=== PATIENT | female | born 1945 | race Caucasian/White ===

== ENCOUNTER 2021-07-10 08:58 | Inpatient (IN) | payer MEDICARE, OTHER ==
[2021-07-10] MEDS ORDERED: Sodium Chloride 0.9% 1000 ML 1,000 ML IV SCH (09:45)
--- NOTE | 2021-07-10 10:12 | XRAY ---
Indication: Status post fall. Multiple contiguous axial images obtained through the head without contrast. Comparison: None Normal appearing brain parenchyma, ventricles, and bony calvarium for patient's age. Visualized paranasal sinuses and mastoid air cells are clear. Impression: Normal CT head without contrast exam.
--- NOTE | 2021-07-10 10:14 | XRAY ---
Indication: Status post fall. Multiple contiguous axial images obtained through the cervical spine. Sagittal and coronal reformatted images obtained. Comparison: None Axial images negative for acute fracture, suspicious bony lesions, or spinal canal stenosis. Minimal C4-C7 degenerative endplate spurring. Sagittal and coronal reformatted images demonstrates normal alignment. Mild C4-C7 degenerative disc space loss. No acute compression fracture, subluxation, or jumped facet. Normal appearing craniocervical junction. Visualized noncontrasted soft tissues demonstrates mild bilateral carotid calcifications and mild biapical pleural parenchymal fibrosis/scarring. Impression: 1. C4-C7 degenerative changes, bilateral carotid calcifications, and biapical pleural parenchymal fibrosis/scarring. 2. Remaining CT cervical spine is negative.
[2021-07-10 10:15] LABS: Absolute Neutrophil Ct (ANC) 5.34 (1.4-6.9); Basophil (Absolute #) 0.04 (0-0.4); Eosinophil % 0.7 % (0.00-5.0); Eosinophil (Absolute #) 0.05 (0-0.5); Hematocrit 37.7 % (35-47); Hemoglobin 12.2 gm/dl (12.0-16.0); Lymphocyte (Absolute #) 1.64 (1.0-4.6); Lymphocytes % 21.9 % (24.0-44.0); Mean Cell Volume 97.7 fl (78-100); Mean Corpuscular Hemoglobin 31.6 pg (26-32); Mean Corpuscular Hgb Concent. 32.4 g/dl (32-36); Mean Platelet Volume 10.8 fl (7.5-11.0); Monocyte (Absolute #) 0.41 (0.0-1.3); Monocytes % 5.5 % (0.0-12.0); Neutrophil % 71.4 % (36.0-66.0); Platelet Count 264 K/mm3 (150-450); Red Blood Count 3.86 M/mm3 (4.1-5.4); Red Cell Distribution Width 13.7 % (11.5-14.0); White Blood Count 7.5 K/mm3 (4.0-10.5)
[2021-07-10] MEDS ORDERED: Sodium Chloride 0.9% 1000 ML 1,000 ML ONE (10:19)
[2021-07-10 10:29] LABS: ALBUMIN 4.5 g/dL (3.5-5.0); ALKALINE PHOSPHATASE 66 U/L (38-126); ANION GAP 13.1 MEQ/L (5-15); BLOOD UREA NITROGEN 15 mg/dL (7-17); CHLORIDE 102 mmol/L (98-107); CK-Creatinine Phosphokinase 90 U/L (30-135); Carbon Dioxide 27 mmol/L (22-30); EST GLOMERULAR FILTRATION RATE > 60.0 ML/MIN; Glucose 94 mg/dL (74-106); NT PRO BNP 468 pg/mL (0-1800); Potassium 3.4 mmol/L (3.5-5.1); SGOT/AST 26 U/L (14-36); SGPT/ALT 18 U/L (0-35); SODIUM 139 mmol/L (137-145); Total Protein 7.7 g/dL (6.3-8.2)
[2021-07-10 11:55] LABS: INFLUENZA A NEGATIVE (NEGATIVE); INFLUENZA B NEGATIVE (NEGATIVE); RESPIRATORY SYNCTIAL VIRUS NEGATIVE (Negative); SARS-CoV-2 Xpert Express NEGATIVE (NEGATIVE)
--- NOTE | 2021-07-10 12:50 | ERPHSYRPT ---
- History of Present Illness Time Seen by Provider: 07/10/21 09:31 Source: patient, EMS Exam Limitations: no limitations Patient Subjective Stated Complaint: HTN-weakness Triage Nursing Assessment: Patient brought into ED via EMS and transferred to bed with assist of 2. Patient A+O X 3. Patient's skin pink, warm and dry. Patient states this am she had a syncopal episode. Patient states for the past 3 weeks she has been having issues with her blood pressure fluctuating. Patient denies pain or discomfort. Patient complains of dizziness when standing. Physician History: 76 years old female with history of orthostatic hypotension on midodrine brought in the ER with chief complaint of off-and-on falls with syncopal episodes for the last 3 weeks. She recently have changes done in her medications. Patient reports she used bathroom earlier this morning and then while going back she collapsed for unknown amount of time and found herself later lying on the floor with her walker on top of her. She was able to drag herself to the bedroom. She does not remember hitting her head. Patient feels weak fatigued and tired with lack of energy. Patient denies any chest pain palpitations or shortness of breath. Denies any numbness tingling or focal weakness. Denies vomiting or diarrhea. Witnessed: unwitnessed Prior Episodes: single episode today Timing/Duration: today Precipitating Factors: lightheadedness Context: standing, activity Loss of Consciousness: prolonged (minutes) Charcter of event(s): collapsed, became unresponsive Allergies/Adverse Reactions: mold Allergy (Verified 07/10/21 09:04) Penicillins Allergy (Verified 07/10/21 09:04) pollen extracts Allergy (Verified 07/10/21 09:04) [id number] Reductase Inhibitor Allergy (Verified 07/10/21 09:04) Home Medications: Acetaminophen [Tylenol Arthritis] 650 mg PO Q8HPRN PRN 07/10/21 [History] Aspirin 81 gm Chew [Baby Aspirin 81 mg Chew] 81 mg PO DAILY 07/10/21 [History] Calcium Carbonate/Vitamin D3 [Calcium 600-Vit D3 200 Tablet] 1 tab PO BID 07/10/21 [History] Cholecalciferol (Vitamin D3) [Vitamin D3] 5,000 unit PO DAILY 07/10/21 [History] Elderberry Fruit and Flower [Black Elderberry 575 mg Cap] 1 each PO DAILY 07/10/21 [History] Fludrocortisone Acetate 0.1 mg PO DAILY 07/10/21 [History] Hydroxychloroquine Sulfate 200 mg PO BID 07/10/21 [History] Loratadine 10 mg [Claritin 10 mg] 10 tab PO DAILY 07/10/21 [History] Methylphenidate 5 mg [Ritalin 5 MG] 10 mg PO DAILY 07/10/21 [History] Midodrine HCl 5 mg [Proamatine 5 mg] 5 mg PO 1200,1700 07/10/21 [History] Midodrine HCl 5 mg [Proamatine 5 mg] 10 mg PO DAILY 07/10/21 [History] Multivit-Min/Ascorbic/Herb 124 [Airborne Chewable Tablet] 1 each PO DAILY 07/10/21 [History] Multivit-Min/FA/Lycopen/Lutein [Centrum Silver Tablet] 1 each PO DAILY 07/10/21 [History] Trolamine Salicylate [Aspercreme] 1 applic TP DAILY 07/10/21 [History] Hx Influenza Vaccination/Date Given: No Hx Pneumococcal Vaccination/Date Given: No Immunizations Up to Date: Yes Travel Risk - International Travel Have you traveled outside of the country in past 3 weeks: No - Coronavirus Screening Are you exhibiting any of the following symptoms?: No Close contact with a COVID-19 positive Pt in past 14-21 Days: No - Vaccine Status Have you recieved a Covid-19 vaccination: Yes Project Administrator: Moderna - Vaccination Dates Date of 2cond Vaccination (if applicable): July 2020 - Past Medical History Cardiac History: High Cholesterol Musculoskeletal History: Fibromyalgia, Osteoporosis GI Medical History: Diverticulitis Other Medical History: Anemia, Essential tremor, chronic low back pain, metabolic disorder, Myoclonus, Primary generalized hyperthrophic osteoarthrosis, Raynauds disease, sicca syndrome, lupus - Past Surgical History Past Surgical History: Yes Neuro Surgical History: No Pertinent History Cardiac: No Pertinent History Gastrointestinal: No Pertinent History Genitourinary: No Pertinent History Musculoskeletal: No Pertinent History Female Surgical History: Hysterectomy - Social History Smoking Status: Never smoker Exposure to second hand smoke: No Drug Use: none Patient Lives Alone: Yes (family staying with pt) - Review of Systems Constitutional: Fatigue, Weakness Eyes: No Symptoms Ears, Nose, & Throat: No Symptoms Respiratory: No Symptoms Cardiac: No Symptoms Abdominal/Gastrointestinal: No Symptoms Genitourinary Symptoms: No Symptoms Musculoskeletal: No Symptoms Skin: No Symptoms Neurological: Dizziness Psychological: No Symptoms, Hallucinations Hematologic/Lymphatic: No Symptoms Immunological/Allergic: No Symptoms Physical Exam - Nursing Vital Signs Nursing Vital Signs: Initial Vital Signs Temperature 98.5 F 07/10/21 09:12 Pulse Rate 88 07/10/21 09:12 Respiratory Rate 17 07/10/21 09:12 Blood Pressure 160/95 07/10/21 09:12 O2 Sat by Pulse Oximetry 98 07/10/21 09:12 Pain Scale Pain Intensity 0 - Carlos Coma Scale Best Eye Response (Jack): (4) open spontaneously Best Verbal Response (Carlos): (5) oriented Best Motor Response (Jack): (6) obeys commands Jack Total: 15 - Physical Exam General Appearance: no apparent distress, alert Eye Exam: bilateral eye: normal inspection, PERRL, EOMI Ears, Nose, Throat Exam: normal ENT inspection, TMs normal, pharynx normal, moist mucous membranes Neck Exam: normal inspection, non-tender, supple, full range of motion Respiratory: normal breath sounds, lungs clear Cardiovascular: regular rate/rhythm, normal heart sounds Gastrointestinal: soft, normal bowel sounds, No tenderness Back Exam: normal inspection, normal range of motion Extremity Exam: normal inspection, normal range of motion Mental Status: alert, oriented x 3, 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 issue clerk Exam: normal speech, PERRL, No facial asymmetry Coordination/Gait: normal finger to nose, normal cerebellar function Motor/Sensory: no motor deficit, no sensory deficit, no pronator drift, negative Babinski's sign DTR: bicep (R): 2+, bicep (L): 2+, knee (R): 2+, knee (L): 2+ Skin Exam: normal color SpO2 Interpretation: normal SpO2: 98 O2 Delivery: Room Air - Course EKG Interpreted by Me: RATE (98), Sinus Rhythm, NORMAL AXIS, prolonged QT interval, Q-wave Ordered Tests: Active Orders 24 hr Category Date Time Status Bedrest ROUTINE Activity 07/10/21 13:05 Active Up With Assistance ROUTINE Activity 07/10/21 13:05 Active Certified Master Locksmith STAT Care 07/10/21 09:33 Completed Code Status Order ROUTINE Care 07/10/21 13:05 Active EKG-ER Only STAT Care 07/10/21 09:32 Completed Fall Protocol Q1H Care 07/10/21 13:05 Active IV Care Q6H Care 07/10/21 13:05 Active IV Insertion STAT Care 07/10/21 09:32 Completed Neuro Checks Q4H Care 07/10/21 13:05 Active Orthostatic Vital Signs STAT Care 07/10/21 09:[address] in Observation ROUTINE Care 07/10/21 13:05 Active Pulse Oximetry (ED) STAT Care 07/10/21 09:32 Completed Dale Trejo, Apply ROUTINE Care 07/10/21 13:05 Active Weight,Daily 0600 Care 07/10/21 13:05 Active Tele-Health Consult ROUTINE Cons 07/10/21 11:59 Completed House Regular Diet Diet 07/10/21 Dinner Active CERVICAL SPINE WO CONTRAST [CT] Stat Exams 07/10/21 09:32 Completed CHEST 1 VIEW (PORTABLE) Stat Exams 07/10/21 09:33 Taken HEAD WITHOUT CONTRAST [CT] Stat Exams 07/10/21 09:32 Completed CBC W DIFF AM.LAB Lab 07/11/21 04:00 Ordered CBC W DIFF Stat Lab 07/10/21 08:36 Completed CK-Creatinine Phosphokinase Stat Lab 07/10/21 08:36 Completed CMP AM.LAB Lab 07/11/21 04:00 Ordered CMP Stat Lab 07/10/21 08:36 Completed MAG [MAGNESIUM] Stat Lab 07/10/21 08:36 Completed NT PRO BNP Stat Lab 07/10/21 08:36 Completed TROPONIN Q3H Lab 07/10/21 08:36 Completed TROPONIN Q3H Lab 07/10/21 12:59 Completed TROPONIN Q3H Lab 07/10/21 15:43 Completed TROPONIN Q3H Lab 07/10/21 19:00 Completed TROPONIN Q3H Lab 07/10/21 21:45 Ordered Transfer Order Routine Transfer 07/10/21 Completed Medication Summary Generic Name Dose Route Start Last Admin Trade Name Freq PRN Reason Stop Dose Admin Acetaminophen 650 mg 07/10/21 13:05 07/10/21 14:16 Acetaminophen 325 Mg Tablet PO 08/09/21 13:04 650 mg Q4H PRN PRN Administration PAIN AND/OR FEVER Aspirin 81 mg 07/10/21 18:00 02/10/22 18:02 Aspirin 81 Mg Tablet.Ec PO 08/09/21 17:59 81 mg DAILY KRISTYN Administration Calcium Carbonate 1 tab 07/10/21 22:00 Calcium Carbonate 500 Mg/Vitamin D 1 Tab Tablet PO 08/09/21 21:59 BID KRISTYN Cholecalciferol 5,000 unit 07/10/21 18:00 07/10/21 18:03 Cholecalciferol (Vitamin D3) 1000 Unit Tablet PO 08/09/21 17:59 5,000 unit DAILY KRISTYN Administration Loratadine 10 mg 07/10/21 18:00 07/10/21 18:03 Loratadine 10 Mg Tablet PO 08/09/21 17:59 10 mg DAILY KRISTYN Administration Methylphenidate HCl 10 mg 07/11/21 10:00 Methylphenidate 5 Mg Tab PO 07/16/21 09:59 DAILY KRISTYN Midodrine 5 mg 07/10/21 18:00 07/10/21 18:03 Midodrine Hcl 5 Mg Tablet PO 08/09/21 17:59 5 mg 1200,1700 KRISTYN Administration Midodrine 10 mg 07/11/21 08:00 Midodrine Hcl 5 Mg Tablet PO 08/10/21 07:59 0800 [facility] Miscellaneous Information 1 each 07/10/21 17:30 Medication Intervention 1 Each Each PO 08/09/21 17:29 .RN TO CHECK ON [facility] Multivitamins Therapeutic 1 tab 07/10/21 18:00 07/10/21 18:03 Multivitamins,Therapeutic 1 Tab Tab PO 08/09/21 17:59 1 tab DAILY KRISTYN Administration Hydroxychloroquine 1 each 07/10/21 22:00 200mg Tablet PO 08/09/21 21:59 BID KRISTYN Non-Formulary Medication 1 each 07/11/21 10:00 Non-Formulary Drug 1 Each Each PO 08/10/21 09:59 DAILY KRISTYN Non-Formulary Medication 2 each 07/10/21 22:00 Non-Formulary Drug 1 Each Each PO 08/09/21 21:59 HS [facility] Ondansetron HCl 4 mg 07/10/21 13:05 Ondansetron Hcl 4 Mg/2 Ml Vial IV 08/09/21 13:04 Q6H PRN PRN NAUSEA/VOMITING Pantoprazole Sodium 40 mg 07/10/21 14:00 07/10/21 14:16 Pantoprazole 40 Mg Vial IV 08/09/21 13:59 40 mg Q24H10 KRISTYN Administration Trolamine Salicylate 0 gm 07/11/21 10:00 07/10/21 18:06 Trolamine Salicylate 90 Gm Cream TP 08/10/21 09:59 90 gm DAILY KRISTYN Administration Discontinued Medications Generic Name Dose Route Start Last Admin Trade Name Freq PRN Reason Stop Dose Admin Albuterol/Ipratropium 3 ml 07/10/21 13:05 Ipratropium/Albuterol Sulfate 3 Ml Ampul.Neb IH 08/09/21 13:04 Q4HPRN PRN SHORTNESS OF BREATH/WHEEZING Sodium Chloride 1,000 mls @ 125 mls/hr 07/10/21 09:45 07/10/21 10:20 Sodium Chloride 0.9% 1000 Ml IV 08/09/21 09:44 125 mls/hr .Q8H KRISTYN Administration Sodium Chloride Confirm 07/10/21 10:19 Sodium Chloride 0.9% 1000 Ml Administered 07/10/21 10:20 Dose 1,000 mls @ ud .ROUTE .STK-MED ONE Melatonin 1.5 mg 07/10/21 17:25 Melatonin 3 Mg Tablet PO 08/09/21 17:24 HS PRN PRN INSOMNIA Lab/Rad Data: Laboratory Result Diagrams 07/10/21 08:36 07/10/21 08:36 Laboratory Results 07/10/21 07/10/21 07/10/21 Range/Units 12:59 11:13 08:36 WBC (4.0-10.5) K/mm3 RBC (4.1-5.4) M/mm3 Hgb (12.0-16.0) gm/dl Hct (35-47) % MCV (78-100) fl MCH (26-32) pg MCHC (32-36) g/dl RDW (11.5-14.0) % Plt Count (150-450) K/mm3 MPV (7.5-11.0) fl Gran % (36.0-66.0) % Eos # (Auto) (0-0.5) Absolute Lymphs (auto) (1.0-4.6) Absolute Monos (auto) (0.0-1.3) Lymphocytes % (24.0-44.0) % Monocytes % (0.0-12.0) % Eosinophils % (0.00-5.0) % Basophils % (0.0-0.4) % Absolute Granulocytes (1.4-6.9) Basophils # (0-0.4) Sodium (137-145) mmol/L Potassium (3.5-5.1) mmol/L Chloride (98-107) mmol/L Carbon Dioxide (22-30) mmol/L Anion Gap (5-15) MEQ/L BUN (7-17) mg/dL Creatinine (0.52-1.04) mg/dL Estimated GFR ML/MIN Glucose (74-106) mg/dL Calcium (8.4-10.2) mg/dL Magnesium (1.6-2.3) mg/dL Total Bilirubin (0.2-1.3) mg/dL AST (14-36) U/L ALT (0-35) U/L Alkaline Phosphatase (38-126) U/L Creatine Kinase (30-135) U/L Troponin I < 0.012 < 0.012 (0.000-0.034) ng/mL NT-Pro-B Natriuret Pep (0-1800) pg/mL Serum Total Protein (6.3-8.2) g/dL Albumin (3.5-5.0) g/dL Influenza Type A Ag NEGATIVE (NEGATIVE) Influenza Type B Ag NEGATIVE (NEGATIVE) RSV (PCR) NEGATIVE (Negative) SARS-CoV-2 (PCR) NEGATIVE (NEGATIVE) 07/10/21 07/10/21 07/10/21 Range/Units 08:36 08:36 08:36 WBC 7.5 (4.0-10.5) K/mm3 RBC 3.86 L (4.1-5.4) M/mm3 Hgb 12.2 (12.0-16.0) gm/dl Hct 37.7 (35-47) % MCV 97.7 (78-100) fl MCH 31.6 (26-32) pg MCHC 32.4 (32-36) g/dl RDW 13.7 (11.5-14.0) % Plt Count 264 (150-450) K/mm3 MPV 10.8 (7.5-11.0) fl Gran % 71.4 H (36.0-66.0) % Eos # (Auto) 0.05 (0-0.5) Absolute Lymphs (auto) 1.64 (1.0-4.6) Absolute Monos (auto) 0.41 (0.0-1.3) Lymphocytes % 21.9 L (24.0-44.0) % Monocytes % 5.5 (0.0-12.0) % Eosinophils % 0.7 (0.00-5.0) % Basophils % 0.5 (0.0-0.4) % Absolute Granulocytes 5.34 (1.4-6.9) Basophils # 0.04 (0-0.4) Sodium 139 (137-145) mmol/L Potassium 3.4 L (3.5-5.1) mmol/L Chloride 102 (98-107) mmol/L Carbon Dioxide 27 (22-30) mmol/L Anion Gap 13.1 (5-15) MEQ/L BUN 15 (7-17) mg/dL Creatinine 0.80 (0.52-1.04) mg/dL Estimated GFR > 60.0 ML/MIN Glucose 94 (74-106) mg/dL Calcium 9.0 (8.4-10.2) mg/dL Magnesium 2.2 (1.6-2.3) mg/dL Total Bilirubin 0.50 (0.2-1.3) mg/dL AST 26 (14-36) U/L ALT 18 (0-35) U/L Alkaline Phosphatase 66 (38-126) U/L Creatine Kinase 90 (30-135) U/L Troponin I (0.000-0.034) ng/mL NT-Pro-B Natriuret Pep 468 (0-1800) pg/mL Serum Total Protein 7.7 (6.3-8.2) g/dL Albumin 4.5 (3.5-5.0) g/dL Influenza Type A Ag (NEGATIVE) Influenza Type B Ag (NEGATIVE) RSV (PCR) (Negative) SARS-CoV-2 (PCR) (NEGATIVE) - Progress Progress: improved Progress Note: 07/10/21 12:49 Patient has positive orthostatics in the ER. Given fluids. CT head and cervical spine negative. EKG showed sinus rhythm without any acute ischemic changes. Negative initial troponin. Grossly unremarkable chemistries except for mildly low potassium. Discussed with Dr. Looney, recommended neuro consult which is obtained in the ER and do not think patient has any neuro cause of her symptoms and more of related to orthostasis. Patient is admitted for observation. \ Discussed with : Nancy Will see patient in: hospital (observation) Counseled pt/family regarding: lab results, diagnosis, need for follow-up - Departure Departure Disposition: Observation Clinical Impression: Syncope and collapse, Orthostatic hypotension Condition: Stable Critical Care Time: No
[2021-07-10] MEDS ORDERED: DUONEB 0.5-3 MG/3 ml Neb IH PRN (13:05)
[2021-07-10] MEDS ORDERED: Zofran 4 MG/2 ML VIAL IV PRN (13:05)
[2021-07-10] MEDS: TYLENOL 325 MG PO PRN (14:16)
[2021-07-10] MEDS: PROTONIX 40 MG IV IV SCH (14:16)
[2021-07-10] MEDS ORDERED: MELATONIN 1 MG PO PRN (17:18)
[2021-07-10] MEDS ORDERED: MELATONIN PO PRN (17:25)
[2021-07-10] MEDS ORDERED: MEDICATION INTERVENTION PO SCH (17:30)
[2021-07-10] MEDS ORDERED: PROAMATINE 5 MG PO SCH (18:00)
[2021-07-10] MEDS: ECOTRIN 81 MG PO SCH (18:02)
[2021-07-10] MEDS: THERAGRAN MULTIVITAMIN PO SCH (18:03)
[2021-07-10] MEDS: VITAMIN D PO SCH (18:03)
[2021-07-10] MEDS: CLARITIN 10 MG PO SCH (18:03)
[2021-07-10] MEDS: [UNRECOGNIZED DRUG - OTHER] TP SCH (18:06)
[2021-07-10] MEDS ORDERED: NON-FORMULARY ITEM (Calcium Carbonate/Vitamin D3 [Calcium 600-Vit D3 200 Tablet] 1 EACH Ta PO SCH (22:00)
[2021-07-10] MEDS ORDERED: NON-FORMULARY ITEM (Hydroxychloroquine Sulfate [Hydroxychloroquine Sulfate] 200 MG Tablet) PO SCH (22:00)
[2021-07-10] MEDS ORDERED: NON-FORMULARY ITEM PO SCH (22:00)
[2021-07-10] MEDS: NON-FORMULARY ITEM PO SCH (22:07)
[2021-07-10] MEDS: Calcium 500MG W/Vit D Tablet PO SCH (22:07)
[2021-07-11 05:17] LABS: Absolute Neutrophil Ct (ANC) 4.06 (1.4-6.9); Basophil (Absolute #) 0.05 (0-0.4); Eosinophil % 1.8 % (0.00-5.0); Eosinophil (Absolute #) 0.12 (0-0.5); Hematocrit 33.8 % (35-47); Hemoglobin 10.8 gm/dl (12.0-16.0); Lymphocyte (Absolute #) 1.89 (1.0-4.6); Lymphocytes % 28.9 % (24.0-44.0); Mean Cell Volume 98.5 fl (78-100); Mean Corpuscular Hemoglobin 31.5 pg (26-32); Mean Platelet Volume 10.8 fl (7.5-11.0); Monocyte (Absolute #) 0.42 (0.0-1.3); Monocytes % 6.4 % (0.0-12.0); Neutrophil % 62.1 % (36.0-66.0); Platelet Count 226 K/mm3 (150-450); Red Blood Count 3.43 M/mm3 (4.1-5.4); Red Cell Distribution Width 13.8 % (11.5-14.0); White Blood Count 6.5 K/mm3 (4.0-10.5)
[2021-07-11 05:37] LABS: ALBUMIN 3.9 g/dL (3.5-5.0); ALKALINE PHOSPHATASE 52 U/L (38-126); ANION GAP 8.9 MEQ/L (5-15); BLOOD UREA NITROGEN 13 mg/dL (7-17); CHLORIDE 104 mmol/L (98-107); Calcium 8.9 mg/dL (8.4-10.2); Carbon Dioxide 27 mmol/L (22-30); Creatinine 1 0.73 mg/dL (0.52-1.04); EST GLOMERULAR FILTRATION RATE > 60.0 ML/MIN; Glucose 90 mg/dL (74-106); Potassium 3.1 mmol/L (3.5-5.1); SGOT/AST 24 U/L (14-36); SGPT/ALT 15 U/L (0-35); SODIUM 137 mmol/L (137-145); Total Protein 6.8 g/dL (6.3-8.2)
[2021-07-11] MEDS: TYLENOL 325 MG PO PRN ×2 (06:00→17:03)
[2021-07-11 06:28] LABS: Vitamin B12 796 pg/mL (239-931)
[2021-07-11] MEDS ORDERED: PROAMATINE 5 MG PO SCH (08:00)
[2021-07-11] MEDS ORDERED: MULTIVIT MIN PO SCH (10:00)
[2021-07-11] MEDS ORDERED: [UNRECOGNIZED DRUG - OTHER] PO SCH (10:00)
[2021-07-11] MEDS ORDERED: NON-FORMULARY ITEM (Multivit-Min/Fa/Lycopen/Lutein [Centrum Silver Tablet] 1 EACH Tablet) PO SCH (10:00)
[2021-07-11] MEDS ORDERED: [UNRECOGNIZED DRUG - OTHER] PO SCH (10:00)
[2021-07-11] MEDS ORDERED: CHOLECALCIFEROL 125 MCG PO SCH (10:00)
[2021-07-11] MEDS ORDERED: ELDERBERRY FRUIT AND FLOWER PO SCH (10:00)
[2021-07-11] MEDS ORDERED: FLORINEF PO SCH (10:00)
[2021-07-11] MEDS ORDERED: K-LYTE 25 MEQ PO ONE (10:05)
[2021-07-11] MEDS: [UNRECOGNIZED DRUG - OTHER] TP SCH (10:10)
[2021-07-11] MEDS: ECOTRIN 81 MG PO SCH (10:11)
[2021-07-11] MEDS: Calcium 500MG W/Vit D Tablet PO SCH ×2 (10:11→21:11)
[2021-07-11] MEDS: CLARITIN 10 MG PO SCH (10:11)
[2021-07-11] MEDS: NON-FORMULARY ITEM PO SCH ×2 (10:11→21:14)
[2021-07-11] MEDS: PATIENT OWN MEDICATION PO SCH ×2 (10:12→21:11)
[2021-07-11] MEDS: Ritalin 5 MG PO SCH (10:12)
[2021-07-11] MEDS: THERAGRAN MULTIVITAMIN PO SCH (10:12)
[2021-07-11] MEDS: PROTONIX 40 MG IV IV SCH (10:12)
--- NOTE | 2021-07-11 10:12 | PCM.HP ---
History of Present Illness - Chief Complaint Chief Complaint: Syncope and collapse History of Present Illness: is a 76 year old female patient of mine admitted through ER for syncope/falls. She has multiple satnam issues including Lupus,SICCA,Raynauds,Myoclonus,chronic anemia,chronic LBP and Orthostatic Hypotension on Midodrine. She is followed by Test Lead Dr Herrera. Patient reports day before admission her B/P-pulse readings were lying down 141/80-86,seated 162/91-87 standing 92/56-101. Patient states she is taking her meds as prescribed. Patient denies any focal neuro changes or headache or fever or recent illness. - Review of Systems Constitutional: Fatigue, Weakness Eyes: No Symptoms Ears, Nose, & Throat: No Symptoms Respiratory: No Symptoms Cardiac: Syncope, Orthopnea Abdominal/Gastrointestinal: No Symptoms Genitourinary Symptoms: No Symptoms Musculoskeletal: Arthralgias, Back Pain (chronic) Skin: No Symptoms Neurological: Tremors (chronic,episodic) Medications & Allergies Home Medications: Home Medication List Acetaminophen [Tylenol Arthritis] 650 mg PO Q8HPRN PRN 07/10/21 [History Confirmed 07/10/21] Aspirin 81 gm Chew [Baby Aspirin 81 mg Chew] 81 mg PO DAILY 07/10/21 [History Confirmed 07/10/21] Calcium Carbonate/Vitamin D3 [Calcium 600-Vit D3 200 Tablet] 1 tab PO BID 07/10/21 [History Confirmed 07/10/21] Cholecalciferol (Vitamin D3) [Vitamin D3] 5,000 unit PO DAILY 07/10/21 [History Confirmed 07/10/21] Elderberry Fruit and Flower [Black Elderberry 575 mg Cap] 1 each PO DAILY 07/10/21 [History Confirmed 07/10/21] Fludrocortisone Acetate 0.1 mg PO DAILY 07/10/21 [History Confirmed 07/10/21] Hydroxychloroquine Sulfate 200 mg PO BID 07/10/21 [History Confirmed 07/10/21] Loratadine 10 mg [Claritin 10 mg] 10 tab PO DAILY 07/10/21 [History Confirmed 07/10/21] Methylphenidate 5 mg [Ritalin 5 MG] 10 mg PO DAILY 07/10/21 [History Confirmed 07/10/21] Midodrine HCl 5 mg [Proamatine 5 mg] 10 mg PO TID 07/10/21 [History Confirmed 07/10/21] Multivit-Min/Ascorbic/Herb 124 [Airborne Chewable Tablet] 1 each PO DAILY 07/10/21 [History Confirmed 07/10/21] Multivit-Min/FA/Lycopen/Lutein [Centrum Silver Tablet] 1 each PO DAILY 07/10/21 [History Confirmed 07/10/21] Trolamine Salicylate [Aspercreme] 1 applic TP DAILY 07/10/21 [History Confirmed 07/10/21] Allergies/Adverse Reactions: Allergies Allergy/AdvReac Type Severity Reaction Status Date / Time mold Allergy Verified 07/10/21 09:04 Penicillins Allergy Verified 07/10/21 09:04 pollen extracts Allergy Verified 07/10/21 09:04 [id number] Reductase Allergy Verified 07/10/21 09:04 Inhibitor - Past Medical History Past Medical History: Yes Neurological History: No Pertinent History ENT History: No Pertinent History Cardiac History: High Cholesterol Respiratory History: No Pertinent History Endocrine Medical History: No Pertinent History Musculoskelatal History: Fibromyalgia, Osteoporosis GI Medical History: Diverticulitis History: No Pertinent History Pyscho-Social History: No Pertinent History Reproductive Disorders: No Pertinent History Comment: Anemia, Essential tremor, chronic low back pain, metabolic disorder, Myoclonus, Primary generalized hyperthrophic osteoarthrosis, Raynauds disease, sicca syndrome, lupus - Past Surgical History Past Surgical History: Yes Neuro Surgical History: No Pertinent History Cardiac History: No Pertinent History Respiratory Surgery: No Pertinent History GI Surgical History: No Pertinent History Genitourinary Surgical Hx: No Pertinent History Musculskeletal Surgical Hx: No Pertinent History Female Surgical History: Hysterectomy - Social History Smoking Status: Never smoker Exposure to second hand smoke: No Alcohol: None Drug Use: none - Physical Exam Vital Signs: Vital Signs - 24 hr Temp Pulse Resp BP Pulse Ox 07/11/21 08:00 97.7 F 85 18 136/82 96 07/11/21 04:00 97.5 F 102 H 18 162/87 98 07/11/21 00:00 97.8 F 80 19 148/83 96 07/10/21 21:47 98 07/10/21 20:00 20 07/10/21 19:47 97.5 F 93 H 20 108/59 95 07/10/21 16:00 97.7 F 91 H 16 130/74 95 07/10/21 13:08 97.9 F 92 H 20 146/79 98 07/10/21 12:04 98 H 18 141/82 98 07/10/21 11:55 97 H 18 169/101 99 07/10/21 10:36 89 18 163/92 97 General Appearance: no apparent distress, anxiety Neurologic Exam: alert, oriented x 3, cooperative, investigation division captain II-XII nml as tested Eye Exam: eyes nml inspection Ears, Nose, Throat Exam: normal ENT inspection, moist mucous membranes Neck Exam: normal inspection Respiratory Exam: normal breath sounds Cardiovascular Exam: regular rate/rhythm Gastrointestinal/Abdomen Exam: soft (nontender) Pelvic Exam: not done Rectal Exam: not done Back Exam: normal inspection Extremity Exam: normal inspection Skin Exam: normal color, warm, dry Results - Labs Lab/Micro Results: Lab Results-Last 24 Hours 07/10/21 07/10/21 07/10/21 Range/Units 08:36 08:36 08:36 WBC 7.5 (4.0-10.5) K/mm3 RBC 3.86 L (4.1-5.4) M/mm3 Hgb 12.2 (12.0-16.0) gm/dl Hct 37.7 (35-47) % MCV 97.7 (78-100) fl MCH 31.6 (26-32) pg MCHC 32.4 (32-36) g/dl RDW 13.7 (11.5-14.0) % Plt Count 264 (150-450) K/mm3 MPV 10.8 (7.5-11.0) fl Gran % 71.4 H (36.0-66.0) % Eos # (Auto) 0.05 (0-0.5) Absolute Lymphs (auto) 1.64 (1.0-4.6) Absolute Monos (auto) 0.41 (0.0-1.3) Lymphocytes % 21.9 L (24.0-44.0) % Monocytes % 5.5 (0.0-12.0) % Eosinophils % 0.7 (0.00-5.0) % Basophils % 0.5 (0.0-0.4) % Absolute Granulocytes 5.34 (1.4-6.9) Basophils # 0.04 (0-0.4) Sodium 139 (137-145) mmol/L Potassium 3.4 L (3.5-5.1) mmol/L Chloride 102 (98-107) mmol/L Carbon Dioxide 27 (22-30) mmol/L Anion Gap 13.1 (5-15) MEQ/L BUN 15 (7-17) mg/dL Creatinine 0.80 (0.52-1.04) mg/dL Estimated GFR > 60.0 ML/MIN Glucose 94 (74-106) mg/dL Calcium 9.0 (8.4-10.2) mg/dL Magnesium 2.2 (1.6-2.3) mg/dL Total Bilirubin 0.50 (0.2-1.3) mg/dL AST 26 (14-36) U/L ALT 18 (0-35) U/L Alkaline Phosphatase 66 (38-126) U/L Creatine Kinase 90 (30-135) U/L Troponin I (0.000-0.034) ng/mL NT-Pro-B Natriuret Pep 468 (0-1800) pg/mL Serum Total Protein 7.7 (6.3-8.2) g/dL Albumin 4.5 (3.5-5.0) g/dL Vitamin B12 (239-931) pg/mL TSH 3rd Generation (0.47-4.68) mIU/L Influenza Type A Ag (NEGATIVE) Influenza Type B Ag (NEGATIVE) RSV (PCR) (Negative) SARS-CoV-2 (PCR) (NEGATIVE) 07/10/21 07/10/21 07/10/21 Range/Units 08:36 11:13 12:59 WBC (4.0-10.5) K/mm3 RBC (4.1-5.4) M/mm3 Hgb (12.0-16.0) gm/dl Hct (35-47) % MCV (78-100) fl MCH (26-32) pg MCHC (32-36) g/dl RDW (11.5-14.0) % Plt Count (150-450) K/mm3 MPV (7.5-11.0) fl Gran % (36.0-66.0) % Eos # (Auto) (0-0.5) Absolute Lymphs (auto) (1.0-4.6) Absolute Monos (auto) (0.0-1.3) Lymphocytes % (24.0-44.0) % Monocytes % (0.0-12.0) % Eosinophils % (0.00-5.0) % Basophils % (0.0-0.4) % Absolute Granulocytes (1.4-6.9) Basophils # (0-0.4) Sodium (137-145) mmol/L Potassium (3.5-5.1) mmol/L Chloride (98-107) mmol/L Carbon Dioxide (22-30) mmol/L Anion Gap (5-15) MEQ/L BUN (7-17) mg/dL Creatinine (0.52-1.04) mg/dL Estimated GFR ML/MIN Glucose (74-106) mg/dL Calcium (8.4-10.2) mg/dL Magnesium (1.6-2.3) mg/dL Total Bilirubin (0.2-1.3) mg/dL AST (14-36) U/L ALT (0-35) U/L Alkaline Phosphatase (38-126) U/L Creatine Kinase (30-135) U/L Troponin I < 0.012 < 0.012 (0.000-0.034) ng/mL NT-Pro-B Natriuret Pep (0-1800) pg/mL Serum Total Protein (6.3-8.2) g/dL Albumin (3.5-5.0) g/dL Vitamin B12 (239-931) pg/mL TSH 3rd Generation (0.47-4.68) mIU/L Influenza Type A Ag NEGATIVE (NEGATIVE) Influenza Type B Ag NEGATIVE (NEGATIVE) RSV (PCR) NEGATIVE (Negative) SARS-CoV-2 (PCR) NEGATIVE (NEGATIVE) 07/10/21 07/10/21 07/10/21 Range/Units 15:43 19:00 22:00 WBC (4.0-10.5) K/mm3 RBC (4.1-5.4) M/mm3 Hgb (12.0-16.0) gm/dl Hct (35-47) % MCV (78-100) fl MCH (26-32) pg MCHC (32-36) g/dl RDW (11.5-14.0) % Plt Count (150-450) K/mm3 MPV (7.5-11.0) fl Gran % (36.0-66.0) % Eos # (Auto) (0-0.5) Absolute Lymphs (auto) (1.0-4.6) Absolute Monos (auto) (0.0-1.3) Lymphocytes % (24.0-44.0) % Monocytes % (0.0-12.0) % Eosinophils % (0.00-5.0) % Basophils % (0.0-0.4) % Absolute Granulocytes (1.4-6.9) Basophils # (0-0.4) Sodium (137-145) mmol/L Potassium (3.5-5.1) mmol/L Chloride (98-107) mmol/L Carbon Dioxide (22-30) mmol/L Anion Gap (5-15) MEQ/L BUN (7-17) mg/dL Creatinine (0.52-1.04) mg/dL Estimated GFR ML/MIN Glucose (74-106) mg/dL Calcium (8.4-10.2) mg/dL Magnesium (1.6-2.3) mg/dL Total Bilirubin (0.2-1.3) mg/dL AST (14-36) U/L ALT (0-35) U/L Alkaline Phosphatase (38-126) U/L Creatine Kinase (30-135) U/L Troponin I < 0.012 < 0.012 < 0.012 (0.000-0.034) ng/mL NT-Pro-B Natriuret Pep (0-1800) pg/mL Serum Total Protein (6.3-8.2) g/dL Albumin (3.5-5.0) g/dL Vitamin B12 (239-931) pg/mL TSH 3rd Generation (0.47-4.68) mIU/L Influenza Type A Ag (NEGATIVE) Influenza Type B Ag (NEGATIVE) RSV (PCR) (Negative) SARS-CoV-2 (PCR) (NEGATIVE) 07/11/21 07/11/21 Range/Units 04:00 04:00 WBC 6.5 (4.0-10.5) K/mm3 RBC 3.43 L (4.1-5.4) M/mm3 Hgb 10.8 L (12.0-16.0) gm/dl Hct 33.8 L (35-47) % MCV 98.5 (78-100) fl MCH 31.5 (26-32) pg MCHC 32.0 (32-36) g/dl RDW 13.8 (11.5-14.0) % Plt Count 226 (150-450) K/mm3 MPV 10.8 (7.5-11.0) fl Gran % 62.1 (36.0-66.0) % Eos # (Auto) 0.12 (0-0.5) Absolute Lymphs (auto) 1.89 (1.0-4.6) Absolute Monos (auto) 0.42 (0.0-1.3) Lymphocytes % 28.9 (24.0-44.0) % Monocytes % 6.4 (0.0-12.0) % Eosinophils % 1.8 (0.00-5.0) % Basophils % 0.8 (0.0-0.4) % Absolute Granulocytes 4.06 (1.4-6.9) Basophils # 0.05 (0-0.4) Sodium 137 (137-145) mmol/L Potassium 3.1 L (3.5-5.1) mmol/L Chloride 104 (98-107) mmol/L Carbon Dioxide 27 (22-30) mmol/L Anion Gap 8.9 (5-15) MEQ/L BUN 13 (7-17) mg/dL Creatinine 0.73 (0.52-1.04) mg/dL Estimated GFR > 60.0 ML/MIN Glucose 90 (74-106) mg/dL Calcium 8.9 (8.4-10.2) mg/dL Magnesium (1.6-2.3) mg/dL Total Bilirubin 0.50 (0.2-1.3) mg/dL AST 24 (14-36) U/L ALT 15 (0-35) U/L Alkaline Phosphatase 52 (38-126) U/L Creatine Kinase (30-135) U/L Troponin I (0.000-0.034) ng/mL NT-Pro-B Natriuret Pep (0-1800) pg/mL Serum Total Protein 6.8 (6.3-8.2) g/dL Albumin 3.9 (3.5-5.0) g/dL Vitamin B12 796 (239-931) pg/mL TSH 3rd Generation 2.530 (0.47-4.68) mIU/L Influenza Type A Ag (NEGATIVE) Influenza Type B Ag (NEGATIVE) RSV (PCR) (Negative) SARS-CoV-2 (PCR) (NEGATIVE) - Radiology Impressions Radiology Exams & Impressions: Radiology Procedures Category Date Time Status CERVICAL SPINE WO CONTRAST [CT] Stat Exams 07/10/21 09:32 Completed CHEST 1 VIEW (PORTABLE) Stat Exams 07/10/21 09:33 Taken HEAD WITHOUT CONTRAST [CT] Stat Exams 07/10/21 09:32 Completed Assessment/Plan (1) Orthostatic hypotension Current Visit: Yes Status: Chronic Assessment & Plan: Is on Midodrine per Dr Herrera,Test Lead Code(s): I95.1 - ORTHOSTATIC HYPOTENSION (2) Syncope and collapse Current Visit: Yes Status: Acute Assessment & Plan: due to orthostatic hypotension per Neruo work up and consult Code(s): R55 - SYNCOPE AND COLLAPSE (3) Fatigue Current Visit: Yes Status: Acute Assessment & Plan: generalized weakness and lethargy chronic but worse Code(s): R53.83 - OTHER FATIGUE (4) Lupus Current Visit: Yes Status: Chronic Code(s): M32.9 - SYSTEMIC LUPUS ERYTHEMATOSUS, UNSPECIFIED (5) Sicca Current Visit: Yes Status: Acute Code(s): M35.00 - SJOGREN SYNDROME, UNSPECIFIED (6) Anemia Current Visit: Yes Status: Chronic Code(s): D64.9 - ANEMIA, UNSPECIFIED (7) Myoclonus Current Visit: Yes Status: Chronic Assessment & Plan: chronic episodic Code(s): G25.3 - MYOCLONUS
[2021-07-11] MEDS: VITAMIN D PO SCH (10:13)
[2021-07-11] MEDS ORDERED: Sodium Chloride 0.9% W/ 20 mEq KCl/LITER 1,000 ML IV SCH (10:15)
[2021-07-11] MEDS: PROAMATINE 5 MG PO SCH ×2 (11:40→17:11)
[2021-07-11] MEDS: xanAX 0.25 MG PO PRN (16:44)
[2021-07-11] MEDS: CAPTOPRIL 25 MG PO SCH (21:10)
[2021-07-12 06:07] LABS: Hematocrit 34.7 % (35-47); Hemoglobin 11.3 gm/dl (12.0-16.0); Mean Cell Volume 97.7 fl (78-100); Mean Corpuscular Hemoglobin 31.8 pg (26-32); Mean Corpuscular Hgb Concent. 32.6 g/dl (32-36); Mean Platelet Volume 10.7 fl (7.5-11.0); Platelet Count 217 K/mm3 (150-450); Red Blood Count 3.55 M/mm3 (4.1-5.4); Red Cell Distribution Width 13.7 % (11.5-14.0); White Blood Count 6.7 K/mm3 (4.0-10.5)
[2021-07-12 06:22] LABS: ALBUMIN 3.7 g/dL (3.5-5.0); ALKALINE PHOSPHATASE 52 U/L (38-126); ANION GAP 9.1 MEQ/L (5-15); BLOOD UREA NITROGEN 11 mg/dL (7-17); CHLORIDE 105 mmol/L (98-107); Calcium 8.7 mg/dL (8.4-10.2); Carbon Dioxide 27 mmol/L (22-30); Creatinine 1 0.68 mg/dL (0.52-1.04); EST GLOMERULAR FILTRATION RATE > 60.0 ML/MIN; Glucose 101 mg/dL (74-106); Potassium 3.1 mmol/L (3.5-5.1); SGOT/AST 24 U/L (14-36); SGPT/ALT 14 U/L (0-35); SODIUM 138 mmol/L (137-145); Total Protein 6.6 g/dL (6.3-8.2)
[2021-07-12] MEDS: PROAMATINE 5 MG PO SCH ×2 (08:09→12:51)
--- NOTE | 2021-07-12 08:34 | PCM.NOTE ---
Date and Time: 07/12/21832 Subjective Assessment: doing ok - Review of Systems Constitutional: No Fever, No Chills Eyes: No Symptoms Ears, Nose, & Throat: No Symptoms Respiratory: No Cough, No Short Of Breath Cardiac: No Chest Pain, No Edema, No Syncope Abdominal/Gastrointestinal: No Abdominal Pain, No Nausea, No Vomiting, No Diarrhea Genitourinary Symptoms: No Dysuria Musculoskeletal: No Back Pain, No Neck Pain Skin: No Rash Neurological: No Dizziness, No Focal Weakness, No Sensory Changes Psychological: No Symptoms Endocrine: No Symptoms Hematologic/Lymphatic: No Symptoms Immunological/Allergic: No Symptoms Objective Exam General Appearance: no apparent distress, alert Neurologic Exam: alert, oriented x 3, cooperative, normal mood/affect, nml cerebellar function, sensation nml, No motor deficits Skin Exam: normal color, warm, dry Eye Exam: PERRL, EOMI, eyes nml inspection Ears, Nose, Throat Exam: normal ENT inspection, pharynx normal, moist mucous membranes Neck Exam: normal inspection, non-tender, supple, full range of motion Respiratory Exam: normal breath sounds, lungs clear, No respiratory distress Cardiovascular Exam: regular rate/rhythm, normal heart sounds Gastrointestinal/Abdomen Exam: soft, No tenderness, No mass Extremity Exam: normal inspection, normal range of motion Back Exam: normal inspection, normal range of motion, No CVA tenderness, No vertebral tenderness Pelvic Exam: deferred Rectal Exam: deferred OBJECTIVE DATA Vital Signs: Vital Signs - 24 hr Temp Pulse Resp BP Pulse Ox 07/12/21 08:06 85/54 07/12/21 08:00 97.6 F 96 H 19 141/76 98 07/12/21 04:15 98.2 F 100 H 20 148/86 97 07/11/21 23:47 98.5 F 81 16 128/65 98 07/11/21 19:58 98.4 F 86 19 155/72 98 07/11/21 16:00 97.8 F 91 H 17 188/86 97 07/11/21 12:00 98.4 F 93 H 18 179/92 99 Pain Assessment - Last Documented Pain Intensity 1 Pain Scale Used 0-10 Pain Scale Intake and Output: Intake & Output 07/09/21 07/10/21 07/11/21 07/12/21 11:59 11:59 11:59 11:59 Intake Total 1080 2060 Output Total 2700 3176 Balance -1620 -1465 Weight 61.961 kg 59.3 kg 59.5 kg Lab Results: Lab Results-Last 24 Hours 07/12/21 07/12/21 Range/Units 05:25 05:25 WBC 6.7 (4.0-10.5) K/mm3 RBC 3.55 L (4.1-5.4) M/mm3 Hgb 11.3 L (12.0-16.0) gm/dl Hct 34.7 L (35-47) % MCV 97.7 (78-100) fl MCH 31.8 (26-32) pg MCHC 32.6 (32-36) g/dl RDW 13.7 (11.5-14.0) % Plt Count 217 (150-450) K/mm3 MPV 10.7 (7.5-11.0) fl Sodium 138 (137-145) mmol/L Potassium 3.1 L (3.5-5.1) mmol/L Chloride 105 (98-107) mmol/L Carbon Dioxide 27 (22-30) mmol/L Anion Gap 9.1 (5-15) MEQ/L BUN 11 (7-17) mg/dL Creatinine 0.68 (0.52-1.04) mg/dL Estimated GFR > 60.0 ML/MIN Glucose 101 (74-106) mg/dL Calcium 8.7 (8.4-10.2) mg/dL Total Bilirubin 0.50 (0.2-1.3) mg/dL AST 24 (14-36) U/L ALT 14 (0-35) U/L Alkaline Phosphatase 52 (38-126) U/L Serum Total Protein 6.6 (6.3-8.2) g/dL Albumin 3.7 (3.5-5.0) g/dL Radiology Exams: Radiology Procedures Category Date Time Status CAROTID BILATERAL [US] Routine Exams 07/12/21 08:00 Ordered CERVICAL SPINE WO CONTRAST [CT] Stat Exams 07/10/21 09:32 Completed CHEST 1 VIEW (PORTABLE) Stat Exams 07/10/21 09:33 Taken HEAD WITHOUT CONTRAST [CT] Stat Exams 07/10/21 09:32 Completed Multi-Disciplinary Progress Notes: Multi-Disciplinary Progress Notes 07/11/21 12:11 Case Management Note by Abbey Hartley [facility] HAS ACCEPTED PATIENT Initialized on 07/11/21 12:11 - END OF NOTE 07/11/21 10:02 Case Management Note by Abbey Hartley REFERRAL FAXED TO [facility] AT THIS TIME. THEY WILL NEED NOTIFIED AT TIME OF DC AT [phone]. THEY WILL NEED FAXED THE DC INSTRUCTIONS, DC MED LIST, DC SUMMARY ( IF AVAILABLE) TO [phone] Initialized on 07/11/21 10:02 - END OF NOTE Assessment/Plan (1) Orthostatic hypotension Current Visit: Yes Status: Acute Code(s): I95.1 - ORTHOSTATIC HYPOTENSION (2) Syncope and collapse Current Visit: Yes Status: Acute Code(s): R55 - SYNCOPE AND COLLAPSE
[2021-07-12] MEDS ORDERED: K-LYTE 25 MEQ PO ONE (08:39)
[2021-07-12] MEDS: Miralax Powder 17GM PACKET PO SCH (09:52)
[2021-07-12] MEDS: VITAMIN D PO SCH (09:54)
[2021-07-12] MEDS: CAPTOPRIL 25 MG PO SCH ×3 (09:55→21:21)
[2021-07-12] MEDS: [UNRECOGNIZED DRUG - OTHER] TP SCH (09:55)
[2021-07-12] MEDS: Ritalin 5 MG PO SCH (09:55)
[2021-07-12] MEDS: ECOTRIN 81 MG PO SCH (09:55)
[2021-07-12] MEDS: CLARITIN 10 MG PO SCH (09:55)
[2021-07-12] MEDS: Calcium 500MG W/Vit D Tablet PO SCH ×2 (09:55→21:20)
[2021-07-12] MEDS: PROTONIX 40 MG IV IV SCH (09:55)
[2021-07-12] MEDS: NON-FORMULARY ITEM PO SCH ×2 (09:56→21:20)
[2021-07-12] MEDS: THERAGRAN MULTIVITAMIN PO SCH (09:56)
[2021-07-12] MEDS: PATIENT OWN MEDICATION PO SCH ×2 (10:02→21:31)
[2021-07-13 05:14] LABS: Hematocrit 35.3 % (35-47); Hemoglobin 11.4 gm/dl (12.0-16.0); Mean Cell Volume 97.5 fl (78-100); Mean Corpuscular Hemoglobin 31.5 pg (26-32); Mean Corpuscular Hgb Concent. 32.3 g/dl (32-36); Mean Platelet Volume 10.2 fl (7.5-11.0); Platelet Count 236 K/mm3 (150-450); Red Blood Count 3.62 M/mm3 (4.1-5.4); Red Cell Distribution Width 13.7 % (11.5-14.0); White Blood Count 6.8 K/mm3 (4.0-10.5)
--- NOTE | 2021-07-13 07:12 | PCM.NOTE ---
Date and Time: 07/13/21709 Subjective Assessment: still has drop in blood pressure - Review of Systems Constitutional: No Fever, No Chills Eyes: No Symptoms Ears, Nose, & Throat: No Symptoms Respiratory: No Cough, No Short Of Breath Cardiac: No Chest Pain, No Edema, No Syncope Abdominal/Gastrointestinal: No Abdominal Pain, No Nausea, No Vomiting, No Diarrhea Genitourinary Symptoms: No Dysuria Musculoskeletal: No Back Pain, No Neck Pain Skin: No Rash Neurological: No Dizziness, No Focal Weakness, No Sensory Changes Psychological: No Symptoms Endocrine: No Symptoms Hematologic/Lymphatic: No Symptoms Immunological/Allergic: No Symptoms Objective Exam General Appearance: no apparent distress, alert Neurologic Exam: alert, oriented x 3, cooperative, normal mood/affect, nml cerebellar function, sensation nml, No motor deficits Skin Exam: normal color, warm, dry Eye Exam: PERRL, EOMI, eyes nml inspection Ears, Nose, Throat Exam: normal ENT inspection, pharynx normal, moist mucous membranes Neck Exam: normal inspection, non-tender, supple, full range of motion Respiratory Exam: normal breath sounds, lungs clear, No respiratory distress Cardiovascular Exam: regular rate/rhythm, normal heart sounds Gastrointestinal/Abdomen Exam: soft, No tenderness, No mass Extremity Exam: normal inspection, normal range of motion Back Exam: normal inspection, normal range of motion, No CVA tenderness, No vertebral tenderness Pelvic Exam: deferred Rectal Exam: deferred OBJECTIVE DATA Vital Signs: Vital Signs - 24 hr Temp Pulse Resp BP BP Pulse Ox 07/13/21 05:04 99/65 07/13/21 04:35 98.2 F 98 H 16 187/97 98 07/13/21 00:00 96.9 F 86 14 160/83 97 07/12/21 20:20 105/57 07/12/21 20:10 105/56 07/12/21 20:00 97.7 F 88 16 107/57 94 L 07/12/21 16:00 97.5 F 101 H 23 125/80 97 07/12/21 12:52 160/84 07/12/21 12:00 18 07/12/21 11:55 97.7 F 92 H 13 139/90 98 07/12/21 08:06 85/54 07/12/21 08:00 97.6 F 96 H 19 141/76 98 Pain Assessment - Last Documented Pain Intensity 2 Pain Scale Used 0-10 Pain Scale Intake and Output: Intake & Output 07/10/21 07/11/21 07/12/21 07/13/21 11:59 11:59 11:59 11:59 Intake Total 1080 2360 1100 Output Total 2700 3725 1600 Balance -6111 -6287 -808 Weight 61.961 kg 59.3 kg 59.5 kg Lab Results: Lab Results-Last 24 Hours 07/13/21 Range/Units 04:55 WBC 6.8 (4.0-10.5) K/mm3 RBC 3.62 L (4.1-5.4) M/mm3 Hgb 11.4 L (12.0-16.0) gm/dl Hct 35.3 (35-47) % MCV 97.5 (78-100) fl MCH 31.5 (26-32) pg MCHC 32.3 (32-36) g/dl RDW 13.7 (11.5-14.0) % Plt Count 236 (150-450) K/mm3 MPV 10.2 (7.5-11.0) fl Radiology Exams: Radiology Procedures Category Date Time Status CAROTID BILATERAL [US] Routine Exams 07/12/21 08:00 Ordered ECHO W/2D AND DOPPLER [US] Routine Exams 07/12/21 10:47 Ordered Assessment/Plan (1) Orthostatic hypotension Current Visit: Yes Status: Chronic Assessment & Plan: Chief Complaint Diagnosis Syncope and collapse Allergies Allergy/AdvReac Type Severity Reaction Status Date / Time mold Allergy Verified 07/10/21 09:04 Penicillins Allergy Verified 07/10/21 09:04 pollen extracts Allergy Verified 07/10/21 09:04 [id number]-VOP-KcI Reductase Allergy Verified 07/10/21 09:04 Inhibitor Vital Signs (Last 24 hours) Temp Pulse Resp BP BP Pulse Ox 07/13/21 05:04 99/65 07/13/21 04:35 98.2 F 98 H 16 187/97 98 07/13/21 00:00 96.9 F 86 14 160/83 97 07/12/21 20:20 105/57 07/12/21 20:10 105/56 07/12/21 20:00 97.7 F 88 16 107/57 94 L 07/12/21 16:00 97.5 F 101 H 23 125/80 97 02/12/22 12:52 160/84 07/12/21 12:00 18 07/12/21 11:55 97.7 F 92 H 13 139/90 98 07/12/21 08:06 85/54 07/12/21 08:00 97.6 F 96 H 19 141/76 98 Home Medications Medication Instructions Recorded Confirmed Last Taken Type Acetaminophen [Tylenol Arthritis] 650 mg PO Q8HPRN PRN 07/10/21 07/10/21 Unknown History Aspirin 81 gm Chew [Baby 81 mg PO DAILY 07/10/21 07/10/21 Unknown History Aspirin 81 mg Chew] Calcium Carbonate/Vitamin D3 1 tab PO BID 07/10/21 07/10/21 Unknown History [Calcium 600-Vit D3 200 Tablet] Cholecalciferol (Vitamin D3) 5,000 unit PO DAILY 07/10/21 07/10/21 Unknown History [Vitamin D3] Elderberry Fruit and Flower [Black 1 each PO DAILY 07/10/21 07/10/21 Unknown History Elderberry 575 mg Cap] Fludrocortisone Acetate 0.1 mg PO DAILY 07/10/21 07/10/21 Unknown History Hydroxychloroquine Sulfate 200 mg PO BID 07/10/21 07/10/21 Unknown History Loratadine 10 mg [Claritin 10 10 tab PO DAILY 07/10/21 07/10/21 Unknown History mg] Methylphenidate 5 mg [Ritalin 5 10 mg PO DAILY 07/10/21 07/10/21 Unknown History MG] Midodrine HCl 5 mg [Proamatine 10 mg PO TID 07/10/21 07/10/21 Unknown History 5 mg] Multivit-Min/Ascorbic/Herb 124 1 each PO DAILY 07/10/21 07/10/21 Unknown History [Airborne Chewable Tablet] Multivit-Min/FA/Lycopen/Lutein 1 each PO DAILY 07/10/21 07/10/21 Unknown History [Centrum Silver Tablet] Trolamine Salicylate [Aspercreme] 1 applic TP DAILY 07/10/21 07/10/21 Unknown History Current Medications Generic Name Dose Route Start Last Admin Trade Name Freq PRN Reason Stop Dose Admin Acetaminophen 650 mg 07/10/21 13:05 07/11/21 17:03 Acetaminophen 325 Mg Tablet PO 08/09/21 13:04 650 mg Q4H PRN PRN Administration PAIN AND/OR FEVER Alprazolam 0.125 mg 07/11/21 16:00 07/11/21 16:44 Alprazolam 0.25 Mg Tablet PO 08/10/21 15:59 0.125 mg Q8H PRN PRN Administration ANXIETY Aspirin 81 mg 07/10/21 18:00 07/12/21 09:55 Aspirin 81 Mg Tablet.Ec PO 08/09/21 17:59 81 mg DAILY KRISTYN Administration Calcium Carbonate 1 tab 07/10/21 22:00 07/12/21 21:20 Calcium Carbonate 500 Mg/Vitamin D 1 Tab Tablet PO 08/09/21 21:59 1 tab BID KRISTYN Administration Captopril 6.25 mg 07/11/21 22:00 07/12/21 21:21 Captopril 25 Mg Tablet PO 08/10/21 21:59 Not Given TID KRISTYN Cholecalciferol 5,000 unit 07/10/21 18:00 07/12/21 09:54 Cholecalciferol (Vitamin D3) 1000 Unit Tablet PO 08/09/21 17:59 5,000 unit DAILY KRISTYN Administration Loratadine 10 mg 07/10/21 18:00 07/12/21 09:55 Loratadine 10 Mg Tablet PO 08/09/21 17:59 10 mg DAILY KRISTYN Administration Methylphenidate HCl 10 mg 07/11/21 10:00 07/12/21 09:55 Methylphenidate 5 Mg Tab PO 07/16/21 09:59 10 mg DAILY KRISTYN Administration Midodrine 10 mg 07/11/21 12:00 07/12/21 12:51 Midodrine Hcl 5 Mg Tablet PO 08/10/21 11:59 Not Given 0800,1200,1800 [facility] Miscellaneous Information 1 each 07/10/21 17:30 Medication Intervention 1 Each Each PO 08/09/21 17:29 .RN TO CHECK ON KRISTYN Multivitamins Therapeutic 1 tab 07/10/21 18:00 07/12/21 09:56 Multivitamins,Therapeutic 1 Tab Tab PO 08/09/21 17:59 1 tab DAILY KRISTYN Administration Hydroxychloroquine 1 each 07/10/21 22:00 07/12/21 21:20 200mg Tablet PO 08/09/21 21:59 1 each BID KRISTYN Administration Ondansetron HCl 4 mg 07/10/21 13:05 Ondansetron Hcl 4 Mg/2 Ml Vial IV 08/09/21 13:04 Q6H PRN PRN NAUSEA/VOMITING Pantoprazole Sodium 40 mg 07/10/21 14:00 07/12/21 09:55 Pantoprazole 40 Mg Vial IV 08/09/21 13:59 40 mg Q24H10 KRISTYN Administration Fludrocortisone 0. 1 each 07/11/21 10:00 07/12/21 10:02 1mg Tablet PO 08/10/21 09:59 Not Given DAILY KRISTYN Hemp Infused Gummies 2 each 07/11/21 22:00 07/12/21 21:31 PO 08/10/21 21:59 2 each HS KRISTYN Administration Polyethylene Glycol 17 gm 07/12/21 10:00 07/12/21 09:52 Polyethylene Glycol 3350 17 Gm Packet PO 08/11/21 09:59 17 gm DAILY KRISTYN Administration Trolamine Salicylate 0 gm 07/11/21 10:00 07/12/21 09:55 Trolamine Salicylate 90 Gm Cream TP 08/10/21 09:59 90 gm DAILY KRISTYN Administration Discontinued Medications Generic Name Dose Route Start Last Admin Trade Name Freq PRN Reason Stop Dose Admin Albuterol/Ipratropium 3 ml 07/10/21 13:05 Ipratropium/Albuterol Sulfate 3 Ml Ampul.Neb IH 08/09/21 13:04 Q4HPRN PRN SHORTNESS OF BREATH/WHEEZING Sodium Chloride 1,000 mls @ 125 mls/hr 07/10/21 09:45 07/10/21 10:20 Sodium Chloride 0.9% 1000 Ml IV 08/09/21 09:44 125 mls/hr .Q8H KRISTYN Administration Sodium Chloride Confirm 07/10/21 10:19 Sodium Chloride 0.9% 1000 Ml Administered 07/10/21 10:20 Dose 1,000 mls @ ud .ROUTE .STK-MED ONE Potassium Chloride/Sodium Chloride 1,000 mls @ 100 mls/hr 07/11/21 10:15 07/11/21 11:02 Sodium Chloride 0.9% W/ 20 Meq Kcl/Liter IV 08/10/21 10:14 100 mls/hr .Q10H KRISTYN Administration Melatonin 1.5 mg 07/10/21 17:25 Melatonin 3 Mg Tablet PO 08/09/21 17:24 HS PRN PRN INSOMNIA Midodrine 5 mg 07/10/21 18:00 07/10/21 18:03 Midodrine Hcl 5 Mg Tablet PO 08/09/21 17:59 5 mg 1200,1700 KRISTYN Administration Midodrine 10 mg 07/11/21 08:00 07/11/21 08:13 Midodrine Hcl 5 Mg Tablet PO 08/10/21 07:59 10 mg 0800 KRISTYN Administration Non-Formulary Medication 2 each 07/10/21 22:00 07/10/21 22:08 Non-Formulary Drug 1 Each Each PO 08/09/21 21:59 2 each HS KRISTYN Administration Potassium Bicarbonate 25 meq 07/11/21 10:05 07/11/21 11:02 Potassium Bicarbonate 25 Meq Tab PO 07/11/21 10:06 25 meq ONCE ONE Administration Potassium Bicarbonate 50 meq 07/12/21 08:39 07/12/21 09:57 Potassium Bicarbonate 25 Meq Tab PO 07/12/21 08:40 50 meq STAT ONE Administration Intake & Output (Last 24 hours) 07/10/21 07/11/21 07/12/21 07/13/21 11:59 11:59 11:59 11:59 Intake Total 1080 2360 1100 Output Total 2700 3725 1600 Balance -1620 -1365 -500 Weight 61.961 kg 59.3 kg 59.5 kg Laboratory Results (Last 24 hours) 07/13/21 04:55 WBC 6.8 RBC 3.62 L Hgb 11.4 L Hct 35.3 MCV 97.5 MCH 31.5 MCHC 32.3 RDW 13.7 Plt Count 236 MPV 10.2 Orders (Last 24 hours) Category Date Time Status Full admit [Change to Full Admit] ROUTINE Care 07/12/21 10:48 Active CAROTID BILATERAL [US] Routine Exams 07/12/21 08:00 Ordered ECHO W/2D AND DOPPLER [US] Routine Exams 07/12/21 10:47 Ordered CBC AM.LAB Lab 07/13/21 04:55 Completed Polyethylene Glycol 3350 17 gm [Miralax Powder 17GM Med 07/12/21 10:00 Active PACKET] 17 gm PO DAILY Potassium Bicarbonate 25 MEQ [K-Lyte 25 Meq] Med 07/12/21 08:39 Discontinued 50 meq PO STAT ONE Patient Care Notes (Last 24 hours) 07/12/21 23:31 Nursing Note by Kavya Tinajero 2100- informed patient of order to have HOB at 45 degrees for sleep. She refused, states she cannot sleep sitting up that way. Initialized on 07/12/21 23:31 - END OF NOTE 07/12/21 08:23 Nursing Note by Layla Tam This nurse assisted pt up to bedside commode. BP laying in bed at 45 degree angle is 175/91 , BP sitting on side of bed is 141/76, and BP standing next to bed is 85/54. PT reported feeling light headed and mild dizziness. Once PT back in bed and laying at a 45 degree angle she reports feeling better and BP is 136/70. Initialized on 07/12/21 08:23 - END OF NOTE Code(s): I95.1 - ORTHOSTATIC HYPOTENSION (2) Lupus Current Visit: Yes Status: Chronic Code(s): M32.9 - SYSTEMIC LUPUS ERYTHEMATOSUS, UNSPECIFIED (3) Syncope and collapse Current Visit: Yes Status: Acute Code(s): R55 - SYNCOPE AND COLLAPSE
[2021-07-13] MEDS: PROAMATINE 5 MG PO SCH ×4 (07:27→18:38)
[2021-07-13 08:32] LABS: ALBUMIN 3.9 g/dL (3.5-5.0); ALKALINE PHOSPHATASE 50 U/L (38-126); BLOOD UREA NITROGEN 13 mg/dL (7-17); CHLORIDE 103 mmol/L (98-107); Calcium 9.2 mg/dL (8.4-10.2); Carbon Dioxide 28 mmol/L (22-30); Creatinine 1 0.76 mg/dL (0.52-1.04); EST GLOMERULAR FILTRATION RATE > 60.0 ML/MIN; Glucose 96 mg/dL (74-106); Potassium 3.6 mmol/L (3.5-5.1); SGOT/AST 24 U/L (14-36); SGPT/ALT 16 U/L (0-35); SODIUM 140 mmol/L (137-145); Total Protein 6.9 g/dL (6.3-8.2)
[2021-07-13] MEDS: Miralax Powder 17GM PACKET PO SCH (10:37)
[2021-07-13] MEDS: VITAMIN D PO SCH (10:38)
[2021-07-13] MEDS: THERAGRAN MULTIVITAMIN PO SCH (10:38)
[2021-07-13] MEDS: Calcium 500MG W/Vit D Tablet PO SCH ×2 (10:38→21:04)
[2021-07-13] MEDS: ECOTRIN 81 MG PO SCH (10:38)
[2021-07-13] MEDS: Ritalin 5 MG PO SCH (10:38)
[2021-07-13] MEDS: Toprol-Xl 25MG Tablets PO SCH (10:39)
[2021-07-13] MEDS: PROTONIX 40 MG IV IV SCH (10:39)
[2021-07-13] MEDS: CLARITIN 10 MG PO SCH (10:39)
[2021-07-13] MEDS: CAPTOPRIL 25 MG PO SCH ×3 (10:41→21:04)
[2021-07-13] MEDS: [UNRECOGNIZED DRUG - OTHER] TP SCH (10:42)
[2021-07-13] MEDS: NON-FORMULARY ITEM PO SCH ×2 (10:43→21:05)
[2021-07-13] MEDS: PATIENT OWN MEDICATION PO SCH ×2 (10:43→21:06)
[2021-07-13] MEDS: TYLENOL 325 MG PO PRN (13:17)
--- NOTE | 2021-07-14 08:25 | CONS ---
CONSULT DATE: 07/11/2021 BRIEF HISTORY: This is a 76-year-old female who was seen for syncope. The patient has a long-standing history of neurogenic orthostatic hypotension and had been doing well until recently when she passed out in the bathroom. She could not recall if loss of consciousness. Her current work up showed normal troponin I's. The rhythm has remained stable and sinus. We did an orthostatic blood pressure lying and it was 207/92 with a heart rate of 88; sitting is 201/89 with a heart rate of 88; standing is 134/65 with a heart rate of 105. She had been recently diagnosed to have an autoimmune disease with Sjorgen's Syndrome. In addition, she has been complaining of tingling sensation of both lower extremities. From the cardiac standpoint, she never had any ischemic cardiac symptoms or any congestive symptoms. CURRENT MEDICATIONS: Aspirin, calcium, vitamin D3, loratadine 10 mg a day, Ritalin 10 mg daily, Midodrine 10 mg t.i.d., multivitamins, Protonix 40 mg a day, fludrocortisone 0.1 mg daily. REVIEW OF SYSTEMS: MANAGER LAUNDRY: No febrile episodes. Generalized body malaise. RESPIRATORY: No chronic cough. No hemoptysis. GI: Occasional nausea. No vomiting. : Negative for dysuria or hematuria. No flank pain. PERIPHERAL VASCULAR: No history of deep vein thrombosis but both feet feels cold. PAST MEDICAL HISTORY: The patient has history of COVID-19 infection which was a break through as she was fully vaccinated last May. SOCIAL HISTORY: She is a . She has no significant alcohol intake. PHYSICAL EXAMINATION: The blood pressure lying is 207/92 and standing is around 110/65, heart rate went up to 105. GENERAL: The patient is an elderly female who is alert, oriented, who is not in any form of distress. HEENT: Unremarkable. NECK: No significant JVD. No carotid bruit. CHEST: The breath sounds are clear. CARDIAC: Heart tones are normal. There is no audible gallop. The rhythm is regular. ABDOMEN: Soft with normal bowel sounds. EXTREMITIES: No significant edema with 2+ posterior tibial palpation. LAB DATA AND DIAGNOSTIC TESTS: The EKG showed sinus rhythm with no significant ST displacement. Laboratory data since the infarction is normal with a GFR of 60, potassium 3.1 on replacement therapy. Hemoglobin is 10.8, white blood cells 6.5 with platelet count of 226,000. Troponin I is normal. IMPRESSION: The patient has a long-standing history of neurogenic orthostatic hypotension. The patient is on Midodrine, fludrocortisone and recently on Ritalin. The patient still has some problems with supine hypertension. We had a lengthy discussion about how she should manage herself at home. Primarily she has to avoid sudden changes in posture. She was also told to be adequately hydrated and she can have a little intake of salt. In addition, she might benefit from caffeine intake. As far as hypertension is concerned, we will give her some short acting antihypertension medication with careful monitoring of blood pressure. Will start her on captopril. The patient was also advised to sleep in a 45 degrees incline position when sleeping. Her CT showed some evidence of carotid calcifications for which reason we are going to go ahead and send for carotid Doppler study. I will follow her up in the clinic.
[2021-07-14] MEDS: PROAMATINE 5 MG PO SCH ×3 (08:27→17:43)
[2021-07-14] MEDS: CAPTOPRIL 25 MG PO SCH ×3 (09:47→21:17)
[2021-07-14] MEDS: [UNRECOGNIZED DRUG - OTHER] TP SCH (10:33)
[2021-07-14] MEDS: PROTONIX 40 MG IV IV SCH (10:34)
[2021-07-14] MEDS: NON-FORMULARY ITEM PO SCH ×2 (10:34→21:18)
[2021-07-14] MEDS: VITAMIN D PO SCH (10:35)
[2021-07-14] MEDS: Ritalin 5 MG PO SCH (10:35)
[2021-07-14] MEDS: Miralax Powder 17GM PACKET PO SCH (10:36)
[2021-07-14] MEDS: Calcium 500MG W/Vit D Tablet PO SCH ×2 (10:36→21:17)
[2021-07-14] MEDS: ECOTRIN 81 MG PO SCH (10:36)
[2021-07-14] MEDS: CLARITIN 10 MG PO SCH (10:37)
[2021-07-14] MEDS: Toprol-Xl 25MG Tablets PO SCH (10:37)
[2021-07-14] MEDS: PATIENT OWN MEDICATION PO SCH ×2 (10:37→21:22)
[2021-07-14] MEDS: THERAGRAN MULTIVITAMIN PO SCH (10:37)
--- NOTE | 2021-07-14 10:59 | XRAY ---
Indication: Syncopal episode. Hypotension. Two-dimensional sonogram and color Doppler imaging of the carotid arteries of the neck performed. Comparison: None Examination of the right carotid circulation demonstrates widely patent common carotid, carotid bulb, internal carotid, and external carotid arteries. Distal internal carotid artery is tortuous. PSV of the CCA is 64 cm/s. PSV of the ICA is 64 cm/s. ICA/CCA ratio is 1.0. Normal antegrade vertebral artery flow. Examination of the left carotid circulation demonstrates minimal calcified plaquing at the level of the bulb slightly extending into the origin of the internal carotid artery. Remaining common carotid, internal carotid, and external carotid arteries are widely patent. PSV of the CCA is 69 cm/s. PSV of the ICA is 58 cm/s. ICA/CCA ratio is 0.8. Normal antegrade vertebral artery flow. Impression: Widely patent right carotid circulation. Minimal calcified plaquing left carotid circulation as detailed. Velocity measurements and ratios are negative for hemodynamically significant flow-limiting stenosis.
[2021-07-14] MEDS: TYLENOL 325 MG PO PRN (12:07)
--- NOTE | 2021-07-14 13:27 | PCM.NOTE ---
Date and Time: 07/14/21 1322 Subjective Assessment: [address] [employer],Dr Herrera consult appreciated. Patient will need some rehab before safe to return home. Neurogenic orthostatic syncope has improved enough to start working on generalized strengthening and then anticipate return home with 21/12 caregiver.. OBJECTIVE DATA Vital Signs: Vital Signs - 24 hr Temp Pulse Resp BP BP Pulse Ox 07/14/21 12:00 97.9 F 84 20 136/91 98 07/14/21 08:00 96.6 F 104 H 16 105/76 99 07/14/21 04:12 97.9 F 82 16 141/86 97 07/14/21 00:00 16 07/13/21 23:57 97.9 F 70 16 134/71 96 07/13/21 20:03 91 H 93/53 07/13/21 20:02 86 105/55 07/13/21 20:00 97.7 F 85 18 105/56 97 07/13/21 16:00 97.7 F 81 18 119/61 96 07/13/21 14:00 97.5 F 86 16 129/58 95 Pain Assessment - Last Documented Pain Intensity 4 Pain Scale Used 0-10 Pain Scale Intake and Output: Intake & Output 07/12/21 07/13/21 07/14/21 07/15/21 11:59 11:59 11:59 11:59 Intake Total 2360 1340 1360 240 Output Total 3725 2550 3300 200 Balance -1365 -1210 -1940 40 Weight 59.5 kg 59.5 kg 90.2 kg Radiology Exams: Radiology Procedures Category Date Time Status CAROTID BILATERAL [US] Routine Exams 07/14/21 10:00 Completed ECHO W/2D AND DOPPLER [US] Routine Exams 07/14/21 10:00 Taken Multi-Disciplinary Progress Notes: Multi-Disciplinary Progress Notes 07/14/21 11:13 Case Management Note by Abbey Hartley S/Maurizio SOTELO PATIENT'S DAUGHTER AT [phone]- SHE WOULD LIKE PATIENT TO DO SWINGBED HERE AT [facility] IF POSSIBLE. SHE WAS NOTIFIED THAT PATIENT MAY NOT BE SWINGBED APPROPRIATE PATIENT IS NOT PHYSICALLY DISABLED AND DOES NOT LIKELY NEED PHYSICAL THERAPY MUCH SUPERVISION. FAMILY VERIFIED UNDERSTANDING. THEY PLAN TO ARRANGE FOR 24 HR CARE AT HOME FOR PATIENT ALONG WITH THE [facility]. THEY ARE LOOKING INTO LIFE ALERT OPTIONS WELL. Initialized on 07/14/21 11:13 - END OF NOTE Assessment/Plan (1) Orthostatic hypotension Current Visit: Yes Status: Chronic Code(s): I95.1 - ORTHOSTATIC HYPOTENSION (2) Syncope and collapse Current Visit: Yes Status: Acute Code(s): R55 - SYNCOPE AND COLLAPSE (3) Fatigue Current Visit: Yes Status: Acute Code(s): R53.83 - OTHER FATIGUE (4) Lupus Current Visit: Yes Status: Chronic Code(s): M32.9 - SYSTEMIC LUPUS ERYTHEMATOSUS, UNSPECIFIED (5) Sicca Current Visit: Yes Status: Acute Code(s): M35.00 - SJOGREN SYNDROME, UNSPECIFIED (6) Anemia Current Visit: Yes Status: Chronic Code(s): D64.9 - ANEMIA, UNSPECIFIED (7) Myoclonus Current Visit: Yes Status: Chronic Code(s): G25.3 - MYOCLONUS
--- NOTE | 2021-07-15 08:45 | ECHO ---
Transthoracic echocardiographic examination and color Doppler was done on 07/14/2021. INDICATION: Syncope. IMPRESSION: 1) NO REGIONAL WALL MOTION ABNORMALITY. ESTIMATED GLOBAL LEFT VENTRICULAR EJECTION FRACTION IS 60%. 2) MILD MITRAL REGURGITATION. 3) TRACE TRICUSPID REGURGITATION. 4) LEFT VENTRICULAR HYPERTROPHY. The left ventricle is visualized and demonstrated adequate motion of all the segments. The left ventricular ejection fraction is 60%. There is mild left ventricular hypertrophy. There is no significant gradient across the left ventricular outflow tract. The aortic valve opens adequately. The right side chambers are normal. There is trace tricuspid regurgitation. The mitral valve opens adequately. There is mild mitral regurgitation.
[2021-07-15] MEDS: PROAMATINE 5 MG PO SCH ×3 (09:30→18:16)
[2021-07-15] MEDS: xanAX 0.25 MG PO PRN (10:35)
[2021-07-15] MEDS: ECOTRIN 81 MG PO SCH (10:35)
[2021-07-15] MEDS: CLARITIN 10 MG PO SCH (10:35)
[2021-07-15] MEDS: VITAMIN D PO SCH (10:35)
[2021-07-15] MEDS: Calcium 500MG W/Vit D Tablet PO SCH ×2 (10:35→21:02)
[2021-07-15] MEDS: NON-FORMULARY ITEM PO SCH ×2 (10:36→21:04)
[2021-07-15] MEDS: Ritalin 5 MG PO SCH (10:36)
[2021-07-15] MEDS: Toprol-Xl 25MG Tablets PO SCH (10:36)
[2021-07-15] MEDS: THERAGRAN MULTIVITAMIN PO SCH (10:36)
[2021-07-15] MEDS: PROTONIX 40 MG IV IV SCH (10:38)
[2021-07-15] MEDS: CAPTOPRIL 25 MG PO SCH ×3 (10:41→21:03)
[2021-07-15] MEDS: TYLENOL 325 MG PO PRN ×2 (10:46→19:47)
[2021-07-15] MEDS: Miralax Powder 17GM PACKET PO SCH (10:47)
[2021-07-15] MEDS: PATIENT OWN MEDICATION PO SCH ×2 (10:47→21:04)
[2021-07-15] MEDS: [UNRECOGNIZED DRUG - OTHER] TP SCH (10:49)
--- NOTE | 2021-07-15 13:42 | PCM.NOTE ---
Date and Time: 07/15/21 6894 Subjective Assessment: PT eval shows patient with good strength and not needing rehab but will need to have 21/12 caregiver due to Orthostatic hypotension. OBJECTIVE DATA Vital Signs: Vital Signs - 24 hr Temp Pulse Resp BP Pulse Ox 07/15/21 12:00 16 07/15/21 08:00 98.4 F 84 16 160/74 96 07/15/21 03:24 97.1 F 82 16 119/65 93 L 07/15/21 00:00 97.1 F 87 20 113/62 95 07/14/21 19:12 97.7 F 86 16 146/86 97 07/14/21 16:00 98.1 F 81 16 183/99 97 Pain Assessment - Last Documented Pain Intensity 0 Pain Scale Used 0-10 Pain Scale Intake and Output: Intake & Output 07/13/21 07/14/21 07/15/21 07/16/21 11:59 11:59 11:59 11:59 Intake Total 1340 1360 1240 Output Total 2550 3300 1650 Balance -1210 -1940 -410 Weight 59.5 kg 90.2 kg 60.3 kg Lab Results: Lab Results-Last 24 Hours 07/10/21 Range/Units 22:00 Cortisol AM Sample 25.3 H (6.2-19.4) ug/dL Cortisol PM Sample 7.2 (2.3-11.9) ug/dL Radiology Exams: Radiology Procedures Category Date Time Status CAROTID BILATERAL [US] Routine Exams 07/14/21 10:00 Completed ECHO W/2D AND DOPPLER [US] Routine Exams 07/14/21 10:00 Completed Multi-Disciplinary Progress Notes: Multi-Disciplinary Progress Notes 07/15/21 12:44 Physical Therapy Note by [id number] PT. SEEN BY P.T. 2 SEPARATE SESSIONS THIS AM D/T THERAPY SCHEDULE. PT. C/O LE TREMORING/SHAKING W/ WB. NOTES ANXIETY OVER MOVEMENT. PT. IN CHAIR UPON P.T. ARRIVAL TO ROOM. PERFORMED SEATED LE EX'S OF ANKLE PUMPS, HEELS SLIDES, SLRS W/ 1# CUFF WEIGHT. PT. ABLE TO PERFORM 10 REPS W/ GOOD ROM. ADVISED PT. TO PE RFORM ANKLE PUMPS BEFORE SIT TO STAND TO DECREASE FLUID POOLING IN LES AND SUBSEQUENT INCREASED HYPOTENSION. PERFORMED SIT TO STAND W/ CGA-SBA. ADVISED PT. TO LOCK WALKER BEFORE STANDING. PT. AMBULATED UP TO 70' W/ ROLLATOR AND CGA-SBA. PT. C/O LES FEELING WEAK AND SHAKY. NEEDED TO SIT DOWN HALF WAY BECAUSE OF ANXIETY AND FEAR OF FALLING. ASSISTED PT. TO BATHROOM X 2 AND NOTED DIFFICULTY W/ PROBLEM SOLVING TO TURN AROUND TO TOILET. PT. FEARFUL OF SITTING DOWN ON COMMODE WITHOUT ASSIST, BUT DID COMPLETE W/ SAFE PATTERN AND MIN ASSIST. PT. NEEDED MIN ASSIST TO PULL DEPEND BACK UP AFTER TOILETING. PT. NEEDS FREQUENT CUEING FOR SAFETY AND REMINDERS TO LOCK WALKER. ADVISED PT. TO SLOW MOVEMENTS AND DEEP BREATHE BEFORE MOVING WELL. WILL CONT. P.T. 5X/WK UNTIL D/C. SHE WILL NEED 24-HOUR SUPERVISION UPON D/C AT THIS TIME D/T GAIT UNSTEADINESS AND NEED FOR CUEING FOR SAFETY. Initialized on 07/15/21 12:44 - END OF NOTE 07/15/21 12:10 Case Management Note by Abbey Hartley S/W DAUGHTER- SHE REPORTS THEY WILL BE READY TO PROVIDE PATIENT WITH 24 HR CARE AT TIME OF DC. THEY WILL GET BSC FOR PATIENT. HHC HAS BEEN SET UP. THEY WOULD IDEALLY LIKE TO WAIT UNTIL WEDNESDAY FOR PATIENT TO RETURN HOME BECAUSE FAMILY WILL BE THERE AT THAT TIME Initialized on 07/15/21 12:10 - END OF NOTE Assessment/Plan (1) Orthostatic hypotension Current Visit: Yes Status: Chronic Code(s): I95.1 - ORTHOSTATIC HYPOTENSION (2) Syncope and collapse Current Visit: Yes Status: Acute Code(s): R55 - SYNCOPE AND COLLAPSE (3) Fatigue Current Visit: Yes Status: Acute Code(s): R53.83 - OTHER FATIGUE (4) Lupus Current Visit: Yes Status: Chronic Code(s): M32.9 - SYSTEMIC LUPUS ERYTHEMATOSUS, UNSPECIFIED (5) Sicca Current Visit: Yes Status: Acute Code(s): M35.00 - SJOGREN SYNDROME, UNSPECIFIED (6) Anemia Current Visit: Yes Status: Chronic Code(s): D64.9 - ANEMIA, UNSPECIFIED (7) Myoclonus Current Visit: Yes Status: Chronic Code(s): G25.3 - MYOCLONUS
[2021-07-16 06:14] LABS: Absolute Neutrophil Ct (ANC) 4.32 (1.4-6.9); Basophil (Absolute #) 0.05 (0-0.4); Eosinophil % 2.2 % (0.00-5.0); Eosinophil (Absolute #) 0.16 (0-0.5); Hematocrit 35.5 % (35-47); Hemoglobin 11.3 gm/dl (12.0-16.0); Lymphocyte (Absolute #) 2.23 (1.0-4.6); Lymphocytes % 30.6 % (24.0-44.0); Mean Cell Volume 98.6 fl (78-100); Mean Corpuscular Hemoglobin 31.4 pg (26-32); Mean Corpuscular Hgb Concent. 31.8 g/dl (32-36); Mean Platelet Volume 11.2 fl (7.5-11.0); Monocyte (Absolute #) 0.53 (0.0-1.3); Monocytes % 7.3 % (0.0-12.0); Neutrophil % 59.2 % (36.0-66.0); Platelet Count 229 K/mm3 (150-450); Red Cell Distribution Width 13.7 % (11.5-14.0); White Blood Count 7.3 K/mm3 (4.0-10.5)
[2021-07-16 06:40] LABS: ALBUMIN 3.7 g/dL (3.5-5.0); ALKALINE PHOSPHATASE 54 U/L (38-126); ANION GAP 11.3 MEQ/L (5-15); BLOOD UREA NITROGEN 15 mg/dL (7-17); CHLORIDE 102 mmol/L (98-107); Calcium 9.4 mg/dL (8.4-10.2); Carbon Dioxide 28 mmol/L (22-30); Creatinine 1 0.82 mg/dL (0.52-1.04); EST GLOMERULAR FILTRATION RATE > 60.0 ML/MIN; Glucose 94 mg/dL (74-106); Potassium 3.1 mmol/L (3.5-5.1); SGOT/AST 22 U/L (14-36); SGPT/ALT 15 U/L (0-35); SODIUM 138 mmol/L (137-145); Total Protein 6.8 g/dL (6.3-8.2)
[2021-07-16] MEDS: PROAMATINE 5 MG PO SCH ×2 (08:07→12:01)
[2021-07-16] MEDS: Calcium 500MG W/Vit D Tablet PO SCH (09:51)
[2021-07-16] MEDS: ECOTRIN 81 MG PO SCH (09:51)
[2021-07-16] MEDS: CLARITIN 10 MG PO SCH (09:51)
[2021-07-16] MEDS: NON-FORMULARY ITEM PO SCH (09:52)
[2021-07-16] MEDS: VITAMIN D PO SCH (09:52)
[2021-07-16] MEDS: THERAGRAN MULTIVITAMIN PO SCH (09:52)
[2021-07-16] MEDS: PROTONIX 40 MG IV IV SCH ×2 (09:52→10:12)
[2021-07-16] MEDS: [UNRECOGNIZED DRUG - OTHER] TP SCH (09:53)
[2021-07-16] MEDS: Miralax Powder 17GM PACKET PO SCH (09:54)
[2021-07-16] MEDS: PATIENT OWN MEDICATION PO SCH (09:55)
[2021-07-16] MEDS ORDERED: Klor Con 10 MEQ PO ONE (10:00)
[2021-07-16] MEDS ORDERED: Protonix 40MG Tablet PO SCH (10:00)
[2021-07-16] MEDS: CAPTOPRIL 25 MG PO SCH (10:12)
[2021-07-16] MEDS: Toprol-Xl 25MG Tablets PO SCH (10:28)
[2021-07-16 11:57] VITALS: PULSE 89; O2SAT 97
[2021-07-16] MEDS: TYLENOL 325 MG PO PRN (13:22)
[2021-07-16 15:48] VITALS: BP 147/74
[2021-07-16] MEDS ORDERED: Toprol-Xl 25MG Tablets PO SCH (22:00)
[2021-07-17 08:12] LABS: Epinephrine, Pl 23 pg/mL (0-62); Norepinephrine, Pl 216 pg/mL (0-874)
[2021-07-17 08:46] LABS: Dopamine, Pl <30 pg/mL (0-48)
--- NOTE | 2021-07-18 10:47 | XRAY ---
Indication: Weakness. Status post fall. Comparison: April 29, 2021. Portable chest unchanged again hyperinflated and clear with incidental tiny right apical calcified granuloma. Heart not enlarged. Bony thorax intact again with osteopenia, degenerative changes, and scoliosis. No new/acute findings.
== END 2021-07-16 16:20 | disposition home health service (06) | DRG 312 ==
LOC: ED 08:58 → MED SURG 13:00 → OBSVTOIN 07-12 10:45
PROVIDERS: ADMIT Family Medicine; ATTEND Family Medicine
DX: I95.1 Orthostatic hypotension (principal); R53.83 Other fatigue; M32.9 Systemic lupus erythematosus, unspecified; M35.00 Sjogren syndrome, unspecified; D64.9 Anemia, unspecified; G25.3 Myoclonus; I10 Essential (primary) hypertension; E78.00 Pure hypercholesterolemia, unspecified; W18.30XA Fall on same level, unspecified, initial encounter; Z91.81 History of falling; Z79.899 Other long term (current) drug therapy; Z20.828 Contact with and (suspected) exposure to other viral communicable diseases
CPT/HCPCS: 0241U; 36415; 70450; 71045; 72125; 80053; 82384; 82533; 82550; 82607; 83735; 83880; 84443; 84484; 85025; 85027; 93005; 93041; 93268; 93306; 93880; 94760; 97110; 97161; 97530; 99285; G0378; A0270-GY; A9270-GY

== ENCOUNTER 2022-02-03 18:49 | Emergency (ER) | payer MEDICARE, OTHER ==
[2022-02-03 19:12] LABS: Absolute Neutrophil Ct (ANC) 7.48 x10^3/uL (1.4-6.9); Basophil (Absolute #) 0.04 x10^3/uL (0-0.4); Eosinophil (Absolute #) 0 x10^3/uL (0-0.5); Hematocrit 34.5 % (35-47); Hemoglobin 11.2 g/dL (12.0-16.0); Lymphocyte (Absolute #) 1.76 x10^3/uL (1.0-4.6); Lymphocytes % 17.8 % (24.0-44.0); Mean Cell Volume 96.1 fL (78-100); Mean Corpuscular Hemoglobin 31.2 pg (26-32); Mean Corpuscular Hgb Concent. 32.5 g/dL (32-36); Mean Platelet Volume 9.8 fL (7.5-11.0); Monocyte (Absolute #) 0.55 x10^3/uL (0.0-1.3); Monocytes % 5.6 % (0.0-12.0); Neutrophil % 75.9 % (36.0-66.0); Platelet Count 247 x10^3/uL (150-450); Red Blood Count 3.59 x10^6/uL (4.1-5.4); White Blood Count 9.9 x10^3/uL (4.0-10.5)
[2022-02-03 19:35] LABS: ALKALINE PHOSPHATASE 61 U/L (38-126); ANION GAP 11.4 MEQ/L (5-15); BLOOD UREA NITROGEN 14 mg/dL (7-17); CHLORIDE 98 mmol/L (98-107); Calcium 8.6 mg/dL (8.4-10.2); Carbon Dioxide 27 mmol/L (22-30); Creatinine 1 0.68 mg/dL (0.52-1.04); EST GLOMERULAR FILTRATION RATE > 60.0 ML/MIN; Glucose 119 mg/dL (74-106); NT PRO BNP 547 pg/mL (0-1800); Potassium 3.5 mmol/L (3.5-5.1); SGOT/AST 24 U/L (14-36); SGPT/ALT 18 U/L (0-35); SODIUM 132 mmol/L (137-145); Total Protein 6.9 g/dL (6.3-8.2)
[2022-02-03 20:05] LABS: Bacteria RARE /HPF (NEGATIVE); Mucus SLIGHT /HPF (NEGATIVE); WBC 0-2 /HPF (0-5)
[2022-02-03 20:07] LABS: Appearance CLEAR (CLEAR); Bilirubin NEGATIVE (NEGATIVE); Glucose NEGATIVE (NEGATIVE); Ketones NEGATIVE (NEGATIVE); Protein,Urine Dip NEGATIVE (Negative); RBC SMALL Ery/ul (0-5)
[2022-02-03 20:09] LABS: Nitrite NEGATIVE (NEGATIVE); Urine Cultured Indicated? NO; Urobilinogen 0.2 mg/dL (0-1)
[2022-02-03 20:10] LABS: Dipstick done @ ? MAIN LAB
[2022-02-03] MEDS ORDERED: Sodium Chloride 0.9% 1000 ML 1,000 ML IV STA (20:16)
[2022-02-03] MEDS ORDERED: Sodium Chloride 0.9% 1000 ML 1,000 ML ONE (20:17)
--- NOTE | 2022-02-03 20:46 | ERPHSYRPT ---
- History of Present Illness Time Seen by Provider: 02/03/22 19:00 Source: patient Exam Limitations: no limitations Patient Subjective Stated Complaint: HTN Triage Nursing Assessment: Patient brought back to ED per w/c and transferred self to bed. Patient A+OX 3. Patient's skin pink, warm and dry. Patient complains of HTN, weakness and tremors that started today. Patient's blood pressure was 1650: 175/119, 1715: 191/123, 1730: 175/116, 1748: 191/117. Patient takes midodrine 3 times a day and blood pressure was being taken to see if she needed to take it. Patient has dx orthostatic hypotension. Patient denies pain or discomfort. Physician History: Patient 76-year-old female presents emergency department for evaluation of hypertension weakness and tremors. Symptoms started today. Patient denies pain. Patient has a history of multiple autoimmune conditions. Symptoms are mild to moderate intensity. No specific worsening improving factors. She otherwise voices no other complaints or concerns at this time. Portions of this note were created with voice recognition technology. There may be grammatical, spelling, punctuation or sound alike errors Timing/Duration: today Modifying Factors: Improves With: nothing Associated Symptoms: denies symptoms Allergies/Adverse Reactions: mold Allergy (Verified 02/03/22 18:57) Penicillins Allergy (Verified 02/03/22 18:57) pollen extracts Allergy (Verified 02/03/22 18:57) [id number] Reductase Inhibitor Allergy (Verified 02/03/22 18:57) Home Medications: Acetaminophen [Tylenol Arthritis] 650 mg PO Q8HPRN PRN 07/10/21 [History] Aspirin 81 gm Chew [Baby Aspirin 81 mg Chew] 81 mg PO DAILY 07/10/21 [History] Calcium Carbonate/Vitamin D3 [Calcium 600-Vit D3 200 Tablet] 1 tab PO BID 07/10/21 [History] Cholecalciferol (Vitamin D3) [Vitamin D3] 5,000 unit PO DAILY 07/10/21 [History] Elderberry Fruit and Flower [Black Elderberry 575 mg Cap] 1 each PO DAILY 07/10/21 [History] Fludrocortisone Acetate 0.1 mg PO DAILY 07/10/21 [History] Hydroxychloroquine Sulfate 200 mg PO BID 07/10/21 [History] Loratadine 10 mg [Claritin 10 mg] 10 tab PO DAILY 07/10/21 [History] Methylphenidate 5 mg [Ritalin 5 MG] 10 mg PO DAILY 07/10/21 [History] Midodrine HCl [Proamatine] 10 mg PO TID 07/10/21 [History] Multivit-Min/Ascorbic/Herb 124 [Airborne Chewable Tablet] 1 each PO DAILY 07/10/21 [History] Multivit-Min/FA/Lycopen/Lutein [Centrum Silver Tablet] 1 each PO DAILY 07/10/21 [History] Trolamine Salicylate [Aspercreme] 1 applic TP DAILY 07/10/21 [History] Hx Influenza Vaccination/Date Given: No Hx Pneumococcal Vaccination/Date Given: No Immunizations Up to Date: Yes Travel Risk - International Travel Have you traveled outside of the country in past 3 weeks: No - Coronavirus Screening Are you exhibiting any of the following symptoms?: No Close contact with a COVID-19 positive Pt in past 14-21 Days: No - Vaccine Status Have you recieved a Covid-19 vaccination: Yes Arc Cutter: Moderna - Vaccination Dates Date of 2cond Vaccination (if applicable): July 2020 - Review of Systems Constitutional: No Symptoms, No Fever, No Chills Eyes: No Symptoms Ears, Nose, & Throat: No Symptoms Respiratory: No Symptoms, No Cough, No Dyspnea Cardiac: No Symptoms, No Chest Pain, No Edema, No Syncope Abdominal/Gastrointestinal: No Symptoms, No Abdominal Pain, No Nausea, No Vomiting, No Diarrhea Genitourinary Symptoms: No Symptoms, No Dysuria Musculoskeletal: No Symptoms, No Back Pain, No Neck Pain Skin: No Symptoms, No Rash Neurological: No Symptoms, No Dizziness, No Focal Weakness, No Sensory Changes Psychological: No Symptoms Endocrine: No Symptoms Hematologic/Lymphatic: No Symptoms Immunological/Allergic: No Symptoms All Other Systems: Reviewed and Negative - Past Medical History Pertinent Past Medical History: Yes Neurological History: No Pertinent History ENT History: No Pertinent History Cardiac History: High Cholesterol Respiratory History: No Pertinent History Endocrine Medical History: No Pertinent History Musculoskeletal History: Fibromyalgia, Osteoporosis GI Medical History: Diverticulitis History: No Pertinent History Psycho-Social History: No Pertinent History Female Reproductive Disorders: No Pertinent History Other Medical History: Anemia, Essential tremor, chronic low back pain, metabolic disorder, Myoclonus, Primary generalized hyperthrophic osteoarthrosis, Raynauds disease, sicca syndrome, lupus - Past Surgical History Past Surgical History: Yes Neuro Surgical History: No Pertinent History Cardiac: No Pertinent History Respiratory: No Pertinent History Gastrointestinal: No Pertinent History Genitourinary: No Pertinent History Musculoskeletal: No Pertinent History Female Surgical History: Hysterectomy - Social History Smoking Status: Never smoker Exposure to second hand smoke: No Drug Use: none Patient Lives Alone: No - Nursing Vital Signs Nursing Vital Signs: Initial Vital Signs Temperature 97.9 F 02/03/22 18:57 Pulse Rate 90 02/03/22 18:57 Respiratory Rate 20 02/03/22 18:57 Blood Pressure 164/100 02/03/22 18:57 O2 Sat by Pulse Oximetry 99 02/03/22 18:57 Pain Scale Pain Intensity 2 - Physical Exam General Appearance: no apparent distress, alert Eye Exam: PERRL/EOMI, eyes nml inspection Ears, Nose, Throat Exam: normal ENT inspection, TMs normal, pharynx normal, moist mucous membranes Neck Exam: normal inspection, non-tender, supple, full range of motion Respiratory Exam: normal breath sounds, lungs clear, airway intact, No resp iratory distress Cardiovascular Exam: regular rate/rhythm, normal heart sounds, normal peripheral pulses Gastrointestinal/Abdomen Exam: soft, normal bowel sounds, No tenderness, No mass Back Exam: normal inspection, normal range of motion, No CVA tenderness, No vertebral tenderness Extremity Exam: normal inspection, normal range of motion, pelvis stable Neurologic Exam: alert, oriented x 3, cooperative, normal mood/affect, nml cerebellar function, nml station & gait, sensation nml, No motor deficits Skin Exam: normal color, warm, dry, No rash Lymphatic Exam: No adenopathy SpO2 Interpretation: normal SpO2: 99 O2 Delivery: Room Air - Course Nursing assessment & vital signs reviewed: Yes EKG Interpreted by Me: RATE (93), Sinus Rhythm, NORMAL AXIS, NORMAL INTERVALS Ordered Tests: Active Orders 24 hr Category Date Time Status Sledger STAT Care 02/03/22 18:59 Active EKG-ER Only STAT Care 02/03/22 18:59 Active IV Insertion STAT Care 02/03/22 18:59 Active CBC W DIFF Stat Lab 02/03/22 19:10 Completed CMP Stat Lab 02/03/22 19:10 Completed NT PRO BNP Stat Lab 02/03/22 19:10 Completed TROPONIN Q4H Lab 02/03/22 19:10 Completed TROPONIN Q4H Lab 02/03/22 23:00 Ordered TROPONIN Q4H Lab 02/04/22 03:00 Ordered UA W/RFX CULTURE Stat Lab 02/03/22 19:26 Completed Medication Summary Generic Name Dose Route Start Last Admin Trade Name Freq PRN Reason Stop Dose Admin Sodium Chloride 1,000 mls @ 999 mls/hr 02/03/22 20:16 02/03/22 20:18 Sodium Chloride 0.9% 1000 Ml IV 02/03/22 21:16 999 mls/hr .Q1H1M STA Administration Discontinued Medications Generic Name Dose Route Start Last Admin Trade Name Freq PRN Reason Stop Dose Admin Sodium Chloride Confirm 02/03/22 20:17 Sodium Chloride 0.9% 1000 Ml Administered 02/03/22 20:18 Dose 1,000 mls @ ud .ROUTE .STK-MED ONE Lab/Rad Data: Laboratory Result Diagrams 02/03/22 19:10 02/03/22 19:10 Laboratory Results 02/03/22 02/03/22 02/03/22 Range/Units 19:26 19:10 19:10 WBC (4.0-10.5) x10^3/uL RBC (4.1-5.4) x10^6/uL Hgb (12.0-16.0) g/dL Hct (35-47) % MCV (78-100) fL MCH (26-32) pg MCHC (32-36) g/dL RDW (11.5-14.0) % Plt Count (150-450) x10^3/uL MPV (7.5-11.0) fL Gran % (36.0-66.0) % Immature Gran % (Auto) (0.00-0.4) % Nucleat RBC Rel Count (0.00-0.1) % Eos # (Auto) (0-0.5) x10^3/uL Immature Gran # (Auto) (0.00-0.03) x10^3u/L Absolute Lymphs (auto) (1.0-4.6) x10^3/uL Absolute Monos (auto) (0.0-1.3) x10^3/uL Absolute Nucleated RBC (0.00-0.01) x10^3u/L Lymphocytes % (24.0-44.0) % Monocytes % (0.0-12.0) % Eosinophils % (0.00-5.0) % Basophils % (0.0-0.4) % Absolute Granulocytes (1.4-6.9) x10^3/uL Basophils # (0-0.4) x10^3/uL Sodium 132 L (137-145) mmol/L Potassium 3.5 (3.5-5.1) mmol/L Chloride 98 (98-107) mmol/L Carbon Dioxide 27 (22-30) mmol/L Anion Gap 11.4 (5-15) MEQ/L BUN 14 (7-17) mg/dL Creatinine 0.68 (0.52-1.04) mg/dL Estimated GFR > 60.0 ML/MIN Glucose 119 H (74-106) mg/dL Calcium 8.6 (8.4-10.2) mg/dL Total Bilirubin 0.40 (0.2-1.3) mg/dL AST 24 (14-36) U/L ALT 18 (0-35) U/L Alkaline Phosphatase 61 (38-126) U/L Troponin I < 0.012 (0.000-0.034) ng/mL NT-Pro-B Natriuret Pep 547 (0-1800) pg/mL Serum Total Protein 6.9 (6.3-8.2) g/dL Albumin 4.0 (3.5-5.0) g/dL Urinalys Dipstick Clnc MAIN LAB Urine Color YELLOW (YELLOW) Urine Appearance CLEAR (CLEAR) Urine pH 7.0 (5-6) Ur Specific [place] 1.010 (1.005-1.025) POC Urine Protein Conf NEGATIVE (Negative) Urine Ketones NEGATIVE (NEGATIVE) Urine Nitrite NEGATIVE (NEGATIVE) Urine Bilirubin NEGATIVE (NEGATIVE) Urine Urobilinogen 0.2 (0-1) mg/dL Urine Leukocytes NEGATIVE (NEGATIVE) Urine WBC (Auto) 0-2 (0-5) /HPF Urine RBC (Auto) 3-5 (0-2) /HPF U Epithel Cells (Auto) NONE (FEW) /HPF Urine Bacteria (Auto) RARE (NEGATIVE) /HPF Urine RBC SMALL (0-5) [place]/ul Urine Mucus (Auto) SLIGHT (NEGATIVE) /HPF Ur Culture Indicated? NO Urine Glucose NEGATIVE (NEGATIVE) mg/dL 02/03/22 Range/Units 19:10 WBC 9.9 (4.0-10.5) x10^3/uL RBC 3.59 L (4.1-5.4) x10^6/uL Hgb 11.2 L (12.0-16.0) g/dL Hct 34.5 L (35-47) % MCV 96.1 (78-100) fL MCH 31.2 (26-32) pg MCHC 32.5 (32-36) g/dL RDW 13.0 (11.5-14.0) % Plt Count 247 (150-450) x10^3/uL MPV 9.8 (7.5-11.0) fL Gran % 75.9 H (36.0-66.0) % Immature Gran % (Auto) 0.3 (0.00-0.4) % Nucleat RBC Rel Count 0.0 (0.00-0.1) % Eos # (Auto) 0 (0-0.5) x10^3/uL Immature Gran # (Auto) 0.03 (0.00-0.03) x10^3u/L Absolute Lymphs (auto) 1.76 (1.0-4.6) x10^3/uL Absolute Monos (auto) 0.55 (0.0-1.3) x10^3/uL Absolute Nucleated RBC 0.00 (0.00-0.01) x10^3u/L Lymphocytes % 17.8 L (24.0-44.0) % Monocytes % 5.6 (0.0-12.0) % Eosinophils % 0.0 (0.00-5.0) % Basophils % 0.4 (0.0-0.4) % Absolute Granulocytes 7.48 H (1.4-6.9) x10^3/uL Basophils # 0.04 (0-0.4) x10^3/uL Sodium (137-145) mmol/L Potassium (3.5-5.1) mmol/L Chloride (98-107) mmol/L Carbon Dioxide (22-30) mmol/L Anion Gap (5-15) MEQ/L BUN (7-17) mg/dL Creatinine (0.52-1.04) mg/dL Estimated GFR ML/MIN Glucose (74-106) mg/dL Calcium (8.4-10.2) mg/dL Total Bilirubin (0.2-1.3) mg/dL AST (14-36) U/L ALT (0-35) U/L Alkaline Phosphatase (38-126) U/L Troponin I (0.000-0.034) ng/mL NT-Pro-B Natriuret Pep (0-1800) pg/mL Serum Total Protein (6.3-8.2) g/dL Albumin (3.5-5.0) g/dL Urinalys Dipstick Clnc Urine Color (YELLOW) Urine Appearance (CLEAR) Urine pH (5-6) Ur Specific [place] (1.005-1.025) POC Urine Protein Conf (Negative) Urine Ketones (NEGATIVE) Urine Nitrite (NEGATIVE) Urine Bilirubin (NEGATIVE) Urine Urobilinogen (0-1) mg/dL Urine Leukocytes (NEGATIVE) Urine WBC (Auto) (0-5) /HPF Urine RBC (Auto) (0-2) /HPF U Epithel Cells (Auto) (FEW) /HPF Urine Bacteria (Auto) (NEGATIVE) /HPF Urine RBC (0-5) [place]/ul Urine Mucus (Auto) (NEGATIVE) /HPF Ur Culture Indicated? Urine Glucose (NEGATIVE) mg/dL - Progress Progress: improved Progress Note: Patient reassessed. Vitals stable. Blood pressure significantly improved. Blood pressure currently 163/94. No indication for intervention based on his blood pressure. Work-up reveals a mild hyponatremia at 132. Patient received normal saline to replenish the sodium. Patient denied pain. She has no pain at this time. Troponin negative. EKG normal sinus rhythm. Rate 93. Patient requested admission as she is feeling somewhat weak and not fully recovered. We called Dr. Looney and reviewed all the findings including the physical exam and results of studies. Dr. Looney feels hospitalization is not indicated at this time. However Dr. Looney will follow up with our patient this Wednesday at 3 PM in her office. Plan of care discussed with patient. She agrees to plan and will follow up with Dr. Looney in 3 days as planned. She voices no other complaints or concerns at this time. Portions of this note were created with voice recognition technology. There may be grammatical, spelling, punctuation or sound alike errors 02/03/22 20:55 Discussed with : Nancy Will see patient in: office Counseled pt/family regarding: lab results, diagnosis, need for follow-up - Departure Departure Disposition: Home Clinical Impression: Hyponatremia, Generalized weakness Condition: Stable Critical Care Time: No Referrals: MARQUEZ URIAS, [Primary Care Provider] - Follow up/PCP as directed Additional Instructions: Discharge/Care Plan DHAVAL PERALTA was seen on 02/03/22 in the Emergency Room. The patient was counseled regarding Diagnosis,Lab results, Imaging studies, need for follow up and when to return to the Emergency Room. Prescriptions given: Discharge Note I have spoken with the patient and/or caregivers. I have explained the patient's condition, diagnosis and treatment plan based on the information available to me at this time. I have answered the patient's and/or caregiver's questions and addressed any concerns. The patient and/or caregivers have as good understanding of the patient's diagnosis, condition and treatment plan as can be expected at this point. The vital signs have been stable. The patient's condition is stable and appropriate for discharge from the emergency department. The patient will pursue further outpatient evaluation with the primary care physician or other designated or consulting physician as outlined in the discharge instructions. The patient and/or caregivers are agreeable to this plan of care and follow-up instructions have been explained in detail. The patient and/or caregivers have received these instruction. The patient/and or caregivers are aware that any significant change in condition or worsening of symptoms should prompt an immediate return to this or the closest emergency department or call 911.
[2022-02-03 21:40] VITALS: BP 160/97; PULSE 71; O2SAT 98
== END 2022-02-03 21:40 | disposition home or self-care (01) ==
LOC: ED 18:49
DX: E87.1 Hypo-osmolality and hyponatremia (principal); R53.1 Weakness; R03.0 Elevated blood-pressure reading, without diagnosis of hypertension; E78.5 Hyperlipidemia, unspecified; Z79.899 Other long term (current) drug therapy
CPT/HCPCS: 36000; 36415; 80053; 81015; 83880; 84484; 85025; 93005; 93041; 96360; 99284

== ENCOUNTER 2022-02-27 15:55 | Observation (INO) | payer MEDICARE, OTHER ==
[2022-02-27 15:34] LABS: Absolute Neutrophil Ct (ANC) 16.96 x10^3/uL (1.4-6.9); Basophil (Absolute #) 0.06 x10^3/uL (0-0.4); Eosinophil (Absolute #) 0 x10^3/uL (0-0.5); Hemoglobin 12.1 g/dL (12.0-16.0); Lymphocyte (Absolute #) 1.75 x10^3/uL (1.0-4.6); Mean Cell Volume 95.9 fL (78-100); Mean Corpuscular Hemoglobin 31.3 pg (26-32); Mean Corpuscular Hgb Concent. 32.7 g/dL (32-36); Mean Platelet Volume 9.8 fL (7.5-11.0); Monocyte (Absolute #) 0.64 x10^3/uL (0.0-1.3); Monocytes % 3.3 % (0.0-12.0); Platelet Count 290 x10^3/uL (150-450); Red Blood Count 3.86 x10^6/uL (4.1-5.4); Red Cell Distribution Width 12.8 % (11.5-14.0); White Blood Count 19.5 x10^3/uL (4.0-10.5)
[2022-02-27 15:46] LABS: ALBUMIN 4.1 g/dL (3.5-5.0); ALKALINE PHOSPHATASE 82 U/L (38-126); ANION GAP 12.6 MEQ/L (5-15); BLOOD UREA NITROGEN 24 mg/dL (7-17); CHLORIDE 98 mmol/L (98-107); Calcium 8.9 mg/dL (8.4-10.2); Carbon Dioxide 24 mmol/L (22-30); Creatinine 1 0.83 mg/dL (0.52-1.04); EST GLOMERULAR FILTRATION RATE > 60.0 ML/MIN; Glucose 133 mg/dL (74-106); Potassium 3.7 mmol/L (3.5-5.1); SGOT/AST 26 U/L (14-36); SGPT/ALT 19 U/L (0-35); SODIUM 131 mmol/L (137-145); Total Protein 7.2 g/dL (6.3-8.2)
[~2022-02-27 15:55] MED LIST: Sodium Chloride 0.9% 1000 ML 1,000 ML IV STA
[2022-02-27] MEDS ORDERED: Zofran 4 MG/2 ML VIAL IV ONE (16:36)
[2022-02-27] MEDS ORDERED: Zofran 4 MG/2 ML VIAL ONE (16:53)
[2022-02-27] MEDS: Sodium Chloride 0.9% 1000 ML 1,000 ML IV SCH (16:54)
--- NOTE | 2022-02-27 17:03 | ERPHSYRPT ---
- History of Present Illness Time Seen by Provider: 02/27/22 16:00 Source: patient Exam Limitations: no limitations Patient Subjective Stated Complaint: Weakness. Triage Nursing Assessment: Patient brought to ED per outpatient RN. Patient A+O X 3. Patient's skin pale, warm and dry. Patient was in outpatient to receive 1 liters of fluids due to dx of orthostatic hypotension. Patient was complaining of abdominal pain 4/10 and her WBC was elevated at 19.5. Patient does have non productive cough. Lungs clear a/p miriam. Physician History: Patient is a 77-year-old female who presents with a complaint of feeling lousy h er symptoms started between 1 and 230 this afternoon. She has been somewhat nauseated she has chronic orthostatic hypotension she was in the infusion center to receive 1 L of fluid. Because she was not feeling well she was sent to the ER apparently labs were drawn at the outpatient center and her white count was elevated 19 5. She denies any fever chills or sweats any other symptoms other than some slight sore throat. Timing/Duration: today Severity: moderate Associated Symptoms: nausea, malaise, weakness Allergies/Adverse Reactions: mold Allergy (Verified 02/27/22 16:19) Penicillins Allergy (Verified 02/27/22 16:19) pollen extracts Allergy (Verified 02/27/22 16:19) Rhhkhud-SJO-[id number] Reductase Inhibitor Allergy (Verified 02/27/22 16:19) Home Medications: Acetaminophen [Tylenol Arthritis] 650 mg PO Q8HPRN PRN 07/10/21 [History] Aspirin 81 gm Chew [Baby Aspirin 81 mg Chew] 81 mg PO DAILY 07/10/21 [History] Calcium Carbonate/Vitamin D3 [Calcium 600-Vit D3 200 Tablet] 1 tab PO BID 07/10/21 [History] Cholecalciferol (Vitamin D3) [Vitamin D3] 5,000 unit PO DAILY 07/10/21 [History] Elderberry Fruit and Flower [Black Elderberry 575 mg Cap] 1 each PO DAILY 07/10/21 [History] Fludrocortisone Acetate 0.1 mg PO DAILY 07/10/21 [History] Hydroxychloroquine Sulfate 200 mg PO BID 07/10/21 [History] Loratadine 10 mg [Claritin 10 mg] 10 tab PO DAILY 07/10/21 [History] Methylphenidate 5 mg [Ritalin 5 MG] 10 mg PO DAILY 07/10/21 [History] Midodrine HCl [Proamatine] 10 mg PO TID 07/10/21 [History] Multivit-Min/Ascorbic/Herb 124 [Airborne Chewable Tablet] 1 each PO DAILY 07/10/21 [History] Multivit-Min/FA/Lycopen/Lutein [Centrum Silver Tablet] 1 each PO DAILY 07/10/21 [History] Trolamine Salicylate [Aspercreme] 1 applic TP DAILY 07/10/21 [History] Ibuprofen [Advil] 200 mg PO Q6HPRN PRN 02/27/22 [History] Hx Influenza Vaccination/Date Given: No Hx Pneumococcal Vaccination/Date Given: No Immunizations Up to Date: Yes Travel Risk - International Travel Have you traveled outside of the country in past 3 weeks: No - Coronavirus Screening Are you exhibiting any of the following symptoms?: No Close contact with a COVID-19 positive Pt in past 14-21 Days: No - Vaccine Status Have you recieved a Covid-19 vaccination: Yes Count Team Clerk: Moderna - Vaccination Dates Date of 2cond Vaccination (if applicable): July 2020 - Review of Systems Constitutional: Weakness, No Fever, No Chills Eyes: No Symptoms Ears, Nose, & Throat: No Symptoms Respiratory: No Cough, No Dyspnea Cardiac: No Chest Pain, No Edema, No Syncope Abdominal/Gastrointestinal: Nausea, No Abdominal Pain, No Vomiting, No Diarrhea Genitourinary Symptoms: No Dysuria Musculoskeletal: No Back Pain, No Neck Pain Skin: No Rash Neurological: No Dizziness, No Focal Weakness, No Sensory Changes Psychological: No Symptoms Endocrine: No Symptoms All Other Systems: Reviewed and Negative - Past Medical History Pertinent Past Medical History: Yes Neurological History: No Pertinent History ENT History: No Pertinent History Cardiac History: High Cholesterol, Other Respiratory History: No Pertinent History Endocrine Medical History: No Pertinent History Musculoskeletal History: Fibromyalgia, Osteoporosis GI Medical History: Diverticulitis History: No Pertinent History Psycho-Social History: No Pertinent History Female Reproductive Disorders: No Pertinent History Other Medical History: Anemia, Essential tremor, chronic low back pain, metabolic disorder, Myoclonus, Primary generalized hyperthrophic osteoarthrosis, Raynauds disease, sicca syndrome, lupus, Sjogrens, Chronic orthostatic hypotension - Past Surgical History Past Surgical History: Yes Neuro Surgical History: No Pertinent History Cardiac: No Pertinent History Respiratory: No Pertinent History Gastrointestinal: No Pertinent History Genitourinary: No Pertinent History Musculoskeletal: No Pertinent History Female Surgical History: Hysterectomy Other Surgical History: wrist fx repair - Social History Smoking Status: Never smoker Exposure to second hand smoke: No Drug Use: none Patient Lives Alone: Yes - Nursing Vital Signs Nursing Vital Signs: Initial Vital Signs Temperature 96.8 F 02/27/22 15:20 Pulse Rate 107 H 02/27/22 15:20 Respiratory Rate 18 02/27/22 15:20 Blood Pressure 101/55 02/27/22 15:20 O2 Sat by Pulse Oximetry 95 02/27/22 15:20 Pain Scale Pain Intensity 4 - Physical Exam General Appearance: mild distress, alert Eye Exam: PERRL/EOMI, eyes nml inspection Ears, Nose, Throat Exam: normal ENT inspection, TMs normal, pharynx normal, mo ist mucous membranes Neck Exam: normal inspection, non-tender, supple, full range of motion Respiratory Exam: normal breath sounds, lungs clear, No respiratory distress Cardiovascular Exam: regular rate/rhythm, normal heart sounds, normal peripheral pulses Gastrointestinal/Abdomen Exam: soft, normal bowel sounds, No tenderness, No mass Back Exam: normal inspection, normal range of motion, No CVA tenderness, No vertebral tenderness Extremity Exam: normal inspection, normal range of motion, pelvis stable Neurologic Exam: alert, oriented x 3, cooperative, normal mood/affect, nml cerebellar function, nml station & gait, sensation nml, No motor deficits Skin Exam: normal color, warm, dry, No rash Lymphatic Exam: No adenopathy SpO2: 97 - Course Nursing assessment & vital signs reviewed: Yes EKG Interpreted by Me: RATE (84), Sinus Rhythm, NORMAL AXIS, NORMAL INTERVALS, NORMAL QRS - Radiology Exams Chest X-ray Interpretation: Negative Ordered Tests: Active Orders 24 hr Category Date Time Status EKG-ER Only STAT Care 02/27/22 16:36 Active IV Insertion STAT Care 02/27/22 16:36 Active CHEST 1 VIEW (PORTABLE) Stat Exams 02/27/22 16:36 Taken BLOOD CULTURE Stat Lab 02/27/22 17:15 Received CBC W DIFF Stat Lab 02/27/22 15:28 Completed CBC W DIFF Stat Lab 02/27/22 17:10 Completed CMP Stat Lab 02/27/22 17:10 Completed CMP [CMP] Stat Lab 02/27/22 15:28 Completed Lactic Acid Stat Lab 02/27/22 17:15 Completed MAG [MAGNESIUM] Stat Lab 02/27/22 15:28 Completed PROCALCITONIN Stat Lab 02/27/22 17:15 Completed PROTIME WITH INR Stat Lab 02/27/22 17:10 Completed TROPONIN Q4H Lab 02/27/22 17:15 Completed TROPONIN Q4H Lab 02/27/22 20:45 Ordered UA W/RFX CULTURE Stat Lab 02/27/22 16:41 Completed Medication Summary Generic Name Dose Route Start Last Admin Trade Name Freq PRN Reason Stop Dose Admin Sodium Chloride 1,000 mls @ 100 mls/hr 02/27/22 16:45 02/27/22 16:54 Sodium Chloride 0.9% 1000 Ml IV 03/29/22 16:44 100 mls/hr .Q10H KRISTYN Administration Discontinued Medications Generic Name Dose Route Start Last Admin Trade Name Freq PRN Reason Stop Dose Admin Sodium Chloride 1,000 mls @ 500 mls/hr 02/27/22 15:17 02/27/22 17:43 Sodium Chloride 0.9% 1000 Ml IV 02/27/22 17:16 Infused .Q2H STA Infusion Ondansetron HCl 4 mg 02/27/22 16:36 02/27/22 16:54 Ondansetron Hcl 4 Mg/2 Ml Vial IV 02/27/22 16:37 4 mg STAT ONE Administration Ondansetron HCl Confirm 02/27/22 16:53 Ondansetron Hcl 4 Mg/2 Ml Vial Administered 02/27/22 16:54 Dose 4 mg .ROUTE .STK-MED ONE Lab/Rad Data: Laboratory Result Diagrams 02/27/22 17:10 02/27/22 17:10 Laboratory Results 02/27/22 02/27/22 02/27/22 Range/Units 17:15 17:15 17:15 WBC (4.0-10.5) x10^3/uL RBC (4.1-5.4) x10^6/uL Hgb (12.0-16.0) g/dL Hct (35-47) % MCV (78-100) fL MCH (26-32) pg MCHC (32-36) g/dL RDW (11.5-14.0) % Plt Count (150-450) x10^3/uL MPV (7.5-11.0) fL Gran % (36.0-66.0) % Immature Gran % (Auto) (0.00-0.4) % Nucleat RBC Rel Count (0.00-0.1) % Eos # (Auto) (0-0.5) x10^3/uL Immature Gran # (Auto) (0.00-0.03) x10^3u/L Absolute Lymphs (auto) (1.0-4.6) x10^3/uL Absolute Monos (auto) (0.0-1.3) x10^3/uL Absolute Nucleated RBC (0.00-0.01) x10^3u/L Lymphocytes % (24.0-44.0) % Monocytes % (0.0-12.0) % Eosinophils % (0.00-5.0) % Basophils % (0.0-0.4) % Absolute Granulocytes (1.4-6.9) x10^3/uL Basophils # (0-0.4) x10^3/uL PT (9.4-12.5) SECONDS INR (0.8-3.0) Sodium (137-145) mmol/L Potassium (3.5-5.1) mmol/L Chloride (98-107) mmol/L Carbon Dioxide (22-30) mmol/L Anion Gap (5-15) MEQ/L BUN (7-17) mg/dL Creatinine (0.52-1.04) mg/dL Estimated GFR ML/MIN Glucose (74-106) mg/dL Lactic Acid (0.4-2.0) Calcium (8.4-10.2) mg/dL Magnesium (1.6-2.3) mg/dL Total Bilirubin (0.2-1.3) mg/dL AST (14-36) U/L ALT (0-35) U/L Alkaline Phosphatase (38-126) U/L Troponin I < 0.012 (0.000-0.034) ng/mL Serum Total Protein (6.3-8.2) g/dL Albumin (3.5-5.0) g/dL Procalcitonin 0.113 H (0.030-0.080) ng/mL Urinalys Dipstick Clnc Urine Color (YELLOW) Urine Appearance (CLEAR) Urine pH (5-6) Ur Specific [place] (1.005-1.025) POC Urine Protein Conf (Negative) Urine Ketones (NEGATIVE) Urine Nitrite (NEGATIVE) Urine Bilirubin (NEGATIVE) Urine Urobilinogen (0-1) mg/dL Urine Leukocytes (NEGATIVE) Urine WBC (Auto) (0-5) /HPF Urine RBC (Auto) (0-2) /HPF U Epithel Cells (Auto) (FEW) /HPF Urine Bacteria (Auto) (NEGATIVE) /HPF Urine RBC (0-5) [place]/ul Urine Mucus (Auto) (NEGATIVE) /HPF Ur Culture Indicated? Urine Glucose (NEGATIVE) mg/dL Influenza Type A Ag NEGATIVE (NEGATIVE) Influenza Type B Ag NEGATIVE (NEGATIVE) RSV (PCR) NEGATIVE (Negative) SARS-CoV-2 (PCR) NEGATIVE (NEGATIVE) Group A Strep Antibody NOT DETECTED (NEGATIVE) 02/27/22 02/27/22 02/27/22 Range/Units 17:15 17:10 17:10 WBC (4.0-10.5) x10^3/uL RBC (4.1-5.4) x10^6/uL Hgb (12.0-16.0) g/dL Hct (35-47) % MCV (78-100) fL MCH (26-32) pg MCHC (32-36) g/dL RDW (11.5-14.0) % Plt Count (150-450) x10^3/uL MPV (7.5-11.0) fL Gran % (36.0-66.0) % Immature Gran % (Auto) (0.00-0.4) % Nucleat RBC Rel Count (0.00-0.1) % Eos # (Auto) (0-0.5) x10^3/uL Immature Gran # (Auto) (0.00-0.03) x10^3u/L Absolute Lymphs (auto) (1.0-4.6) x10^3/uL Absolute Monos (auto) (0.0-1.3) x10^3/uL Absolute Nucleated RBC (0.00-0.01) x10^3u/L Lymphocytes % (24.0-44.0) % Monocytes % (0.0-12.0) % Eosinophils % (0.00-5.0) % Basophils % (0.0-0.4) % Absolute Granulocytes (1.4-6.9) x10^3/uL Basophils # (0-0.4) x10^3/uL PT 11.0 (9.4-12.5) SECONDS INR 1.04 (0.8-3.0) Sodium 130 L (137-145) mmol/L Potassium 3.8 (3.5-5.1) mmol/L Chloride 97 L (98-107) mmol/L Carbon Dioxide 26 (22-30) mmol/L Anion Gap 11.4 (5-15) MEQ/L BUN 27 H (7-17) mg/dL Creatinine 0.78 (0.52-1.04) mg/dL Estimated GFR > 60.0 ML/MIN Glucose 114 H (74-106) mg/dL Lactic Acid 1.6 (0.4-2.0) Calcium 9.0 (8.4-10.2) mg/dL Magnesium (1.6-2.3) mg/dL Total Bilirubin 0.40 (0.2-1.3) mg/dL AST 24 (14-36) U/L ALT 19 (0-35) U/L Alkaline Phosphatase 93 (38-126) U/L Troponin I (0.000-0.034) ng/mL Serum Total Protein 6.9 (6.3-8.2) g/dL Albumin 4.0 (3.5-5.0) g/dL Procalcitonin (0.030-0.080) ng/mL Urinalys Dipstick Clnc Urine Color (YELLOW) Urine Appearance (CLEAR) Urine pH (5-6) Ur Specific [place] (1.005-1.025) POC Urine Protein Conf (Negative) Urine Ketones (NEGATIVE) Urine Nitrite (NEGATIVE) Urine Bilirubin (NEGATIVE) Urine Urobilinogen (0-1) mg/dL Urine Leukocytes (NEGATIVE) Urine WBC (Auto) (0-5) /HPF Urine RBC (Auto) (0-2) /HPF U Epithel Cells (Auto) (FEW) /HPF Urine Bacteria (Auto) (NEGATIVE) /HPF Urine RBC (0-5) [place]/ul Urine Mucus (Auto) (NEGATIVE) /HPF Ur Culture Indicated? Urine Glucose (NEGATIVE) mg/dL Influenza Type A Ag (NEGATIVE) Influenza Type B Ag (NEGATIVE) RSV (PCR) (Negative) SARS-CoV-2 (PCR) (NEGATIVE) Group A Strep Antibody (NEGATIVE) 02/27/22 02/27/22 02/27/22 Range/Units 17:10 16:41 15:28 WBC 19.6 H (4.0-10.5) x10^3/uL RBC 3.79 L (4.1-5.4) x10^6/uL Hgb 11.9 L (12.0-16.0) g/dL Hct 36.2 (35-47) % MCV 95.5 (78-100) fL MCH 31.4 (26-32) pg MCHC 32.9 (32-36) g/dL RDW 13.0 (11.5-14.0) % Plt Count 270 (150-450) x10^3/uL MPV 10.2 (7.5-11.0) fL Gran % 92.7 H (36.0-66.0) % Immature Gran % (Auto) 0.4 (0.00-0.4) % Nucleat RBC Rel Count 0.0 (0.00-0.1) % Eos # (Auto) 0 (0-0.5) x10^3/uL Immature Gran # (Auto) 0.08 H (0.00-0.03) x10^3u/L Absolute Lymphs (auto) 0.51 L (1.0-4.6) x10^3/uL Absolute Monos (auto) 0.76 (0.0-1.3) x10^3/uL Absolute Nucleated RBC 0.00 (0.00-0.01) x10^3u/L Lymphocytes % 2.6 L (24.0-44.0) % Monocytes % 3.9 (0.0-12.0) % Eosinophils % 0.0 (0.00-5.0) % Basophils % 0.4 (0.0-0.4) % Absolute Granulocytes 18.17 H (1.4-6.9) x10^3/uL Basophils # 0.07 (0-0.4) x10^3/uL PT (9.4-12.5) SECONDS INR (0.8-3.0) Sodium (137-145) mmol/L Potassium (3.5-5.1) mmol/L Chloride (98-107) mmol/L Carbon Dioxide (22-30) mmol/L Anion Gap (5-15) MEQ/L BUN (7-17) mg/dL Creatinine (0.52-1.04) mg/dL Estimated GFR ML/MIN Glucose (74-106) mg/dL Lactic Acid (0.4-2.0) Calcium (8.4-10.2) mg/dL Magnesium 2.3 (1.6-2.3) mg/dL Total Bilirubin (0.2-1.3) mg/dL AST (14-36) U/L ALT (0-35) U/L Alkaline Phosphatase (38-126) U/L Troponin I (0.000-0.034) ng/mL Serum Total Protein (6.3-8.2) g/dL Albumin (3.5-5.0) g/dL Procalcitonin (0.030-0.080) ng/mL Urinalys Dipstick Clnc MAIN LAB Urine Color YELLOW (YELLOW) Urine Appearance CLEAR (CLEAR) Urine pH 7.0 (5-6) Ur Specific [place] 1.020 (1.005-1.025) POC Urine Protein Conf NEGATIVE (Negative) Urine Ketones NEGATIVE (NEGATIVE) Urine Nitrite NEGATIVE (NEGATIVE) Urine Bilirubin NEGATIVE (NEGATIVE) Urine Urobilinogen 0.2 (0-1) mg/dL Urine Leukocytes NEGATIVE (NEGATIVE) Urine WBC (Auto) 0-2 (0-5) /HPF Urine RBC (Auto) 3-5 (0-2) /HPF U Epithel Cells (Auto) NONE (FEW) /HPF Urine Bacteria (Auto) NONE SEEN (NEGATIVE) /HPF Urine RBC TRACE-INTACT (0-5) [place]/ul Urine Mucus (Auto) SLIGHT (NEGATIVE) /HPF Ur Culture Indicated? NO Urine Glucose NEGATIVE (NEGATIVE) mg/dL Influenza Type A Ag (NEGATIVE) Influenza Type B Ag (NEGATIVE) RSV (PCR) (Negative) SARS-CoV-2 (PCR) (NEGATIVE) Group A Strep Antibody (NEGATIVE) 02/27/22 02/27/22 Range/Units 15:28 15:28 WBC 19.5 H (4.0-10.5) x10^3/uL RBC 3.86 L (4.1-5.4) x10^6/uL Hgb 12.1 (12.0-16.0) g/dL Hct 37.0 (35-47) % MCV 95.9 (78-100) fL MCH 31.3 (26-32) pg MCHC 32.7 (32-36) g/dL RDW 12.8 (11.5-14.0) % Plt Count 290 (150-450) x10^3/uL MPV 9.8 (7.5-11.0) fL Gran % 87.0 H (36.0-66.0) % Immature Gran % (Auto) 0.4 (0.00-0.4) % Nucleat RBC Rel Count 0.0 (0.00-0.1) % Eos # (Auto) 0 (0-0.5) x10^3/uL Immature Gran # (Auto) 0.08 H (0.00-0.03) x10^3u/L Absolute Lymphs (auto) 1.75 (1.0-4.6) x10^3/uL Absolute Monos (auto) 0.64 (0.0-1.3) x10^3/uL Absolute Nucleated RBC 0.00 (0.00-0.01) x10^3u/L Lymphocytes % 9.0 L (24.0-44.0) % Monocytes % 3.3 (0.0-12.0) % Eosinophils % 0.0 (0.00-5.0) % Basophils % 0.3 (0.0-0.4) % Absolute Granulocytes 16.96 H (1.4-6.9) x10^3/uL Basophils # 0.06 (0-0.4) x10^3/uL PT (9.4-12.5) SECONDS INR (0.8-3.0) Sodium 131 L (137-145) mmol/L Potassium 3.7 (3.5-5.1) mmol/L Chloride 98 (98-107) mmol/L Carbon Dioxide 24 (22-30) mmol/L Anion Gap 12.6 (5-15) MEQ/L BUN 24 H (7-17) mg/dL Creatinine 0.83 (0.52-1.04) mg/dL Estimated GFR > 60.0 ML/MIN Glucose 133 H (74-106) mg/dL Lactic Acid (0.4-2.0) Calcium 8.9 (8.4-10.2) mg/dL Magnesium (1.6-2.3) mg/dL Total Bilirubin 0.30 (0.2-1.3) mg/dL AST 26 (14-36) U/L ALT 19 (0-35) U/L Alkaline Phosphatase 82 (38-126) U/L Troponin I (0.000-0.034) ng/mL Serum Total Protein 7.2 (6.3-8.2) g/dL Albumin 4.1 (3.5-5.0) g/dL Procalcitonin (0.030-0.080) ng/mL Urinalys Dipstick Clnc Urine Color (YELLOW) Urine Appearance (CLEAR) Urine pH (5-6) Ur Specific [place] (1.005-1.025) POC Urine Protein Conf (Negative) Urine Ketones (NEGATIVE) Urine Nitrite (NEGATIVE) Urine Bilirubin (NEGATIVE) Urine Urobilinogen (0-1) mg/dL Urine Leukocytes (NEGATIVE) Urine WBC (Auto) (0-5) /HPF Urine RBC (Auto) (0-2) /HPF U Epithel Cells (Auto) (FEW) /HPF Urine Bacteria (Auto) (NEGATIVE) /HPF Urine RBC (0-5) [place]/ul Urine Mucus (Auto) (NEGATIVE) /HPF Ur Culture Indicated? Urine Glucose (NEGATIVE) mg/dL Influenza Type A Ag (NEGATIVE) Influenza Type B Ag (NEGATIVE) RSV (PCR) (Negative) SARS-CoV-2 (PCR) (NEGATIVE) Group A Strep Antibody (NEGATIVE) - Progress Progress: improved Discussed with : Iva Will see patient in: hospital (observation) - Departure Departure Disposition: Observation Clinical Impression: Orthostatic hypotension, Leukocytosis Condition: Good Critical Care Time: No Referrals: MARQUEZ URIAS, [Primary Care Provider] - Follow up/PCP as directed
[2022-02-27 17:25] LABS: Absolute Neutrophil Ct (ANC) 18.17 x10^3/uL (1.4-6.9); Basophil (Absolute #) 0.07 x10^3/uL (0-0.4); Eosinophil (Absolute #) 0 x10^3/uL (0-0.5); Hematocrit 36.2 % (35-47); Hemoglobin 11.9 g/dL (12.0-16.0); Lymphocyte (Absolute #) 0.51 x10^3/uL (1.0-4.6); Lymphocytes % 2.6 % (24.0-44.0); Mean Cell Volume 95.5 fL (78-100); Mean Corpuscular Hemoglobin 31.4 pg (26-32); Mean Corpuscular Hgb Concent. 32.9 g/dL (32-36); Mean Platelet Volume 10.2 fL (7.5-11.0); Monocyte (Absolute #) 0.76 x10^3/uL (0.0-1.3); Monocytes % 3.9 % (0.0-12.0); Neutrophil % 92.7 % (36.0-66.0); Platelet Count 270 x10^3/uL (150-450); Red Blood Count 3.79 x10^6/uL (4.1-5.4); White Blood Count 19.6 x10^3/uL (4.0-10.5)
[2022-02-27 17:36] LABS: ALKALINE PHOSPHATASE 93 U/L (38-126); ANION GAP 11.4 MEQ/L (5-15); BLOOD UREA NITROGEN 27 mg/dL (7-17); CHLORIDE 97 mmol/L (98-107); Carbon Dioxide 26 mmol/L (22-30); Creatinine 1 0.78 mg/dL (0.52-1.04); EST GLOMERULAR FILTRATION RATE > 60.0 ML/MIN; Glucose 114 mg/dL (74-106); Potassium 3.8 mmol/L (3.5-5.1); SGOT/AST 24 U/L (14-36); SGPT/ALT 19 U/L (0-35); SODIUM 130 mmol/L (137-145); Total Protein 6.9 g/dL (6.3-8.2)
[2022-02-27 17:37] LABS: INR 1.04 (0.8-3.0)
[2022-02-27 17:40] LABS: Mucus SLIGHT /HPF (NEGATIVE); WBC 0-2 /HPF (0-5)
[2022-02-27 17:41] LABS: Appearance CLEAR (CLEAR); Bilirubin NEGATIVE (NEGATIVE); Dipstick done @ ? MAIN LAB; Glucose NEGATIVE (NEGATIVE); Ketones NEGATIVE (NEGATIVE); Nitrite NEGATIVE (NEGATIVE); Protein,Urine Dip NEGATIVE (Negative); RBC TRACE-INTACT Ery/ul (0-5); Urobilinogen 0.2 mg/dL (0-1)
[2022-02-27 17:42] LABS: Bacteria NONE SEEN /HPF (NEGATIVE); Urine Cultured Indicated? NO
[2022-02-27 17:50] LABS: Group A Strep NOT DETECTED (NEGATIVE)
[2022-02-27 18:01] LABS: INFLUENZA A NEGATIVE (NEGATIVE); INFLUENZA B NEGATIVE (NEGATIVE); RESPIRATORY SYNCTIAL VIRUS NEGATIVE (Negative); SARS-CoV-2 Xpert Express NEGATIVE (NEGATIVE)
[2022-02-27] MEDS ORDERED: Zofran 4 MG/2 ML VIAL IV PRN (19:17)
--- NOTE | 2022-02-27 20:15 | XRAY ---
Indication: Fever and cough. Comparison: July 10, 2021 Portable chest unchanged again hyperinflated and clear with incidental tiny right apical calcified granuloma. Heart not enlarged. Bony thorax intact again with osteopenia, degenerative changes, and minimal scoliosis. No new/acute findings.
[2022-02-27] MEDS ORDERED: Toprol-Xl 25MG Tablets PO PRN (23:16)
[2022-02-27] MEDS ORDERED: TYLENOL 325 MG PO PRN (23:26)
[2022-02-27] MEDS ORDERED: PROAMATINE PO SCH (23:30)
[2022-02-27] MEDS ORDERED: Toprol-Xl 25MG Tablets ONE (23:33)
[2022-02-27] MEDS ORDERED: CAPTOPRIL 25 MG ONE (23:34)
[2022-02-28] MEDS: Sodium Chloride 0.9% 1000 ML 1,000 ML IV SCH
[2022-02-28 06:49] VITALS: O2SAT 96
[2022-02-28 07:46] LABS: ALKALINE PHOSPHATASE 71 U/L (38-126); BLOOD UREA NITROGEN 20 mg/dL (7-17); CHLORIDE 102 mmol/L (98-107); Calcium 7.9 mg/dL (8.4-10.2); Carbon Dioxide 27 mmol/L (22-30); Creatinine 1 0.66 mg/dL (0.52-1.04); EST GLOMERULAR FILTRATION RATE > 60.0 ML/MIN; Glucose 102 mg/dL (74-106); Potassium 3.5 mmol/L (3.5-5.1); SGOT/AST 22 U/L (14-36); SGPT/ALT 17 U/L (0-35); SODIUM 130 mmol/L (137-145); Total Protein 5.6 g/dL (6.3-8.2)
[2022-02-28 09:04] VITALS: BP 141/70; PULSE 82
[2022-02-28] MEDS ORDERED: PROAMATINE PO PRN (09:15)
[2022-02-28 09:24] LABS: Absolute Neutrophil Ct (ANC) 13.25 x10^3/uL (1.4-6.9); Basophil (Absolute #) 0.03 x10^3/uL (0-0.4); Eosinophil (Absolute #) 0 x10^3/uL (0-0.5); Hematocrit 29.3 % (35-47); Hemoglobin 9.8 g/dL (12.0-16.0); Mean Cell Volume 95.1 fL (78-100); Mean Corpuscular Hemoglobin 31.8 pg (26-32); Mean Corpuscular Hgb Concent. 33.4 g/dL (32-36); Mean Platelet Volume 10.3 fL (7.5-11.0); Monocyte (Absolute #) 0.44 x10^3/uL (0.0-1.3); Monocytes % 2.9 % (0.0-12.0); Neutrophil % 88.6 % (36.0-66.0); Red Blood Count 3.08 x10^6/uL (4.1-5.4); Red Cell Distribution Width 13.3 % (11.5-14.0)
[2022-02-28 09:28] LABS: Platelet Count 174 x10^3/uL (150-450)
[2022-02-28] MEDS ORDERED: MOTRIN 200 MG PO SCH (10:00)
[2022-02-28] MEDS ORDERED: ROCEPHIN 1 Gm-D5w 50 ml Bag** 1 G/50 ML IVPB IV SCH (10:00)
[2022-02-28] MEDS ORDERED: CAPTOPRIL 25 MG PO SCH (22:00)
[2022-02-28] MEDS ORDERED: NON-FORMULARY ITEM PO SCH (22:00)
--- NOTE | 2022-03-07 10:46 | PCM.SSS ---
History of Present Illness - Chief Complaint Chief Complaint: Chronic orthostatic hypotension, Leuckocytosis Date: 02/28/22 History of Present Illness: is a 77 year old female. Pt. has multiple autoimmune disorders and occasionally has episodes of profound weakness, pt. had an episode and was brought to er, family notes they often handle these at home but this seemed worse. Pt. admitted for iv fluids and observation. - Review of Systems Constitutional: Weakness Eyes: No Symptoms Ears, Nose, & Throat: No Symptoms Respiratory: No Cough, No Short Of Breath Cardiac: No Chest Pain, No Edema, No Syncope Abdominal/Gastrointestinal: No Abdominal Pain, No Nausea, No Vomiting, No Diarrhea Genitourinary Symptoms: No Dysuria Musculoskeletal: No Back Pain, No Neck Pain Skin: No Rash Neurological: No Dizziness, No Focal Weakness, No Sensory Changes Psychological: No Symptoms Endocrine: No Symptoms Hematologic/Lymphatic: No Symptoms Immunological/Allergic: No Symptoms Medications & Allergies Home Medications: Home Medication List Acetaminophen [Tylenol Arthritis] 650 mg PO Q8HPRN PRN 07/10/21 [History Confirmed 02/27/22] Aspirin 81 gm Chew [Baby Aspirin 81 mg Chew] 81 mg PO DAILY 07/10/21 [History Confirmed 02/27/22] Calcium Carbonate/Vitamin D3 [Calcium 600-Vit D3 200 Tablet] 1 tab PO DAILY 07/10/21 [History Confirmed 02/27/22] Cholecalciferol (Vitamin D3) [Vitamin D3] 5,000 unit PO DAILY 07/10/21 [History Confirmed 02/27/22] Elderberry Fruit and Flower [Black Elderberry 575 mg Cap] 1 each PO DAILY PRN PRN 07/10/21 [History Confirmed 02/27/22] Fludrocortisone Acetate 0.1 mg PO DAILY 07/10/21 [History Confirmed 02/27/22] Hydroxychloroquine Sulfate 200 mg PO BID 07/10/21 [History Confirmed 02/27/22] Midodrine HCl [Proamatine] 10 mg PO TID 07/10/21 [History Confirmed 02/27/22] Multivit-Min/FA/Lycopen/Lutein [Centrum Silver Tablet] 1 each PO DAILY 07/10/21 [History Confirmed 02/27/22] Trolamine Salicylate [Aspercreme] 1 applic TP DAILY 07/10/21 [History Confirmed 02/27/22] Ibuprofen [Advil] 200 mg PO Q6HPRN PRN 02/27/22 [History Confirmed 02/27/22] Non-Formulary Drug [Non-Formulary Item] 40 mg PO HS 02/27/22 [History Confirmed 02/27/22] captopriL [Captopril] 6.25 mg PO HS 02/27/22 [History Confirmed 02/27/22] Levofloxacin [Levofloxacin 500 MG Tablet] 500 mg PO DAILY 7 Days #7 tablet 02/28/22 [Rx] Allergies/Adverse Reactions: Allergies Allergy/AdvReac Type Severity Reaction Status Date / Time pollen extracts Allergy Severe Swelling Verified 02/27/22 22:14 of Face Penicillins Allergy Intermediate Rash Verified 02/27/22 22:14 mold Allergy Mild Swelling Verified 02/27/22 22:14 of Face [id number] Reductase AdvReac Intermediate Fatigue Verified 02/27/22 22:14 Inhibitor - Past Medical History Past Medical History: Yes Neurological History: Stroke ENT History: Cataracts Cardiac History: High Cholesterol, Other Respiratory History: No Pertinent History Endocrine Medical History: No Pertinent History Musculoskelatal History: Fibromyalgia, Osteoporosis GI Medical History: Diverticulosis History: No Pertinent History Pyscho-Social History: No Pertinent History Reproductive Disorders: No Pertinent History Comment: Anemia, Essential tremor, chronic low back pain, metabolic disorder, Myoclonus, Primary generalized hyperthrophic osteoarthrosis, Raynauds disease, lupus, Sjogrens, Chronic orthostatic hypotension - Female History Are you now?: No - Past Surgical History Past Surgical History: Yes Neuro Surgical History: No Pertinent History Cardiac History: No Pertinent History Respiratory Surgery: No Pertinent History GI Surgical History: No Pertinent History Genitourinary Surgical Hx: No Pertinent History Musculskeletal Surgical Hx: No Pertinent History Female Surgical History: Hysterectomy Other Surgical History: wrist fx repair - Left - Social History Smoking Status: Never smoker Exposure to second hand smoke: No Alcohol: None Drug Use: none - Physical Exam General Appearance: no apparent distress, alert Neurologic Exam: alert, oriented x 3, cooperative, normal mood/affect, nml cerebellar function, sensation nml, No motor deficits Eye Exam: PERRL/EOMI, eyes nml inspection Ears, Nose, Throat Exam: normal ENT inspection, TMs normal, pharynx normal, moist mucous membranes Neck Exam: normal inspection, non-tender, supple, full range of motion Respiratory Exam: normal breath sounds, lungs clear, No respiratory distress Cardiovascular Exam: regular rate/rhythm, normal heart sounds, normal peripheral pulses Gastrointestinal/Abdomen Exam: soft, normal bowel sounds, No tenderness, No mass Back Exam: normal inspection, normal range of motion, No CVA tenderness, No vertebral tenderness Extremity Exam: normal inspection, normal range of motion, pelvis stable Skin Exam: normal color, warm, dry, No rash Lymphatic Exam: No adenopathy Results - Labs Lab/Micro Results: Microbiology 02/27/22 17:10 Blood Culture Gram Stain - Final Blood Blood Culture - Final Coagulase Negative Staph. Possible Contaminant. Clinical judgement required. No further workup performed. 02/27/22 17:15 Blood Culture Gram Stain - Final Blood Not Reportable Blood Culture - Final NO GROWTH Assessment/Plan (1) Fatigue Status: Acute Code(s): R53.83 - OTHER FATIGUE (2) Generalized weakness Status: Acute Code(s): R53.1 - WEAKNESS (3) Leukocytosis Status: Acute Code(s): D72.829 - ELEVATED WHITE BLOOD CELL COUNT, UNSPECIFIED (4) Orthostatic hypotension Status: Chronic Code(s): I95.1 - ORTHOSTATIC HYPOTENSION Hospital Summary - Hospital Course Hospital Course: Although no obvious source of infection found, pt. with elevated wbc was started on iv levoquin and hydration initiated, by the 1st the patient felt back to her baseline and she and family felt she was ready to go home. - Vitals & Intake/Output Vital Signs: Vital Signs Temperature 97.7 F 02/28/22 06:48 Pulse Rate 82 02/28/22 09:04 Respiratory Rate 18 02/28/22 06:48 Blood Pressure 141/70 02/28/22 09:04 O2 Sat by Pulse Oximetry 96 02/28/22 06:48 - Lab Result Diagrams: 02/28/22 06:20 02/28/22 06:20 Micro Results-Entire Visit: Microbiology 02/27/22 17:10 Blood Culture Gram Stain - Final Blood Blood Culture - Final Coagulase Negative Staph. Possible Contaminant. Clinical judgement required. No further workup performed. 02/27/22 17:15 Blood Culture Gram Stain - Final Blood Not Reportable Blood Culture - Final NO GROWTH - Procedures and Test Procedures and Tests throughout Hospitalization: Therapy Orders & Screens 02/27/22 21:58 OT Screen per Nursing Assess ONCE Comment: Protocol Order Physician Instructions: Greater than 3 points order OT Admission Screening Reason For Exam: Triggered on Admission Diagnosis: Chronic orthostatic hypotension, Leuckocytosis Open Wound/Cellutlitis/Pressure Ulcers: No Acute Fx/ORIF/Change in wt bearing status: No Severe MUSCULOSKELETAL pain: No ADL Dysfunction: Yes Acute CVA w/Hemiparesis/Hemiplegia: No Decreased Functional Mobility/Strength: Yes Sprain/Strain: No Acute Post-op Mobility Dysfunction: No Total Points: 4 PT Screen per Nursing Assess ONCE Comment: Protocol Order Physician Instructions: Greater than 3 points order PT Admission Screenin Reason For Exam: Triggered on Admission Diagnosis: Chronic orthostatic hypotension, Leuckocytosis Open Wound/Cellutlitis/Pressure Ulcers: No Acute Fx/ORIF/Change in wt bearing status: No Severe MUSCULOSKELETAL pain: No ADL Dysfunction: Yes Acute CVA w/Hemiparesis/Hemiplegia: No Decreased Functional Mobility/Strength: Yes Sprain/Strain: No Acute Post-op Mobility Dysfunction: No Total Points: 4 - Discharge Discharge Date: 02/28/22 Disposition: Home, Self-Care Condition: Good Prescriptions: New Levofloxacin [Levofloxacin 500 MG Tablet] 500 mg PO DAILY 7 Days #7 tablet No Action Aspirin 81 gm Chew [Baby Aspirin 81 mg Chew] 81 mg PO DAILY Calcium Carbonate/Vitamin D3 [Calcium 600-Vit D3 200 Tablet] 1 tab PO DAILY Hydroxychloroquine Sulfate 200 mg PO BID Midodrine HCl [Proamatine] 10 mg PO TID Trolamine Salicylate [Aspercreme] 1 applic TP DAILY Multivit-Min/FA/Lycopen/Lutein [Centrum Silver Tablet] 1 each PO DAILY Elderberry Fruit and Flower [Black Elderberry 575 mg Cap] 1 each PO DAILY PRN PRN PRN Reason: Nausea Acetaminophen [Tylenol Arthritis] 650 mg PO Q8HPRN PRN PRN Reason: Pain Cholecalciferol (Vitamin D3) [Vitamin D3] 5,000 unit PO DAILY Fludrocortisone Acetate 0.1 mg PO DAILY Ibuprofen [Advil] 200 mg PO Q6HPRN PRN PRN Reason: Pain, Fever, Headache captopriL [Captopril] 6.25 mg PO HS Non-Formulary Drug [Non-Formulary Item] 40 mg PO HS Instructions: Generalized Weakness (DC) Forms: Discharge Instructions
== END 2022-02-28 12:17 | disposition home or self-care (01) ==
LOC: EDSTATUS 15:55 → ED 15:55 → MED SURG 20:13
PROVIDERS: ADMIT Family Medicine; ATTEND Family Medicine
DX: R53.83 Other fatigue (principal); I95.1 Orthostatic hypotension; R53.1 Weakness; D72.829 Elevated white blood cell count, unspecified; Z79.899 Other long term (current) drug therapy; Z20.828 Contact with and (suspected) exposure to other viral communicable diseases
CPT/HCPCS: 0241U; 36415; 71045; 80053; 81015; 82947; 83605; 83735; 84145; 84484; 85025; 85610; 87040; 87651; 93005; 96360; 96365; 96374; 99211; 99285; G0378; J2405; A9270-GY

== ENCOUNTER 2022-04-10 15:22 | Emergency (ER) | payer MEDICARE, OTHER ==
[2022-04-10] MEDS ORDERED: Sodium Chloride 0.9% 1000 ML 1,000 ML IV SCH (16:00)
[2022-04-10 16:08] VITALS: O2SAT 97
[2022-04-10 16:35] LABS: Appearance CLEAR (CLEAR); Bilirubin NEGATIVE (NEGATIVE); Dipstick done @ ? MAIN LAB; Glucose NEGATIVE (NEGATIVE); Ketones NEGATIVE (NEGATIVE); Nitrite NEGATIVE (NEGATIVE); Protein,Urine Dip NEGATIVE (Negative); RBC TRACE-INTACT Ery/ul (0-5); Urobilinogen 0.2 mg/dL (0-1)
--- NOTE | 2022-04-10 16:38 | ERPHSYRPT ---
- History of Present Illness Time Seen by Provider: 04/10/22 16:34 Source: patient, family Exam Limitations: no limitations Patient Subjective Stated Complaint: Daughter states that pt is confused, has slurred speech, has gotten weaker, and short term memory since yesterday Triage Nursing Assessment: Pt brought to the ER by her daughter, hypertensive, however, pt is to maintain a pressure between 140 to 160 systolic due to she has severe orthostatics, pt had been on Namenda for 7 days and pt was having side effects that the doctor told her to stop it if she had and so she did on Wednesday and then she began going down hill per her daughter, pulses normal, skin n/w/d, pt walks with a walker, denies any new pain but does have chronic pain Physician History: Daughter states that pt is confused, has slurred speech, has gotten weaker, and short term memory since yesterday pt is to maintain a pressure between 140 to 160 systolic due to she has severe orthostatics, pt had been on Namenda for 7 days and pt was having side effects that the doctor told her to stop it if she had and so she did on Wednesday and then she began going down hill per her daughter, pulses normal, skin n/w/d, pt walks with a walker, denies any new pain but does have chronic pain Patient has been diagnosis of autonomic orthostasis. Patient has been seen by multiple different speciality and have advised them that there is no cure for it but patient has been on midodrine and the family has been advised to keep blood pressure in between systolic 1 30-1 50 while diastolics 80. Which patient has been trying without any significant success. Patient was recently put on Namenda and since then patient has some confusion probably Namenda side effects so they were told to stop it. Timing/Duration: day(s) Severity: moderate Associated Symptoms: weakness Allergies/Adverse Reactions: pollen extracts Allergy (Severe, Verified 04/10/22 16:08) Swelling of Face Penicillins Allergy (Intermediate, Verified 04/10/22 16:08) Rash mold Allergy (Mild, Verified 04/10/22 16:08) Swelling of Face [id number] Reductase Inhibitor Adverse Reaction (Intermediate, Verified 04/10/22 16:08) Fatigue Home Medications: Acetaminophen [Tylenol Arthritis] 650 mg PO Q8HPRN PRN 07/10/21 [History] Aspirin 81 gm Chew [Baby Aspirin 81 mg Chew] 81 mg PO DAILY 07/10/21 [History] Calcium Carbonate/Vitamin D3 [Calcium 600-Vit D3 200 Tablet] 1 tab PO DAILY 07/10/21 [History] Cholecalciferol (Vitamin D3) [Vitamin D3] 5,000 unit PO DAILY 07/10/21 [History] Elderberry Fruit and Flower [Black Elderberry 575 mg Cap] 1 each PO DAILY PRN PRN 07/10/21 [History] Fludrocortisone Acetate 0.1 mg PO DAILY 07/10/21 [History] Hydroxychloroquine Sulfate 200 mg PO BID 07/10/21 [History] Midodrine HCl [Proamatine] 10 mg PO TID 07/10/21 [History] Multivit-Min/FA/Lycopen/Lutein [Centrum Silver Tablet] 1 each PO DAILY 07/10/21 [History] Trolamine Salicylate [Aspercreme] 1 applic TP DAILY 07/10/21 [History] Ibuprofen [Advil] 200 mg PO Q6HPRN PRN 02/27/22 [History] Non-Formulary Drug [Non-Formulary Item] 40 mg PO HS 02/27/22 [History] captopriL [Captopril] 6.25 mg PO HS 02/27/22 [History] Hx Influenza Vaccination/Date Given: No Hx Pneumococcal Vaccination/Date Given: No Travel Risk - International Travel Have you traveled outside of the country in past 3 weeks: No - Coronavirus Screening Are you exhibiting any of the following symptoms?: No Close contact with a COVID-19 positive Pt in past 14-21 Days: No - Vaccine Status Have you recieved a Covid-19 vaccination: Yes Hair Mixer: Moderna - Vaccination Dates Date of 2cond Vaccination (if applicable): July 2020 - Review of Systems Constitutional: Weakness, No Fever, No Chills Eyes: No Symptoms Ears, Nose, & Throat: No Symptoms Respiratory: No Cough, No Dyspnea Cardiac: No Chest Pain, No Edema, No Syncope Abdominal/Gastrointestinal: No Abdominal Pain, No Nausea, No Vomiting, No Diarrhea Genitourinary Symptoms: No Dysuria Musculoskeletal: No Back Pain, No Neck Pain Skin: No Rash Neurological: Dizziness, Lethargy, Speech Changes, No Focal Weakness, No Sensory Changes Psychological: No Symptoms Endocrine: No Symptoms All Other Systems: Reviewed and Negative - Past Medical History Pertinent Past Medical History: Yes Neurological History: Stroke ENT History: Cataracts Cardiac History: High Cholesterol, Other Respiratory History: No Pertinent History Endocrine Medical History: No Pertinent History Musculoskeletal History: Fibromyalgia, Osteoporosis GI Medical History: Diverticulosis History: No Pertinent History Psycho-Social History: No Pertinent History Female Reproductive Disorders: No Pertinent History Other Medical History: Anemia, Essential tremor, chronic low back pain, metabolic disorder, Myoclonus, Primary generalized hyperthrophic osteoarthrosis, Raynauds disease, lupus, Sjogrens, Chronic orthostatic hypotension - Past Surgical History Past Surgical History: Yes Neuro Surgical History: No Pertinent History Cardiac: No Pertinent History Respiratory: No Pertinent History Gastrointestinal: No Pertinent History Genitourinary: No Pertinent History Musculoskeletal: No Pertinent History Female Surgical History: Hysterectomy Other Surgical History: wrist fx repair - Left - Social History Smoking Status: Never smoker Exposure to second hand smoke: No Drug Use: none Patient Lives Alone: No - Nursing Vital Signs Nursing Vital Signs: Initial Vital Signs Temperature 98.4 F 04/10/22 15:39 Pulse Rate 85 04/10/22 15:39 Blood Pressure 178/102 04/10/22 15:39 O2 Sat by Pulse Oximetry 97 04/10/22 15:39 Pain Scale Pain Intensity 0 - Physical Exam General Appearance: mild distress, alert Eye Exam: PERRL/EOMI, eyes nml inspection Ears, Nose, Throat Exam: normal ENT inspection, TMs normal, pharynx normal, moist mucous membranes Neck Exam: normal inspection, non-tender, supple, full range of motion Respiratory Exam: normal breath sounds, lungs clear, No respiratory distress Cardiovascular Exam: regular rate/rhythm, normal heart sounds, normal peripheral pulses Gastrointestinal/Abdomen Exam: soft, normal bowel sounds, No tenderness, No mass Back Exam: normal inspection, normal range of motion, No CVA tenderness, No vertebral tenderness Extremity Exam: normal inspection, normal range of motion, pelvis stable Neurologic Exam: alert, oriented x 3, cooperative, normal mood/affect, nml cerebellar function, nml station & gait, sensation nml, No motor deficits Skin Exam: normal color, warm, dry, No rash Lymphatic Exam: No adenopathy SpO2: 97 Ordered Tests: Active Orders 24 hr Category Date Time Status Wearing Apparel Folder STAT Care 04/10/22 16:00 Active EKG-ER Only STAT Care 04/10/22 16:00 Active IV Insertion STAT Care 04/10/22 16:00 Active CBC W DIFF Stat Lab 04/10/22 16:45 Completed CMP Stat Lab 04/10/22 16:45 Completed MAGNESIUM Stat Lab 04/10/22 16:45 Completed NT PRO BNP Stat Lab 04/10/22 16:45 Completed TROPONIN Q4H Lab 04/10/22 16:45 Completed TROPONIN Q4H Lab 04/10/22 20:00 Ordered TROPONIN Q4H Lab 04/11/22 00:00 Ordered UA W/RFX CULTURE Stat Lab 04/10/22 16:08 Completed Medication Summary Generic Name Dose Route Start Last Admin Trade Name Freq PRN Reason Stop Dose Admin Sodium Chloride 1,000 mls @ 100 mls/hr 04/10/22 16:00 04/10/22 16:52 Sodium Chloride 0.9% 1000 Ml IV 05/10/22 15:59 100 mls/hr .Q10H KRISTYN Administration Discontinued Medications Generic Name Dose Route Start Last Admin Trade Name Freq PRN Reason Stop Dose Admin Acetaminophen 500 mg 04/10/22 16:48 04/10/22 16:51 Acetaminophen 500 Mg Tablet PO 04/10/22 16:49 500 mg STAT STA Administration Acetaminophen Confirm 04/10/22 16:51 Acetaminophen 500 Mg Tablet Administered 04/10/22 16:52 Dose 500 mg .ROUTE .[facility] Lab/Rad Data: Laboratory Result Diagrams 04/10/22 16:45 04/10/22 16:45 Laboratory Results 04/10/22 04/10/22 04/10/22 Range/Units 16:45 16:45 16:45 WBC 8.1 (4.0-10.5) x10^3/uL RBC 3.63 L (4.1-5.4) x10^6/uL Hgb 11.3 L (12.0-16.0) g/dL Hct 34.8 L (35-47) % MCV 95.9 (78-100) fL MCH 31.1 (26-32) pg MCHC 32.5 (32-36) g/dL RDW 13.2 (11.5-14.0) % Plt Count 256 (150-450) x10^3/uL MPV 10.2 (7.5-11.0) fL Gran % 68.6 H (36.0-66.0) % Immature Gran % (Auto) 0.1 (0.00-0.4) % Nucleat RBC Rel Count 0.0 (0.00-0.1) % Eos # (Auto) 0 (0-0.5) x10^3/uL Immature Gran # (Auto) 0.01 (0.00-0.03) x10^3u/L Absolute Lymphs (auto) 2.02 (1.0-4.6) x10^3/uL Absolute Monos (auto) 0.47 (0.0-1.3) x10^3/uL Absolute Nucleated RBC 0.00 (0.00-0.01) x10^3u/L Lymphocytes % 24.9 (24.0-44.0) % Monocytes % 5.8 (0.0-12.0) % Eosinophils % 0.0 (0.00-5.0) % Basophils % 0.6 (0.0-0.4) % Absolute Granulocytes 5.56 (1.4-6.9) x10^3/uL Basophils # 0.05 (0-0.4) x10^3/uL Sodium 133 L (137-145) mmol/L Potassium 4.3 (3.5-5.1) mmol/L Chloride 99 (98-107) mmol/L Carbon Dioxide 26 (22-30) mmol/L Anion Gap 11.5 (5-15) MEQ/L BUN 23 H (7-17) mg/dL Creatinine 0.67 (0.52-1.04) mg/dL Estimated GFR > 60.0 ML/MIN Glucose 96 (74-106) mg/dL Calcium 9.0 (8.4-10.2) mg/dL Magnesium 2.1 (1.6-2.3) mg/dL Total Bilirubin 0.40 (0.2-1.3) mg/dL AST 26 (14-36) U/L ALT 18 (0-35) U/L Alkaline Phosphatase 45 (38-126) U/L Troponin I < 0.012 (0.000-0.034) ng/mL NT-Pro-B Natriuret Pep 664 (0-1800) pg/mL Serum Total Protein 7.3 (6.3-8.2) g/dL Albumin 4.3 (3.5-5.0) g/dL Urinalys Dipstick Clnc Urine Color (YELLOW) Urine Appearance (CLEAR) Urine pH (5-6) Ur Specific [place] (1.005-1.025) POC Urine Protein Conf (Negative) Urine Ketones (NEGATIVE) Urine Nitrite (NEGATIVE) Urine Bilirubin (NEGATIVE) Urine Urobilinogen (0-1) mg/dL Urine Leukocytes (NEGATIVE) Urine WBC (Auto) (0-5) /HPF Urine RBC (Auto) (0-2) /HPF U Epithel Cells (Auto) (FEW) /HPF Urine Bacteria (Auto) (NEGATIVE) /HPF Urine RBC (0-5) Poncho/ul Ur Culture Indicated? Urine Glucose (NEGATIVE) mg/dL 04/10/22 Range/Units 16:08 WBC (4.0-10.5) x10^3/uL RBC (4.1-5.4) x10^6/uL Hgb (12.0-16.0) g/dL Hct (35-47) % MCV (78-100) fL MCH (26-32) pg MCHC (32-36) g/dL RDW (11.5-14.0) % Plt Count (150-450) x10^3/uL MPV (7.5-11.0) fL Gran % (36.0-66.0) % Immature Gran % (Auto) (0.00-0.4) % Nucleat RBC Rel Count (0.00-0.1) % Eos # (Auto) (0-0.5) x10^3/uL Immature Gran # (Auto) (0.00-0.03) x10^3u/L Absolute Lymphs (auto) (1.0-4.6) x10^3/uL Absolute Monos (auto) (0.0-1.3) x10^3/uL Absolute Nucleated RBC (0.00-0.01) x10^3u/L Lymphocytes % (24.0-44.0) % Monocytes % (0.0-12.0) % Eosinophils % (0.00-5.0) % Basophils % (0.0-0.4) % Absolute Granulocytes (1.4-6.9) x10^3/uL Basophils # (0-0.4) x10^3/uL Sodium (137-145) mmol/L Potassium (3.5-5.1) mmol/L Chloride (98-107) mmol/L Carbon Dioxide (22-30) mmol/L Anion Gap (5-15) MEQ/L BUN (7-17) mg/dL Creatinine (0.52-1.04) mg/dL Estimated GFR ML/MIN Glucose (74-106) mg/dL Calcium (8.4-10.2) mg/dL Magnesium (1.6-2.3) mg/dL Total Bilirubin (0.2-1.3) mg/dL AST (14-36) U/L ALT (0-35) U/L Alkaline Phosphatase (38-126) U/L Troponin I (0.000-0.034) ng/mL NT-Pro-B Natriuret Pep (0-1800) pg/mL Serum Total Protein (6.3-8.2) g/dL Albumin (3.5-5.0) g/dL Urinalys Dipstick Clnc MAIN LAB Urine Color YELLOW (YELLOW) Urine Appearance CLEAR (CLEAR) Urine pH 7.0 (5-6) Ur Specific [place] 1.020 (1.005-1.025) POC Urine Protein Conf NEGATIVE (Negative) Urine Ketones NEGATIVE (NEGATIVE) Urine Nitrite NEGATIVE (NEGATIVE) Urine Bilirubin NEGATIVE (NEGATIVE) Urine Urobilinogen 0.2 (0-1) mg/dL Urine Leukocytes NEGATIVE (NEGATIVE) Urine WBC (Auto) NONE (0-5) /HPF Urine RBC (Auto) 3-5 A (0-2) /HPF U Epithel Cells (Auto) NONE (FEW) /HPF Urine Bacteria (Auto) NONE (NEGATIVE) /HPF Urine RBC TRACE-INTACT A (0-5) Poncho/ul Ur Culture Indicated? NO Urine Glucose NEGATIVE (NEGATIVE) mg/dL - Progress Progress: unchanged Counseled pt/family regarding: lab results, diagnosis, need for follow-up - Departure Departure Disposition: Home Clinical Impression: Autonomic orthostatic hypotension Condition: Stable Critical Care Time: Yes Critical Care Time(excluding separately billable procedures): Critical 30-74 mins Referrals: MARQUEZ URIAS DO [Primary Care Provider] - Follow Up with PCP/3 days Instructions: Multiple System Atrophy (DC), Orthostatic Hypotension (DC) Additional Instructions: Discharge/Care Plan DHAVAL PERALTA was seen on 04/10/22 in the Emergency Room. The patient was counseled regarding Diagnosis,Lab results, Imaging studies, need for follow up and when to return to the Emergency Room. Prescriptions given: Discharge Note I have spoken with the patient and/or caregivers. I have explained the patient's condition, diagnosis and treatment plan based on the information available to me at this time. I have answered the patient's and/or caregiver's questions and addressed any concerns. The patient and/or caregivers have as good understanding of the patient's diagnosis, condition and treatment plan as can be expected at this point. The vital signs have been stable. The patient's condition is stable and appropriate for discharge from the emergency department. The patient will pursue further outpatient evaluation with the primary care physician or other designated or consulting physician as outlined in the discharge instructions. The patient and/or caregivers are agreeable to this plan of care and follow-up instructions have been explained in detail. The patient and/or caregivers have received these instruction. The patient/and or caregivers are aware that any significant change in condition or worsening of symptoms should prompt an immediate return to this or the closest emergency department or call 911. DHAVAL PERALTA was seen on 04/10/22 n the Emergency Room. At that time you were treated for an emergent condition, during your visit Laboratory, Radiology and/or other procedures may have been ordered. It is very important that you follow-up with your Primary Care Physician MARQUEZ URIAS DO within the next 24-48 hours to review your Emergency Room visit and the final results of testing that was ordered. Some test results such as Urine Cultures, Blood Cultures, and other cultures if ordered will not be finalized for 24-48 hours. If you do not have a Primary Care Provider please call the medical records department at [phone] ext [phone] to obtain a copy of your results or you may sign into our patient portal to obtain these results by visiting us @ [email or web address] and completing the following steps: 1. Click on the Patient Portal link 2. Click the Patient Self Enrollment Link to complete the enrollment form and entering your 3. Once the enrollment form is completed you will receive an email with a temporary ID and password at the email address you provided. 4. Next choose a user name and password. Your user name must be at least 4 characters long and your password must be at least 4 characters long. 5. Choose a security question from the list and provide your answer to the question. If you already have signed into the Health Portal you may access your Health Care Information 21/12 by the following steps: 1. Login to our website @ [email or web address] 2. Enter your original user name and password. FAQS The [facility] Portal is an online tool that contains your Lab Results, Radiology Reports, Visit History, Discharge Instructions and Health Summary Lab and Radiology Results will not be available for 72 hours on the portal. The Portal is a secure site, passwords are encryted and URLs are re-written so they cannot be copied and pasted. You and authorized family members are the only ones who can access your Portal. Also there is a timeout feature that protects your information if you leave the Portal page open. If you have technical difficulty please use the Contact Us link on the page this will allow you to submit any questions you have regarding the Portal or you may contact the Medical Record Department at [phone].
[2022-04-10] MEDS ORDERED: TYLENOL EXTRA STRENGTH 500 MG PO STA (16:48)
[2022-04-10 16:49] LABS: Urine Cultured Indicated? NO
[2022-04-10 16:50] LABS: Absolute Neutrophil Ct (ANC) 5.56 x10^3/uL (1.4-6.9); Basophil (Absolute #) 0.05 x10^3/uL (0-0.4); Eosinophil (Absolute #) 0 x10^3/uL (0-0.5); Hematocrit 34.8 % (35-47); Hemoglobin 11.3 g/dL (12.0-16.0); Lymphocyte (Absolute #) 2.02 x10^3/uL (1.0-4.6); Lymphocytes % 24.9 % (24.0-44.0); Mean Cell Volume 95.9 fL (78-100); Mean Corpuscular Hemoglobin 31.1 pg (26-32); Mean Corpuscular Hgb Concent. 32.5 g/dL (32-36); Mean Platelet Volume 10.2 fL (7.5-11.0); Monocyte (Absolute #) 0.47 x10^3/uL (0.0-1.3); Monocytes % 5.8 % (0.0-12.0); Neutrophil % 68.6 % (36.0-66.0); Platelet Count 256 x10^3/uL (150-450); Red Blood Count 3.63 x10^6/uL (4.1-5.4); Red Cell Distribution Width 13.2 % (11.5-14.0); White Blood Count 8.1 x10^3/uL (4.0-10.5)
[2022-04-10] MEDS ORDERED: TYLENOL EXTRA STRENGTH 500 MG ONE (16:51)
[2022-04-10] MEDS ORDERED: Sodium Chloride 0.9% 1000 ML 1,000 ML ONE (16:51)
[2022-04-10 17:24] LABS: ALBUMIN 4.3 g/dL (3.5-5.0); ALKALINE PHOSPHATASE 45 U/L (38-126); ANION GAP 11.5 MEQ/L (5-15); BLOOD UREA NITROGEN 23 mg/dL (7-17); CHLORIDE 99 mmol/L (98-107); Carbon Dioxide 26 mmol/L (22-30); Creatinine 1 0.67 mg/dL (0.52-1.04); EST GLOMERULAR FILTRATION RATE > 60.0 ML/MIN; Glucose 96 mg/dL (74-106); MAGNESIUM 2.1 mg/dL (1.6-2.3); NT PRO BNP 664 pg/mL (0-1800); Potassium 4.3 mmol/L (3.5-5.1); SGOT/AST 26 U/L (14-36); SGPT/ALT 18 U/L (0-35); SODIUM 133 mmol/L (137-145); Total Protein 7.3 g/dL (6.3-8.2)
[2022-04-10 18:13] VITALS: BP 144/87; PULSE 78
== END 2022-04-10 18:13 | disposition home or self-care (01) ==
LOC: ED 15:22
DX: I95.1 Orthostatic hypotension (principal); R41.0 Disorientation, unspecified; R47.81 Slurred speech; R53.1 Weakness; E78.5 Hyperlipidemia, unspecified; Z79.899 Other long term (current) drug therapy
CPT/HCPCS: 36000; 36415; 80053; 81015; 83735; 83880; 84484; 85025; 99283; 99291; A9270-GY

== ENCOUNTER 2023-06-15 08:17 | Day surgery (SDC) | payer MEDICARE, OTHER ==
[~2023-06-15 08:17] MED LIST changes: +Ak-Dilate OPHTHALMIC*** 1.065 ML, Cyclogyl 1% OPHTH SOL 1.065 ML, GATIFLOXACIN 0.5% OPH... OP ONE; +BETADINE 5% OPHTHALMIC 30 ML OP ONE; +Lactated Ringers 1,000 ML IV SCH; +NON-FORMULARY ITEM OP ONE; -Sodium Chloride 0.9% 1000 ML 1,000 ML IV STA; +TETRACAINE 0.5% STERI-UNIT SOL OP ONE; +cefUROXime sodium 0.005 GM in Sodium Chloride Flush 30 ML*** 0.5 ML IJ ONE
[2023-06-15] MEDS ORDERED: Lactated Ringers 1,000 ML IV ONE (09:05)
[2023-06-15 09:47] LABS: ALBUMIN 4.2 g/dL (3.5-5.0); ANION GAP 11.3 MEQ/L (5-15); BILIRUBIN,TOTAL 0.5 mg/dL (0.2-1.3); Calcium 9.3 mg/dL (8.4-10.2); Creatinine 1 0.61 mg/dL (0.52-1.04); EST GLOMERULAR FILTRATION RATE 91.5 ML/MIN; Potassium 3.8 mmol/L (3.5-5.1); Total Protein 7.3 g/dL (6.3-8.2)
[2023-06-15] MEDS ORDERED: Epinephrine Preservative Free 1 MG/ML IJ ONE (10:00)
[2023-06-15] MEDS ORDERED: Zofran 4 MG/2 ML VIAL IV PRN (10:15)
[2023-06-15] MEDS ORDERED: ACETAZOLAMIDE 250 MG TABLET PO ONE (10:15)
[2023-06-15] MEDS ORDERED: DIPRIVAN 200 MG/20 ML IV ONE (11:38)
[2023-06-15 12:24] VITALS: RESP 16; TEMP 98.8
[2023-06-15 12:30] VITALS: BP 169/93; PULSE 84; O2SAT 99
== END 2023-06-15 12:44 | disposition home or self-care (01) ==
LOC: SDC 08:17
PROVIDERS: ATTEND Ophthalmology
DX: H25.812 Combined forms of age-related cataract, left eye (principal); I10 Essential (primary) hypertension; D64.9 Anemia, unspecified
CPT/HCPCS: 36415; 80053; 93005; C1780; J0171; J2704; A9270-GY

== ENCOUNTER 2023-08-11 09:28 | Observation (INO) | payer MEDICARE, OTHER ==
--- NOTE | 2023-08-11 09:39 | ERPHSYRPT ---
- History of Present Illness Time Seen by Provider: 08/11/23 09:38 Source: patient, family Exam Limitations: no limitations Physician History: This is a 78-year-old white female patient of Dr. Lewis who in the last 4 weeks had had low back pain. Approximately 3 weeks ago, 08/04/2023, patient underwent a lumbar spine MRI which shows an acute fracture superior endplate L3 with 50% height loss. She was found to have multilevel degenerative disc disease greatest extent L3-L4. Of significance, the patient, in the last 48 hours, has had 3 episodes a day of "tremors and stiffening up her limbs when standing". Patient states that when the tremors come on, there is significant pain. She ordinarily takes tramadol. However, the family have stopped the tramadol in the last 48 hours since this clinical picture arose. Patient's family member stated that the patient has a history of tremors but had not had them in a long time. Family also presented a recent history of family member passing away and this patient could not attend the . This may have cause d some stress in this patient. There is a questionable history of early dementia. Patient denies fever. Patient denies shortness of breath. Patient denies chest pain. Patient denies abdominal pain. Patient, during this examination, complains of right hip pain. Patient has a history of CVA, hy perlipidemia, fibromyalgia and osteoporosis Timing/Duration: day(s) (2) Severity: mild Associated Symptoms: other (Right hip pain but no other complaints) Allergies/Adverse Reactions: pollen extracts Allergy (Severe, Verified 08/11/23 09:39) Swelling of Face Penicillins Allergy (Intermediate, Verified 08/11/23 09:39) Rash mold Allergy (Mild, Verified 08/11/23 09:39) Swelling of Face [id number] Reductase Inhibitor Adverse Reaction (Intermediate, Verified 08/11/23 09:39) Fatigue Home Medications: Acetaminophen [Tylenol Arthritis] 1,300 mg PO Q8HPRN PRN 07/10/21 [History] Aspirin 81 gm Chew [Baby Aspirin 81 mg Chew] 81 mg PO DAILY 07/10/21 [History] Calcium Carbonate/Vitamin D3 [Calcium 600-Vit D3 200 Tablet] 1 tab PO DAILY 07/10/21 [History] Cholecalciferol (Vitamin D3) [Vitamin D3] 5,000 unit PO DAILY 07/10/21 [History] Elderberry Fruit and Flower [Black Elderberry 575 mg Cap] 1 each PO DAILY PRN PRN 07/10/21 [History] Hydroxychloroquine Sulfate 200 mg PO BID 07/10/21 [History] Midodrine HCl [Proamatine] 10 mg PO TID 07/10/21 [History] Multivit-Min/FA/Lycopen/Lutein [Centrum Silver Tablet] 1 each PO DAILY 07/10/21 [History] Trolamine Salicylate [Aspercreme] 1 applic TP DAILY 07/10/21 [History] Ibuprofen [Advil] 600 mg PO Q6HPRN PRN 02/27/22 [History] captopriL [Captopril] 6.25 mg PO HS 02/27/22 [History] Docusate Sodium 100 mg [Docusate Sodium 100 MG] 100 mg PO BID 08/11/23 [History] Fludrocortisone Acetate 0.1 mg PO DAILY 08/11/23 [History] Hx Influenza Vaccination/Date Given: No Hx Pneumococcal Vaccination/Date Given: No Travel Risk - International Travel Have you traveled outside of the country in past 3 weeks: No - Coronavirus Screening Are you exhibiting any of the following symptoms?: No Close contact with a COVID-19 positive Pt in past 14-21 Days: No - Vaccine Status Have you recieved a Covid-19 vaccination: Yes [employer]: Moderna - Vaccination Dates Date of 2cond Vaccination (if applicable): July 2020 - Review of Systems Constitutional: No Symptoms Eyes: No Symptoms Ears, Nose, & Throat: No Symptoms Respiratory: No Symptoms Cardiac: No Symptoms Abdominal/Gastrointestinal: No Symptoms Genitourinary Symptoms: No Symptoms Musculoskeletal: Back Pain, Joint Pain (Right hip pain) Skin: No Symptoms Neurological: Tremors (New onset, intermittent tremors) Psychological: No Symptoms Endocrine: No Symptoms Hematologic/Lymphatic: No Symptoms Immunological/Allergic: No Symptoms All Other Systems: Reviewed and Negative - Past Medical History Pertinent Past Medical History: Yes Neurological History: Stroke ENT History: Cataracts Cardiac History: High Cholesterol, Other Respiratory History: No Pertinent History Endocrine Medical History: No Pertinent History Musculoskeletal History: Fibromyalgia, Osteoporosis GI Medical History: Diverticulosis History: No Pertinent History Psycho-Social History: No Pertinent History Female Reproductive Disorders: No Pertinent History Other Medical History: Anemia, Essential tremor, chronic low back pain, metabolic disorder, Myoclonus, Primary generalized hyperthrophic osteoarthrosis, Raynauds disease, lupus, Sjogrens, Chronic orthostatic hypotension - Past Surgical History Past Surgical History: Yes Neuro Surgical History: No Pertinent History Cardiac: No Pertinent History Respiratory: No Pertinent History Gastrointestinal: No Pertinent History Genitourinary: No Pertinent History Musculoskeletal: No Pertinent History Female Surgical History: Hysterectomy Other Surgical History: wrist fx repair - Left, L3 compression fracture - Social History Smoking Status: Never smoker Exposure to second hand smoke: No Drug Use: none Patient Lives Alone: No - Nursing Vital Signs Nursing Vital Signs: Initial Vital Signs Temperature 98.0 F 08/11/23 09:31 Pulse Rate 88 08/11/23 09:31 Respiratory Rate 22 08/11/23 09:31 Blood Pressure 212/141 08/11/23 09:31 O2 Sat by Pulse Oximetry 98 08/11/23 09:31 Pain Scale Pain Intensity 3 - Physical Exam General Appearance: no apparent distress, alert, anxiety Eye Exam: PERRL/EOMI, eyes nml inspection Ears, Nose, Throat Exam: normal ENT inspection, moist mucous membranes Neck Exam: normal inspection, non-tender, supple, full range of motion Respiratory Exam: normal breath sounds, lungs clear, airway intact, No chest tenderness, No respiratory distress Cardiovascular Exam: regular rate/rhythm, normal heart sounds, normal peripheral pulses Gastrointestinal/Abdomen Exam: soft, normal bowel sounds, No tenderness Pelvic Exam: not done Rectal Exam: not done Back Exam: normal inspection, normal range of motion, vertebral tenderness (Lower back lumbar level), No CVA tenderness Extremity Exam: normal inspection, normal range of motion, pelvis stable Neurologic Exam: alert, oriented x 3, cooperative, photo specialist II-XII nml as tested, normal mood/affect, sensation nml Skin Exam: normal color, warm, dry Lymphatic Exam: No adenopathy SpO2 Interpretation: normal O2 Delivery: Room Air - Course Nursing assessment & vital signs reviewed: Yes Ordered Tests: Active Orders 24 hr Category Date Time Status Agile Qa Tester STAT Care 08/11/23 09:54 Active IV Insertion STAT Care 08/11/23 09:53 Active Pulse Oximetry (ED) STAT Care 08/11/23 09:53 Active HEAD WITHOUT CONTRAST [CT] Stat Exams 08/11/23 09:53 Completed LUMBAR COMPLETE (MIN 4 VIEWS) Stat Exams 08/11/23 13:56 Ordered CBC W DIFF Stat Lab 08/11/23 10:05 Completed CMP Stat Lab 08/11/23 10:05 Completed MAGNESIUM Stat Lab 08/11/23 10:05 Completed TSH, 3RD Generation Stat Lab 08/11/23 10:05 Completed UA W/RFX UR CULTURE Stat Lab 08/11/23 10:33 Completed Medication Summary Discontinued Medications Generic Name Dose Route Start Last Admin Trade Name Mike PRN Reason Stop Dose Admin Clonazepam 0.25 mg 08/11/23 14:09 Clonazepam 0.5 Mg Tablet PO 08/11/23 14:10 STAT ONE Morphine Sulfate 2 mg 08/11/23 09:54 08/11/23 10:07 Morphine Sulfate 2 Mg/Ml Inj IV 08/11/23 09:55 2 mg STAT ONE Administration Morphine Sulfate Confirm 08/11/23 10:06 Morphine Sulfate 2 Mg/Ml Inj Administered 08/11/23 10:07 Dose 2 mg .ROUTE .STK-MED ONE Ondansetron HCl 4 mg 08/11/23 09:54 08/11/23 10:07 Ondansetron Hcl 4 Mg/2 Ml Vial IV 08/11/23 09:55 4 mg STAT ONE Administration Ondansetron HCl Confirm 08/11/23 10:06 Ondansetron Hcl 4 Mg/2 Ml Vial Administered 08/11/23 10:07 Dose 4 mg .ROUTE .STK-MED ONE Potassium Chloride 20 meq 08/11/23 11:06 08/11/23 11:18 Potassium Chloride Tab 10 Meq Tab PO 08/11/23 11:07 20 meq STAT ONE Administration Potassium Chloride Confirm 08/11/23 11:18 Potassium Chloride Tab 10 Meq Tab Administered 08/11/23 11:19 Dose 20 meq .ROUTE .STK-MED ONE Lab/Rad Data: Laboratory Result Diagrams 08/11/23 10:05 08/11/23 10:05 Laboratory Results 08/11/23 08/11/23 08/11/23 Range/Units 10:33 10:05 10:05 WBC 8.8 (4.0-10.5) x10^3/uL RBC 3.65 L (4.1-5.4) x10^6/uL Hgb 11.3 L (12.0-16.0) g/dL Hct 34.9 L (35-47) % MCV 95.6 (78-100) fL MCH 31.0 (26-32) pg MCHC 32.4 (32-36) g/dL RDW 13.1 (11.5-14.0) % Plt Count 313 (150-450) x10^3/uL MPV 10.1 (7.5-11.0) fL Gran % 80.1 H (36.0-66.0) % Immature Gran % (Auto) 0.2 (0.00-0.4) % Nucleat RBC Rel Count 0.0 (0.00-0.1) % Eos # (Auto) 0 (0-0.5) x10^3/uL Immature Gran # (Auto) 0.02 (0.00-0.03) x10^3u/L Absolute Lymphs (auto) 1.24 (1.0-4.6) x10^3/uL Absolute Monos (auto) 0.42 (0.0-1.3) x10^3/uL Absolute Nucleated RBC 0.00 (0.00-0.01) x10^3u/L Lymphocytes % 14.1 L (24.0-44.0) % Monocytes % 4.8 (0.0-12.0) % Eosinophils % 0.0 (0.00-5.0) % Basophils % 0.8 (0.0-0.4) % Absolute Granulocytes 7.03 H (1.4-6.9) x10^3/uL Basophils # 0.07 (0-0.4) x10^3/uL Sodium 140 (135-145) mmol/L Potassium 3.2 L (3.5-5.1) mmol/L Chloride 101 (98-107) mmol/L Carbon Dioxide 28 (22-30) mmol/L Anion Gap 14.3 (5-15) MEQ/L BUN 14 (7-17) mg/dL Creatinine 0.55 (0.52-1.04) mg/dL Estimated GFR 93.8 ML/MIN Glucose 100 (74-106) mg/dL Calcium 9.3 (8.4-10.2) mg/dL Magnesium 2.2 (1.6-2.3) mg/dL Total Bilirubin 0.20 (0.2-1.3) mg/dL AST 22 (14-36) U/L ALT 18 (0-35) U/L Alkaline Phosphatase 91 (38-126) U/L Serum Total Protein 7.4 (6.3-8.2) g/dL Albumin 4.2 (3.5-5.0) g/dL TSH 3rd Generation 1.260 (0.47-4.68) mIU/L Urine Color Yellow (Yellow) Urine Appearance Cloudy A (Clear) Urine pH 7.5 (4.6-8.0) Ur Specific [place] 1.010 (1.005-1.030) Urine Protein Negative (Negative) Urine Glucose (UA) Negative (Negative) mg/dL Urine Ketones Negative (Negative) Urine Blood Negative (Negative) Urine Nitrite Negative (Negative) Urine Bilirubin Negative (Negative) Urine Urobilinogen 0.2 (0.2) mg/dL Ur Leukocyte Esterase Negative (Negative) U Hyaline Cast (Auto) NONE SEEN (0-2) /LPF Urine Microscopic RBC 0-2 (0-5) /HPF Urine Microscopic WBC 0-2 (0-5) /HPF Ur Epithelial Cells None Seen (None Seen) /HPF Urine Bacteria None Seen (None Seen) /HPF Urine Culture Reflexed NO (NO) - Progress Progress: unchanged Progress Note: 08/11/23 10:01 This patient's medical issue is 1 of moderate complexity the level of complexity and the workup performed is based on review of the patient's past medical history, review the patient's medication list, review the patient drug allergy list, history present illness and physical findings on examination. The workup in this patient includes placement of an intravenous line, urinalysis, CBC, CMP, magnesium, free T4 and TSH CT scan of the head, and obtaining a teleneurology consultation 08/11/23 10:37 CT scan of the head without contrast was interpreted by the radiologist and I reviewed the impression. Impression states nonacute senile brain 08/11/23 11:00 Patient family member states that this patient's systolic blood pressure is typically over 200. They also state that her systolic blood pressure fluctuates rapidly from over 200 down to 80s to 90s. 08/11/23 14:00 I interpreted the patient's laboratory data results. The patient does have mild hypokalemia with a potassium level 3.2. I provided her with 20 mill equivalent s of oral potassium. I spoke with Dr. Dow, the teleneurologist. She evaluated my note and examined the patient. She states that the patient has orthostatic tremors. She feels that the patient would benefit from being placed in observation and starting her on clonazepam 0.25 mg orally twice a day. 08/11/23 14:[address] Giron, our telehospitalist. I reviewed the patient history, the patient presenting complaint, the findings on physical exam as well as the results of the patient's laboratory data as well as radiographic studies. In addition, I reviewed the plan of care suggested by the teleneurologist Dr. Dow. We will place this patient in observation. Discussed with : [place] Counseled pt/family regarding: lab results, diagnosis, need for follow-up, rad results Medical Desision Making - Independent Historian Additional History obtained from: Family - Diagnostic Testing Diagnostic test were ordered, analyzed, and reviewed by me: Yes Radiological Interpretation: Reviewed by me, Teleradiologist Report - Risk of complications The pt has a high risk of morbidity or mortality based on: Decision regarding hospitilization or escalation of hosp level of care - Departure Departure Disposition: Home Clinical Impression: Orthostatic tremor, Fracture of lumbar spine Condition: Fair Critical Care Time: No Referrals: MANNY LEWIS DO [Primary Care Provider] - Follow up/PCP as directed
[2023-08-11] MEDS ORDERED: Zofran 4 MG/2 ML VIAL ONE (10:06)
[2023-08-11] MEDS ORDERED: MORPHINE SULFATE 2 MG INJ ONE (10:06)
[2023-08-11] MEDS: Zofran 4 MG/2 ML VIAL IV ONE (10:07)
[2023-08-11] MEDS: MORPHINE SULFATE 2 MG INJ IV ONE (10:07)
[2023-08-11 10:11] LABS: Absolute Neutrophil Ct (ANC) 7.03 x10^3/uL (1.4-6.9); BASOPHIL % 0.8 % (0.0-0.4); Basophil (Absolute #) 0.07 x10^3/uL (0-0.4); Eosinophil (Absolute #) 0 x10^3/uL (0-0.5); Hematocrit 34.9 % (35-47); Hemoglobin 11.3 g/dL (12.0-16.0); IMMATURE GRAN # 0.02 x10^3u/L (0.00-0.03); IMMATURE GRAN % 0.2 % (0.00-0.4); Lymphocyte (Absolute #) 1.24 x10^3/uL (1.0-4.6); Lymphocytes % 14.1 % (24.0-44.0); Mean Cell Volume 95.6 fL (78-100); Mean Corpuscular Hgb Concent. 32.4 g/dL (32-36); Mean Platelet Volume 10.1 fL (7.5-11.0); Monocyte (Absolute #) 0.42 x10^3/uL (0.0-1.3); Monocytes % 4.8 % (0.0-12.0); Neutrophil % 80.1 % (36.0-66.0); Platelet Count 313 x10^3/uL (150-450); Red Blood Count 3.65 x10^6/uL (4.1-5.4); Red Cell Distribution Width 13.1 % (11.5-14.0); White Blood Count 8.8 x10^3/uL (4.0-10.5)
--- NOTE | 2023-08-11 10:35 | XRAY ---
Indication: New onset tremors. Multiple contiguous axial images obtained through the head without contrast. Comparison: July 10, 2021 Age-appropriate global atrophy with minimal periventricular degenerative micro-ischemia bilaterally. No acute intracranial hemorrhage, abnormal extra-axial fluid collection, or mass effect. Fourth ventricle is midline without hydrocephalus. Brown-white matter differentiation preserved. Bony calvarium intact. Visualized paranasal sinuses and mastoid air cells are clear. Impression: Nonacute senile brain.
[2023-08-11 10:56] LABS: ALBUMIN 4.2 g/dL (3.5-5.0); ANION GAP 14.3 MEQ/L (5-15); BILIRUBIN,TOTAL 0.2 mg/dL (0.2-1.3); Calcium 9.3 mg/dL (8.4-10.2); Creatinine 1 0.55 mg/dL (0.52-1.04); EST GLOMERULAR FILTRATION RATE 93.8 ML/MIN; MAGNESIUM 2.2 mg/dL (1.6-2.3); Potassium 3.2 mmol/L (3.5-5.1); TSH, 3RD Generation 1.26 mIU/L (0.47-4.68); Total Protein 7.4 g/dL (6.3-8.2)
[2023-08-11] MEDS ORDERED: Klor Con ONE (11:18)
[2023-08-11] MEDS: Klor Con PO ONE (11:18)
[2023-08-11 11:52] LABS: Appearance Cloudy (Clear); Bacteria None Seen /HPF (None Seen); Bilirubin Negative (Negative); Blood Negative (Negative); Epithelial Cells None Seen /HPF (None Seen); Glucose, Urine Negative (Negative); Hyaline Casts NONE SEEN /LPF (0-2); Ketones Negative (Negative); Leukocyte Esterase Negative (Negative); Nitrite Negative (Negative); Ph 7.5 (4.6-8.0); Protein,Urine Dip Negative (Negative); RBC 0-2 /HPF (0-5); Urobilinogen 0.2 mg/dL (0.2); WBC 0-2 /HPF (0-5)
[2023-08-11 12:01] LABS: ADD URINE CULTURE? NO (NO)
[2023-08-11] MEDS ORDERED: Valium 5 MG ONE (14:30)
[2023-08-11] MEDS: clonazePAM PO ONE (14:49)
--- NOTE | 2023-08-11 14:51 | XRAY ---
Indication: Pain. Compression fracture. Comparison: None 3 view lumbar spine demonstrates 5 lumbar segments with osteopenia, recent MRI proven acute L3 fracture unchanged, moderate levorotoscoliosis centered at L1, minimal/mild multilevel degenerative changes, scattered arteriosclerotic calcifications, 3 cm calcified uterine fibroid, and moderate diffuse scattered colonic fecal debris.
--- NOTE | 2023-08-11 15:15 | PCM.HP ---
History of Present Illness - Chief Complaint Chief Complaint: tremors Date: 08/11/23 History of Present Illness: is a 78 year old female with PMHX of cataracts, stroke, hyperlipidemia, fibromyalgia, OA, and diverticulosis. Pt presented to our ER today as in the last 4 weeks she has had low back pain. Approximately 3 weeks ago, 08/04/2023, patient underwent a lumbar spine MRI which shows an acute fracture superior endplate L3 with 50% height loss. She was found to have multilevel degenerative disc disease greatest extent L3-L4. In the last 48 hours, has had 3 episodes a day of "tremors and stiffening up her limbs when standing". Patient states that when the tremors come on, there is significant pain. She ordinarily takes tramadol. However, the family have stopped the tramadol in the last 48 hours since this clinical picture arose as they were uns ure if this new med was causing the tremors or the pain was causing tremors. Pt states her pain was previously well controlled with naproxen and tylenol alternating. She was given Morphine IV in ER and feels this was too strong and does not want this anymore. Patient's family member stated that the patient has a history of tremors but had not had them in a long time. Family also presented a recent history of family member passing away and this patient could not attend the . This may have caused some stress in this patient. There is a questionable history of early dementia. Tele-neurology consulted in ER and recommended starting clonazepam 0.25mg BID and overnight obs stay for further evaluation. Will repeat orthostats in AM and monitor overnight. Lumbar XR does show some incidental constipation. Discussed with pt and she prefers prune juice and miralax, will provide. She denies CP, SOB, abd. pain, N/V/D. She currently reports no pain, 0/10 in lumbar back. - Review of Systems Constitutional: No Fever, No Chills Eyes: No Symptoms Ears, Nose, & Throat: No Symptoms Respiratory: No Cough, No Short Of Breath Cardiac: No Chest Pain, No Edema, No Syncope Abdominal/Gastrointestinal: No Abdominal Pain, No Nausea, No Vomiting, No Diarrhea Genitourinary Symptoms: No Dysuria Musculoskeletal: Back Pain, No Neck Pain Skin: No Rash Neurological: Tremors, No Dizziness, No Focal Weakness, No Sensory Changes Psychological: No Symptoms Endocrine: No Symptoms Hematologic/Lymphatic: No Symptoms Immunological/Allergic: No Symptoms Medications & Allergies Home Medications: Home Medication List Aspirin 81 gm Chew [Baby Aspirin 81 mg Chew] 81 mg PO DAILY 07/10/21 [History Confirmed 08/11/23] Calcium Carbonate/Vitamin D3 [Calcium 600-Vit D3 200 Tablet] 1 tab PO DAILY 03/21 [History Confirmed 08/11/23] Cholecalciferol (Vitamin D3) [Vitamin D3] 5,000 unit PO DAILY 07/10/21 [History Confirmed 08/11/23] Elderberry Fruit and Flower [Black Elderberry 575 mg Cap] 1 each PO DAILY PRN PRN 07/10/21 [History Confirmed 08/11/23] Hydroxychloroquine Sulfate 200 mg PO BID 07/10/21 [History Confirmed 08/11/23] Midodrine HCl [Proamatine] 10 mg PO TID 07/10/21 [History Confirmed 08/11/23] Multivit-Min/FA/Lycopen/Lutein [Centrum Silver Tablet] 1 each PO DAILY 07/10/21 [History Confirmed 08/11/23] Trolamine Salicylate [Aspercreme] 1 applic TP DAILY 07/10/21 [History Confirmed 08/11/23] Ibuprofen [Advil] 600 mg PO Q6HPRN PRN 02/27/22 [History Confirmed 08/11/23] captopriL [Captopril] 6.25 mg PO HS 02/27/22 [History Confirmed 08/11/23] Acetaminophen 325 mg [Tylenol 325 mg] 650 mg PO Q4HPRN PRN 08/11/23 [History Confirmed 08/11/23] Docusate Sodium 100 mg [Docusate Sodium 100 MG] 100 mg PO BID 08/11/23 [History Confirmed 08/11/23] Fludrocortisone Acetate 0.1 mg PO DAILY 08/11/23 [History Confirmed 08/11/23] Tramadol HCl 50 mg [Ultram 50 mg] 50 mg PO Q6HPRN PRN 08/11/23 [History Confirmed 08/11/23] Allergies/Adverse Reactions: Allergies Allergy/AdvReac Type Severity Reaction Status Date / Time pollen extracts Allergy Severe Swelling Verified 08/11/23 09:39 of Face Penicillins Allergy Intermediate Rash Verified 08/11/23 09:39 mold Allergy Mild Swelling Verified 08/11/23 09:39 of Face [id number] Reductase AdvReac Intermediate Fatigue Verified 08/11/23 09:39 Inhibitor - Past Medical History Past Medical History: Yes Neurological History: Stroke ENT History: Cataracts Cardiac History: High Cholesterol, Other Respiratory History: No Pertinent History Endocrine Medical History: No Pertinent History Musculoskelatal History: Fibromyalgia, Osteoporosis GI Medical History: Diverticulosis History: No Pertinent History Pyscho-Social History: No Pertinent History Reproductive Disorders: No Pertinent History Comment: Anemia, Essential tremor, chronic low back pain, metabolic disorder, Myoclonus, Primary generalized hyperthrophic osteoarthrosis, Raynauds disease, lupus, Sjogrens, Chronic orthostatic hypotension - Past Surgical History Past Surgical History: Yes Neuro Surgical History: No Pertinent History Cardiac History: No Pertinent History Respiratory Surgery: No Pertinent History GI Surgical History: No Pertinent History Genitourinary Surgical Hx: No Pertinent History Musculskeletal Surgical Hx: No Pertinent History Female Surgical History: Hysterectomy Other Surgical History: wrist fx repair - Left, L3 compression fracture - Social History Smoking Status: Never smoker Exposure to second hand smoke: No Alcohol: None Drug Use: none - Physical Exam Vital Signs: Vital Signs - 24 hr Temp Pulse Resp BP BP Pulse Ox 08/11/23 14:00 152/96 08/11/23 13:50 93 H 15 165/107 08/11/23 13:40 98 H 15 168/103 08/11/23 13:30 97 H 24 183/100 08/11/23 13:20 94 H 21 148/93 08/11/23 13:10 96 H 13 163/98 08/11/23 13:00 87 20 181/100 97 08/11/23 12:50 84 20 185/132 08/11/23 12:40 85 22 191/119 08/11/23 12:30 96 H 19 183/111 08/11/23 12:20 86 25 H 184/119 97 08/11/23 12:10 87 17 184/111 08/11/23 12:00 85 19 183/111 08/11/23 11:50 89 22 186/116 08/11/23 11:40 87 20 182/113 08/11/23 11:30 88 23 176/116 98 08/11/23 11:20 91 H 24 174/109 97 08/11/23 11:10 92 H 20 169/102 97 08/11/23 11:08 82 18 161/96 08/11/23 10:12 98 08/11/23 10:10 97 H 22 197/124 97 08/11/23 10:00 90 19 191/135 97 08/11/23 09:31 98.0 F 88 22 212/141 98 General Appearance: no apparent distress, alert Neurologic Exam: alert, oriented x 3, cooperative, normal mood/affect, nml cerebellar function, nml station & gait, sensation nml, No motor deficits Eye Exam: PERRL/EOMI, eyes nml inspection Ears, Nose, Throat Exam: normal ENT inspection, TMs normal, pharynx normal, moist mucous membranes Neck Exam: normal inspection, non-tender, supple, full range of motion Respiratory Exam: normal breath sounds, lungs clear, No respiratory distress Cardiovascular Exam: regular rate/rhythm, normal heart sounds, normal peripheral pulses Gastrointestinal/Abdomen Exam: soft, normal bowel sounds, No tenderness, No mass Back Exam: normal inspection, normal range of motion, No CVA tenderness, No vertebral tenderness Extremity Exam: normal inspection, normal range of motion, pelvis stable Skin Exam: normal color, warm, dry, No rash Lymphatic Exam: No adenopathy Results - Labs Lab/Micro Results: Lab Results-Last 24 Hours 08/11/23 08/11/23 08/11/23 Range/Units 10:05 10:05 10:33 WBC 8.8 (4.0-10.5) x10^3/uL RBC 3.65 L (4.1-5.4) x10^6/uL Hgb 11.3 L (12.0-16.0) g/dL Hct 34.9 L (35-47) % MCV 95.6 (78-100) fL MCH 31.0 (26-32) pg MCHC 32.4 (32-36) g/dL RDW 13.1 (11.5-14.0) % Plt Count 313 (150-450) x10^3/uL MPV 10.1 (7.5-11.0) fL Gran % 80.1 H (36.0-66.0) % Immature Gran % (Auto) 0.2 (0.00-0.4) % Nucleat RBC Rel Count 0.0 (0.00-0.1) % Eos # (Auto) 0 (0-0.5) x10^3/uL Immature Gran # (Auto) 0.02 (0.00-0.03) x10^3u/L Absolute Lymphs (auto) 1.24 (1.0-4.6) x10^3/uL Absolute Monos (auto) 0.42 (0.0-1.3) x10^3/uL Absolute Nucleated RBC 0.00 (0.00-0.01) x10^3u/L Lymphocytes % 14.1 L (24.0-44.0) % Monocytes % 4.8 (0.0-12.0) % Eosinophils % 0.0 (0.00-5.0) % Basophils % 0.8 (0.0-0.4) % Absolute Granulocytes 7.03 H (1.4-6.9) x10^3/uL Basophils # 0.07 (0-0.4) x10^3/uL Sodium 140 (135-145) mmol/L Potassium 3.2 L (3.5-5.1) mmol/L Chloride 101 (98-107) mmol/L Carbon Dioxide 28 (22-30) mmol/L Anion Gap 14.3 (5-15) MEQ/L BUN 14 (7-17) mg/dL Creatinine 0.55 (0.52-1.04) mg/dL Estimated GFR 93.8 ML/MIN Glucose 100 (74-106) mg/dL Calcium 9.3 (8.4-10.2) mg/dL Magnesium 2.2 (1.6-2.3) mg/dL Total Bilirubin 0.20 (0.2-1.3) mg/dL AST 22 (14-36) U/L ALT 18 (0-35) U/L Alkaline Phosphatase 91 (38-126) U/L Serum Total Protein 7.4 (6.3-8.2) g/dL Albumin 4.2 (3.5-5.0) g/dL TSH 3rd Generation 1.260 (0.47-4.68) mIU/L Urine Color Yellow (Yellow) Urine Appearance Cloudy A (Clear) Urine pH 7.5 (4.6-8.0) Ur Specific [place] 1.010 (1.005-1.030) Urine Protein Negative (Negative) Urine Glucose (UA) Negative (Negative) mg/dL Urine Ketones Negative (Negative) Urine Blood Negative (Negative) Urine Nitrite Negative (Negative) Urine Bilirubin Negative (Negative) Urine Urobilinogen 0.2 (0.2) mg/dL Ur Leukocyte Esterase Negative (Negative) U Hyaline Cast (Auto) NONE SEEN (0-2) /LPF Urine Microscopic RBC 0-2 (0-5) /HPF Urine Microscopic WBC 0-2 (0-5) /HPF Ur Epithelial Cells None Seen (None Seen) /HPF Urine Bacteria None Seen (None Seen) /HPF Urine Culture Reflexed NO (NO) - Radiology Impressions Radiology Exams & Impressions: Radiology Procedures Category Date Time Status HEAD WITHOUT CONTRAST [CT] Stat Exams 08/11/23 09:53 Completed LUMBAR LIMITED (2 OR 3 VIEWS) Stat Exams 08/11/23 13:56 Completed Assessment/Plan (1) Orthostatic tremor Current Visit: Yes Status: Acute Assessment & Plan: - tele- neuro evaluation- recommended clonazepam 0.25 BID, observe overnight - PT eval in AM - Orthostats in AM - tele - CT head negative for acute concern Code(s): G25.2 - OTHER SPECIFIED FORMS OF TREMOR (2) Hypokalemia Current Visit: Yes Status: Acute Assessment & Plan: - K+ 3.2 in ER-replaced - will recheck in AM Code(s): E87.6 - HYPOKALEMIA (3) Fracture of lumbar spine Current Visit: Yes Status: Chronic Assessment & Plan: - acute on chronic - pt reports previous fx in the past - heating pad PRN - Pt eval in AM - alternate Tylenol and naproxen for pain - XR lumbar spine 08/10 3 view lumbar spine demonstrates 5 lumbar segments with osteopenia, recent MRI proven acute L3 fracture unchanged, moderate levorotoscoliosis centered at L1, minimal/mild multilevel degenerative changes, scattered arteriosclerotic calcifications, 3 cm calcified uterine fibroid, and moderate diffuse scattered colonic fecal debris. (4) Constipation Current Visit: Yes Status: Chronic Assessment & Plan: - Acute on Chronic - Miralax daily - pt would like prune juice as well- discussed with nurse Code(s): K59.00 - CONSTIPATION, UNSPECIFIED (5) Autonomic orthostatic hypotension Current Visit: No Status: Chronic Assessment & Plan: - chronic- continue home meds VTE: SCD Next of KIN: Yaneli Hartley [phone] D/C plan: tomorrow Code status: Full Code(s): I95.1 - ORTHOSTATIC HYPOTENSION Telemedicine Encounter - Telemedicine Encounter Telemedicine Encounter: The entirety of this encounter was performed via Telemedicine"
[2023-08-11] MEDS ORDERED: Zofran 4 MG/2 ML VIAL IV PRN (15:17)
[2023-08-11] MEDS ORDERED: TYLENOL 325 MG PO PRN (15:17)
[2023-08-11] MEDS: Sodium Chloride 0.9% 1000 ML 1,000 ML IV SCH (16:21)
[2023-08-11] MEDS ORDERED: MEDICATION INTERVENTION MC SCH (17:00)
[2023-08-11] MEDS: Miralax Powder 17GM PACKET PO SCH (17:30)
[2023-08-11] MEDS: TYLENOL 325 MG PO SCH (18:00)
[2023-08-11] MEDS: PROAMATINE PO SCH (21:05)
[2023-08-11] MEDS: clonazePAM PO SCH (21:06)
[2023-08-11] MEDS: Naprosyn 500 MG PO SCH (21:06)
[2023-08-11] MEDS: CAPTOPRIL 25 MG PO SCH (21:49)
[2023-08-11] MEDS ORDERED: NON-FORMULARY ITEM (Hydroxychloroquine Sulfate [Hydroxychloroquine Sulfate] 200 MG Tablet) PO SCH (22:00)
[2023-08-11] MEDS ORDERED: CAPTOPRIL 12.5 MG PO SCH (22:00)
[2023-08-12 04:45] LABS: Hematocrit 32.4 % (35-47); Hemoglobin 10.3 g/dL (12.0-16.0); Mean Cell Volume 96.4 fL (78-100); Mean Corpuscular Hemoglobin 30.7 pg (26-32); Mean Corpuscular Hgb Concent. 31.8 g/dL (32-36); Mean Platelet Volume 10.6 fL (7.5-11.0); Platelet Count 279 x10^3/uL (150-450); Red Blood Count 3.36 x10^6/uL (4.1-5.4); Red Cell Distribution Width 13.3 % (11.5-14.0); White Blood Count 7.2 x10^3/uL (4.0-10.5)
[2023-08-12] MEDS: NORVASC 5 MG PO PRN (05:14)
[2023-08-12 05:17] LABS: ANION GAP 10.1 MEQ/L (5-15); Creatinine 1 0.67 mg/dL (0.52-1.04); EST GLOMERULAR FILTRATION RATE 89.4 ML/MIN; Potassium 3.3 mmol/L (3.5-5.1)
[2023-08-12] MEDS: Klor Con PO ONE (08:27)
[2023-08-12] MEDS: ECOTRIN 81 MG PO SCH (08:28)
[2023-08-12] MEDS: THERAGRAN MULTIVITAMIN PO SCH (08:28)
[2023-08-12] MEDS: Calcium 500MG W/Vit D Tablet PO SCH (08:28)
[2023-08-12] MEDS: Docusate Sodium 100 MG PO SCH (08:28)
[2023-08-12] MEDS: VITAMIN D PO SCH (08:28)
[2023-08-12] MEDS: FLORINEF PO SCH (08:29)
[2023-08-12] MEDS: PATIENT OWN MEDICATION PO SCH (08:30)
[2023-08-12] MEDS: TROLAMINE SALICYLATE 10% TP SCH (08:33)
[2023-08-12] MEDS ORDERED: NON-FORMULARY ITEM (Multivit-Min/Fa/Lycopen/Lutein [Centrum Silver Tablet] 1 EACH Tablet) PO SCH (10:00)
[2023-08-12] MEDS ORDERED: TROLAMINE SALICYLATE 10% TP SCH (10:00)
[2023-08-12] MEDS ORDERED: BABY ASPIRIN 81 MG CHEW PO SCH (10:00)
[2023-08-12] MEDS ORDERED: CHOLECALCIFEROL 125 MCG PO SCH (10:00)
[2023-08-12] MEDS ORDERED: NON-FORMULARY ITEM (Fludrocortisone Acetate [Fludrocortisone Acetate] 0.1 MG Tablet) PO SCH (10:00)
[2023-08-12] MEDS ORDERED: NON-FORMULARY ITEM (Calcium Carbonate/Vitamin D3 [Calcium 600-Vit D3 200 Tablet] 1 EACH Ta PO SCH (10:00)
[2023-08-12] MEDS: ULTRAM 50 MG PO SCH (10:27)
[2023-08-12] MEDS ORDERED: Naprosyn 500 MG PO PRN (10:48)
--- NOTE | 2023-08-12 10:52 | PCM.NOTE ---
Date and Time: 08/12/23 1044 Subjective Assessment: 08/11/23 is a 78 year old female with PMHX of cataracts, stroke, hyperlipidemia, fibromyalgia, OA, and diverticulosis. Pt presented to our ER today as in the last 4 weeks she has had low back pain. Approximately 3 weeks ago, 08/04/2023, patient underwent a lumbar spine MRI which shows an acute frac ture superior endplate L3 with 50% height loss. She was found to have multilevel degenerative disc disease greatest extent L3-L4. In the last 48 hours, has had 3 episodes a day of "tremors and stiffening up her limbs when standing". Patient states that when the tremors come on, there is significant pain. She ordinarily takes tramadol. However, the family have stopped the tramadol in the last 48 hours since this clinical picture arose as they were unsure if this new med was causing the tremors or the pain was causing tremors. Pt states her pain was previously well controlled with naproxen and tylenol alternating. She was given Morphine IV in ER and feels this was too strong and does not want this anymore. Patient's family member stated that the patient has a history of tremors but had not had them in a long time. Family also presented a recent history of family member passing away and this patient could not attend the . This may have caused some stress in this patient. There is a questionable history of early dementia. Tele-neurology consulted in ER and recommended starting clonazepam 0.25mg BID and overnight obs stay for further evaluation. Will repeat orthostats in AM and monitor overnight. Lumbar XR does show some incidental constipation. Discussed with pt and she prefers prune juice and miralax, will provide. She denies CP, SOB, abd. pain, N/V/D. She currently reports no pain, 0/10 in lumbar back. 08/12/23 Pt resting in bed. When she got up this morning to do orthostatic vital signs she did well until she had to stand. She has severe tremors and pain. Gran daughter is concerned she will fall at home. Pt states she did not feel that clonazepam did anything to help her tremors. She reports no current anxiety. She feels her shaking/ tremors are more related to pain. She is willing to start the tramadol again but only willing to take a 1/2 tab- 25mg Q6. Will keep another night and then d/c tomorrow. She denies CP, SOB, abd. pain, N/V/D. She did not have any BM's last night. - Review of Systems Constitutional: Weakness, No Fever, No Chills Eyes: No Symptoms Ears, Nose, & Throat: No Symptoms Respiratory: No Cough, No Short Of Breath Cardiac: No Chest Pain, No Edema, No Syncope Abdominal/Gastrointestinal: No Abdominal Pain, No Nausea, No Vomiting, No Diarrhea Genitourinary Symptoms: No Dysuria Musculoskeletal: No Back Pain, No Neck Pain Skin: No Rash Neurological: Tremors (with standing 2:2 pain), No Dizziness, No Focal Weakness, No Sensory Changes Psychological: No Symptoms Endocrine: No Symptoms Hematologic/Lymphatic: No Symptoms Immunological/Allergic: No Symptoms Objective Exam General Appearance: no apparent distress, alert, thin Neurologic Exam: alert, oriented x 3, cooperative, normal mood/affect, nml cerebellar function, sensation nml, No motor deficits Skin Exam: normal color, warm, dry Eye Exam: PERRL, EOMI, eyes nml inspection Ears, Nose, Throat Exam: normal ENT inspection, pharynx normal, moist mucous membranes Neck Exam: normal inspection, non-tender, supple, full range of motion Respiratory Exam: normal breath sounds, lungs clear, No respiratory distress Cardiovascular Exam: regular rate/rhythm, normal heart sounds Gastrointestinal/Abdomen Exam: soft, No tenderness, No mass Extremity Exam: normal inspection, normal range of motion Back Exam: normal inspection, normal range of motion, No CVA tenderness, No vertebral tenderness Pelvic Exam: deferred Rectal Exam: deferred Objective Data Vital Signs: Vital Signs - 24 hr Temp Pulse Resp BP BP Pulse Ox 08/12/23 09:00 97.6 F 90 16 145/84 95 08/12/23 05:00 97.3 F 87 18 171/82 95 08/11/23 23:39 97.7 F 82 16 131/69 96 08/11/23 21:05 98/57 08/11/23 19:43 97.3 F 95 H 20 86/54 96 08/11/23 15:18 97.5 F 94 H 20 129/65 94 L 08/11/23 14:00 152/96 08/11/23 13:50 93 H 15 165/107 08/11/23 13:40 98 H 15 168/103 08/11/23 13:30 97 H 24 183/100 08/11/23 13:20 94 H 21 148/93 08/11/23 13:10 96 H 13 163/98 08/11/23 13:00 87 20 181/100 97 08/11/23 12:50 84 20 185/132 08/11/23 12:40 85 22 191/119 08/11/23 12:30 96 H 19 183/111 08/11/23 12:20 86 25 H 184/119 97 08/11/23 12:10 87 17 184/111 08/11/23 12:00 85 19 183/111 08/11/23 11:50 89 22 186/116 08/11/23 11:40 87 20 182/113 08/11/23 11:30 88 23 176/116 98 08/11/23 11:20 91 H 24 174/109 97 08/11/23 11:10 92 H 20 169/102 97 08/11/23 11:08 82 18 161/96 Pain Assessment - Last Documented Pain Intensity 10 Pain Scale Used 0-10 Pain Scale Intake and Output: Intake & Output 08/09/23 08/10/23 08/11/23 08/12/23 11:59 11:59 11:59 11:59 Intake Total 460 Balance 460 Weight 60.781 kg 56.9 kg Lab Results: Lab Results-Last 24 Hours 08/11/23 08/11/23 08/12/23 Range/Units 10:05 10:33 04:16 WBC 7.2 (4.0-10.5) x10^3/uL RBC 3.36 L (4.1-5.4) x10^6/uL Hgb 10.3 L (12.0-16.0) g/dL Hct 32.4 L (35-47) % MCV 96.4 (78-100) fL MCH 30.7 (26-32) pg MCHC 31.8 L (32-36) g/dL RDW 13.3 (11.5-14.0) % Plt Count 279 (150-450) x10^3/uL MPV 10.6 (7.5-11.0) fL Sodium 140 (135-145) mmol/L Potassium 3.2 L (3.5-5.1) mmol/L Chloride 101 (98-107) mmol/L Carbon Dioxide 28 (22-30) mmol/L Anion Gap 14.3 (5-15) MEQ/L BUN 14 (7-17) mg/dL Creatinine 0.55 (0.52-1.04) mg/dL Estimated GFR 93.8 ML/MIN Glucose 100 (74-106) mg/dL Calcium 9.3 (8.4-10.2) mg/dL Magnesium 2.2 (1.6-2.3) mg/dL Total Bilirubin 0.20 (0.2-1.3) mg/dL AST 22 (14-36) U/L ALT 18 (0-35) U/L Alkaline Phosphatase 91 (38-126) U/L Serum Total Protein 7.4 (6.3-8.2) g/dL Albumin 4.2 (3.5-5.0) g/dL TSH 3rd Generation 1.260 (0.47-4.68) mIU/L Urine Color Yellow (Yellow) Urine Appearance Cloudy A (Clear) Urine pH 7.5 (4.6-8.0) Ur Specific [place] 1.010 (1.005-1.030) Urine Protein Negative (Negative) Urine Glucose (UA) Negative (Negative) mg/dL Urine Ketones Negative (Negative) Urine Blood Negative (Negative) Urine Nitrite Negative (Negative) Urine Bilirubin Negative (Negative) Urine Urobilinogen 0.2 (0.2) mg/dL Ur Leukocyte Esterase Negative (Negative) U Hyaline Cast (Auto) NONE SEEN (0-2) /LPF Urine Microscopic RBC 0-2 (0-5) /HPF Urine Microscopic WBC 0-2 (0-5) /HPF Ur Epithelial Cells None Seen (None Seen) /HPF Urine Bacteria None Seen (None Seen) /HPF Urine Culture Reflexed NO (NO) 08/12/23 Range/Units 04:16 WBC (4.0-10.5) x10^3/uL RBC (4.1-5.4) x10^6/uL Hgb (12.0-16.0) g/dL Hct (35-47) % MCV (78-100) fL MCH (26-32) pg MCHC (32-36) g/dL RDW (11.5-14.0) % Plt Count (150-450) x10^3/uL MPV (7.5-11.0) fL Sodium 138 (135-145) mmol/L Potassium 3.3 L (3.5-5.1) mmol/L Chloride 102 (98-107) mmol/L Carbon Dioxide 29 (22-30) mmol/L Anion Gap 10.1 (5-15) MEQ/L BUN 24 H (7-17) mg/dL Creatinine 0.67 (0.52-1.04) mg/dL Estimated GFR 89.4 ML/MIN Glucose 97 (74-106) mg/dL Calcium 9.0 (8.4-10.2) mg/dL Magnesium (1.6-2.3) mg/dL Total Bilirubin (0.2-1.3) mg/dL AST (14-36) U/L ALT (0-35) U/L Alkaline Phosphatase (38-126) U/L Serum Total Protein (6.3-8.2) g/dL Albumin (3.5-5.0) g/dL TSH 3rd Generation (0.47-4.68) mIU/L Urine Color (Yellow) Urine Appearance (Clear) Urine pH (4.6-8.0) Ur Specific [place] (1.005-1.030) Urine Protein (Negative) Urine Glucose (UA) (Negative) mg/dL Urine Ketones (Negative) Urine Blood (Negative) Urine Nitrite (Negative) Urine Bilirubin (Negative) Urine Urobilinogen (0.2) mg/dL Ur Leukocyte Esterase (Negative) U Hyaline Cast (Auto) (0-2) /LPF Urine Microscopic RBC (0-5) /HPF Urine Microscopic WBC (0-5) /HPF Ur Epithelial Cells (None Seen) /HPF Urine Bacteria (None Seen) /HPF Urine Culture Reflexed (NO) Radiology Exams: Radiology Procedures Category Date Time Status HEAD WITHOUT CONTRAST [CT] Stat Exams 08/11/23 09:53 Completed LUMBAR LIMITED (2 OR 3 VIEWS) Stat Exams 08/11/23 13:56 Completed Assessment/Plan (1) Orthostatic tremor Current Visit: Yes Status: Acute Code(s): G25.2 - OTHER SPECIFIED FORMS OF TREMOR (2) Hypokalemia Current Visit: Yes Status: Acute Code(s): E87.6 - HYPOKALEMIA (3) Fracture of lumbar spine Current Visit: Yes Status: Chronic (4) Constipation Current Visit: Yes Status: Chronic Code(s): K59.00 - CONSTIPATION, UNSPECIFIED (5) Autonomic orthostatic hypotension Current Visit: No Status: Chronic Assessment & Plan: (1) Orthostatic tremor Current Visit: Yes Status: Acute Assessment & Plan: - tele- neuro evaluation- recommended clonazepam 0.25 BID, observe overnight - PT eval in AM - Orthostats in AM - tele - CT head negative for acute concern 08/11 - stop clonazepam - 2:2 lumbar pain per pt when standing Code(s): G25.2 - OTHER SPECIFIED FORMS OF TREMOR (2) Hypokalemia Current Visit: Yes Status: Acute Assessment & Plan: - K+ 3.2 in ER-replaced - will recheck in AM 08/11 - K+ 3.3- replaced Code(s): E87.6 - HYPOKALEMIA (3) Fracture of lumbar spine Current Visit: Yes Status: Chronic Assessment & Plan: - acute on chronic - pt reports previous fx in the past - heating pad PRN - Pt eval in AM - alternate Tylenol and naproxen for pain - Old MRI reviewed from 08/04/23 Impression: 1. Acute fracture superior endplate L3 as detailed. 2. Multilevel degenerative disc disease detailed level by level. Greatest extent at L3-L4. 3. Incidental moderate levoscoliosis and bilateral S3 perineural cysts. - XR lumbar spine 08/10 3 view lumbar spine demonstrates 5 lumbar segments with osteopenia, recent MRI proven acute L3 fracture unchanged, moderate levorotoscoliosis centered at L1, minimal/mild multilevel degenerative changes, scattered arteriosclerotic calcifications, 3 cm calcified uterine fibroid, and moderate diffuse scattered colonic fecal debris. 08/11 - Naproxen changed to PRN - Tramadol 25mg Q6 - awaiting PT eval (4) Constipation Current Visit: Yes Status: Chronic Assessment & Plan: - Acute on Chronic - Miralax daily - pt would like prune juice as well- discussed with nurse 08/11 - No BM today - Continue with same plan of care. Code(s): K59.00 - CONSTIPATION, UNSPECIFIED (5) Autonomic orthostatic hypotension Current Visit: No Status: Chronic Assessment & Plan: - chronic- continue home meds 08/11 - unable to complete orthostats this am d/t lumbar pain and tremors. VTE: SCD PPI: Protonix Next of KIN: Yaneli Hartley [phone] D/C plan: tomorrow Code status: Full Code(s): I95.1 - ORTHOSTATIC HYPOTENSION
[2023-08-12] MEDS ORDERED: Miralax Powder 17GM PACKET PO SCH (16:20)
[2023-08-13 05:20] LABS: Hematocrit 31.4 % (35-47); Mean Corpuscular Hemoglobin 30.6 pg (26-32); Mean Corpuscular Hgb Concent. 31.8 g/dL (32-36); Mean Platelet Volume 10.5 fL (7.5-11.0); Platelet Count 267 x10^3/uL (150-450); Red Blood Count 3.27 x10^6/uL (4.1-5.4); Red Cell Distribution Width 13.4 % (11.5-14.0)
[2023-08-13 05:35] LABS: ANION GAP 10.9 MEQ/L (5-15); Calcium 8.7 mg/dL (8.4-10.2); Creatinine 1 0.6 mg/dL (0.52-1.04); EST GLOMERULAR FILTRATION RATE 91.8 ML/MIN; Potassium 3.7 mmol/L (3.5-5.1)
[2023-08-13] MEDS: Protonix 20MG Tablet PO SCH (09:11)
--- NOTE | 2023-08-13 09:41 | PCM.DS ---
Discharge Summary Date of Admission: 08/11/23 15:12 Date of Discharge: 08/13/23 Admitting Physician: NASIR SEYMOUR MD Primary Care Provider: MANNY LEWIS DO Allergies Allergies pollen extracts Allergy (Severe, Verified 08/11/23 09:39) Swelling of Face Penicillins Allergy (Intermediate, Verified 08/11/23 09:39) Rash mold Allergy (Mild, Verified 08/11/23 09:39) Swelling of Face Zfurubo-GKL-XnL Reductase Inhibitor Adverse Reaction (Intermediate, Verified 08/11/23 09:39) Fatigue Hospital Summary - Hospital Course Hospital Course: 08/11/23 is a 78 year old female with PMHX of cataracts, stroke, hyperlipidemia, fibromyalgia, OA, and diverticulosis. Pt presented to our ER today as in the last 4 weeks she has had low back pain. Approximately 3 weeks ago, 08/04/2023, patient underwent a lumbar spine MRI which shows an acute fractur e superior endplate L3 with 50% height loss. She was found to have multilevel degenerative disc disease greatest extent L3-L4. In the last 48 hours, has had 3 episodes a day of "tremors and stiffening up her limbs when standing". Patient states that when the tremors come on, there is significant pain. She ordinarily takes tramadol. However, the family have stopped the tramadol in the last 48 h ours since this clinical picture arose as they were unsure if this new med was causing the tremors or the pain was causing tremors. Pt states her pain was previously well controlled with naproxen and tylenol alternating. She was given Morphine IV in ER and feels this was too strong and does not want this anymore. Patient's family member stated that the patient has a history of tremors but had not had them in a long time. Family also presented a recent history of family member passing away and this patient could not attend the . This may have caused some stress in this patient. There is a questionable history of early dementia. Tele-neurology consulted in ER and recommended starting clonazepam 0.25mg BID and overnight obs stay for further evaluation. Will repeat orthostats in AM and monitor overnight. Lumbar XR does show some incidental constipation. Discussed with pt and she prefers prune juice and miralax, will provide. She denies CP, SOB, abd. pain, N/V/D. She currently reports no pain, 0/10 in lumbar back. 08/12/23 Pt resting in bed. When she got up this morning to do orthostatic vital signs she did well until she had to stand. She has severe tremors and pain. Liliya peacock is concerned she will fall at home. Pt states she did not feel that clonazepam did anything to help her tremors. She reports no current anxiety. She feels her shaking/ tremors are more related to pain. She is willing to start the tramadol again but only willing to take a 1/2 tab- 25mg Q6. Will keep another night and then d/c tomorrow. She denies CP, SOB, abd. pain, N/V/D. She did not have any BM's last night. 08/13/23 Pt is sitting up in chair today. She did do better today when walking to the chair from the bed. Pain medication has helped. She continues to have orthostats but this is a chronic problem for her an on several meds for this. She is c/o abd pain today and has not had a BM since admitted. Continue Miralax, colace, and prune/ apple juice. If she does not have a BM then will order suppository. After BM she can go home today if feeling better. - Vitals & Intake/Output Vital Signs: Vital Signs Temperature 97.4 F 08/13/23 08:59 Pulse Rate 87 08/13/23 08:59 Respiratory Rate 23 08/13/23 08:59 Blood Pressure 160/84 08/13/23 08:59 O2 Sat by Pulse Oximetry 98 08/13/23 08:59 Intake & Output: Intake & Output 08/10/23 08/11/23 08/12/23 08/13/23 11:59 11:59 11:59 11:59 Intake Total 460 760 Output Total 700 Balance 460 60 Weight 60.781 kg 56.9 kg - Lab Result Diagrams: 08/13/23 04:29 08/13/23 04:29 Lab Results-Last 24 Hrs: Lab Results-Last 24 Hours 08/13/23 08/13/23 Range/Units 04:29 04:29 WBC 8.0 (4.0-10.5) x10^3/uL RBC 3.27 L (4.1-5.4) x10^6/uL Hgb 10.0 L (12.0-16.0) g/dL Hct 31.4 L (35-47) % MCV 96.0 (78-100) fL MCH 30.6 (26-32) pg MCHC 31.8 L (32-36) g/dL RDW 13.4 (11.5-14.0) % Plt Count 267 (150-450) x10^3/uL MPV 10.5 (7.5-11.0) fL Sodium 137 (135-145) mmol/L Potassium 3.7 (3.5-5.1) mmol/L Chloride 102 (98-107) mmol/L Carbon Dioxide 27 (22-30) mmol/L Anion Gap 10.9 (5-15) MEQ/L BUN 22 H (7-17) mg/dL Creatinine 0.60 (0.52-1.04) mg/dL Estimated GFR 91.8 ML/MIN Glucose 94 (74-106) mg/dL Calcium 8.7 (8.4-10.2) mg/dL - Radiology Exams Ordered Rad Exams-Entire Visit: Radiology Procedures Category Date Time Status HEAD WITHOUT CONTRAST [CT] Stat Exams 08/11/23 09:53 Completed LUMBAR LIMITED (2 OR 3 VIEWS) Stat Exams 08/11/23 13:56 Completed - Procedures and Test Procedures and Tests throughout Hospitalization: Therapy Orders & Screens 08/11/23 15:17 PT Eval & Treat ( Order) ONCE Reason for Eval:: Patient with orthostatic tremors. Standing, ambulating, transferring Diagnosis: Orthostatic tremors 08/11/23 16:00 OT Screen per Nursing Assess ONCE Comment: Protocol Order Physician Instructions: Greater than 3 points order OT Admission Screening Reason For Exam: Triggered on Admission Diagnosis: tremors Open Wound/Cellutlitis/Pressure Ulcers: No Acute Fx/ORIF/Change in wt bearing status: No Severe MUSCULOSKELETAL pain: No ADL Dysfunction: Yes Acute CVA w/Hemiparesis/Hemiplegia: No Decreased Functional Mobility/Strength: Yes Sprain/Strain: No Acute Post-op Mobility Dysfunction: No Total Points: 4 PT Screen per Nursing Assess ONCE Comment: Protocol Order Physician Instructions: Greater than 3 points order PT Admission Screenin Reason For Exam: Triggered on Admission Diagnosis: tremors Open Wound/Cellutlitis/Pressure Ulcers: No Acute Fx/ORIF/Change in wt bearing status: No Severe MUSCULOSKELETAL pain: No ADL Dysfunction: Yes Acute CVA w/Hemiparesis/Hemiplegia: No Decreased Functional Mobility/Strength: Yes Sprain/Strain: No Acute Post-op Mobility Dysfunction: No Total Points: 4 Discharge Exam General Appearance: no apparent distress, alert Neurologic Exam: alert, oriented x 3, cooperative, normal mood/affect, nml cerebellar function, sensation nml, No motor deficits Eye Exam: PERRL, EOMI, eyes nml inspection Ears, Nose, Throat Exam: normal ENT inspection, pharynx normal, moist mucous membranes Neck Exam: normal inspection, non-tender, supple, full range of motion Respiratory Exam: normal breath sounds, lungs clear, No respiratory distress Cardiovascular Exam: regular rate/rhythm, normal heart sounds Gastrointestinal/Abdomen Exam: soft, tenderness (generalized from constipation), No mass Pelvic Exam: deferred Rectal Exam: deferred Back Exam: normal inspection, normal range of motion, No CVA tenderness, No vertebral tenderness Extremity Exam: normal inspection, normal range of motion Skin Exam: normal color, warm, dry Final Diagnosis/Problem List - Final Discharge Diagnosis/Problem (1) Orthostatic tremor Current Visit: Yes Status: Acute Code(s): G25.2 - OTHER SPECIFIED FORMS OF TREMOR (2) Hypokalemia Current Visit: Yes Status: Acute Code(s): E87.6 - HYPOKALEMIA (3) Fracture of lumbar spine Current Visit: Yes Status: Chronic (4) Constipation Current Visit: Yes Status: Chronic Code(s): K59.00 - CONSTIPATION, UNSPECIFIED (5) Autonomic orthostatic hypotension Current Visit: No Status: Chronic Assessment & Plan: (1) Orthostatic tremor Current Visit: Yes Status: Acute Assessment & Plan: - tele- neuro evaluation- recommended clonazepam 0.25 BID, observe overnight - PT eval in AM - Orthostats in AM - tele - CT head negative for acute concern 08/11 - stop clonazepam - 2:2 lumbar pain per pt when standing - Pain med restarted per pt request 08/12 - improved with pain medication Code(s): G25.2 - OTHER SPECIFIED FORMS OF TREMOR (2) Hypokalemia Current Visit: Yes Status: Acute Assessment & Plan: - K+ 3.2 in ER-replaced - will recheck in AM 08/11 - K+ 3.3- replaced 08/12 - resolved Code(s): E87.6 - HYPOKALEMIA (3) Fracture of lumbar spine Current Visit: Yes Status: Chronic Assessment & Plan: - acute on chronic - pt reports previous fx in the past - heating pad PRN - Pt eval in AM - alternate Tylenol and naproxen for pain - Old MRI reviewed from 08/04/23 Impression: 1. Acute fracture superior endplate L3 as detailed. 2. Multilevel degenerative disc disease detailed level by level. Greatest extent at L3-L4. 3. Incidental moderate levoscoliosis and bilateral S3 perineural cysts. - XR lumbar spine 08/10 3 view lumbar spine demonstrates 5 lumbar segments with osteopenia, recent MRI proven acute L3 fracture unchanged, moderate levorotoscoliosis centered at L1, minimal/mild multilevel degenerative changes, scattered arteriosclerotic calcifications, 3 cm calcified uterine fibroid, and moderate diffuse scattered colonic fecal debris. 08/11 - Naproxen changed to PRN - Tramadol 25mg Q6 - awaiting PT eval 08/12 - walked to chair to bed without concern today - pt has HHC and PT OP per CM - related tremors and pain improved. (4) Constipation Current Visit: Yes Status: Chronic Assessment & Plan: - Acute on Chronic - Miralax daily - pt would like prune juice as well- discussed with nurse 08/11 - No BM today - Continue with same plan of care. 08/12 - suppository added PRN - If she has a BM today and feels better can d/c. Code(s): K59.00 - CONSTIPATION, UNSPECIFIED (5) Autonomic orthostatic hypotension Current Visit: No Status: Chronic Assessment & Plan: - chronic- continue home meds 08/11 - unable to complete orthostats this am d/t lumbar pain and tremors. 08/12 - + orthostats- this is chronic - continue home meds - discussed allow time to change positions and always use walker when getting up. Code(s): I95.1 - ORTHOSTATIC HYPOTENSION - Discharge Discharge Date: 08/13/23 Disposition: HOME HEALTH SERVICE Condition: Fair Prescriptions: Continue Aspirin 81 gm Chew [Baby Aspirin 81 mg Chew] 81 mg PO DAILY Calcium Carbonate/Vitamin D3 [Calcium 600-Vit D3 200 Tablet] 1 tab PO DAILY Hydroxychloroquine Sulfate 200 mg PO BID Midodrine HCl [Proamatine] 10 mg PO TID Trolamine Salicylate [Aspercreme] 1 applic TP DAILY Multivit-Min/FA/Lycopen/Lutein [Centrum Silver Tablet] 1 each PO DAILY Elderberry Fruit and Flower [Black Elderberry 575 mg Cap] 1 each PO DAILY Cholecalciferol (Vitamin D3) [Vitamin D3] 5,000 unit PO DAILY Ibuprofen [Advil] 600 mg PO Q6HPRN PRN PRN Reason: Pain, Fever, Headache captopriL [Captopril] 6.25 mg PO HS Docusate Sodium 100 mg [Docusate Sodium 100 MG] 200 mg PO DAILY Fludrocortisone Acetate 0.1 mg PO DAILY Acetaminophen 325 mg [Tylenol 325 mg] 650 mg PO Q4HPRN PRN PRN Reason: Pain Tramadol HCl 50 mg [Ultram 50 mg] 50 mg PO Q6HPRN PRN PRN Reason: Pain Additional Instructions: Allow time to change positions and always use walker when getting up. Follow up with: MANNY LEWIS DO [Primary Care Provider] -
[2023-08-13] MEDS ORDERED: Protonix 20MG Tablet PO SCH (10:00)
[2023-08-13] MEDS: PROAMATINE PO SCH (11:13)
[2023-08-13] MEDS: NON-FORMULARY ITEM TP SCH (11:13)
[2023-08-13] MEDS: GLYCERIN ADULT SUPPOSITORY RC PRN (11:13)
[2023-08-13 11:18] VITALS: O2SAT 93
[2023-08-13 17:13] VITALS: BP 151/84; PULSE 89; RESP 18; TEMP 97.5
== END 2023-08-13 17:40 | disposition home or self-care (01) ==
LOC: ED 09:28 → MED SURG 15:12
PROVIDERS: ADMIT Internal Medicine; ATTEND Internal Medicine
DX: G25.2 Other specified forms of tremor (principal); E87.6 Hypokalemia; S32.009A Unspecified fracture of unspecified lumbar vertebra, initial encounter for closed fracture; K59.00 Constipation, unspecified; I95.1 Orthostatic hypotension; E78.5 Hyperlipidemia, unspecified; M54.50 Low back pain, unspecified; Z86.73 Personal history of transient ischemic attack (TIA), and cerebral infarction without residual deficits; Z79.899 Other long term (current) drug therapy; Z20.828 Contact with and (suspected) exposure to other viral communicable diseases
CPT/HCPCS: 36000; 36415; 70450; 72100; 80048; 80053; 81001; 83735; 84443; 85025; 85027; 93041; 93268; 94760; 96374; 96375; 99285; J2270; J2405; Q3014; 97110-GP; A0270-GY; A9270-GY; G0378

== ENCOUNTER 2024-03-02 16:31 | Emergency (ER) | payer MEDICARE, OTHER ==
--- NOTE | 2024-03-02 16:39 | ERPHSYRPT ---
- History of Present Illness Time Seen by Provider: 03/02/24 16:38 Source: patient, family Exam Limitations: clinical condition Physician History: This is a 79-year-old white female who has a history of dementia and is primary care provider is Dr. Swartz and presents to the emergency department by private vehicle escorted by family member. Last evening, the family member states that the patient was starting to make in a confused fashion and it was worse today. Earlier in the day before noon she began having dizzy spells and her confusion was worse. She also complained of right side headache. Patient has issues with low magnesium in the past. She does have a history of hypertension, chronic anemia, chronic orthostatic hypotension and is on midodrine for this, osteoporosis, fibromyalgia, essential tremors, Raynaud's disease and lupus Timing/Duration: yesterday, worse Severity: mild Character of Deficits: other (Confusion) Deficits: no difficulties Baseline/Normal Cognition: alert but confused Current Cognition: alert but confused Baseline Gait: walks w/o assistance Associated Symptoms: confusion, weakness Allergies/Adverse Reactions: pollen extracts Allergy (Severe, Verified 03/02/24 16:51) Swelling of Face Penicillins Allergy (Intermediate, Verified 03/02/24 16:51) Rash mold Allergy (Mild, Verified 03/02/24 16:51) Swelling of Face [id number] Reductase Inhibitor Adverse Reaction (Intermediate, Verified 03/02/24 16:51) Fatigue Home Medications: Aspirin 81 gm Chew [Baby Aspirin 81 mg Chew] 81 mg PO DAILY 07/10/21 [History] Calcium Carbonate/Vitamin D3 [Calcium 600-Vit D3 200 Tablet] 1 tab PO DAILY 07/10/21 [History] Cholecalciferol (Vitamin D3) [Vitamin D3] 5,000 unit PO DAILY 07/10/21 [History] Hydroxychloroquine Sulfate 200 mg PO BID 07/10/21 [History] Midodrine HCl [Proamatine] 10 mg PO TID 07/10/21 [History] Multivit-Min/FA/Lycopen/Lutein [Centrum Silver Tablet] 1 each PO DAILY 07/10/21 [History] captopriL [Captopril] 6.25 mg PO HS 02/27/22 [History] Acetaminophen 325 mg [Tylenol 325 mg] 650 mg PO Q4HPRN PRN 08/11/23 [History] Docusate Sodium 100 mg [Docusate Sodium 100 MG] 100 mg PO BID 08/11/23 [History] Fludrocortisone Acetate 0.1 mg PO DAILY 08/11/23 [History] Beta-Carotene(A) W-C & E/Min [Ocuvite Tablet] 1 tab PO DAILY 03/02/24 [History] Celecoxib 200 mg PO BID 03/02/24 [History] Cyanocobalamin (Vitamin B-12) [Vitamin B-12] 5,000 mcg PO UD 03/02/24 [History] Ferrous Sulfate 325 mg PO DAILY 03/02/24 [History] Fluticasone Propionate [Flonase NASAL] 1 spray NS DAILY 03/02/24 [History] Magnesium Oxide 400 mg PO BID 03/02/24 [History] PANTOPRAZOLE 40 mg Tablet [Protonix 40MG Tablet] 40 mg PO QAM 03/02/24 [History] Hx Influenza Vaccination/Date Given: No Hx Pneumococcal Vaccination/Date Given: No Travel Risk - International Travel Have you traveled outside of the country in past 3 weeks: No - Emerging Infectious Disease Are you exhibiting symptoms associated with any current EIDs: No - Review of Systems Constitutional: Weakness Eyes: No Symptoms Ears, Nose, & Throat: No Symptoms Respiratory: No Symptoms Cardiac: No Symptoms Abdominal/Gastrointestinal: No Symptoms Genitourinary Symptoms: No Symptoms Musculoskeletal: No Symptoms Skin: No Symptoms Neurological: Dizziness, Headache Psychological: No Symptoms Endocrine: No Symptoms Hematologic/Lymphatic: No Symptoms Immunological/Allergic: No Symptoms All Other Systems: Reviewed and Negative - Past Medical History Pertinent Past Medical History: Yes Neurological History: Stroke ENT History: Cataracts Cardiac History: High Cholesterol, Other Respiratory History: No Pertinent History Endocrine Medical History: No Pertinent History Musculoskeletal History: Fibromyalgia, Osteoporosis GI Medical History: Diverticulosis History: No Pertinent History Psycho-Social History: No Pertinent History Female Reproductive Disorders: No Pertinent History Other Medical History: Anemia, Essential tremor, chronic low back pain, metabolic disorder, Myoclonus, Primary generalized hyperthrophic osteoarthrosis, Raynauds disease, lupus, Sjogrens, Chronic orthostatic hypotension - Past Surgical History Past Surgical History: Yes Neuro Surgical History: No Pertinent History Cardiac: No Pertinent History Respiratory: No Pertinent History Gastrointestinal: No Pertinent History Genitourinary: No Pertinent History Musculoskeletal: No Pertinent History Female Surgical History: Hysterectomy Other Surgical History: wrist fx repair - Left, L3 compression fracture - Social History Smoking Status: Never smoker Exposure to second hand smoke: No Drug Use: none Patient Lives Alone: No - Social Determinants of Health Will the patient participate in the screening: Yes Do you worry about a steady place to live?: No In the past 12 months,have you had to go without utilities?: No Transportation Issues: No Has anyone in your support network made you feel unsafe?: No Have you or anyone in your house had to go without enough: No - Nursing Vital Signs Nursing Vital Signs: Initial Vital Signs Temperature 99.4 F 03/02/24 16:41 Pulse Rate 86 03/02/24 16:41 Respiratory Rate 16 03/02/24 16:41 Blood Pressure 185/125 03/02/24 16:41 O2 Sat by Pulse Oximetry 98 03/02/24 16:41 Pain Scale Pain Intensity 0 - [place] Coma Scale Best Eye Response (Carlos): (4) open spontaneously Best Verbal Response ([place]): (4) confused conversation Best Motor Response (Carlos): (6) obeys commands Carlos Total: 14 - Physical Exam General Appearance: no apparent distress, alert, anxiety Eye Exam: bilateral eye: normal inspection, PERRL, EOMI Ears, Nose, Throat Exam: normal ENT inspection, moist mucous membranes Neck Exam: normal inspection, non-tender, supple, full range of motion Respiratory: normal breath sounds, lungs clear, airway intact, No chest tenderness, No respiratory distress Cardiovascular: regular rate/rhythm, normal heart sounds, normal peripheral pulses Gastrointestinal: soft, normal bowel sounds, No tenderness Pelvic Exam: not done Rectal Exam: not done Back Exam: normal inspection, normal range of motion, No CVA tenderness, No vertebral tenderness Extremity Exam: normal inspection, normal range of motion, pelvis stable 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 QTc is 490.) Ordered Tests: Active Orders 24 hr Category Date Time Status EKG-ER Only STAT Care 03/02/24 17:01 Active IV Insertion STAT Care 03/02/24 17:01 Active NPO (ED) STAT Care 03/02/24 17:02 Active HEAD WITHOUT CONTRAST [CT] Stat Exams 03/02/24 17:02 Taken CBC W DIFF Stat Lab 03/02/24 17:00 Completed CMP Stat Lab 03/02/24 17:00 Completed CULTURE,URINE Stat Lab 03/02/24 17:21 Received MAGNESIUM Stat Lab 03/02/24 17:00 Completed UA W/RFX UR CULTURE Stat Lab 03/02/24 17:21 Completed Medication Summary Generic Name Dose Route Start Last Admin Trade Name Freq PRN Reason Stop Dose Admin Sodium Chloride 1,000 mls @ 100 mls/hr 03/02/24 17:15 03/02/24 17:07 Sodium Chloride 0.9% 1000 Ml IV 04/01/24 17:14 100 mls/hr .Q10H KRISTYN Administration Lab/Rad Data: Laboratory Result Diagrams 03/02/24 17:00 03/02/24 17:00 Laboratory Results 03/02/24 03/02/24 03/02/24 Range/Units 17:21 17:15 17:00 WBC (3.98-10.04) x10^3/uL RBC (3.93-5.22) x10^6/uL Hgb (11.2-15.7) g/dL Hct (34.1-44.9) % MCV (79.4-94.8) fL MCH (25.6-32.2) pg MCHC (32.2-35.5) g/dL RDW (11.7-14.4) % Plt Count (182-369) x10^3/uL MPV (9.4-12.3) fL Gran % (34.0-71.1) % Immature Gran % (Auto) (0.001-0.429) % Nucleat RBC Rel Count (0.00-0.2) % Eos # (Auto) (0.04-0.36) x10^3/uL Immature Gran # (Auto) (0.001-0.031) x10^3u/L Absolute Lymphs (auto) (1.18-3.74) x10^3/uL Absolute Monos (auto) (0.24-0.86) x10^3/uL Absolute Nucleated RBC (0.00-0.012) x10^3u/L Lymphocytes % (19.3-51.7) % Monocytes % (4.7-12.5) % Eosinophils % (0.7-5.8) % Basophils % (0.1-1.2) % Absolute Granulocytes (1.56-6.13) x10^3/uL Basophils # (0.01-0.08) x10^3/uL Sodium 139 (135-145) mmol/L Potassium 4.1 (3.5-5.1) mmol/L Chloride 103 (98-107) mmol/L Carbon Dioxide 27 (22-30) mmol/L Anion Gap 13.8 (5-15) MEQ/L BUN 20 H (7-17) mg/dL Creatinine 0.93 (0.52-1.04) mg/dL Estimated GFR 62.5 ML/MIN Glucose 99 (74-106) mg/dL Calcium 9.3 (8.4-10.2) mg/dL Magnesium 2.3 (1.6-2.3) mg/dL Total Bilirubin 0.30 (0.2-1.3) mg/dL AST 27 (14-36) U/L ALT 20 (0-35) U/L Alkaline Phosphatase 66 (38-126) U/L Serum Total Protein 7.3 (6.3-8.2) g/dL Albumin 4.1 (3.5-5.0) g/dL Urine Color Yellow (Yellow) Urine Appearance Clear (Clear) Urine pH 7.0 (4.6-8.0) Ur Specific [place] 1.010 (1.005-1.030) Urine Protein Negative (Negative) Urine Glucose (UA) Negative (Negative) mg/dL Urine Ketones Negative (Negative) Urine Blood Negative (Negative) Urine Nitrite Negative (Negative) Urine Bilirubin Negative (Negative) Urine Urobilinogen 0.2 (0.2) mg/dL Ur Leukocyte Esterase Trace A (Negative) U Hyaline Cast (Auto) NONE SEEN (0-2) /LPF Urine Microscopic RBC 0-2 (0-5) /HPF Urine Microscopic WBC 0-2 (0-5) /HPF Ur Epithelial Cells None Seen (None Seen) /HPF Urine Bacteria None Seen (None Seen) /HPF Urine Culture Reflexed NO (NO) Influenza Type A Ag NEGATIVE (NEGATIVE) Influenza Type B Ag NEGATIVE (NEGATIVE) RSV (PCR) NEGATIVE (NEGATIVE) SARS-CoV-2 (PCR) NEGATIVE (NEGATIVE) 03/02/24 Range/Units 17:00 WBC 12.1 H (3.98-10.04) x10^3/uL RBC 3.93 (3.93-5.22) x10^6/uL Hgb 11.9 (11.2-15.7) g/dL Hct 37.5 (34.1-44.9) % MCV 95.4 H (79.4-94.8) fL MCH 30.3 (25.6-32.2) pg MCHC 31.7 L (32.2-35.5) g/dL RDW 13.9 (11.7-14.4) % Plt Count 273 (182-369) x10^3/uL MPV 11.0 (9.4-12.3) fL Gran % 77.5 H (34.0-71.1) % Immature Gran % (Auto) 0.3 (0.001-0.429) % Nucleat RBC Rel Count 0.0 (0.00-0.2) % Eos # (Auto) 0 L (0.04-0.36) x10^3/uL Immature Gran # (Auto) 0.04 H (0.001-0.031) x10^3u/L Absolute Lymphs (auto) 2.04 (1.18-3.74) x10^3/uL Absolute Monos (auto) 0.59 (0.24-0.86) x10^3/uL Absolute Nucleated RBC 0.00 (0.00-0.012) x10^3u/L Lymphocytes % 16.9 L (19.3-51.7) % Monocytes % 4.9 (4.7-12.5) % Eosinophils % 0.0 L (0.7-5.8) % Basophils % 0.4 (0.1-1.2) % Absolute Granulocytes 9.35 H (1.56-6.13) x10^3/uL Basophils # 0.05 (0.01-0.08) x10^3/uL Sodium (135-145) mmol/L Potassium (3.5-5.1) mmol/L Chloride (98-107) mmol/L Carbon Dioxide (22-30) mmol/L Anion Gap (5-15) MEQ/L BUN (7-17) mg/dL Creatinine (0.52-1.04) mg/dL Estimated GFR ML/MIN Glucose (74-106) mg/dL Calcium (8.4-10.2) mg/dL Magnesium (1.6-2.3) mg/dL Total Bilirubin (0.2-1.3) mg/dL AST (14-36) U/L ALT (0-35) U/L Alkaline Phosphatase (38-126) U/L Serum Total Protein (6.3-8.2) g/dL Albumin (3.5-5.0) g/dL Urine Color (Yellow) Urine Appearance (Clear) Urine pH (4.6-8.0) Ur Specific [place] (1.005-1.030) Urine Protein (Negative) Urine Glucose (UA) (Negative) mg/dL Urine Ketones (Negative) Urine Blood (Negative) Urine Nitrite (Negative) Urine Bilirubin (Negative) Urine Urobilinogen (0.2) mg/dL Ur Leukocyte Esterase (Negative) U Hyaline Cast (Auto) (0-2) /LPF Urine Microscopic RBC (0-5) /HPF Urine Microscopic WBC (0-5) /HPF Ur Epithelial Cells (None Seen) /HPF Urine Bacteria (None Seen) /HPF Urine Culture Reflexed (NO) Influenza Type A Ag (NEGATIVE) Influenza Type B Ag (NEGATIVE) RSV (PCR) (NEGATIVE) SARS-CoV-2 (PCR) (NEGATIVE) - Progress Progress: improved, re-examined Progress Note: 03/02/24 17:50 My medical decision making and the assignment of moderate complexity to this patient's medical issue today is based on review of the patient's past medical history, review the patient's medication list, reviewed patient drug allergy list, history present illness and physical findings on examination. The workup in this patient includes placement of intravenous line, low infusion rate of normal saline solution, urinalysis, CBC, CMP, magnesium level, viral swabs, CT scan of the head without contrast, twelve-lead EKG. Differential diagnosis includes but is not limited to worsening dementia, electrolyte abnormalities, dehydration, urinary tract infection acute intracranial abnormality 03/02/24 20:07 I interpreted the patient's laboratory data results. Based on the laboratory data results the patient has a mildly elevated white count at 12,000. No other laboratory data results show any acute, emergent findings. The CT scan of the head without contrast was interpreted by radiologist and I reviewed the impression. Depression states stable, nonacute senile brain. This study was compared to similar study dated 08/11/2023. Counseled pt/family regarding: lab results, diagnosis, need for follow-up, rad results Medical Desision Making - Independent Historian Additional History obtained from: Family - Diagnostic Testing Diagnostic test were ordered, analyzed, and reviewed by me: Yes Radiological Interpretation: Reviewed by me, Teleradiologist Report - Risk of complications Low Risk: Low risk of morbidity from additional dx testing or treatment - Departure Departure Disposition: Home Clinical Impression: Confusion, Dizziness Condition: Stable Critical Care Time: No Referrals: [facility] [LOCATION] - Follow up/PCP as directed Additional Instructions: Drink plenty fluids. Take your medication as prescribed. Follow-up with your primary care provider tomorrow, 03/03/2024 to make arrangements for follow-up appointment to be seen in the next 3 days.
[2024-03-02 16:52] VITALS: TEMP 99.4
[2024-03-02] MEDS ORDERED: Sodium Chloride 0.9% 1000 ML 1,000 ML ONE (17:05)
[2024-03-02] MEDS: Sodium Chloride 0.9% 1000 ML 1,000 ML IV SCH (17:07)
[2024-03-02 17:24] LABS: Absolute Neutrophil Ct (ANC) 9.35 x10^3/uL (1.56-6.13); BASOPHIL % 0.4 % (0.1-1.2); Basophil (Absolute #) 0.05 x10^3/uL (0.01-0.08); Eosinophil (Absolute #) 0 x10^3/uL (0.04-0.36); Hematocrit 37.5 % (34.1-44.9); Hemoglobin 11.9 g/dL (11.2-15.7); IMMATURE GRAN # 0.04 x10^3u/L (0.001-0.031); IMMATURE GRAN % 0.3 % (0.001-0.429); Lymphocyte (Absolute #) 2.04 x10^3/uL (1.18-3.74); Lymphocytes % 16.9 % (19.3-51.7); Mean Cell Volume 95.4 fL (79.4-94.8); Mean Corpuscular Hemoglobin 30.3 pg (25.6-32.2); Mean Corpuscular Hgb Concent. 31.7 g/dL (32.2-35.5); Monocyte (Absolute #) 0.59 x10^3/uL (0.24-0.86); Monocytes % 4.9 % (4.7-12.5); Neutrophil % 77.5 % (34.0-71.1); Platelet Count 273 x10^3/uL (182-369); Red Blood Count 3.93 x10^6/uL (3.93-5.22); Red Cell Distribution Width 13.9 % (11.7-14.4); White Blood Count 12.1 x10^3/uL (3.98-10.04)
[2024-03-02 17:30] LABS: Appearance Clear (Clear); Bacteria None Seen /HPF (None Seen); Bilirubin Negative (Negative); Blood Negative (Negative); Epithelial Cells None Seen /HPF (None Seen); Glucose, Urine Negative (Negative); Hyaline Casts NONE SEEN /LPF (0-2); Ketones Negative (Negative); Leukocyte Esterase Trace (Negative); Nitrite Negative (Negative); Protein,Urine Dip Negative (Negative); RBC 0-2 /HPF (0-5); Urobilinogen 0.2 mg/dL (0.2); WBC 0-2 /HPF (0-5)
[2024-03-02 17:58] LABS: INFLUENZA A NEGATIVE (NEGATIVE); INFLUENZA B NEGATIVE (NEGATIVE); RESPIRATORY SYNCTIAL VIRUS NEGATIVE (NEGATIVE); SARS-CoV-2 Xpert Express NEGATIVE (NEGATIVE)
[2024-03-02 18:24] LABS: ALBUMIN 4.1 g/dL (3.5-5.0); ANION GAP 13.8 MEQ/L (5-15); BILIRUBIN,TOTAL 0.3 mg/dL (0.2-1.3); Calcium 9.3 mg/dL (8.4-10.2); Creatinine 1 0.93 mg/dL (0.52-1.04); EST GLOMERULAR FILTRATION RATE 62.5 ML/MIN; MAGNESIUM 2.3 mg/dL (1.6-2.3); Potassium 4.1 mmol/L (3.5-5.1); Total Protein 7.3 g/dL (6.3-8.2)
[2024-03-02 20:18] VITALS: O2SAT 96
[2024-03-02 21:04] VITALS: BP 141/83; PULSE 82; RESP 22
--- NOTE | 2024-03-03 08:35 | XRAY ---
Indication: Confusion. Near-syncope. Multiple contiguous axial images obtained through the head without contrast. Comparison: August 11, 2023 Again age-appropriate global atrophy and minimal periventricular degenerative micro-ischemia bilaterally. No acute intracranial hemorrhage, abnormal extra-axial fluid collection, or mass effect. Fourth ventricle is midline without hydrocephalus. Brown-white matter differentiation preserved. Bony calvarium intact. Visualized paranasal sinuses and mastoid air cells are clear. Impression: Again nonacute senile brain.
== END 2024-03-02 21:30 | disposition home or self-care (01) ==
LOC: ED 16:31
DX: R41.0 Disorientation, unspecified (principal); R42 Dizziness and giddiness; R51.9 Headache, unspecified; I10 Essential (primary) hypertension; E78.5 Hyperlipidemia, unspecified; Z79.899 Other long term (current) drug therapy
CPT/HCPCS: 0241U; 36415; 70450; 80053; 81001; 83735; 85025; 87086; 93005; 96360; 96361; 99284

== ENCOUNTER 2024-12-27 13:01 | Emergency (ER) | payer MEDICARE, OTHER ==
[2024-12-27 13:31] VITALS: TEMP 97.5
--- NOTE | 2024-12-27 13:45 | ERPHSYRPT ---
- History of Present Illness Time Seen by Provider: 12/27/24 13:19 Source: patient Exam Limitations: no limitations Patient Subjective Stated Complaint: Pt. states, "I have been having pain in my rt. lower back that radiates around to rt. abdomen. I have had no problems urinating and my bowels are moving well. It hurts worse when I cough or sneezes." Triage Nursing Assessment: Pt. ambulates with rolling walker, she is A&Ox3, Skin P/W/D, Resp. even unlabored, No edema. Tender over right flank and right lower abdomen. Physician History: 79-year-old female with multiple medical problems including dementia presented in the ER with complaints of right lower back pain with radiation/wrapping around to the right lower abdomen, moderate to severe sharp, more with palpation movements and even at resting. Aggravation with coughing. No radiation to the lower extremities, no loss of bowel or bladder control/saddle anesthesia. Denies any fall or trauma. No constipation or diarrhea. Allergies/Adverse Reactions: pollen extracts Allergy (Severe, Verified 03/02/24 16:51) Swelling of Face Penicillins Allergy (Intermediate, Verified 03/02/24 16:51) Rash mold Allergy (Mild, Verified 03/02/24 16:51) Swelling of Face [id number] Reductase Inhibitor Adverse Reaction (Intermediate, Verified 03/02/24 16:51) Fatigue Home Medications: Aspirin 81 gm Chew [Baby Aspirin 81 mg Chew] 81 mg PO DAILY 07/10/21 [History] Calcium Carbonate/Vitamin D3 [Calcium 600-Vit D3 200 Tablet] 1 tab PO DAILY 07/10/21 [History] Cholecalciferol (Vitamin D3) [Vitamin D3] 5,000 unit PO DAILY 07/10/21 [History] Hydroxychloroquine Sulfate 200 mg PO BID 07/10/21 [History] Midodrine HCl [Proamatine] 10 mg PO TID 07/10/21 [History] Multivit-Min/FA/Lycopen/Lutein [Centrum Silver Tablet] 1 each PO DAILY 07/10/21 [History] captopriL [Captopril] 6.25 mg PO HS 02/27/22 [History] Acetaminophen 325 mg [Tylenol 325 mg] 650 mg PO Q4HPRN PRN 08/11/23 [History] Docusate Sodium 100 mg [Docusate Sodium 100 MG] 100 mg PO BID 08/11/23 [History] Fludrocortisone Acetate 0.1 mg PO DAILY 08/11/23 [History] Beta-Carotene(A) W-C & E/Min [Ocuvite Tablet] 1 tab PO DAILY 03/02/24 [History] Celecoxib 200 mg PO BID 03/02/24 [History] Cyanocobalamin (Vitamin B-12) [Vitamin B-12] 5,000 mcg PO UD 03/02/24 [History] Ferrous Sulfate 325 mg PO DAILY 03/02/24 [History] Magnesium Oxide 400 mg PO BID 03/02/24 [History] PANTOPRAZOLE 40 mg Tablet [Protonix 40MG Tablet] 40 mg PO QAM 03/02/24 [History] Hx Tetanus, Diphtheria Vaccination/Date Given: No Hx Influenza Vaccination/Date Given: No Hx Pneumococcal Vaccination/Date Given: No Immunizations Up to Date: No Travel Risk - International Travel Have you traveled outside of the country in past 3 weeks: No - Emerging Infectious Disease Are you exhibiting symptoms associated with any current EIDs: No - Review of Systems Constitutional: No Symptoms Ears, Nose, & Throat: No Symptoms Respiratory: No Symptoms Cardiac: No Symptoms Abdominal/Gastrointestinal: Abdominal Pain Genitourinary Symptoms: No Symptoms Musculoskeletal: Back Pain Skin: No Symptoms Neurological: No Symptoms Hematologic/Lymphatic: No Symptoms - Past Medical History Pertinent Past Medical History: Yes Neurological History: Stroke ENT History: Cataracts Cardiac History: High Cholesterol, Other Respiratory History: No Pertinent History Endocrine Medical History: No Pertinent History Musculoskeletal History: Fibromyalgia, Osteoporosis GI Medical History: Diverticulosis History: No Pertinent History Psycho-Social History: No Pertinent History Female Reproductive Disorders: No Pertinent History Other Medical History: Anemia, Essential tremor, chronic low back pain, metabolic disorder, Myoclonus, Primary generalized hyperthrophic osteoarthrosis, Raynauds disease, lupus, Sjogrens, Chronic orthostatic hypotension, Lt. Shoulder frozen from fx last year - Past Surgical History Past Surgical History: Yes Neuro Surgical History: No Pertinent History Cardiac: No Pertinent History Respiratory: No Pertinent History Gastrointestinal: No Pertinent History Genitourinary: No Pertinent History Musculoskeletal: No Pertinent History Female Surgical History: Hysterectomy Other Surgical History: wrist fx repair - Left, L3 compression fracture - Social History Smoking Status: Never smoker Exposure to second hand smoke: No Drug Use: none - Social Determinants of Health Will the patient participate in the screening: Yes Do you worry about a steady place to live?: No Do you have any problems with any of the following?: No known problems In the past 12 months,have you had to go without utilities?: No Transportation Issues: No Has anyone in your support network made you feel unsafe?: No Have you or anyone in your house had to go w/o enough food: No - Nursing Vital Signs Nursing Vital Signs: Initial Vital Signs Temperature 97.5 F 12/27/24 13:01 Pulse Rate 88 12/27/24 13:01 Respiratory Rate 18 12/27/24 13:01 Blood Pressure 137/83 12/27/24 13:01 O2 Sat by Pulse Oximetry 96 12/27/24 13:01 Pain Scale Pain Intensity [Right Back] 10 Pain Intensity 0 - Physical Exam General Appearance: no apparent distress Ears, Nose, Throat Exam: normal ENT inspection, pharynx normal Neck Exam: normal inspection, full range of motion Respiratory Exam: normal breath sounds, lungs clear Cardiovascular Exam: regular rate/rhythm, normal heart sounds Gastrointestinal Exam: soft, normal bowel sounds, tenderness (Generalized), No guarding Back Exam: normal inspection, normal range of motion Extremity Exam: normal inspection, normal range of motion Neurologic Exam: alert, oriented x 3, cooperative Skin Exam: normal color SpO2 Interpretation: normal SpO2: 96 O2 Delivery: Room Air Ordered Tests: Active Orders 24 hr Category Date Time Status NPO (ED) STAT Care 12/27/24 13:39 Active ABDOMEN AND PELVIS W/0 CONTRAS [CT] Stat Exams 12/27/24 13:40 Completed CBC W DIFF Stat Lab 12/27/24 14:03 Completed CMP Stat Lab 12/27/24 14:03 Completed LIPASE Stat Lab 12/27/24 14:03 Completed UA W/RFX UR CULTURE Stat Lab 12/27/24 15:53 Completed Medication Summary Discontinued Medications Generic Name Dose Route Start Last Admin Trade Name Freq PRN Reason Stop Dose Admin Acetaminophen 975 mg 12/27/24 14:30 12/27/24 14:45 Acetaminophen 325 Mg Tablet PO 12/27/24 14:31 975 mg STAT ONE Administration Acetaminophen Confirm 12/27/24 14:41 Acetaminophen 325 Mg Tablet Administered 12/27/24 14:42 Dose 975 mg .ROUTE .[facility] Lab/Rad Data: Laboratory Result Diagrams 12/27/24 14:03 12/27/24 14:03 Laboratory Results 12/27/24 12/27/24 12/27/24 Range/Units 15:53 14:03 14:03 WBC 8.1 (3.98-10.04) x10^3/uL RBC 3.68 L (3.93-5.22) x10^6/uL Hgb 11.2 (11.2-15.7) g/dL Hct 35.8 (34.1-44.9) % MCV 97.3 H (79.4-94.8) fL MCH 30.4 (25.6-32.2) pg MCHC 31.3 L (32.2-35.5) g/dL RDW 14.0 (11.7-14.4) % Plt Count 231 (182-369) x10^3/uL MPV 10.9 (9.4-12.3) fL Gran % 78.4 H (34.0-71.1) % Immature Gran % (Auto) 0.2 (0.001-0.429) % Nucleat RBC Rel Count 0.0 (0.00-0.2) % Eos # (Auto) 0 L (0.04-0.36) x10^3/uL Immature Gran # (Auto) 0.02 (0.001-0.031) x10^3u/L Absolute Lymphs (auto) 1.22 (1.18-3.74) x10^3/uL Absolute Monos (auto) 0.46 (0.24-0.86) x10^3/uL Absolute Nucleated RBC 0.00 (0.00-0.012) x10^3u/L Lymphocytes % 15.1 L (19.3-51.7) % Monocytes % 5.7 (4.7-12.5) % Eosinophils % 0.0 L (0.7-5.8) % Basophils % 0.6 (0.1-1.2) % Absolute Granulocytes 6.33 H (1.56-6.13) x10^3/uL Basophils # 0.05 (0.01-0.08) x10^3/uL Sodium 138 (135-145) mmol/L Potassium 4.3 (3.5-5.1) mmol/L Chloride 104 (98-107) mmol/L Carbon Dioxide 26 (22-30) mmol/L Anion Gap 12.0 (5-15) MEQ/L BUN 21 H (7-17) mg/dL Creatinine 0.73 (0.52-1.04) mg/dL Estimated GFR 83.6 ML/MIN Glucose 94 (74-106) mg/dL Calcium 9.2 (8.4-10.2) mg/dL Total Bilirubin 0.30 (0.2-1.3) mg/dL AST 25 (14-36) U/L ALT 16 (0-35) U/L Alkaline Phosphatase 58 (38-126) U/L Serum Total Protein 7.1 (6.3-8.2) g/dL Albumin 4.1 (3.5-5.0) g/dL Lipase 111 (23-300) U/L Urine Color Yellow (Yellow) Urine Appearance Cloudy A (Clear) Urine pH 8.0 (4.6-8.0) Ur Specific [place] 1.010 (1.005-1.030) Urine Protein Negative (Negative) Urine Glucose (UA) Negative (Negative) mg/dL Urine Ketones Negative (Negative) Urine Blood Negative (Negative) Urine Nitrite Negative (Negative) Urine Bilirubin Negative (Negative) Urine Urobilinogen 0.2 (0.2) mg/dL Ur Leukocyte Esterase Negative (Negative) U Hyaline Cast (Auto) NONE SEEN (0-2) /LPF Urine Microscopic RBC 3-5 (0-5) /HPF Urine Microscopic WBC 0-2 (0-5) /HPF Ur Epithelial Cells None Seen (None Seen) /HPF Urine Bacteria None Seen (None Seen) /HPF Urine Culture Reflexed NO (NO) - Progress Progress: improved Progress Note: 12/27/24 18:32 Differential diagnosis: Acute on chronic low back pain, fracture or subluxation of lumbar spine. Sciatica, acute appendicitis, obstruction, perforation, constipation, colitis, diverticulitis, obstructive uropathy, pyelonephritis, cauda equina 79-year-old is evaluated in the ER for right low back pain with some radiation to right flank/right lower quadrant. Negative neuroexam in lower extremities, no cauda equina symptoms. She is given Tylenol for symptomatic relief. Workup showed normal white count, unremarkable chemistries and no UTI. CT abdomen pelvis did not show any acute finding in the back, pelvic bones. Is positive for constipation with fecal impaction. No other acute intra-abdominal pelvic findings. Discussed with patient and family about lab work and CT finding, offered enema and have given Fleet followed by soapsuds enema with the big bowel movement and patient is feeling much relieved. Recommended daily MiraLAX and stool softener. Discussed signs symptoms of worsening return to ER which patient and family seem understanding. Stable for discharge. Complexity of problems addressed: Moderate acute Complexity of data reviewed/analyzed: Extensive Risk of complication: Low Counseled pt/family regarding: lab results, diagnosis, need for follow-up, rad results Medical Desision Making - Independent Historian Additional History obtained from: Child - Diagnostic Testing Diagnostic test were ordered, analyzed, and reviewed by me: Yes Radiological Interpretation: Reviewed by me - Risk of complications The pt has a mod risk of morbidity or mortality based on: Need for prescription drug management - Departure Departure Disposition: Home Clinical Impression: Low back pain, Constipation Condition: Stable Critical Care Time: No Referrals: MANNY LEWIS DO [Primary Care Provider, [facility]] - Follow up with PCP 1 day Instructions: Low Back Pain (DC), Constipation in adults - ED discharge instructions Additional Instructions: Take daily stool softeners and MiraLAX. Follow-up with primary care for reevaluation. Increase fiber in the diet/fiber supplements. Return to ER for worsening of constipation, abdominal pain, back pain, numbness tingling focal weakness, loss of bowel or bladder control etc.
[2024-12-27 14:05] LABS: BASOPHIL % 0.6 % (0.1-1.2); Basophil (Absolute #) 0.05 x10^3/uL (0.01-0.08); Eosinophil (Absolute #) 0 x10^3/uL (0.04-0.36); Hematocrit 35.8 % (34.1-44.9); Hemoglobin 11.2 g/dL (11.2-15.7); IMMATURE GRAN # 0.02 x10^3u/L (0.001-0.031); IMMATURE GRAN % 0.2 % (0.001-0.429); Lymphocyte (Absolute #) 1.22 x10^3/uL (1.18-3.74); Mean Corpuscular Hemoglobin 30.4 pg (25.6-32.2); Mean Corpuscular Hgb Concent. 31.3 g/dL (32.2-35.5); Monocyte (Absolute #) 0.46 x10^3/uL (0.24-0.86); NUCLEATED RBC # 0.00 x10^3u/L (0.00-0.012); NUCLEATED RBC % 0.0 % (0.00-0.2); Platelet Count 231 x10^3/uL (182-369); Red Blood Count 3.68 x10^6/uL (3.93-5.22); White Blood Count 8.1 x10^3/uL (3.98-10.04)
[2024-12-27 14:23] LABS: Calcium 9.2 mg/dL (8.4-10.2); Carbon Dioxide 26.0 mmol/L (22-30); Creatinine 1 0.73 mg/dL (0.52-1.04); EST GLOMERULAR FILTRATION RATE 83.6 ML/MIN; Glucose 94.0 mg/dL (74-106); Potassium 4.3 mmol/L (3.5-5.1); SGOT/AST 25.0 U/L (14-36); SGPT/ALT 16.0 U/L (0-35); Total Protein 7.1 g/dL (6.3-8.2)
[2024-12-27] MEDS ORDERED: TYLENOL 325 MG ONE (14:41)
[2024-12-27] MEDS: TYLENOL 325 MG PO ONE (14:45)
--- NOTE | 2024-12-27 15:18 | XRAY ---
Indication: Right back/abdomen pain. Multiple contiguous axial images obtained through the abdomen and pelvis without contrast. Comparison: None Lung bases demonstrates scattered subsegmental atelectasis/scarring. No infiltrate or effusion. Heart not enlarged. Diffuse respiration artifact limits exam. Stomach distended with food/fluid. Noncontrasted stomach and bowel loops appear nonobstructed. Markedly diffuse colonic fecal debris throughout including mild rectal fecal impaction. Well-circumscribed 2.5 cm benign-appearing left pelvic calcification, doubt calcified fibroid in this hysterectomy patient. Gallbladder not visualized either contracted or surgically absent. No free fluid/air. Remaining liver, pancreas, spleen, adrenal glands, kidneys, ureters, and bladder are unremarkable for noncontrast exam. Moderate scattered aortoiliac calcifications without AAA. Osseous structures intact with osteopenia, mild/moderate degenerative changes throughout thoracolumbar spine, L2/L3 vertebroplasty, moderate levorotoscoliosis centered at L1, mild right hip degenerative arthropathy, and left total hip arthroplasty. Impression: 1. Respiration artifact. 2. Markedly diffuse fecal stasis with rectal fecal impaction. 3. Chronic findings including atelectasis/scarring, benign left pelvic calcification, arteriosclerotic disease, and chronic bony findings.
[2024-12-27 16:05] LABS: Glucose, Urine Negative (Negative); Protein,Urine Dip Negative (Negative); WBC 0-2 /HPF (0-5)
[2024-12-27 18:15] VITALS: BP 163/91; PULSE 64; RESP 16
[2024-12-27 18:32] VITALS: O2SAT 96
== END 2024-12-27 18:55 | disposition home or self-care (01) ==
LOC: ED 13:01
DX: M54.50 Low back pain, unspecified (principal); K59.00 Constipation, unspecified; R10.31 Right lower quadrant pain; Z79.899 Other long term (current) drug therapy

== ENCOUNTER 2025-05-09 22:42 | Inpatient (IN) | payer MEDICARE, OTHER ==
[2025-05-09 23:19] LABS: BASOPHIL % 0.5 % (0.1-1.2); Basophil (Absolute #) 0.04 x10^3/uL (0.01-0.08); Eosinophil (Absolute #) 0 x10^3/uL (0.04-0.36); Hematocrit 32.4 % (34.1-44.9); Hemoglobin 10.7 g/dL (11.2-15.7); IMMATURE GRAN # 0.03 x10^3u/L (0.001-0.031); IMMATURE GRAN % 0.4 % (0.001-0.429); Lymphocyte (Absolute #) 1.73 x10^3/uL (1.18-3.74); Mean Corpuscular Hemoglobin 30.6 pg (25.6-32.2); Mean Corpuscular Hgb Concent. 33.0 g/dL (32.2-35.5); Monocyte (Absolute #) 0.38 x10^3/uL (0.24-0.86); NUCLEATED RBC # 0.00 x10^3u/L (0.00-0.012); NUCLEATED RBC % 0.0 % (0.00-0.2); Platelet Count 292 x10^3/uL (182-369); Red Blood Count 3.50 x10^6/uL (3.93-5.22); White Blood Count 7.9 x10^3/uL (3.98-10.04)
--- NOTE | 2025-05-09 23:26 | ERPHSYRPT ---
- History of Present Illness Time Seen by Provider: 05/09/25 23:12 Source: patient Exam Limitations: no limitations Patient Subjective Stated Complaint: Daughter reports, "She was diagnosed with pneumonia in the left lower lobe, was on 2 different antibiotics but tonight we noticed that her oxygen saturations were down in the 80s getting up to the bathroom". Triage Nursing Assessment: Pt presents to ER by ambulance with complaints of shortness of breath. She has been having respiratory issues for about a month now, diagnosed with pneumonia 3 weeks ago and was put on 2 different antibiotics which she finished 1 week ago. Pt is alert and oriented x 3. EMS administered 2 duo-neb treatments [employer]. Pt has thick sputum that she is struggling to cough up. Pt lung sounds are course crackles in posterior lungs. Pt appears frail and weak. Noted some bilateral lower extremity swelling, which daughter states is new today. Pt denies pain. Pt is afebrile at this time. Physician History: Patient is a 80yo F h/o stroke, HL, fibromyalgia presents to ED via EMS with c/o sob and cough. Patient was diagnosed with LLL pneumonia 3 weeks. She was treated with two different antibiotics. Tonight she experienced sob. Her oxygenation saturation was 80s. She has been experiencing sob for about 1 month. Patient received a duo neb en route. Symptoms are progressive. Symptoms are mild to moderate in intensity. Shortness of breath worse with exertion. No associated nausea or vomiting no diarrhea no rash no fever. Patient voices no other complaints or concerns at this time. Patient wears 3 L nasal cannula at home. She is currently on 3 L as well Portions of this note were created with voice recognition technology. There may be grammatical, spelling, punctuation or sound alike errors Timing/Duration: week(s) Severity: moderate Modifying Factors: Improves With: nothing Associated Symptoms: other (leg swelling) Allergies/Adverse Reactions: pollen extracts Allergy (Severe, Verified 05/09/25 23:03) Swelling of Face Penicillins Allergy (Intermediate, Verified 05/09/25 23:03) Rash mold Allergy (Mild, Verified 05/09/25 23:03) Swelling of Face Influenza Virus Vaccines Adverse Reaction (Intermediate, Verified 05/09/25 23:04) Rash pneumococcal vaccine Adverse Reaction (Intermediate, Verified 05/09/25 23:04) Rash Ecamlgu-BBN-BvZ Reductase Inhibitor Adverse Reaction (Intermediate, Verified 05/09/25 23:03) Fatigue Home Medications: Aspirin 81 gm Chew [Baby Aspirin 81 mg Chew] 81 mg PO DAILY 07/10/21 [History] Calcium Carbonate/Vitamin D3 [Calcium 600-Vit D3 200 Tablet] 1 tab PO DAILY 07/10/21 [History] Cholecalciferol (Vitamin D3) [Vitamin D3] 5,000 unit PO DAILY 07/10/21 [History] Hydroxychloroquine Sulfate 200 mg PO BID 07/10/21 [History] Midodrine HCl [Proamatine] 5 mg PO TID 07/10/21 [History] Multivit-Min/FA/Lycopen/Lutein [Centrum Silver Tablet] 1 each PO DAILY 07/10/21 [History] captopriL [Captopril] 6.25 mg PO HS 02/27/22 [History] Acetaminophen 325 mg [Tylenol 325 mg] 650 mg PO Q4HPRN PRN 08/11/23 [History] Docusate Sodium 100 mg [Docusate Sodium 100 MG] 100 mg PO BID 08/11/23 [History] Fludrocortisone Acetate 0.1 mg PO DAILY 08/11/23 [History] Beta-Carotene(A) W-C & E/Min [Ocuvite Tablet] 1 tab PO DAILY 03/02/24 [History] Celecoxib 200 mg PO BID 03/02/24 [History] Cyanocobalamin (Vitamin B-12) [Vitamin B-12] 5,000 mcg PO UD 03/02/24 [History] Ferrous Sulfate 325 mg PO DAILY 03/02/24 [History] Magnesium Oxide 400 mg PO Q48H 03/02/24 [History] PANTOPRAZOLE 40 mg Tablet [Protonix 40MG Tablet] 40 mg PO QAM 03/02/24 [History] Hx Tetanus, Diphtheria Vaccination/Date Given: No Hx Influenza Vaccination/Date Given: No Hx Pneumococcal Vaccination/Date Given: No Travel Risk - International Travel Have you traveled outside of the country in past 3 weeks: No - Emerging Infectious Disease Are you exhibiting symptoms associated with any current EIDs: No - Review of Systems All Other Systems: Reviewed and Negative - Past Medical History Pertinent Past Medical History: Yes Neurological History: Stroke ENT History: Cataracts Cardiac History: High Cholesterol, Other Respiratory History: No Pertinent History Endocrine Medical History: No Pertinent History Musculoskeletal History: Fibromyalgia, Osteoporosis GI Medical History: Diverticulosis History: No Pertinent History Psycho-Social History: No Pertinent History Female Reproductive Disorders: No Pertinent History Other Medical History: Anemia, Essential tremor, chronic low back pain, metabolic disorder, Myoclonus, Primary generalized hyperthrophic osteoarthrosis, Raynauds disease, lupus, Sjogrens, Chronic orthostatic hypotension, Lt. Shoulder frozen from fx last year - Past Surgical History Past Surgical History: Yes Neuro Surgical History: No Pertinent History Cardiac: No Pertinent History Respiratory: No Pertinent History Gastrointestinal: No Pertinent History Genitourinary: No Pertinent History Musculoskeletal: No Pertinent History Female Surgical History: Hysterectomy Other Surgical History: wrist fx repair - Left, L3 compression fracture - Social History Smoking Status: Never smoker Exposure to second hand smoke: No Drug Use: none - Social Determinants of Health Will the patient participate in the screening: Yes Do you worry about a steady place to live?: No Do you have any problems with any of the following?: No known problems In the past 12 months,have you had to go without utilities?: No Transportation Issues: No Has anyone in your support network made you feel unsafe?: No Have you or anyone in your house had to go w/o enough food: No - Nursing Vital Signs Nursing Vital Signs: Initial Vital Signs Pulse Rate 95 H 05/09/25 22:44 Respiratory Rate 23 05/09/25 22:44 Blood Pressure 164/102 05/09/25 22:44 O2 Sat by Pulse Oximetry 93 L 05/09/25 22:44 Pain Scale Pain Intensity 0 - Physical Exam General Appearance: no apparent distress, alert Eye Exam: PERRL/EOMI, eyes nml inspection Ears, Nose, Throat Exam: normal ENT inspection, pharynx normal, moist mucous membranes Neck Exam: normal inspection, full range of motion Respiratory Exam: normal breath sounds, diminished breath sounds, crackles/rales, rhonchi, No respiratory distress Cardiovascular Exam: regular rate/rhythm, normal heart sounds, normal peripheral pulses Gastrointestinal/Abdomen Exam: soft, normal bowel sounds, No tenderness, No mass Back Exam: normal inspection, normal range of motion, No CVA tenderness, No vertebral tenderness Extremity Exam: normal inspection, normal range of motion, pelvis stable, swelling Neurologic Exam: alert, oriented x 3, cooperative, normal mood/affect, sensation nml, No motor deficits Skin Exam: normal color, warm, dry, No rash Lymphatic Exam: No adenopathy SpO2 Interpretation: normal SpO2: 92 O2 Delivery: Room Air - Course Nursing assessment & vital signs reviewed: Yes EKG Interpreted by Me: RATE (97), Sinus Rhythm, NORMAL AXIS, prolonged QT interval, NORMAL QRS Ordered Tests: Active Orders 24 hr Category Date Time Status Dermatological Surgeon STAT Care 05/09/25 22:54 Active EKG-ER Only STAT Care 05/09/25 22:53 Completed IV Insertion STAT Care 05/09/25 22:53 Active Oxygen-ED Only Nasal Cannula 2 lpm Care 05/09/25 23:58 Active Pulse Oximetry (ED) STAT Care 05/09/25 22:53 Active CHEST 1 VIEW (PORTABLE) Stat Exams 05/09/25 22:54 Taken BLOOD CULTURE Stat Lab 05/09/25 23:15 Received CBC W DIFF Stat Lab 05/09/25 23:10 Completed CMP Stat Lab 05/09/25 23:10 Completed CULTURE,URINE Routine Lab 05/10/25 00:00 Received NT PRO BNPII Stat Lab 05/09/25 23:10 Completed TROPONIN Q4H Lab 05/09/25 23:10 Completed TROPONIN Q4H Lab 05/10/25 03:00 Ordered TROPONIN Q4H Lab 05/10/25 07:00 Ordered UA W/RFX UR CULTURE Stat Lab 05/10/25 00:00 Completed Incentive Spirometry UD RT 05/09/25 23:20 Active Transfer Order Routine Transfer 05/10/25 Ordered Medication Summary Generic Name Dose Route Start Last Admin Trade Name Freq PRN Reason Stop Dose Admin Levofloxacin/Dextrose 500 mg in 100 mls @ 100 mls/hr 05/10/25 01:16 05/10/25 01:35 Levofloxacin 500mg/100ml D5w IV 05/10/25 02:15 100 mls/hr STAT STA 100 mls/hr Administration Discontinued Medications Generic Name Dose Route Start Last Admin Trade Name Freq PRN Reason Stop Dose Admin Furosemide 40 mg 05/10/25 01:16 Furosemide 40 Mg/4 Ml Vial IV 05/10/25 01:17 STAT ONE Levofloxacin/Dextrose Confirm 05/10/25 01:24 Levofloxacin 500mg/100ml D5w Administered 05/10/25 01:25 Dose 500 mg in 100 mls @ ud IV .K-MED ONE Lab/Rad Data: Laboratory Result Diagrams 05/09/25 23:10 05/09/25 23:10 Laboratory Results 05/10/25 05/09/25 05/09/25 Range/Units 00:00 23:10 23:10 WBC (3.98-10.04) x10^3/uL RBC (3.93-5.22) x10^6/uL Hgb (11.2-15.7) g/dL Hct (34.1-44.9) % MCV (79.4-94.8) fL MCH (25.6-32.2) pg MCHC (32.2-35.5) g/dL RDW (11.7-14.4) % Plt Count (182-369) x10^3/uL MPV (9.4-12.3) fL Gran % (34.0-71.1) % Immature Gran % (Auto) (0.001-0.429) % Nucleat RBC Rel Count (0.00-0.2) % Eos # (Auto) (0.04-0.36) x10^3/uL Immature Gran # (Auto) (0.001-0.031) x10^3u/L Absolute Lymphs (auto) (1.18-3.74) x10^3/uL Absolute Monos (auto) (0.24-0.86) x10^3/uL Absolute Nucleated RBC (0.00-0.012) x10^3u/L Lymphocytes % (19.3-51.7) % Monocytes % (4.7-12.5) % Eosinophils % (0.7-5.8) % Basophils % (0.1-1.2) % Absolute Granulocytes (1.56-6.13) x10^3/uL Basophils # (0.01-0.08) x10^3/uL Sodium 122 L (135-145) mmol/L Potassium 3.7 (3.5-5.1) mmol/L Chloride 90 L (98-107) mmol/L Carbon Dioxide 20 L (22-30) mmol/L Anion Gap 15.7 H (5-15) MEQ/L BUN 13 (7-17) mg/dL Creatinine 0.75 (0.52-1.04) mg/dL Estimated GFR 80.4 ML/MIN Glucose 132 H (74-106) mg/dL Calcium 9.4 (8.4-10.2) mg/dL Total Bilirubin 0.40 (0.2-1.3) mg/dL AST 26 (14-36) U/L ALT 19 (0-35) U/L Alkaline Phosphatase 86 (38-126) U/L Troponin I 0.015 (0.000-0.033) ng/mL NT-Pro-B Natriuret Pep 25352 (<300) pg/mL Serum Total Protein 7.2 (6.3-8.2) g/dL Albumin 4.2 (3.5-5.0) g/dL Urine Color Yellow (Yellow) Urine Appearance Clear (Clear) Urine pH 7.0 (4.6-8.0) Ur Specific [place] 1.010 (1.005-1.030) Urine Protein Negative (Negative) Urine Glucose (UA) Negative (Negative) mg/dL Urine Ketones Negative (Negative) Urine Blood Negative (Negative) Urine Nitrite Negative (Negative) Urine Bilirubin Negative (Negative) Urine Urobilinogen 0.2 (0.2) mg/dL Ur Leukocyte Esterase Negative (Negative) U Hyaline Cast (Auto) NONE SEEN (0-2) /LPF Urine Microscopic RBC 0-2 (0-5) /HPF Urine Microscopic WBC 0-2 (0-5) /HPF Ur Epithelial Cells None Seen (None Seen) /HPF Urine Bacteria None Seen (None Seen) /HPF Urine Culture Reflexed ORDERED SEPARATELY (NO) 05/09/25 Range/Units 23:10 WBC 7.9 (3.98-10.04) x10^3/uL RBC 3.50 L (3.93-5.22) x10^6/uL Hgb 10.7 L (11.2-15.7) g/dL Hct 32.4 L (34.1-44.9) % MCV 92.6 (79.4-94.8) fL MCH 30.6 (25.6-32.2) pg MCHC 33.0 (32.2-35.5) g/dL RDW 13.3 (11.7-14.4) % Plt Count 292 (182-369) x10^3/uL MPV 10.2 (9.4-12.3) fL Gran % 72.4 H (34.0-71.1) % Immature Gran % (Auto) 0.4 (0.001-0.429) % Nucleat RBC Rel Count 0.0 (0.00-0.2) % Eos # (Auto) 0 L (0.04-0.36) x10^3/uL Immature Gran # (Auto) 0.03 (0.001-0.031) x10^3u/L Absolute Lymphs (auto) 1.73 (1.18-3.74) x10^3/uL Absolute Monos (auto) 0.38 (0.24-0.86) x10^3/uL Absolute Nucleated RBC 0.00 (0.00-0.012) x10^3u/L Lymphocytes % 21.9 (19.3-51.7) % Monocytes % 4.8 (4.7-12.5) % Eosinophils % 0.0 L (0.7-5.8) % Basophils % 0.5 (0.1-1.2) % Absolute Granulocytes 5.72 (1.56-6.13) x10^3/uL Basophils # 0.04 (0.01-0.08) x10^3/uL Sodium (135-145) mmol/L Potassium (3.5-5.1) mmol/L Chloride (98-107) mmol/L Carbon Dioxide (22-30) mmol/L Anion Gap (5-15) MEQ/L BUN (7-17) mg/dL Creatinine (0.52-1.04) mg/dL Estimated GFR ML/MIN Glucose (74-106) mg/dL Calcium (8.4-10.2) mg/dL Total Bilirubin (0.2-1.3) mg/dL AST (14-36) U/L ALT (0-35) U/L Alkaline Phosphatase (38-126) U/L Troponin I (0.000-0.033) ng/mL NT-Pro-B Natriuret Pep (<300) pg/mL Serum Total Protein (6.3-8.2) g/dL Albumin (3.5-5.0) g/dL Urine Color (Yellow) Urine Appearance (Clear) Urine pH (4.6-8.0) Ur Specific [place] (1.005-1.030) Urine Protein (Negative) Urine Glucose (UA) (Negative) mg/dL Urine Ketones (Negative) Urine Blood (Negative) Urine Nitrite (Negative) Urine Bilirubin (Negative) Urine Urobilinogen (0.2) mg/dL Ur Leukocyte Esterase (Negative) U Hyaline Cast (Auto) (0-2) /LPF Urine Microscopic RBC (0-5) /HPF Urine Microscopic WBC (0-5) /HPF Ur Epithelial Cells (None Seen) /HPF Urine Bacteria (None Seen) /HPF Urine Culture Reflexed (NO) - Progress Progress: improved Progress Note: Patient is a 80yo F h/o stroke, HL, fibromyalgia presents to ED via EMS with c/o sob and cough. Patient was diagnosed with LLL pneumonia 3 weeks. She was treated with two different antibiotics. Tonight she experienced sob. Her oxygenation saturation was 80s. She has been experiencing sob for about 1 month. Patient received a duo neb en route. Physical exam reveals coarse breath sounds with crackles. Bilateral lower extremity pitting edema. Workup reveals a normocytic anemia of 10.7. Hyponatremia of 122. Elevated BNP of 14,900. Dr. Baum independently reviewed and interpreted the chest x-ray. There is pulmonary congestion and findings suggestive of pneumonia. Patient received 40 mg of Lasix IV. Patient is allergic to penicillin. She received 500 of Levaquin. Patient will be admitted for further evaluation and treatment. Plan of care discussed with patient and her daughter who is at the bedside. They agree to admission at [facility] for further evaluation and treatment. Portions of this note were created with voice recognition technology. There may be grammatical, spelling, punctuation or sound alike errors History obtained from patient and daughter as well as EMS Differential diagnosis includes congestive heart failure, pneumonia, COPD exacerbation, Complexity of problems addressed is moderate acute complicated. No critical care time. Complexity of data reviewed and analyzed is extensive. Test ordered test reviewed results analyzed and correlated clinically with history and physical exam. Management discussed with hospitalist accepts admission to observation. Risk of complication and or risk of morbidity/mortality of patient management is high. Patient requires hospitalization for further evaluation and treatment. Vital stable. Time spent to admit patient is approximately 20 minutes. Plan of care established for shared decision making. No social determinants of health present to impede follow-up. Portions of this note were created with voice recognition technology. There may be grammatical, spelling, punctuation or sound alike errors 05/10/25 01:[address] Jack at 1:31 AM 05/10/25 01:37 Will see patient in: hospital (observation) Counseled pt/family regarding: lab results, diagnosis, rad results - Departure Departure Disposition: Observation Clinical Impression: Congestive heart failure, Pneumonia, Prolonged QT interval, Hypoxia Condition: Stable Critical Care Time: No Referrals: MANNY LEWIS DO [Primary Care Provider, [facility]] - Follow up/PCP as directed Instructions: Heart Failure
[2025-05-09 23:33] LABS: Calcium 9.4 mg/dL (8.4-10.2); Carbon Dioxide 20.0 mmol/L (22-30); Creatinine 1 0.75 mg/dL (0.52-1.04); EST GLOMERULAR FILTRATION RATE 80.4 ML/MIN; Glucose 132.0 mg/dL (74-106); Potassium 3.7 mmol/L (3.5-5.1); SGOT/AST 26.0 U/L (14-36); SGPT/ALT 19.0 U/L (0-35); Total Protein 7.2 g/dL (6.3-8.2)
[2025-05-09 23:45] LABS: TROPONIN 0.015 ng/mL (0.000-0.033)
[2025-05-10 00:31] LABS: Glucose, Urine Negative (Negative); Protein,Urine Dip Negative (Negative); RBC 0-2 /HPF (0-5); WBC 0-2 /HPF (0-5)
[2025-05-10] MEDS ORDERED: Levofloxacin 500MG/100ML D5W 500 MG/100 ML BAG IV ONE (01:24)
[2025-05-10] MEDS: Levofloxacin 500MG/100ML D5W 500 MG/100 ML BAG IV STA (01:35)
[2025-05-10] MEDS: Lasix 40 MG/4 ML IV ONE (01:54)
[2025-05-10] MEDS ORDERED: Lasix 40 MG/4 ML ONE (01:54)
--- NOTE | 2025-05-10 02:10 | XRAY ---
CLINICAL HISTORY: sob COMPARISON: No prior studies are available for comparison. TECHNIQUE: An X-ray image of the chest is obtained in AP projection. FINDINGS: Pulmonary Parenchyma: Chest leads are identified Mild haziness seen in the right lower zone and at right costophrenic angle An opacity in the right hilar region Prominent vessels are also seen in both hilar and perihilar region There is opacification in the region of left costophrenic angle likely due to pleural effusion, which is extending to the left lateral chest wall. Mild haziness seen in the adjacent part of the lung. There is also obscuration of left cardiac border and left hemidiaphragm Small nodular density is identified in the right lung upper zone, projecting over the right clavicle Heart and Mediastinum: Heart size cannot be commented due to obscuration of cardiac borders. No mediastinal widening or masses. No hilar or mediastinal lymphadenopathy. Bony Thorax: Deformity at the left humeral head-neck junction, likely chronic fracture. Soft Tissues: Soft tissues overlying the chest wall are unremarkable. IMPRESSION: Mild haziness at right lower zone and possibly at right costophrenic angle. Right hilar region opacity as well. Clinical and lab correlation and CT scan is advised for further evaluation to rule out infection or other pathology Left-sided pleural effusion and mild haziness in the adjacent part of lung, possibility of underlying infection/ atelectasis/ consolidation cannot be excluded Small nodular density is identified in the right lung upper zone, projecting over the right clavicle, likely pulmonary nodule Electronically Signed by: Preet Richey MD. (05/10/2025 02:08:56 EST)
[2025-05-10] MEDS ORDERED: DUONEB 0.5-3 MG/3 ml Neb IH PRN (03:37)
--- NOTE | 2025-05-10 03:38 | PCM.HP ---
History of Present Illness - Chief Complaint Chief Complaint: Congestive heart failure, pneumonia Date: 05/10/25 History of Present Illness: The patient is a 80-year-old female with a PMH of RA, hyperlipidemia, vascular dementia, fibromyalgia, SLE, Sjogren's, orthostatic hypotension with this anomia, who presents to the emergency room with complaints of cough and shortness of breath. The history is supplemented by the patient's daughter at the bedside. The patient reports that she has been experiencing a significant cough over the past 3 weeks, productive of yellow phlegm, with some associated shortness of breath. The patient notes that she was seen at her PCPs office roughly 2 weeks ago and was started on a course of azithromycin and cefdinir which she subsequently completed. Notes only mild improvement in her symptoms with subsequent worsening. She does report some sharp pleuritic chest discomfort over her back, flanks, and ribs. She however denied experiencing nausea, vomiting, abdominal pain, diarrhea. She also denied urinary or visual complaints. She does report noticing some swelling of her ankles today. Denied orthopnea or PND. In the emergency department, a chest x-ray showed findings of right hilar opacification as well as left-sided pleural haziness possibly secondary to infection along with a small right lung upper zone pulmonary nodule. On vital signs, the patient had an SpO2 of 92% on nasal cannula oxygen with 2 L, respira tory rate 22, and pulse of 96 with BP 157/90. Laboratory evaluation revealed a WBC count of 7.9, hemoglobin 10.7, sodium 122, chloride 90, CO2 20, BUN 13, creatinine 0.75, glucose 132, with proBNP 14,900, troponin 0.015 with a UA unremarkable. The case was discussed with the ER provider in detail and chart was reviewed. Review of Systems: A complete and thorough review of system was performed and was negative except as stated in the HPI. Physical Examination: General: Well-nourished, in no acute distress. Normal weight. HEENT: Head atruamatic normocephaic, PERRL, no scleral icterus, no oral lesions Cardiovascular: Regular rate and rhythm, S1S2 normal, no murmurs appreciated Respiratory: Diffuse rhonchi and rales without wheezing Abdomen: Soft, nontender, nondistended, normoactive bowel sounds, no guarding Musculoskeletal: Full range of motion. No obvious swelling or tenderness noted, non-pitting edema in miriam LEs Neurological: Alert and oriented x 3. Strength 5/5 in all extremities grossly, no obvious focal deficits noted Psychiatric: Normal mood, affect, with cohesive thought process Assessment & Plan Acute hypoxic respiratory failure, likely secondary to underlying pneumonia, rule out CHF - Continue patient on Levaquin 750 mg IV daily - Follow-up sputum culture - Obtain echocardiogram - Cardiac monitoring - Judicious use of IV fluids - Prior echocardiogram from 2021 revealed LVH with intact ejection fraction - Intake and output - Check Legionella and mycoplasma Hypochloremic hyponatremia - Patient reports adequate oral intake - Possibly due to ongoing illness - Hold off on IV fluids at this time - Follow-up BMP Normocytic anemia, at baseline Chronic conditions: SLE, rheumatoid arthritis, Sjogren's, orthostatic hypotension with dysautonomia, vascular dementia - Continue with patient's home medications including hydroxychloroquine, fludrocortisone, midodrine, and aspirin DVT prophylaxis: Lovenox subcu CODE STATUS: Full code Medications & Allergies Home Medications: Home Medication List Aspirin 81 gm Chew [Baby Aspirin 81 mg Chew] 81 mg PO DAILY 07/10/21 [History Confirmed 05/09/25] Calcium Carbonate/Vitamin D3 [Calcium 600-Vit D3 200 Tablet] 1 tab PO DAILY 07/10/21 [History Confirmed 05/09/25] Cholecalciferol (Vitamin D3) [Vitamin D3] 5,000 unit PO DAILY 07/10/21 [History Confirmed 05/09/25] Hydroxychloroquine Sulfate 200 mg PO BID 07/10/21 [History Confirmed 05/09/25] Midodrine HCl [Proamatine] 5 mg PO TID 07/10/21 [History Confirmed 05/09/25] Multivit-Min/FA/Lycopen/Lutein [Centrum Silver Tablet] 1 each PO DAILY 07/10/21 [History Confirmed 05/09/25] captopriL [Captopril] 6.25 mg PO HS 02/27/22 [History Confirmed 05/09/25] Acetaminophen 325 mg [Tylenol 325 mg] 650 mg PO Q4HPRN PRN 08/11/23 [History Confirmed 05/09/25] Docusate Sodium 100 mg [Docusate Sodium 100 MG] 100 mg PO BID 08/11/23 [History Confirmed 05/09/25] Fludrocortisone Acetate 0.1 mg PO DAILY 08/11/23 [History Confirmed 05/09/25] Beta-Carotene(A) W-C & E/Min [Ocuvite Tablet] 1 tab PO DAILY 03/02/24 [History Confirmed 05/09/25] Celecoxib 200 mg PO BID 03/02/24 [History Confirmed 05/09/25] Cyanocobalamin (Vitamin B-12) [Vitamin B-12] 5,000 mcg PO UD 03/02/24 [History Confirmed 05/09/25] Ferrous Sulfate 325 mg PO DAILY 03/02/24 [History Confirmed 05/09/25] Magnesium Oxide 400 mg PO Q48H 03/02/24 [History Confirmed 05/09/25] PANTOPRAZOLE 40 mg Tablet [Protonix 40MG Tablet] 40 mg PO QAM 03/02/24 [History Confirmed 05/09/25] Allergies/Adverse Reactions: Allergies Allergy/AdvReac Type Severity Reaction Status Date / Time pollen extracts Allergy Severe Swelling Verified 05/09/25 23:03 of Face Penicillins Allergy Intermediate Rash Verified 05/09/25 23:03 mold Allergy Mild Swelling Verified 05/09/25 23:03 of Face Influenza Virus Vaccines AdvReac Intermediate Rash Verified 05/09/25 23:04 pneumococcal vaccine AdvReac Intermediate Rash Verified 05/09/25 23:04 [id number] Reductase AdvReac Intermediate Fatigue Verified 05/09/25 23:03 Inhibitor - Past Medical History Past Medical History: Yes Neurological History: Stroke ENT History: Cataracts Cardiac History: High Cholesterol, Other Respiratory History: No Pertinent History Endocrine Medical History: No Pertinent History Musculoskelatal History: Fibromyalgia, Osteoporosis GI Medical History: Diverticulosis History: No Pertinent History Pyscho-Social History: No Pertinent History Reproductive Disorders: No Pertinent History Comment: Anemia, Essential tremor, chronic low back pain, metabolic disorder, Myoclonus, Primary generalized hyperthrophic osteoarthrosis, Raynauds disease, lupus, Sjogrens, Chronic orthostatic hypotension, Lt. Shoulder frozen from fx last year - Past Surgical History Past Surgical History: Yes Neuro Surgical History: No Pertinent History Cardiac History: No Pertinent History Respiratory Surgery: No Pertinent History GI Surgical History: No Pertinent History Genitourinary Surgical Hx: No Pertinent History Musculskeletal Surgical Hx: No Pertinent History Female Surgical History: Hysterectomy Other Surgical History: wrist fx repair - Left, L3 compression fracture - Social History Smoking Status: Never smoker Exposure to second hand smoke: No Alcohol: None Drug Use: none - Social Determinants of Health Will the patient participate in the screening: Yes Do you worry about a steady place to live?: No Do you have any problems with any of the following?: No known problems In the past 12 months,have you had to go without utilities?: No Have you or anyone in your house had to go without enough: No Transportation Issues: No Has anyone in your support network made you feel unsafe?: No Does the patient want assistance with any of the above?: No - Physical Exam Vital Signs: Vital Signs - 24 hr Temp Pulse Resp BP BP Pulse Ox 05/10/25 01:37 92 L 05/10/25 01:14 92 H 23 157/90 96 05/10/25 01:10 90 21 05/10/25 00:40 96 H 22 92 L 05/10/25 00:00 96 H 24 149/86 94 L 05/09/25 23:30 91 H 20 162/90 93 L 05/09/25 23:00 96 H 25 H 170/98 92 L 05/09/25 22:53 93 L 05/09/25 22:47 97.2 F 97 H 22 164/102 98 05/09/25 22:44 95 H 23 164/102 93 L Results - Labs Lab/Micro Results: Lab Results-Last 24 Hours 05/09/25 05/09/25 05/09/25 Range/Units 23:10 23:10 23:10 WBC 7.9 (3.98-10.04) x10^3/uL RBC 3.50 L (3.93-5.22) x10^6/uL Hgb 10.7 L (11.2-15.7) g/dL Hct 32.4 L (34.1-44.9) % MCV 92.6 (79.4-94.8) fL MCH 30.6 (25.6-32.2) pg MCHC 33.0 (32.2-35.5) g/dL RDW 13.3 (11.7-14.4) % Plt Count 292 (182-369) x10^3/uL MPV 10.2 (9.4-12.3) fL Gran % 72.4 H (34.0-71.1) % Immature Gran % (Auto) 0.4 (0.001-0.429) % Nucleat RBC Rel Count 0.0 (0.00-0.2) % Eos # (Auto) 0 L (0.04-0.36) x10^3/uL Immature Gran # (Auto) 0.03 (0.001-0.031) x10^3u/L Absolute Lymphs (auto) 1.73 (1.18-3.74) x10^3/uL Absolute Monos (auto) 0.38 (0.24-0.86) x10^3/uL Absolute Nucleated RBC 0.00 (0.00-0.012) x10^3u/L Lymphocytes % 21.9 (19.3-51.7) % Monocytes % 4.8 (4.7-12.5) % Eosinophils % 0.0 L (0.7-5.8) % Basophils % 0.5 (0.1-1.2) % Absolute Granulocytes 5.72 (1.56-6.13) x10^3/uL Basophils # 0.04 (0.01-0.08) x10^3/uL Sodium 122 L (135-145) mmol/L Potassium 3.7 (3.5-5.1) mmol/L Chloride 90 L (98-107) mmol/L Carbon Dioxide 20 L (22-30) mmol/L Anion Gap 15.7 H (5-15) MEQ/L BUN 13 (7-17) mg/dL Creatinine 0.75 (0.52-1.04) mg/dL Estimated GFR 80.4 ML/MIN Glucose 132 H (74-106) mg/dL Calcium 9.4 (8.4-10.2) mg/dL Total Bilirubin 0.40 (0.2-1.3) mg/dL AST 26 (14-36) U/L ALT 19 (0-35) U/L Alkaline Phosphatase 86 (38-126) U/L Troponin I 0.015 (0.000-0.033) ng/mL NT-Pro-B Natriuret Pep 78736 (<300) pg/mL Serum Total Protein 7.2 (6.3-8.2) g/dL Albumin 4.2 (3.5-5.0) g/dL Urine Color (Yellow) Urine Appearance (Clear) Urine pH (4.6-8.0) Ur Specific [place] (1.005-1.030) Urine Protein (Negative) Urine Glucose (UA) (Negative) mg/dL Urine Ketones (Negative) Urine Blood (Negative) Urine Nitrite (Negative) Urine Bilirubin (Negative) Urine Urobilinogen (0.2) mg/dL Ur Leukocyte Esterase (Negative) U Hyaline Cast (Auto) (0-2) /LPF Urine Microscopic RBC (0-5) /HPF Urine Microscopic WBC (0-5) /HPF Ur Epithelial Cells (None Seen) /HPF Urine Bacteria (None Seen) /HPF Urine Culture Reflexed (NO) 05/10/25 Range/Units 00:00 WBC (3.98-10.04) x10^3/uL RBC (3.93-5.22) x10^6/uL Hgb (11.2-15.7) g/dL Hct (34.1-44.9) % MCV (79.4-94.8) fL MCH (25.6-32.2) pg MCHC (32.2-35.5) g/dL RDW (11.7-14.4) % Plt Count (182-369) x10^3/uL MPV (9.4-12.3) fL Gran % (34.0-71.1) % Immature Gran % (Auto) (0.001-0.429) % Nucleat RBC Rel Count (0.00-0.2) % Eos # (Auto) (0.04-0.36) x10^3/uL Immature Gran # (Auto) (0.001-0.031) x10^3u/L Absolute Lymphs (auto) (1.18-3.74) x10^3/uL Absolute Monos (auto) (0.24-0.86) x10^3/uL Absolute Nucleated RBC (0.00-0.012) x10^3u/L Lymphocytes % (19.3-51.7) % Monocytes % (4.7-12.5) % Eosinophils % (0.7-5.8) % Basophils % (0.1-1.2) % Absolute Granulocytes (1.56-6.13) x10^3/uL Basophils # (0.01-0.08) x10^3/uL Sodium (135-145) mmol/L Potassium (3.5-5.1) mmol/L Chloride (98-107) mmol/L Carbon Dioxide (22-30) mmol/L Anion Gap (5-15) MEQ/L BUN (7-17) mg/dL Creatinine (0.52-1.04) mg/dL Estimated GFR ML/MIN Glucose (74-106) mg/dL Calcium (8.4-10.2) mg/dL Total Bilirubin (0.2-1.3) mg/dL AST (14-36) U/L ALT (0-35) U/L Alkaline Phosphatase (38-126) U/L Troponin I (0.000-0.033) ng/mL NT-Pro-B Natriuret Pep (<300) pg/mL Serum Total Protein (6.3-8.2) g/dL Albumin (3.5-5.0) g/dL Urine Color Yellow (Yellow) Urine Appearance Clear (Clear) Urine pH 7.0 (4.6-8.0) Ur Specific [place] 1.010 (1.005-1.030) Urine Protein Negative (Negative) Urine Glucose (UA) Negative (Negative) mg/dL Urine Ketones Negative (Negative) Urine Blood Negative (Negative) Urine Nitrite Negative (Negative) Urine Bilirubin Negative (Negative) Urine Urobilinogen 0.2 (0.2) mg/dL Ur Leukocyte Esterase Negative (Negative) U Hyaline Cast (Auto) NONE SEEN (0-2) /LPF Urine Microscopic RBC 0-2 (0-5) /HPF Urine Microscopic WBC 0-2 (0-5) /HPF Ur Epithelial Cells None Seen (None Seen) /HPF Urine Bacteria None Seen (None Seen) /HPF Urine Culture Reflexed ORDERED SEPARATELY (NO) - Radiology Impressions Radiology Exams & Impressions: Radiology Procedures Category Date Time Status CHEST 1 VIEW (PORTABLE) Stat Exams 05/09/25 22:54 Completed ECHO W/2D AND DOPPLER [US] Routine Exams 05/10/25 03:35 Ordered Telemedicine Encounter - Telemedicine Encounter Telemedicine Encounter: "The entirety of this encounter was performed via Telemedicine" This visit was performed using real-time audio and video connection between my location and thepatients locationwith the assistance of a surrogateat the patients location. Written or verbal consent was obtained from the patient/guardian to perform this [facility]. Any patient questions regarding the telemedicine interaction were answered.
[2025-05-10 04:43] LABS: Calcium 9.5 mg/dL (8.4-10.2); Carbon Dioxide 24.0 mmol/L (22-30); Creatinine 1 0.71 mg/dL (0.52-1.04); EST GLOMERULAR FILTRATION RATE 85.9 ML/MIN; Glucose 139.0 mg/dL (74-106); Potassium 3.4 mmol/L (3.5-5.1)
[2025-05-10 04:58] LABS: Hematocrit 33.4 % (34.1-44.9); Hemoglobin 11.0 g/dL (11.2-15.7); Mean Corpuscular Hemoglobin 30.1 pg (25.6-32.2); Mean Corpuscular Hgb Concent. 32.9 g/dL (32.2-35.5); Platelet Count 292 x10^3/uL (182-369); Red Blood Count 3.66 x10^6/uL (3.93-5.22); White Blood Count 7.6 x10^3/uL (3.98-10.04)
[2025-05-10 08:48] LABS: INFLUENZA A NEGATIVE (NEGATIVE); INFLUENZA B NEGATIVE (NEGATIVE); RESPIRATORY SYNCTIAL VIRUS NEGATIVE (NEGATIVE); SARS-CoV-2 Xpert Express NEGATIVE (NEGATIVE)
[2025-05-10] MEDS: ENOXAPARIN SODIUM SQ SCH (09:05)
[2025-05-10] MEDS ORDERED: NON-FORMULARY ITEM (Cyanocobalamin (Vitamin B-12) [Vitamin B-12] 5,000 MCG Capsule) PO SCH (11:30)
[2025-05-10] MEDS ORDERED: MEDICATION INTERVENTION MC SCH ×2 (12:00)
[2025-05-10] MEDS: Docusate Sodium 100 MG PO SCH (12:15)
[2025-05-10] MEDS: Calcium 500MG W/Vit D Tablet PO SCH (12:16)
[2025-05-10] MEDS: FEOSOL 325 MG PO SCH (12:16)
[2025-05-10] MEDS: ECOTRIN 81 MG PO SCH (12:16)
[2025-05-10] MEDS: PROAMATINE PO SCH (12:16)
[2025-05-10] MEDS: FLORINEF PO SCH (12:17)
[2025-05-10] MEDS: Ocuvite Tablet PO SCH (12:21)
[2025-05-10] MEDS: Protonix 40MG Tablet PO SCH (12:22)
[2025-05-10] MEDS: Klor Con PO SCH (12:22)
[2025-05-10] MEDS: THERAGRAN MULTIVITAMIN PO SCH (12:23)
[2025-05-10] MEDS: Mucinex 600MG ER Tabs PO SCH (12:23)
[2025-05-10] MEDS: VITAMIN D PO SCH (12:23)
--- NOTE | 2025-05-10 15:12 | XRAY ---
Indication: Dyspnea. Multiple contiguous axial images obtained through the chest using 80 cc Isovue 370 contrast and PE protocol. Comparison: None Good opacification pulmonary arteries. However mild diffuse respiration artifact and also beam artifact from patient's arms limits evaluation of distal lobar and segmental branches. No obvious central pulmonary embolus. Heart is enlarged. Aorta is mildly arteriosclerotic without aneurysm/dissection. No pathologic mediastinal/hilar lymphadenopathy. Lungs demonstrates moderate bilateral pleural effusions with moderate bibasilar compressive atelectasis. Visualized lungs are negative for focal pulmonary mass/nodule. Bony thorax demonstrates osteopenia, healing T12/L1 compression fractures with 25-50% height loss, and L2 kyphoplasty. Limited upper abdomen unremarkable. Impression: 1. Respiration and beam artifact limits pulmonary embolus evaluation. No obvious pulmonary embolus. 2. Cardiomegaly and moderate bilateral effusions. Rule out cardiac decompensation/CHF versus fluid overload. 3. Incidental chronic bony findings.
--- NOTE | 2025-05-10 15:43 | PCM.NOTE ---
Patient is an 80-year-old female with complex autoimmune and chronic medical history who presented with three weeks of productive cough, worsening dyspnea, and hypoxia at home. On arrival found to have acute hypoxic respiratory failure, hyponatremia (Na 122), and imaging concerning for pneumonia with pulmonary congestion and bilateral pleural effusions. Outpatient antibiotic course co mpleted without improvement. Sodium has since increased to 130 without targeted correction; repeat BMP ordered to confirm trend. CTA chest showed cardiomegaly and moderate bilateral effusions consistent with suspected cardiac decompensation. Echo pending. Patient is currently stable on 2 L O2 with improved saturations. Plan is to continue CAP treatment with levofloxacin, monitor electrolytes closely, implement fluid restriction, and diuresis. No immediate indication for thoracentesis; effusions to be reassessed with CXR in the morning. Will continue close monitoring and adjust plan as clinical course evolves.
[2025-05-10 15:47] LABS: Calcium 9.4 mg/dL (8.4-10.2); Carbon Dioxide 24.0 mmol/L (22-30); Creatinine 1 0.74 mg/dL (0.52-1.04); EST GLOMERULAR FILTRATION RATE 81.7 ML/MIN; Glucose 99.0 mg/dL (74-106); Potassium 3.8 mmol/L (3.5-5.1)
[2025-05-10] MEDS: Lasix 40 MG/4 ML IV SCH (16:21)
[2025-05-10] MEDS: NON-FORMULARY ITEM PO SCH (16:54)
[2025-05-10 20:20] LABS: Calcium 9.3 mg/dL (8.4-10.2); Carbon Dioxide 26.0 mmol/L (22-30); Creatinine 1 0.94 mg/dL (0.52-1.04); EST GLOMERULAR FILTRATION RATE 61.3 ML/MIN; Glucose 104.0 mg/dL (74-106); Potassium 4.2 mmol/L (3.5-5.1)
[2025-05-10] MEDS: LEVOFLOXACIN 750MG/150ML D5W 750 MG/150 ML BAG IV SCH (21:39)
[2025-05-10] MEDS ORDERED: CAPTOPRIL 12.5 MG PO SCH (22:00)
[2025-05-10] MEDS ORDERED: NON-FORMULARY ITEM (Hydroxychloroquine Sulfate [Hydroxychloroquine Sulfate] 200 MG Tablet) PO SCH (22:00)
--- NOTE | 2025-05-10 22:03 | PCM.CONS ---
History of Present Illness - Date of Consult Date of Encounter: 05/10/25 Consulting [place]: DUSTIN FLEMING MD Requesting Provider: Attending Provider: KENNETH NGUYEN MD Primary Care Provider: PCP: MANNY LEWIS DO Consent was: Given for this tele-med encounter - Consult Narrative Reason for Consult: Congesive heart failure HPI: Patient is a 80-year-old female with history of orthostatic hypotension, hypercholesterolemia, CVA, vascular dementia, rheumatoid arthritis, Sjogren's , and fibrimyalgia who presents with new onset of congestive heart failure. She has been bothered by a 3-week history of a cough productive of yellow sputum. During the two days prior to admission she was bothered by OCASIO when walking in her house with a walker. She denies any orthopnea or PND. She has chronic bilateral LE edema. She denies any chest discomfort or palpitaions. She denies any light-headedness with standing up. Her orthostatic hypotension appears well controlled on midodrine and fludrocortisone. CTA of the chest revealed no evidence of a pulmonary embolism but did show cardiomegaly and finding compatible with CHF, Echocardiogram demonstrated moderately depressed LV systolic function due to moderate global hypokinesis with an estimated EF 35% and a mildly elevated CVP of 8 mmHg. She has been treated with furosemide 40 mg IV BID and has had a brisk urine output (net output of 4.2 liters). Formal orthostatic readings have not been measured during this hospitalization. cc:: The requesting physician will be sent a copy of the consult. Review of Systems - Review of Systems All systems: all other systems reviewed and were unremarkable - Past Medical History Past Medical History: Yes Neurological History: Stroke ENT History: Cataracts Cardiac History: High Cholesterol, Other Respiratory History: No Pertinent History Endocrine Medical History: No Pertinent History Musculoskelatal History: Fibromyalgia, Osteoporosis GI Medical History: Diverticulosis History: No Pertinent History Pyscho-Social History: No Pertinent History Reproductive Disorders: No Pertinent History Comment: Anemia, Essential tremor, chronic low back pain, metabolic disorder, Myoclonus, Primary generalized hyperthrophic osteoarthrosis, Raynauds disease, lupus, Sjogrens, Chronic orthostatic hypotension, Lt. Shoulder frozen from fx last year - Past Surgical History Past Surgical History: Yes Neuro Surgical History: No Pertinent History Cardiac History: No Pertinent History Respiratory Surgery: No Pertinent History GI Surgical History: No Pertinent History Genitourinary Surgical Hx: No Pertinent History Musculskeletal Surgical Hx: No Pertinent History Female Surgical History: Hysterectomy Other Surgical History: wrist fx repair - Left, L3 compression fracture - Social History Smoking Status: Never smoker Exposure to second hand smoke: No Alcohol: None Drug Use: none - Social Determinants of Health Will the patient participate in the screening: Yes Do you worry about a steady place to live?: No Do you have any problems with any of the following?: No known problems In the past 12 months,have you had to go without utilities?: No Have you or anyone in your house had to go without enough: No Transportation Issues: No Has anyone in your support network made you feel unsafe?: No Does the patient want assistance with any of the above?: No Medications & Allergies Home Medications: Home Medication List Aspirin 81 gm Chew [Baby Aspirin 81 mg Chew] 81 mg PO DAILY 07/10/21 [History Confirmed 05/09/25] Calcium Carbonate/Vitamin D3 [Calcium 600-Vit D3 200 Tablet] 1 tab PO DAILY 07/10/21 [History Confirmed 05/09/25] Cholecalciferol (Vitamin D3) [Vitamin D3] 5,000 unit PO DAILY 07/10/21 [History Confirmed 05/09/25] Hydroxychloroquine Sulfate 200 mg PO BID 07/10/21 [History Confirmed 05/10/25] Midodrine HCl [Proamatine] 5 mg PO TID 07/10/21 [History Confirmed 05/10/25] Multivit-Min/FA/Lycopen/Lutein [Centrum Silver Tablet] 1 each PO DAILY 07/10/21 [History Confirmed 05/09/25] captopriL [Captopril] 6.25 mg PO HS 02/27/22 [History Confirmed 05/09/25] Acetaminophen 325 mg [Tylenol 325 mg] 650 mg PO Q4HPRN PRN 08/11/23 [History Confirmed 05/09/25] Docusate Sodium 100 mg [Docusate Sodium 100 MG] 100 mg PO BID 08/11/23 [History Confirmed 05/09/25] Fludrocortisone Acetate 0.1 mg PO DAILY 08/11/23 [History Confirmed 05/09/25] Beta-Carotene(A) W-C & E/Min [Ocuvite Tablet] 1 tab PO DAILY 03/02/24 [History Confirmed 05/09/25] Celecoxib 200 mg PO BID 03/02/24 [History Confirmed 05/09/25] Cyanocobalamin (Vitamin B-12) [Vitamin B-12] 5,000 mcg PO UD 03/02/24 [History Confirmed 05/09/25] Ferrous Sulfate 325 mg PO DAILY 03/02/24 [History Confirmed 05/09/25] Magnesium Oxide 400 mg PO Q48H 03/02/24 [History Confirmed 05/09/25] PANTOPRAZOLE 40 mg Tablet [Protonix 40MG Tablet] 40 mg PO QAM 03/02/24 [History Confirmed 05/09/25] Allergies/Adverse Reactions: Allergies Allergy/AdvReac Type Severity Reaction Status Date / Time pollen extracts Allergy Severe Swelling Verified 05/09/25 23:03 of Face Penicillins Allergy Intermediate Rash Verified 05/09/25 23:03 mold Allergy Mild Swelling Verified 05/09/25 23:03 of Face Influenza Virus Vaccines AdvReac Intermediate Rash Verified 05/09/25 23:04 pneumococcal vaccine AdvReac Intermediate Rash Verified 05/09/25 23:04 [id number] Reductase AdvReac Intermediate Fatigue Verified 05/09/25 23:03 Inhibitor Exam - Vitals Vital Signs: Vital Signs - 24 hr Temp Pulse Resp BP BP Pulse Ox 05/10/25 20:00 98.7 F 89 18 136/75 98 05/10/25 19:03 89 18 98 05/10/25 15:49 98.8 F 90 16 162/87 97 05/10/25 11:36 98.6 F 77 16 119/66 97 05/10/25 07:31 98.1 F 83 16 155/80 95 05/10/25 06:45 76 16 97 05/10/25 04:48 92 L 05/10/25 04:03 78 18 92 L 05/10/25 03:51 98.6 F 91 H 16 150/76 90 L 05/10/25 02:57 98.6 F 91 H 16 150/76 90 L 05/10/25 01:37 92 L 05/10/25 01:14 92 H 23 157/90 96 05/10/25 01:10 90 21 05/10/25 00:40 96 H 22 92 L 05/10/25 00:00 96 H 24 149/86 94 L 05/09/25 23:30 91 H 20 162/90 93 L 05/09/25 23:00 96 H 25 H 170/98 92 L 05/09/25 22:53 93 L 05/09/25 22:47 97.2 F 97 H 22 164/102 98 05/09/25 22:44 95 H 23 164/102 93 L General:: no acute distress HEENT: EOMI, JVD (long-term to jaw with head of bed elevated 30 degrees.) Cardiovascular Exam: regular rate/rhythm, normal heart sounds, murmur (Grade II/ blowing HSM at apex radiating to the axilla.), No friction rub, No gallop Respiratory Exam: crackles/rales (left basilar crackles) SpO2: 98 Oxygen Delivery: Nasal Cannula Gastrointestinal/Abdomen Exam: normal bowel sounds Extremity Exam: edema (Mild nonpitting) Results Vital Signs: Vital Signs - 24 hr Temp Pulse Resp BP BP Pulse Ox 05/10/25 20:00 98.7 F 89 18 136/75 98 05/10/25 19:03 89 18 98 05/10/25 15:49 98.8 F 90 16 162/87 97 05/10/25 11:36 98.6 F 77 16 119/66 97 05/10/25 07:31 98.1 F 83 16 155/80 95 05/10/25 06:45 76 16 97 05/10/25 04:48 92 L 05/10/25 04:03 78 18 92 L 05/10/25 03:51 98.6 F 91 H 16 150/76 90 L 05/10/25 02:57 98.6 F 91 H 16 150/76 90 L 05/10/25 01:37 92 L 05/10/25 01:14 92 H 23 157/90 96 05/10/25 01:10 90 21 05/10/25 00:40 96 H 22 92 L 05/10/25 00:00 96 H 24 149/86 94 L 05/09/25 23:30 91 H 20 162/90 93 L 05/09/25 23:00 96 H 25 H 170/98 92 L 05/09/25 22:53 93 L 05/09/25 22:47 97.2 F 97 H 22 164/102 98 05/09/25 22:44 95 H 23 164/102 93 L Pain Assessment - Last Documented Pain Intensity 0 Intake and Output: Intake & Output 05/08/25 05/09/25 05/10/25 05/11/25 11:59 11:59 11:59 11:59 Intake Total 240 480 Output Total 3500 1400 Balance -3260 -920 Weight 63.2 kg LAB: I have reviewed the Labs in [facility]. Radiology Exams: Radiology Procedures Category Date Time Status CHEST 1 VIEW (PORTABLE) Routine Exams 05/11/25 08:00 Ordered CHEST 1 VIEW (PORTABLE) Stat Exams 05/09/25 22:54 Completed CHEST WITH CONTRAST [CT] Stat Exams 05/10/25 10:36 Completed ECHO W/2D AND DOPPLER [US] Routine Exams 05/10/25 03:35 Taken TTE 05/10/2025: 1. Normal chamber sizes. 2. Moderately depressed left ventricular systolic function due to moderate globa l hypokinesis. Estimated EF 35%. 3. Mild diastolic dysfunction. 4. Normal right ventricular systolic function. 5. Mild aortic sclerosis without stenosis. 6. Doppler: Moderate mitral regurgitation, mild tricuspid regurgitation, trace aortic regurgitation. 7. Normal PA systolic pressure (32 mmHg). 8. Mildly elevated right atrial pressure (8 mmHg). 9. No pericardial effusion. CTA of chest 05/10/2025: 1. Respiration and beam artifact limits pulmonary embolus evaluation. No obvious pulmonary embolus. 2. Cardiomegaly and moderate bilateral effusions. Rule out cardiac decompensation/CHF versus fluid overload. 3. Incidental chronic bony findings. CXR (AP) 05/09/2025: Mild haziness at right lower zone and possibly at right costophrenic angle. Right hilar region opacity as well. Clinical and lab correlation and CT scan is advised for further evaluation to rule out infection or other pathology Left-sided pleural effusion and mild haziness in the adjacent part of lung, possibility of underlying infection/ atelectasis/ consolidation cannot be excluded Small nodular density is identified in the right lung upper zone, projecting over the right clavicle, likely pulmonary nodule Tracing 1 Attestation: I have reviewed this EKG and interpreted as documented below. EKG Narrative: ECGs: 05/09/2025: NSR at 97 bpm. LAE. LVH with repolarization abnormality. Telemetry 05/09 thru 05/10/2025: Sinus rhythm with occasional PVCs. Multi-Disciplinary Progress Notes: Multi-Disciplinary Progress Notes 05/10/25 17:29 Radiology Note by DUSTIN FLEMING TRANSTHORACIC ECHOCARDIOGRAM 05/10/2025 1. Normal chamber sizes. 2. Moderately depressed left ventricular systolic function due to moderate global hypokinesis. Estimated EF 35%. 3. Mild diastolic dysfunction. 4. Normal right ventricular systolic function. 5. Mild aortic sclerosis without stenosis. 6. Doppler: Moderate mitral regurgitation, mild tricuspid regurgitation, trace aortic regurgitation. 7. Normal PA systolic pressure (32 mmHg). 8. Mildly elevated right atrial pressure (8 mmHg). 9. No pericardial effusion. Dustin Fleming MD [facility] Initialized on 05/10/25 17:29 - END OF NOTE 05/10/25 13:25 Case Management Note by Abbey Hartley PATIENT HAS [facility]- THEY WERE NOTIFIED PATIENT HERE OBS. THEY WILL NEED NOTIFIED AT TIME OF DC AT [phone]. THEY WILL NEED FAXED THE DC INSTRUCTIONS, DC MED LIST AND DC SUMMARY TO [phone] Initialized on 05/10/25 13:25 - END OF NOTE Assessment & Plan (1) Acute combined systolic (congestive) and diastolic (congestive) heart failure Current Visit: Yes Status: Acute Assessment & Plan: HFrEF(35%). Has had a net diuresis of 4.2 liters over the past 24 hours. Will discontinue IV furosemide and replace with torsemide 20 mg by mouth daily to balance treatment of CHF as well as orthostatic hypotension. Will advance GDMT by adding spironolactone 25 mg by mouth daily and metoprolol succinate 12.5 mg by mouth nightly. Will restart captopril 6.25 mg by mouth nightly if patient's own med is available. Will consider SGLT2 inhibitor in the future after observing how he orthostatic hypotension tolerates these initial medication changes. Code(s): I50.41 - ACUTE COMBINED SYSTOLIC AND DIASTOLIC (CONGESTIVE) HRT FAIL (2) Orthostatic hypotension Current Visit: No Status: Chronic Assessment & Plan: Patient denies any orthostatic symptoms currently. Uses a walker at home. Will discontinue fludrocortisone as this is contraindicated in the setting of her new diagnosis of CHF. Will continue mitodrine for now. Check formal orthostatics in am to determine how she has tolerated aggressive diuresis and initial GDMT for CHF. Will give anti-hypertensive medications (as part of GDMT) nightly in the setting of her orthostatic hypotension to better treat her supine hypertension. Will try to minimize diuretic doses in am as needed again because of her orthostatic hypotension. As above, we will need to reach a balance in her medical therapy with these two diagnoses. Aggressive treatment of one diagnosis could make the other diagnosis more symptomatic and vice versa. Code(s): I95.1 - ORTHOSTATIC HYPOTENSION (3) Cardiomyopathy Current Visit: Yes Status: Acute Assessment & Plan: Need to consider an ischemic cause based on her age and history of hypercholesterolemia. An autoimmune cause is in the differential basse on her history. Workup can be performed by a local distribution tech. Would consider a cardiac MRI if this is determined to be nonsichemic. Code(s): I42.9 - CARDIOMYOPATHY, UNSPECIFIED - Encounter Encounter: The entirety of this encounter was performed via Telemedicine using audio and visual. Will follow-up tomorrow to speak with staff and family. Dustin Fleming MD [facility] [phone]
[2025-05-10] MEDS: Toprol-Xl 25MG Tablets PO SCH (23:37)
[2025-05-11 04:53] LABS: BASOPHIL % 0.7 % (0.1-1.2); Basophil (Absolute #) 0.05 x10^3/uL (0.01-0.08); Eosinophil (Absolute #) 0 x10^3/uL (0.04-0.36); Hematocrit 31.9 % (34.1-44.9); Hemoglobin 10.2 g/dL (11.2-15.7); IMMATURE GRAN # 0.01 x10^3u/L (0.001-0.031); IMMATURE GRAN % 0.1 % (0.001-0.429); Lymphocyte (Absolute #) 0.92 x10^3/uL (1.18-3.74); Mean Corpuscular Hemoglobin 29.6 pg (25.6-32.2); Mean Corpuscular Hgb Concent. 32.0 g/dL (32.2-35.5); Monocyte (Absolute #) 0.51 x10^3/uL (0.24-0.86); NUCLEATED RBC # 0.00 x10^3u/L (0.00-0.012); NUCLEATED RBC % 0.0 % (0.00-0.2); Platelet Count 282 x10^3/uL (182-369); Red Blood Count 3.45 x10^6/uL (3.93-5.22); White Blood Count 7.4 x10^3/uL (3.98-10.04)
[2025-05-11 05:05] LABS: Calcium 9.1 mg/dL (8.4-10.2); Carbon Dioxide 23.0 mmol/L (22-30); Creatinine 1 0.83 mg/dL (0.52-1.04); EST GLOMERULAR FILTRATION RATE 71.2 ML/MIN; Glucose 101.0 mg/dL (74-106); Potassium 4.0 mmol/L (3.5-5.1); SGOT/AST 27.0 U/L (14-36); SGPT/ALT 21.0 U/L (0-35); Total Protein 7.0 g/dL (6.3-8.2)
--- NOTE | 2025-05-11 05:42 | PCM.NOTE ---
Date and Time: 05/11/25 0535 Subjective Assessment: Ms. Gaines is an 80-year-old female with a complex past medical history significant for rheumatoid arthritis, systemic lupus erythematosus, fibromyalgia, vascular dementia, hyperlipidemia, and chronic orthostatic hypotension, who is normally on room air at baseline, presented 05/10/25 with three weeks of progressively worsening cough and shortness of breath. The cough has been productive of yellow sputum without hemoptysis. Her daughter reported multiple episodes of home oxygen saturation readings in the 70s over the past several days, prompting ED evaluation. The patient completed an outpatient course of azithromycin and cefdinir approximately two weeks ago with no significant improvement in symptoms. She has had increased fatigue and dyspnea with minimal exertion but denies pleuritic chest pain, palpitations, or syncope. No recent sick contacts or travel were reported. On arrival to the emergency department, she was hypertensive and hypoxic, requiring 2 L nasal cannula to maintain oxygen saturations in the mid-90s; this represents a new oxygen requirement compared to her baseline of room air at home. Initial laboratory evaluation revealed normocytic anemia with hemoglobin of 11 , consistent with her reported baseline. Serum sodium was markedly low at 122 aAdditional labs showed mild hypokalemia with potassium, an anion gap metabolic acidosis with anion gap 16.6, and a markedly elevated BNP of 14,900, suggestive of significant cardiac strain and volume overload. Renal function was reviewed and monitored in the context of diuresis. Urinalysis was unremarkable, and respiratory viral testing, including COVID-19, influenza, and RSV, was negative. Chest X-ray demonstrated pulmonary vascular congestion, interstitial prominence, and findings concerning for superimposed pneumonia. A CTA of the chest, though somewhat limited by respiratory and beam artifact, showed no obvious pulmonary embolus but revealed cardiomegaly and moderate bilateral pleural effusions, raising concern for acute decompensated heart failure or fluid overload. Chronic bony changes were noted incidentally. Given her failed outpatient antibiotic therapy and persistent hypoxic symptoms, she was started on levofloxacin for inpatient treatment of community-acquired pneumonia. Echo shows a left ventricular ejection fraction of 35% with moderate global hypokinesis, mild diastolic dysfunction, and moderate mitral regurgitation, consistent with new HFrEF in the setting of volume overload and valvular disease. At the time of assessment, the patient remains on 2 L nasal cannula with oxygen saturations in the mid-90s, reporting improved but persistent dyspnea and ongoing cough. She appears volume overloaded clinically with imaging evidence of pulmonary congestion and bilateral effusions. Neurologically she is at her vascular dementia baseline without focal deficits. The sodium trajectory, including a rapid initial correction (122 -129) followed by down-trend to 126, has prompted a cautious approach to further diuresis with close electrolyte monitoring. Cardiology has been consulted for assistance with management of new HFrEF (EF 35%) with moderate global hypokinesis and moderate mitral regurgitation, optimization of acute decompensated heart failure therapy with recommendation to start spironolactone 25mg daily /torsemide 20mg daily/metoprolol succinate 12.5mg nightly.Will discontinue fludrocortisone as this is contraindicated in the setting of her new diagnosis of CHF. Will continue midodrine for now. Will need follow up with her local underwear trimmer for further evaluation of her cardiomyopathy per Dr. Khan need to consider an ischemic cause based on her age and history of hypercholesterolemia. An autoimmune cause is in the differential based on her history. Would consider a cardiac MRI if this is determined to be nonsichemic. Will discontinue levaquin. 05/11/25: Met with patient bedside. Endorses improvement in dyspnea. On RA which is baseline. Lung sounds coarse on auscultation. Sodium levels improved. Cardiology following patient with recs to start spironolactone, metoprolol succinate, and torsemide. CXR with improved effusions. Pending on treatment response possible DC tomorrow with cardiology follow up. Denies fever, cp, abdominal pain, MAR, dizziness, N/V/D. - Review of Systems Constitutional: No Symptoms Eyes: No Symptoms Ears, Nose, & Throat: No Symptoms Respiratory: Cough, Short Of Breath Cardiac: Edema (BLE edema 2+ pitting) Abdominal/Gastrointestinal: No Symptoms Genitourinary Symptoms: No Symptoms Musculoskeletal: No Symptoms Skin: No Symptoms Neurological: No Symptoms Psychological: No Symptoms Endocrine: No Symptoms Hematologic/Lymphatic: No Symptoms Immunological/Allergic: No Symptoms Objective Exam General Appearance: no apparent distress Neurologic Exam: alert, oriented x 3, cooperative Skin Exam: normal color Eye Exam: PERRL Ears, Nose, Throat Exam: normal ENT inspection Neck Exam: normal inspection Respiratory Exam: crackles/rales Cardiovascular Exam: regular rate/rhythm, normal heart sounds Gastrointestinal/Abdomen Exam: soft, normal bowel sounds Extremity Exam: swelling (BLE +2 pitting) Back Exam: normal inspection Pelvic Exam: deferred Rectal Exam: deferred Objective Data Vital Signs: Vital Signs - 24 hr Temp Pulse Resp BP Pulse Ox 05/11/25 04:00 98.0 F 78 15 132/79 93 L 05/11/25 03:52 98 05/10/25 23:44 98.8 F 80 16 133/71 95 05/10/25 20:00 98.7 F 89 18 136/75 98 05/10/25 19:03 89 18 98 05/10/25 15:49 98.8 F 90 16 162/87 97 05/10/25 11:36 98.6 F 77 16 119/66 97 05/10/25 07:31 98.1 F 83 16 155/80 95 05/10/25 06:45 76 16 97 Pain Assessment - Last Documented Pain Intensity 0 Intake and Output: Intake & Output 05/08/25 05/09/25 05/10/25 05/11/25 11:59 11:59 11:59 11:59 Intake Total 240 720 Output Total 3500 2100 Balance -3260 -1380 Weight 63.2 kg Lab Results: Lab Results-Last 24 Hours 05/10/25 05/10/25 05/10/25 Range/Units 06:57 07:10 08:08 WBC (3.98-10.04) x10^3/uL RBC (3.93-5.22) x10^6/uL Hgb (11.2-15.7) g/dL Hct (34.1-44.9) % MCV (79.4-94.8) fL MCH (25.6-32.2) pg MCHC (32.2-35.5) g/dL RDW (11.7-14.4) % Plt Count (182-369) x10^3/uL MPV (9.4-12.3) fL Gran % (34.0-71.1) % Immature Gran % (Auto) (0.001-0.429) % Nucleat RBC Rel Count (0.00-0.2) % Eos # (Auto) (0.04-0.36) x10^3/uL Immature Gran # (Auto) (0.001-0.031) x10^3u/L Absolute Lymphs (auto) (1.18-3.74) x10^3/uL Absolute Monos (auto) (0.24-0.86) x10^3/uL Absolute Nucleated RBC (0.00-0.012) x10^3u/L Lymphocytes % (19.3-51.7) % Monocytes % (4.7-12.5) % Eosinophils % (0.7-5.8) % Basophils % (0.1-1.2) % Absolute Granulocytes (1.56-6.13) x10^3/uL Basophils # (0.01-0.08) x10^3/uL Sodium (135-145) mmol/L Potassium (3.5-5.1) mmol/L Chloride (98-107) mmol/L Carbon Dioxide (22-30) mmol/L Anion Gap (5-15) MEQ/L BUN (7-17) mg/dL Creatinine (0.52-1.04) mg/dL Estimated GFR ML/MIN Glucose (74-106) mg/dL Calcium (8.4-10.2) mg/dL Magnesium 2.0 (1.6-2.3) mg/dL Total Bilirubin (0.2-1.3) mg/dL AST (14-36) U/L ALT (0-35) U/L Alkaline Phosphatase (38-126) U/L Troponin I 0.018 (0.000-0.033) ng/mL Serum Total Protein (6.3-8.2) g/dL Albumin (3.5-5.0) g/dL Procalcitonin (0.030-0.080) ng/mL Influenza Type A Ag NEGATIVE (NEGATIVE) Influenza Type B Ag NEGATIVE (NEGATIVE) RSV (PCR) NEGATIVE (NEGATIVE) SARS-CoV-2 (PCR) NEGATIVE (NEGATIVE) 05/10/25 05/10/25 05/10/25 Range/Units 15:30 16:10 19:55 WBC (3.98-10.04) x10^3/uL RBC (3.93-5.22) x10^6/uL Hgb (11.2-15.7) g/dL Hct (34.1-44.9) % MCV (79.4-94.8) fL MCH (25.6-32.2) pg MCHC (32.2-35.5) g/dL RDW (11.7-14.4) % Plt Count (182-369) x10^3/uL MPV (9.4-12.3) fL Gran % (34.0-71.1) % Immature Gran % (Auto) (0.001-0.429) % Nucleat RBC Rel Count (0.00-0.2) % Eos # (Auto) (0.04-0.36) x10^3/uL Immature Gran # (Auto) (0.001-0.031) x10^3u/L Absolute Lymphs (auto) (1.18-3.74) x10^3/uL Absolute Monos (auto) (0.24-0.86) x10^3/uL Absolute Nucleated RBC (0.00-0.012) x10^3u/L Lymphocytes % (19.3-51.7) % Monocytes % (4.7-12.5) % Eosinophils % (0.7-5.8) % Basophils % (0.1-1.2) % Absolute Granulocytes (1.56-6.13) x10^3/uL Basophils # (0.01-0.08) x10^3/uL Sodium 126 L 129 L (135-145) mmol/L Potassium 3.8 4.2 (3.5-5.1) mmol/L Chloride 93 L 93 L (98-107) mmol/L Carbon Dioxide 24 26 (22-30) mmol/L Anion Gap 13.3 14.4 (5-15) MEQ/L BUN 16 16 (7-17) mg/dL Creatinine 0.74 0.94 (0.52-1.04) mg/dL Estimated GFR 81.7 61.3 ML/MIN Glucose 99 104 (74-106) mg/dL Calcium 9.4 9.3 (8.4-10.2) mg/dL Magnesium (1.6-2.3) mg/dL Total Bilirubin (0.2-1.3) mg/dL AST (14-36) U/L ALT (0-35) U/L Alkaline Phosphatase (38-126) U/L Troponin I (0.000-0.033) ng/mL Serum Total Protein (6.3-8.2) g/dL Albumin (3.5-5.0) g/dL Procalcitonin 0.162 H (0.030-0.080) ng/mL Influenza Type A Ag (NEGATIVE) Influenza Type B Ag (NEGATIVE) RSV (PCR) (NEGATIVE) SARS-CoV-2 (PCR) (NEGATIVE) 05/11/25 05/11/25 05/11/25 Range/Units 04:20 04:20 04:20 WBC 7.4 (3.98-10.04) x10^3/uL RBC 3.45 L (3.93-5.22) x10^6/uL Hgb 10.2 L (11.2-15.7) g/dL Hct 31.9 L (34.1-44.9) % MCV 92.5 (79.4-94.8) fL MCH 29.6 (25.6-32.2) pg MCHC 32.0 L (32.2-35.5) g/dL RDW 13.6 (11.7-14.4) % Plt Count 282 (182-369) x10^3/uL MPV 10.1 (9.4-12.3) fL Gran % 79.9 H (34.0-71.1) % Immature Gran % (Auto) 0.1 (0.001-0.429) % Nucleat RBC Rel Count 0.0 (0.00-0.2) % Eos # (Auto) 0 L (0.04-0.36) x10^3/uL Immature Gran # (Auto) 0.01 (0.001-0.031) x10^3u/L Absolute Lymphs (auto) 0.92 L (1.18-3.74) x10^3/uL Absolute Monos (auto) 0.51 (0.24-0.86) x10^3/uL Absolute Nucleated RBC 0.00 (0.00-0.012) x10^3u/L Lymphocytes % 12.4 L (19.3-51.7) % Monocytes % 6.9 (4.7-12.5) % Eosinophils % 0.0 L (0.7-5.8) % Basophils % 0.7 (0.1-1.2) % Absolute Granulocytes 5.94 (1.56-6.13) x10^3/uL Basophils # 0.05 (0.01-0.08) x10^3/uL Sodium 129 L (135-145) mmol/L Potassium 4.0 (3.5-5.1) mmol/L Chloride 95 L (98-107) mmol/L Carbon Dioxide 23 (22-30) mmol/L Anion Gap 14.7 (5-15) MEQ/L BUN 17 (7-17) mg/dL Creatinine 0.83 (0.52-1.04) mg/dL Estimated GFR 71.2 ML/MIN Glucose 101 (74-106) mg/dL Calcium 9.1 (8.4-10.2) mg/dL Magnesium 1.9 (1.6-2.3) mg/dL Total Bilirubin 0.40 (0.2-1.3) mg/dL AST 27 (14-36) U/L ALT 21 (0-35) U/L Alkaline Phosphatase 66 (38-126) U/L Troponin I (0.000-0.033) ng/mL Serum Total Protein 7.0 (6.3-8.2) g/dL Albumin 3.9 (3.5-5.0) g/dL Procalcitonin (0.030-0.080) ng/mL Influenza Type A Ag (NEGATIVE) Influenza Type B Ag (NEGATIVE) RSV (PCR) (NEGATIVE) SARS-CoV-2 (PCR) (NEGATIVE) Radiology Exams: Radiology Procedures Category Date Time Status CHEST 1 VIEW (PORTABLE) Routine Exams 05/11/25 08:00 Taken CHEST 1 VIEW (PORTABLE) Stat Exams 05/09/25 22:54 Completed CHEST WITH CONTRAST [CT] Stat Exams 05/10/25 10:36 Completed ECHO W/2D AND DOPPLER [US] Routine Exams 05/10/25 03:35 Taken Medications: Medications Generic Name Dose Route Start Last Admin Trade Name Freq PRN Reason Stop Dose Admin Albuterol/Ipratropium 3 ml 05/10/25 03:37 Ipratropium/Albuterol Sulfate 3 Ml Ampul.Neb IH 06/09/25 03:36 Q4HPRN PRN SHORTNESS OF BREATH/WHEEZING Aspirin 81 mg 05/10/25 12:00 05/10/25 12:16 Aspirin 81 Mg Tablet.Ec PO 06/09/25 11:59 81 mg DAILY KRISTYN Administration Calcium Carbonate 1 tab 05/10/25 12:00 05/10/25 12:16 Calcium Carbonate 500 Mg/Vitamin D 1 Tab Tablet PO 06/09/25 11:59 1 tab DAILY KRISTYN Administration Cholecalciferol 5,000 unit 05/10/25 12:00 05/10/25 12:23 Cholecalciferol (Vitamin D3) 1000 Unit Tablet PO 06/09/25 11:59 5,000 unit DAILY KRISTYN Administration Docusate Sodium 100 mg 05/10/25 12:00 05/10/25 21:39 Docusate Sodium 100 Mg Capsule PO 06/09/25 11:59 100 mg BID KRISTYN Administration Enoxaparin Sodium 40 mg 05/10/25 10:00 05/10/25 09:05 Enoxaparin Sodium 40 Mg/0.4 Ml Syringe SQ 06/09/25 09:59 40 mg DAILY KRISTYN Administration Ferrous Sulfate 325 mg 05/10/25 12:00 05/10/25 12:16 Ferrous Sulfate 325 Mg Tablet PO 06/09/25 11:59 325 mg DAILY KRISTYN Administration Guaifenesin 600 mg 05/10/25 12:00 05/10/25 21:39 Guaifenesin 600 Mg Tablet Er PO 06/09/25 11:59 600 mg BID KRISTYN Administration Levofloxacin/Dextrose 750 mg in 150 mls @ 100 mls/hr 05/10/25 22:00 05/10/25 21:39 Levofloxacin 750mg/150ml D5w IV 06/09/25 21:59 100 mls/hr QPM KRISTYN Administration Magnesium Oxide 400 mg 05/11/25 10:00 Magnesium Oxide 400 Mg Tablet PO 06/10/25 09:59 QOD KRISTYN Metoprolol Succinate 25 mg 05/10/25 23:35 05/10/25 23:37 Metoprolol Succinate 25 Mg Xl Tab PO 06/09/25 23:34 25 mg HS KRISTYN Administration Midodrine 5 mg 05/10/25 12:00 05/10/25 16:54 Midodrine Hcl 5 Mg Tablet PO 06/09/25 11:59 5 mg 0800,1200,1700 KRISTYN Administration Miscellaneous Information 1 each 05/10/25 12:00 Medication Intervention 1 Each Each 06/09/25 11:59 .RN TO CHECK KRISTYN Miscellaneous Information 1 each 05/10/25 12:00 Medication Intervention 1 Each Each 06/09/25 11:59 .RN TO CHECK KRISTYN Multivitamins Therapeutic 1 tab 05/10/25 12:00 05/10/25 12:23 Multivitamins,Therapeutic 1 Tab Tab PO 06/09/25 11:59 1 tab DAILY KRISTYN Administration Multivitamins/Minerals 1 tab 05/10/25 12:00 05/10/25 12:21 Beta-Carotene(A) W-C And E/Min 1 Tab Tablet PO 06/09/25 11:59 1 tab DAILY KRISTYN Administration Hydroxychloroquine 1 each 05/10/25 17:00 05/10/25 16:54 200mg Tablet PO 06/09/25 16:59 1 each 0900,1700 KRISTYN Administration Pantoprazole Sodium 40 mg 05/10/25 12:00 05/10/25 12:22 Protonix (Pantoprazole) 40 Mg Tablet PO 06/09/25 11:59 40 mg QAM KRISTYN Administration Spironolactone 25 mg 05/11/25 10:00 Spironolactone 25 Mg Tablet PO 06/10/25 09:59 DAILY KRISTYN Torsemide 20 mg 05/11/25 10:00 Torsemide 20 Mg Tablet PO 06/10/25 09:59 DAILY KRISTYN Discontinued Medications Generic Name Dose Route Start Last Admin Trade Name Freq PRN Reason Stop Dose Admin Fludrocortisone Acetate 0.1 mg 05/10/25 12:00 05/10/25 12:17 Fludrocortisone Acetate 0.1 Mg Tablet PO 06/09/25 11:59 0.1 mg DAILY KRISTYN Administration Furosemide 40 mg 05/10/25 01:16 05/10/25 01:54 Furosemide 40 Mg/4 Ml Vial IV 05/10/25 01:17 40 mg STAT ONE Administration Furosemide Confirm 05/10/25 01:54 Furosemide 40 Mg/4 Ml Vial Administered 05/10/25 01:55 Dose 40 mg .ROUTE .STK-MED ONE Furosemide 40 mg 05/10/25 14:59 Furosemide 40 Mg/4 Ml Vial IV 05/10/25 15:00 STAT ONE Furosemide 40 mg 05/11/25 10:00 Furosemide 40 Mg/4 Ml Vial IV 06/10/25 09:59 DAILY KRISTYN Furosemide 40 mg 05/10/25 15:38 05/10/25 16:21 Furosemide 40 Mg/4 Ml Vial IV 06/09/25 15:37 40 mg BID DIURETIC KRISTYN Administration Levofloxacin/Dextrose 500 mg in 100 mls @ 100 mls/hr 05/10/25 01:16 05/10/25 01:35 Levofloxacin 500mg/100ml D5w IV 05/10/25 02:15 100 mls/hr STAT STA 100 mls/hr Administration Levofloxacin/Dextrose Confirm 05/10/25 01:24 Levofloxacin 500mg/100ml D5w Administered 05/10/25 01:25 Dose 500 mg in 100 mls @ ud IV .STK-MED ONE Potassium Chloride 20 meq 05/10/25 12:00 05/10/25 18:04 Potassium Chloride Tab 10 Meq Tab PO 05/10/25 18:01 20 meq Q2H KRISTYN Administration Multi-Disciplinary Progress Notes: Multi-Disciplinary Progress Notes 05/10/25 17:29 Radiology Note by JYOTI FLEMING TRANSTHORACIC ECHOCARDIOGRAM 05/10/2025 1. Normal chamber sizes. 2. Moderately depressed left ventricular systolic function due to moderate global hypokinesis. Estimated EF 35%. 3. Mild diastolic dysfunction. 4. Normal right ventricular systolic function. 5. Mild aortic sclerosis without stenosis. 6. Doppler: Moderate mitral regurgitation, mild tricuspid regurgitation, trace aortic regurgitation. 7. Normal PA systolic pressure (32 mmHg). 8. Mildly elevated right atrial pressure (8 mmHg). 9. No pericardial effusion. Jyoti Fleming MD [facility] Initialized on 05/10/25 17:29 - END OF NOTE 05/10/25 13:25 Case Management Note by Abbey Hartley PATIENT HAS [facility]- THEY WERE NOTIFIED PATIENT HERE OBS. THEY WILL NEED NOTIFIED AT TIME OF DC AT [phone]. THEY WILL NEED FAXED THE DC INSTRUCTIONS, DC MED LIST AND DC SUMMARY TO [phone] Initialized on 05/10/25 13:25 - END OF NOTE Assessment/Plan (1) Acute combined systolic (congestive) and diastolic (congestive) heart failure Current Visit: Yes Status: Acute Assessment & Plan: -Echo shows LVEF 35%, moderate global hypokinesis, mild diastolic dysfunction, and moderate MR, correlating with elevated BNP (14,900 ), cardiomegaly, pulmonary congestion, and moderate bilateral pleural effusions on imaging. -Patient is baseline room air, currently on 2 L NC to maintain SpO2 in the mid- 90s, with clinical and radiographic evidence of volume overload. -Cardiology consulted; appreciate recommendations/agree with plan: Start spironolactone 25 mg PO daily ;Transition to torsemide 20 mg PO daily for ongoing diuresis and volume control, with strict I&O, daily weights, fluid restriction (11.5 L/day). Start metoprolol succinate 12.5 mg PO nightly -Tele -Maintain K >4.0 and Mg >2.0 with supplementation as needed. -Given age and history of hyperlipidemia, an ischemic cardiomyopathy is a velez consideration; plan for outpatient evaluation with her local underwear trimmer for further ischemic workup (e.g., stress testing/angiography as deemed appropriate).Autoimmune (RA/SLE-related) cardiomyopathy remains in the differential; if the cardiomyopathy is ultimately felt to be non-ischemic, cardiac MRI should be considered to evaluate for inflammatory or infiltrative processes. -CXR improved with moderate clearing previous bilateral pleural effusions with mild residual still present, [id number]. Upper lung zones clear again with incidental right apical calcified granuloma. Heart not enlarged with diminished central vascular congestion. No new cardiopulmonary abnormalities -No thoracentesis at this time; will reconsider if effusions fail to improve with medical management or if respiratory status worsens. -CMP/CBC reviewed Code(s): I50.41 - ACUTE COMBINED SYSTOLIC AND DIASTOLIC (CONGESTIVE) HRT FAIL (2) Acute respiratory failure with hypoxia Current Visit: Yes Status: Acute Assessment & Plan: -2/2 to CHF/? CAP -continue diuresis/levaquin -supplemental oxygen with spo2 goal > 92% Code(s): J96.01 - ACUTE RESPIRATORY FAILURE WITH HYPOXIA (3) Orthostatic hypotension Current Visit: Yes Status: Acute Assessment & Plan: -discontinue fludrocortisone-as it is contraindicated in the setting of new CHF/HFrEF due to risk of fluid retention and worsening congestion/continue midodrine -Close monitoring of supine and standing BP. -Ongoing re-evaluation as HF therapy is uptitrated. -Maintain fall precautions and encourage slow positional changes Code(s): I95.1 - ORTHOSTATIC HYPOTENSION (4) Cardiomyopathy Current Visit: Yes Status: Acute Assessment & Plan: -Cardiology following - appreciate recs -New diagnosis of HFrEF with EF 35%. -Ischemic cardiomyopathy strongly considered given age and hyperlipidemia- plan outpatient follow-up with local underwear trimmer for ischemic workup. -Autoimmune cardiomyopathy also in the differential given RA/SLE; if deemed non- ischemic, cardiac MRI is recommended for tissue characterization and assessment of inflammation/scarring. Code(s): I42.9 - CARDIOMYOPATHY, UNSPECIFIED (5) CAP (community acquired pneumonia) Current Visit: Yes Status: Acute Assessment & Plan: -Discontinue Levaquin- no pneumonia seen on CT/CXR, no WBC -blood cultures pending -sputum culture pending -Legionella urine antigen and Streptococcus pneumoniae urine antigen pending -Monitor fever curve, WBC, respiratory status, and radiographic response. -Monitor QTc periodically while on levofloxacin Code(s): J18.9 - PNEUMONIA, UNSPECIFIED ORGANISM (6) Hyponatremia Current Visit: Yes Status: Acute Assessment & Plan: -likely hypervolemic -Continue fluid restriction (11.5 L/day) and careful adjustment of torsemide dose based on volume status, Na trend, and renal function -Sodium level improved at 129>122 -Seizure precautions Code(s): E87.1 - HYPO-OSMOLALITY AND HYPONATREMIA (7) Hypokalemia Current Visit: Yes Status: Acute Assessment & Plan: -Potassium 3.4 and corrected 05/10/24 - optimized at 4.0 -tele -monitor renal/lytes daily Code(s): E87.6 - HYPOKALEMIA (8) Lupus Current Visit: No Status: Chronic Assessment & Plan: -History of RA, SLE, and Sjgrens, 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 -These conditions increase risk for autoimmune myocarditis, interstitial lung disease, pleural involvement, and chronic anemia, all of which may contribute to her current presentation. -Continue home immunosuppressive regimen -sjgrens is a rare but recognized cause of non-ischemic cardiomyopathy; in combination with RA/SLE, this strengthens the rationale for cardiac MRI if the ischemic evaluation is negative. -Rheumatology follow-up recommended after discharge for disease activity assessment and immunosuppressive regimen optimization. Code(s): M32.9 - SYSTEMIC LUPUS ERYTHEMATOSUS, UNSPECIFIED (9) Vascular dementia Current Visit: Yes Status: Acute Assessment & Plan: -Continue home regimen Code(s): F01.50 - VASCULAR DEMENTIA, UNSP SEVERITY, WITHOUT BEH/PSYCH/MOOD/ANX (10) HLD (hyperlipidemia) Current Visit: Yes Status: Acute Assessment & Plan: -Continue home regimen Code(s): E78.5 - HYPERLIPIDEMIA, UNSPECIFIED (11) Fibromyalgia Current Visit: Yes Status: Acute Assessment & Plan: -continue home regimen (12) Normocytic anemia Current Visit: Yes Status: Acute Assessment & Plan: -Hgb stable -add iron studies Code(s): D64.9 - ANEMIA, UNSPECIFIED (13) 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
--- NOTE | 2025-05-11 08:39 | XRAY ---
Indication: Pleural effusions. Comparison: May 09, 2025 Portable chest improved with moderate clearing previous bilateral pleural effusions with mild residual still present, [id number]. Upper lung zones clear again with incidental right apical calcified granuloma. Heart not enlarged with diminished central vascular congestion. No new cardiopulmonary abnormalities.
[2025-05-11] MEDS: MAG-OX 400 PO SCH (09:32)
[2025-05-11] MEDS: DEMADEX 20 MG PO SCH (09:33)
[2025-05-11] MEDS: Aldactone 25 MG PO SCH (09:35)
[2025-05-11] MEDS ORDERED: Lasix 40 MG/4 ML IV SCH (10:00)
[2025-05-11] MEDS ORDERED: TYLENOL 325 MG PO PRN (15:21)
[2025-05-11] MEDS: PATIENT OWN MEDICATION PO SCH (21:33)
[2025-05-11] MEDS: Toprol-Xl 25MG Tablets PO SCH (21:39)
--- NOTE | 2025-05-12 05:13 | PCM.NOTE ---
Date and Time: 05/12/25 0513 Subjective Assessment: Ms. Gaines is an 80-year-old female with a complex past medical history significant for rheumatoid arthritis, systemic lupus erythematosus, fibromyalgia, vascular dementia, hyperlipidemia, and chronic orthostatic hypotension, who is normally on room air at baseline, presented 05/10/25 with three weeks of progressively worsening cough and shortness of breath. The cough has been productive of yellow sputum without hemoptysis. Her daughter reported multiple episodes of home oxygen saturation readings in the 70s over the past several days, prompting ED evaluation. The patient completed an outpatient course of azithromycin and cefdinir approximately two weeks ago with no significant improvement in symptoms. She has had increased fatigue and dyspnea with minimal exertion but denies pleuritic chest pain, palpitations, or syncope. No recent sick contacts or travel were reported. On arrival to the emergency department, she was hypertensive and hypoxic, requiring 2 L nasal cannula to maintain oxygen saturations in the mid-90s; this represents a new oxygen requirement compared to her baseline of room air at home. Initial laboratory evaluation revealed normocytic anemia with hemoglobin of 11 , consistent with her reported baseline. Serum sodium was markedly low at 122 aAdditional labs showed mild hypokalemia with potassium, an anion gap metabolic acidosis with anion gap 16.6, and a markedly elevated BNP of 14,900, suggestive of significant cardiac strain and volume overload. Renal function was reviewed and monitored in the context of diuresis. Urinalysis was unremarkable, and respiratory viral testing, including COVID-19, influenza, and RSV, was negative. Chest X-ray demonstrated pulmonary vascular congestion, interstitial prominence, and findings concerning for superimposed pneumonia. A CTA of the chest, though somewhat limited by respiratory and beam artifact, showed no obvious pulmonary embolus but revealed cardiomegaly and moderate bilateral pleural effusions, raising concern for acute decompensated heart failure or fluid overload. Chronic bony changes were noted incidentally. Given her failed outpatient antibiotic therapy and persistent hypoxic symptoms, she was started on levofloxacin for inpatient treatment of community-acquired pneumonia. Echo shows a left ventricular ejection fraction of 35% with moderate global hypokinesis, mild diastolic dysfunction, and moderate mitral regurgitation, consistent with new HFrEF in the setting of volume overload and valvular disease. At the time of assessment, the patient remains on 2 L nasal cannula with oxygen saturations in the mid-90s, reporting improved but persistent dyspnea and ongoing cough. She appears volume overloaded clinically with imaging evidence of pulmonary congestion and bilateral effusions. Neurologically she is at her vascular dementia baseline without focal deficits. The sodium trajectory, including a rapid initial correction (122 -129) followed by down-trend to 126, has prompted a cautious approach to further diuresis with close electrolyte monitoring. Cardiology has been consulted for assistance with management of new HFrEF (EF 35%) with moderate global hypokinesis and moderate mitral regurgitation, optimization of acute decompensated heart failure therapy with recommendation to start spironolactone 25mg daily /torsemide 20mg daily/metoprolol succinate 12.5mg nightly.Will discontinue fludrocortisone as this is contraindicated in the setting of her new diagnosis of CHF. Will continue midodrine for now. Will need follow up with her local hotel or motel receptionist for further evaluation of her cardiomyopathy per Dr. Khan need to consider an ischemic cause based on her age and history of hypercholesterolemia. An autoimmune cause is in the differential based on her history. Would consider a cardiac MRI if this is determined to be nonsichemic. Will discontinue levaquin. 05/11/25: Met with patient bedside. Endorses improvement in dyspnea. On RA which is baseline. Lung sounds coarse on auscultation. Sodium levels improved. Cardiology following patient with recs to start spironolactone, metoprolol succinate, and torsemide. CXR with improved effusions. Pending on treatment response possible DC tomorrow with cardiology follow up. Denies fever, cp, abdominal pain, MAR, dizziness, N/V/D. 05/12/25: No overnight issues. Breathing continues to improve, and she remains stable on room air. Lung exam still shows bibasilar crackles. She continues to have a productive cough with yellow sputum. Cardiology is following and is in agreement with increasing metoprolol to 25 mg. Plan to restart captopril 6.25 mg nightly (non-formulary; family will bring in her home supply). Continue torsemide and spironolactone. After discharge, metoprolol can be titrated up about every 2 weeks as tolerated, with close home BP/HR monitoring. She will need follow-up with her hotel or motel receptionist, Dr. Concepcion. An SGLT2 inhibitor can be considered as an outpatient. Will repeat chest x-ray in the morning. - Review of Systems Constitutional: No Symptoms Eyes: No Symptoms Ears, Nose, & Throat: No Symptoms Respiratory: Cough, Short Of Breath Cardiac: Edema (R +1 L +1) Abdominal/Gastrointestinal: No Symptoms Genitourinary Symptoms: No Symptoms Musculoskeletal: No Symptoms Skin: No Symptoms Neurological: No Symptoms Psychological: No Symptoms Endocrine: No Symptoms Hematologic/Lymphatic: No Symptoms Immunological/Allergic: No Symptoms Objective Exam General Appearance: no apparent distress Neurologic Exam: alert, oriented x 3, cooperative Skin Exam: normal color Eye Exam: PERRL Ears, Nose, Throat Exam: normal ENT inspection Neck Exam: JVD Respiratory Exam: crackles/rales Cardiovascular Exam: regular rate/rhythm, normal heart sounds Gastrointestinal/Abdomen Exam: soft, normal bowel sounds Extremity Exam: swelling (BLE edema +1 pitting) Back Exam: normal inspection Pelvic Exam: deferred Rectal Exam: deferred Objective Data Vital Signs: Vital Signs - 24 hr Temp Pulse Resp BP Pulse Ox 05/12/25 04:00 98.0 F 69 20 151/72 94 L 05/11/25 23:20 97.8 F 77 20 125/67 94 L 05/11/25 20:15 82 16 92 L 05/11/25 19:50 97.6 F 83 20 101/54 94 L 05/11/25 17:00 166/79 05/11/25 16:00 97.1 F 69 16 100/55 91 L 05/11/25 15:09 132/72 05/11/25 11:00 98.1 F 83 17 172/103 96 05/11/25 07:58 98.5 F 84 16 150/89 96 05/11/25 06:48 76 16 91 L Pain Assessment - Last Documented Pain Intensity 0 Intake and Output: Intake & Output 05/09/25 05/10/25 05/11/25 05/12/25 11:59 11:59 11:59 11:59 Intake Total 240 1200 1020 Output Total 3500 2100 800 Balance -3260 -900 220 Weight 63.2 kg Radiology Exams: Radiology Procedures Category Date Time Status CHEST 1 VIEW (PORTABLE) Routine Exams 05/11/25 08:00 Completed CHEST WITH CONTRAST [CT] Stat Exams 05/10/25 10:36 Completed Medications: Medications Generic Name Dose Route Start Last Admin Trade Name Freq PRN Reason Stop Dose Admin Acetaminophen 650 mg 05/11/25 15:21 Acetaminophen 325 Mg Tablet PO 06/10/25 15:20 Q4H PRN PRN PAIN AND/OR FEVER Albuterol/Ipratropium 3 ml 05/10/25 03:37 Ipratropium/Albuterol Sulfate 3 Ml Ampul.Neb IH 06/09/25 03:36 Q4HPRN PRN SHORTNESS OF BREATH/WHEEZING Aspirin 81 mg 05/10/25 12:00 05/11/25 09:30 Aspirin 81 Mg Tablet.Ec PO 06/09/25 11:59 81 mg DAILY KRISTYN Administration Calcium Carbonate 1 tab 05/10/25 12:00 05/11/25 09:31 Calcium Carbonate 500 Mg/Vitamin D 1 Tab Tablet PO 06/09/25 11:59 1 tab DAILY KRISTYN Administration Cholecalciferol 5,000 unit 05/10/25 12:00 05/11/25 09:29 Cholecalciferol (Vitamin D3) 1000 Unit Tablet PO 06/09/25 11:59 5,000 unit DAILY KRISTYN Administration Docusate Sodium 100 mg 05/10/25 12:00 05/11/25 21:32 Docusate Sodium 100 Mg Capsule PO 06/09/25 11:59 100 mg BID KRISTYN Administration Enoxaparin Sodium 40 mg 05/10/25 10:00 05/11/25 09:36 Enoxaparin Sodium 40 Mg/0.4 Ml Syringe SQ 06/09/25 09:59 40 mg DAILY KRISTYN Administration Ferrous Sulfate 325 mg 05/10/25 12:00 05/11/25 09:31 Ferrous Sulfate 325 Mg Tablet PO 06/09/25 11:59 325 mg DAILY KRISTYN Administration Guaifenesin 600 mg 05/10/25 12:00 05/11/25 21:32 Guaifenesin 600 Mg Tablet Er PO 06/09/25 11:59 600 mg BID KRISTYN Administration Magnesium Oxide 400 mg 05/11/25 10:00 05/11/25 09:32 Magnesium Oxide 400 Mg Tablet PO 06/10/25 09:59 400 mg QOD KRISTYN Administration Metoprolol Succinate 12.5 mg 05/11/25 07:26 05/11/25 21:39 Metoprolol Succinate 25 Mg Xl Tab PO 06/09/25 23:34 Not Given HS KRISTYN Midodrine 5 mg 05/10/25 12:00 05/11/25 17:05 Midodrine Hcl 5 Mg Tablet PO 06/09/25 11:59 Not Given 0800,1200,1700 [facility] Miscellaneous Information 1 each 05/10/25 12:00 Medication Intervention 1 Each Each 06/09/25 11:59 .RN TO CHECK KRISTYN Multivitamins Therapeutic 1 tab 05/10/25 12:00 05/11/25 09:31 Multivitamins,Therapeutic 1 Tab Tab PO 06/09/25 11:59 1 tab DAILY KRISTYN Administration Multivitamins/Minerals 1 tab 05/10/25 12:00 05/11/25 09:30 Beta-Carotene(A) W-C And E/Min 1 Tab Tablet PO 06/09/25 11:59 1 tab DAILY KRISTYN Administration Hydroxychloroquine 1 each 05/10/25 17:00 05/11/25 17:03 200mg Tablet PO 06/09/25 16:59 1 each 0900,1700 KRISTYN Administration Pantoprazole Sodium 40 mg 05/10/25 12:00 05/11/25 09:30 Protonix (Pantoprazole) 40 Mg Tablet PO 06/09/25 11:59 40 mg QAM KRISTYN Administration Captopril 12.5 Mg - 0.5 each 05/11/25 22:00 05/11/25 21:33 Patient Own PO 06/10/25 21:59 0.5 each BID KRISTYN Administration Spironolactone 25 mg 05/11/25 10:00 05/11/25 09:35 Spironolactone 25 Mg Tablet PO 06/10/25 09:59 25 mg DAILY KRISTYN Administration Torsemide 20 mg 05/11/25 10:00 05/11/25 09:33 Torsemide 20 Mg Tablet PO 06/10/25 09:59 20 mg DAILY KRISTYN Administration Discontinued Medications Generic Name Dose Route Start Last Admin Trade Name Freq PRN Reason Stop Dose Admin Acetaminophen 650 mg 05/11/25 15:21 Acetaminophen 325 Mg Tablet PO 06/10/25 15:20 Q4H PRN PRN PAIN AND/OR FEVER Fludrocortisone Acetate 0.1 mg 05/10/25 12:00 05/10/25 12:17 Fludrocortisone Acetate 0.1 Mg Tablet PO 06/09/25 11:59 0.1 mg DAILY KRISTYN Administration Furosemide 40 mg 05/10/25 01:16 05/10/25 01:54 Furosemide 40 Mg/4 Ml Vial IV 05/10/25 01:17 40 mg STAT ONE Administration Furosemide Confirm 05/10/25 01:54 Furosemide 40 Mg/4 Ml Vial Administered 05/10/25 01:55 Dose 40 mg .ROUTE .STK-MED ONE Furosemide 40 mg 05/10/25 14:59 Furosemide 40 Mg/4 Ml Vial IV 05/10/25 15:00 STAT ONE Furosemide 40 mg 05/11/25 10:00 Furosemide 40 Mg/4 Ml Vial IV 06/10/25 09:59 DAILY KRISTYN Furosemide 40 mg 05/10/25 15:38 05/10/25 16:21 Furosemide 40 Mg/4 Ml Vial IV 06/09/25 15:37 40 mg BID DIURETIC KRISTYN Administration Levofloxacin/Dextrose 500 mg in 100 mls @ 100 mls/hr 05/10/25 01:16 05/10/25 01:35 Levofloxacin 500mg/100ml D5w IV 05/10/25 02:15 100 mls/hr STAT STA 100 mls/hr Administration Levofloxacin/Dextrose Confirm 05/10/25 01:24 Levofloxacin 500mg/100ml D5w Administered 05/10/25 01:25 Dose 500 mg in 100 mls @ ud IV .STK-MED ONE Levofloxacin/Dextrose 750 mg in 150 mls @ 100 mls/hr 05/10/25 22:00 05/10/25 21:39 Levofloxacin 750mg/150ml D5w IV 06/09/25 21:59 100 mls/hr QPM KRISTYN Administration Metoprolol Succinate 25 mg 05/10/25 23:35 05/10/25 23:37 Metoprolol Succinate 25 Mg Xl Tab PO 06/09/25 23:34 25 mg HS KRISTYN Administration Miscellaneous Information 1 each 05/10/25 12:00 Medication Intervention 1 Each Each MC 06/09/25 11:59 .RN TO CHECK KRISTYN Potassium Chloride 20 meq 05/10/25 12:00 05/10/25 18:04 Potassium Chloride Tab 10 Meq Tab PO 05/10/25 18:01 20 meq Q2H KRISTYN Administration Multi-Disciplinary Progress Notes: Multi-Disciplinary Progress Notes 05/11/25 13:34 Respiratory Note by Amy Arias pts spo2 stayed at 93% or above. pt only able to walk short distance. Initialized on 05/11/25 13:34 - END OF NOTE 12/12/25 12:02 Case Management Note by Abbey Hartley/Maurizio PATIENT AND DAUGHTER AT BEDSIDE- THEY CONTINUE TO PLAN FOR PATIENT TO DC HOME TO HER PLF WITH FAMILY TO PROVIDE 24 HR CARE . [facility] ALREADY SET UP- NEW ORDERS SENT TO BE SURE THEY HAVE ALL DISCIPLINES AVAILABLE. THEY DENY ANY FURT HER NEEDS AT THIS TIME Initialized on 05/11/25 12:02 - END OF NOTE Assessment/Plan (1) Acute combined systolic (congestive) and diastolic (congestive) heart failure Current Visit: Yes Status: Acute Assessment & Plan: -Echo shows LVEF 35%, moderate global hypokinesis, mild diastolic dysfunction, and moderate MR, correlating with elevated BNP (14,900 ), cardiomegaly, pulmonary congestion, and moderate bilateral pleural effusions on imaging. -Patient is baseline room air, currently on 2 L NC to maintain SpO2 in the mid- 90s, with clinical and radiographic evidence of volume overload. -Cardiology consulted; appreciate recommendations/agree with plan: Start spironolactone 25 mg PO daily ;Transition to torsemide 20 mg PO daily for ongoing diuresis and volume control, with strict I&O, daily weights, fluid restriction (11.5 L/day). Start metoprolol succinate 12.5 mg PO nightly -Tele -Maintain K >4.0 and Mg >2.0 with supplementation as needed. -Given age and history of hyperlipidemia, an ischemic cardiomyopathy is a velez consideration; plan for outpatient evaluation with her local hotel or motel receptionist for further ischemic workup (e.g., stress testing/angiography as deemed appropriate).Autoimmune (RA/SLE-related) cardiomyopathy remains in the differential; if the cardiomyopathy is ultimately felt to be non-ischemic, cardiac MRI should be considered to evaluate for inflammatory or infiltrative processes. -CXR improved with moderate clearing previous bilateral pleural effusions with mild residual still present, [id number]. Upper lung zones clear again with incidental right apical calcified granuloma. Heart not enlarged with diminished central vascular congestion. No new cardiopulmonary abnormalities -No thoracentesis at this time; will reconsider if effusions fail to improve with medical management or if respiratory status worsens. -CMP/CBC reviewed 05/12: -Have resp qualify for home oxygen if needed, currently on RA at rest -Lung findings: bibasilar crackles; monitor cough/sputum -repeat CXR in the AM. -Cardiology documentation reviewed agree with plan - Metoprolol: increase to 25 mg today; monitor HR/BP and tolerance. Captopril: restart 6.25 mg nightly (non- formulary; family to bring home supply). Diuretics: continue torsemide and spironolactone; track I/Os, daily weights, and electrolytes/renal function. Metoprolol may be titrated q2 weeks as tolerated outpatient. Encourage home BP/HR log. Cardiology follow-up with Dr. Concepcion. Consider SGLT2 inhibitor initiation as outpatient. Code(s): I50.41 - ACUTE COMBINED SYSTOLIC AND DIASTOLIC (CONGESTIVE) HRT FAIL (2) Acute respiratory failure with hypoxia Current Visit: Yes Status: Acute Assessment & Plan: -2/2 to CHF/? CAP -continue diuresis/levaquin -supplemental oxygen with spo2 goal > 92% Code(s): J96.01 - ACUTE RESPIRATORY FAILURE WITH HYPOXIA (3) Orthostatic hypotension Current Visit: Yes Status: Acute Assessment & Plan: -discontinue fludrocortisone-as it is contraindicated in the setting of new CHF/HFrEF due to risk of fluid retention and worsening congestion/continue midodrine -Close monitoring of supine and standing BP. -Ongoing re-evaluation as HF therapy is uptitrated. -Maintain fall precautions and encourage slow positional changes 05/11: -orthostatic vitals negative 05/12: -repeat orthostaic vitals, continue midodrine, fludrocortisone discontinued Code(s): I95.1 - ORTHOSTATIC HYPOTENSION (4) Cardiomyopathy Current Visit: Yes Status: Acute Assessment & Plan: -Cardiology following - appreciate recs -New diagnosis of HFrEF with EF 35%. -Ischemic cardiomyopathy strongly considered given age and hyperlipidemia- plan outpatient follow-up with local hotel or motel receptionist for ischemic workup. -Autoimmune cardiomyopathy also in the differential given RA/SLE; if deemed non- ischemic, cardiac MRI is recommended for tissue characterization and assessment of inflammation/scarring. Code(s): I42.9 - CARDIOMYOPATHY, UNSPECIFIED (5) CAP (community acquired pneumonia) Current Visit: Yes Status: Acute Assessment & Plan: -Discontinue Levaquin- no pneumonia seen on CT/CXR, no WBC -blood cultures pending -sputum culture pending -Legionella urine antigen and Streptococcus pneumoniae urine antigen pending -Monitor fever curve, WBC, respiratory status, and radiographic response. -Monitor QTc periodically while on levofloxacin Code(s): J18.9 - PNEUMONIA, UNSPECIFIED ORGANISM (6) Hyponatremia Current Visit: Yes Status: Acute Assessment & Plan: -likely hypervolemic -Continue fluid restriction (11.5 L/day) and careful adjustment of torsemide dose based on volume status, Na trend, and renal function -Sodium level improved at 129>122 -Seizure precautions 05/12: -Sodium levels improving now at 131 Code(s): E87.1 - HYPO-OSMOLALITY AND HYPONATREMIA (7) Hypokalemia Current Visit: Yes Status: Acute Assessment & Plan: -Potassium 3.4 and corrected 05/10/24 - optimized at 4.0 -tele -monitor renal/lytes daily 05/12: -Potassium at 3.2- will replenish cautiously Code(s): E87.6 - HYPOKALEMIA (8) Lupus Current Visit: No Status: Chronic Assessment & Plan: -History of RA, SLE, and Sjgrens, 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 -These conditions increase risk for autoimmune myocarditis, interstitial lung disease, pleural involvement, and chronic anemia, all of which may contribute to her current presentation. -Continue home immunosuppressive regimen -sjgrens is a rare but recognized cause of non-ischemic cardiomyopathy; in combination with RA/SLE, this strengthens the rationale for cardiac MRI if the ischemic evaluation is negative. -Rheumatology follow-up recommended after discharge for disease activity assessment and immunosuppressive regimen optimization. Code(s): M32.9 - SYSTEMIC LUPUS ERYTHEMATOSUS, UNSPECIFIED (9) Vascular dementia Current Visit: Yes Status: Acute Assessment & Plan: -Continue home regimen Code(s): F01.50 - VASCULAR DEMENTIA, UNSP SEVERITY, WITHOUT BEH/PSYCH/MOOD/ANX (10) HLD (hyperlipidemia) Current Visit: Yes Status: Acute Assessment & Plan: -Continue home regimen Code(s): E78.5 - HYPERLIPIDEMIA, UNSPECIFIED (11) Fibromyalgia Current Visit: Yes Status: Acute Assessment & Plan: -continue home regimen (12) Normocytic anemia Current Visit: Yes Status: Acute Assessment & Plan: -Hgb stable at 13.1 -add iron studies Code(s): D64.9 - ANEMIA, UNSPECIFIED (13) 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 Current Visit: Yes Status: Acute Assessment & Plan: -see lupus above VTE: Lovenox PPI: protonix Dispo: 1-2 days Code status: SCO Plan of care time spent > 40 mins Code(s): I50.41 - ACUTE COMBINED SYSTOLIC AND DIASTOLIC (CONGESTIVE) HRT FAIL (2) Acute respiratory failure with hypoxia Current Visit: Yes Status: Acute Code(s): J96.01 - ACUTE RESPIRATORY FAILURE WITH HYPOXIA (3) Orthostatic hypotension Current Visit: Yes Status: Acute Code(s): I95.1 - ORTHOSTATIC HYPOTENSION (4) Cardiomyopathy Current Visit: Yes Status: Acute Code(s): I42.9 - CARDIOMYOPATHY, UNSPECIFIED (5) CAP (community acquired pneumonia) Current Visit: Yes Status: Acute Code(s): J18.9 - PNEUMONIA, UNSPECIFIED ORGANISM (6) Hyponatremia Current Visit: Yes Status: Acute Code(s): E87.1 - HYPO-OSMOLALITY AND HYPONATREMIA (7) Hypokalemia Current Visit: Yes Status: Acute Code(s): E87.6 - HYPOKALEMIA (8) Lupus Current Visit: No Status: Chronic Code(s): M32.9 - SYSTEMIC LUPUS ERYTHEMATOSUS, UNSPECIFIED (9) Vascular dementia Current Visit: Yes Status: Acute Code(s): F01.50 - VASCULAR DEMENTIA, UNSP SEVERITY, WITHOUT BEH/PSYCH/MOOD/ANX (10) HLD (hyperlipidemia) Current Visit: Yes Status: Acute Code(s): E78.5 - HYPERLIPIDEMIA, UNSPECIFIED (11) Fibromyalgia Current Visit: Yes Status: Acute (12) Normocytic anemia Current Visit: Yes Status: Acute Code(s): D64.9 - ANEMIA, UNSPECIFIED (13) 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
[2025-05-12 05:40] LABS: BASOPHIL % 0.9 % (0.1-1.2); Basophil (Absolute #) 0.06 x10^3/uL (0.01-0.08); Eosinophil (Absolute #) 0.23 x10^3/uL (0.04-0.36); Hematocrit 32.9 % (34.1-44.9); Hemoglobin 10.6 g/dL (11.2-15.7); IMMATURE GRAN # 0.01 x10^3u/L (0.001-0.031); IMMATURE GRAN % 0.2 % (0.001-0.429); Lymphocyte (Absolute #) 1.35 x10^3/uL (1.18-3.74); Mean Corpuscular Hemoglobin 29.7 pg (25.6-32.2); Mean Corpuscular Hgb Concent. 32.2 g/dL (32.2-35.5); Monocyte (Absolute #) 0.51 x10^3/uL (0.24-0.86); NUCLEATED RBC # 0.00 x10^3u/L (0.00-0.012); NUCLEATED RBC % 0.0 % (0.00-0.2); Platelet Count 299 x10^3/uL (182-369); Red Blood Count 3.57 x10^6/uL (3.93-5.22); White Blood Count 6.3 x10^3/uL (3.98-10.04)
[2025-05-12 06:03] LABS: Calcium 9.0 mg/dL (8.4-10.2); Carbon Dioxide 26.0 mmol/L (22-30); Creatinine 1 0.9 mg/dL (0.52-1.04); EST GLOMERULAR FILTRATION RATE 64.6 ML/MIN; Glucose 101.0 mg/dL (74-106); Potassium 3.2 mmol/L (3.5-5.1); SGOT/AST 24.0 U/L (14-36); SGPT/ALT 21.0 U/L (0-35); Total Protein 6.9 g/dL (6.3-8.2)
[2025-05-12] MEDS: Lasix 40 MG/4 ML IV ONE (07:29)
--- NOTE | 2025-05-12 08:27 | PCM.NOTE ---
Date and Time of Encounter (original note not saved): 05/11/25 1330 Subjective Assessment: Denies any shortness of breath or light headedness with standing. Dr. Concepcion is her pad machine feeder. OBJECTIVE: Formal orthostatic vital signs this morning Supine BP 150/89 HR 84 Sitting BP 158/81 HR 83 Standing BP 145/84 HR 82 O2 sat now 96% on room air. Exam General:: no acute distress HEENT: EOMI, JVD (At base of neck with head of bed elevated 30 degrees (6 - 7 cm). Significantly improved compared with yesterday.) Cardiovascular: Regular Rate & Rhythm, s1 s2 (normal), No friction rub, No gallop Respiratory:: crackels (bibasilar) O2 Delivery: Room Air Abdominal: active bowel sounds x 4 Extremity Exam: edema (trace above left ankle) Neurologic: vegetable grader II-XII grossly intact, No motor deficits Objective Data Vital Signs: Vital Signs - 24 hr Temp Pulse Resp BP Pulse Ox 05/12/25 04:00 98.0 F 69 20 151/72 94 L 05/11/25 23:20 97.8 F 77 20 125/67 94 L 05/11/25 20:15 82 16 92 L 05/11/25 19:50 97.6 F 83 20 101/54 94 L 05/11/25 17:00 166/79 05/11/25 16:00 97.1 F 69 16 100/55 91 L 05/11/25 15:09 132/72 05/11/25 11:00 98.1 F 83 17 172/103 96 Pain Assessment - Last Documented Pain Intensity 0 Vital Signs - 24 hr Temp Pulse Resp BP Pulse Ox 05/11/25 04:00 98.0 F 78 15 132/79 93 L 05/11/25 03:52 98 05/10/25 23:44 98.8 F 80 16 133/71 95 05/10/25 20:00 98.7 F 89 18 136/75 98 05/10/25 19:03 89 18 98 05/10/25 15:49 98.8 F 90 16 162/87 97 05/10/25 11:36 98.6 F 77 16 119/66 97 05/10/25 07:31 98.1 F 83 16 155/80 95 05/10/25 06:45 76 16 97 Intake and Output: Intake & Output 05/09/25 05/10/25 05/11/25 05/12/25 11:59 11:59 11:59 11:59 Intake Total 240 1200 1020 Output Total 3500 2100 800 Balance -3260 -900 220 Weight 63.2 kg LAB: I have reviewed the Labs in [facility]. Lab Results: Lab Results-Last 24 Hours 05/12/25 05/12/25 Range/Units 05:30 05:30 WBC 6.3 (3.98-10.04) x10^3/uL RBC 3.57 L (3.93-5.22) x10^6/uL Hgb 10.6 L (11.2-15.7) g/dL Hct 32.9 L (34.1-44.9) % MCV 92.2 (79.4-94.8) fL MCH 29.7 (25.6-32.2) pg MCHC 32.2 (32.2-35.5) g/dL RDW 13.7 (11.7-14.4) % Plt Count 299 (182-369) x10^3/uL MPV 9.8 (9.4-12.3) fL Gran % 66.0 (34.0-71.1) % Immature Gran % (Auto) 0.2 (0.001-0.429) % Nucleat RBC Rel Count 0.0 (0.00-0.2) % Eos # (Auto) 0.23 (0.04-0.36) x10^3/uL Immature Gran # (Auto) 0.01 (0.001-0.031) x10^3u/L Absolute Lymphs (auto) 1.35 (1.18-3.74) x10^3/uL Absolute Monos (auto) 0.51 (0.24-0.86) x10^3/uL Absolute Nucleated RBC 0.00 (0.00-0.012) x10^3u/L Lymphocytes % 21.3 (19.3-51.7) % Monocytes % 8.0 (4.7-12.5) % Eosinophils % 3.6 (0.7-5.8) % Basophils % 0.9 (0.1-1.2) % Absolute Granulocytes 4.18 (1.56-6.13) x10^3/uL Basophils # 0.06 (0.01-0.08) x10^3/uL Sodium 131 L (135-145) mmol/L Potassium 3.2 L (3.5-5.1) mmol/L Chloride 94 L (98-107) mmol/L Carbon Dioxide 26 (22-30) mmol/L Anion Gap 13.8 (5-15) MEQ/L BUN 20 H (7-17) mg/dL Creatinine 0.90 (0.52-1.04) mg/dL Estimated GFR 64.6 ML/MIN Glucose 101 (74-106) mg/dL Calcium 9.0 (8.4-10.2) mg/dL Total Bilirubin 0.40 (0.2-1.3) mg/dL AST 24 (14-36) U/L ALT 21 (0-35) U/L Alkaline Phosphatase 64 (38-126) U/L Serum Total Protein 6.9 (6.3-8.2) g/dL Albumin 3.9 (3.5-5.0) g/dL Radiology Exams: Radiology Procedures Category Date Time Status CHEST 1 VIEW (PORTABLE) Routine Exams 05/11/25 08:00 Completed CHEST WITH CONTRAST [CT] Stat Exams 05/10/25 10:36 Completed TTE 05/10/2025: 1. Normal chamber sizes. 2. Moderately depressed left ventricular systolic function due to moderate global hypokinesis. Estimated EF 35%. 3. Mild diastolic dysfunction. 4. Normal right ventricular systolic function. 5. Mild aortic sclerosis without stenosis. 6. Doppler: Moderate mitral regurgitation, mild tricuspid regurgitation, trace aortic regurgitation. 7. Normal PA systolic pressure (32 mmHg). 8. Mildly elevated right atrial pressure (8 mmHg). 9. No pericardial effusion. CTA of chest 05/10/2025: 1. Respiration and beam artifact limits pulmonary embolus evaluation. No obvious pulmonary embolus. 2. Cardiomegaly and moderate bilateral effusions. Rule out cardiac decompensation/CHF versus fluid overload. 3. Incidental chronic bony findings. CXR (AP) 05/11/2025: Portable chest improved with moderate clearing previous bilateral pleural effusions with mild residual still present, [id number]. Upper lung zones clear again with incidental right apical calcified granuloma. Heart not enlarged with diminished central vascular congestion. No new cardiopulmonary abnormalities. CXR (AP) 05/09/2025: Mild haziness at right lower zone and possibly at right costophrenic angle. Right hilar region opacity as well. Clinical and lab correlation and CT scan is advised for further evaluation to rule out infection or other pathology Left-sided pleural effusion and mild haziness in the adjacent part of lung, possibility of underlying infection/ atelectasis/ consolidation cannot be excluded Small nodular density is identified in the right lung upper zone, projecting over the right clavicle, likely pulmonary nodule Tracing 1 Attestation: I have reviewed this EKG and interpreted as documented below. EKG Narrative: EC05/09/2025: NSR at 97 bpm. LAE. LVH with repolarization abnormality. Multi-Disciplinary Progress Notes: Multi-Disciplinary Progress Notes 05/11/25 13:34 Respiratory Note by Amy Arias pts spo2 stayed at 93% or above. pt only able to walk short distance. Initialized on 05/11/25 13:34 - END OF NOTE 05/11/25 12:02 Case Management Note by Abbey Hartley S/Maurizio PATIENT AND DAUGHTER AT BEDSIDE- THEY CONTINUE TO PLAN FOR PATIENT TO DC HOME TO HER PLF WITH FAMILY TO PROVIDE 24 HR CARE . [facility] ALREADY SET UP- NEW ORDERS SENT TO BE SURE THEY HAVE ALL DISCIPLINES AVAILABLE. THEY DENY ANY FURTHER NEEDS AT THIS TIME Initialized on 05/11/25 12:02 - END OF NOTE Assessment & Plan (1) Acute combined systolic (congestive) and diastolic (congestive) heart failure Current Visit: Yes Status: Acute Assessment & Plan: Approaching euvolemic state. Increase metoprolol succinate to 25 mg nightly. Restart captopril 6.25 mg nightly (nonformulary medication to be brought in by family). Continue torsemide and spironolactone. Metoprolol can be increased every two weeks as tolerated. BPM one post discharge. Will need follow-up with her pad machine feeder, Dr. Concepcion. SGLT2 inhibitor can be considered as an outpatient. Code(s): I50.41 - ACUTE COMBINED SYSTOLIC AND DIASTOLIC (CONGESTIVE) HRT FAIL (2) Orthostatic hypotension Current Visit: No Status: Chronic Assessment & Plan: Has tolerated 4 liter diuresis over the past 24 hours. Formal orthostatics were negative this am. Fludrocortisone has been discontinued. Hoping this diagnosis included only a small drop in BP with standing in the past. Follow-up with Dr Concepcion. If she continues to tolerate GDMT for HFrEF, can consider weaning down midodrine dosing. Would first discontinue late afternoon dose, followed later by lunchtime dose, before discontinuing altogether if her orthostatic readings permit. Code(s): I95.1 - ORTHOSTATIC HYPOTENSION (3) Cardiomyopathy Current Visit: Yes Status: Acute Assessment & Plan: Suspect related to her autoimmune diseases (SLE and RA). Need to first exclude an ischemic etiology based on her age and hypercholesterolemia. If workup is consistent with a nonischemic etiology, would evaluate with a cardiac MRI. In eitherscenario, will atempt to improve LV systolic function with maximally tolerated dose of metoprolol succinate. Code(s): I42.9 - CARDIOMYOPATHY, UNSPECIFIED - Encounter Encounter: The entirety of this encounter was performed via Telemedicine using audio and visual. Permission granted by patient for this type of encounter. Her daughter and granddaughter were present today. Case discussed with Tati Garg NP today. Dustin Singh MD [facility] [phone]
[2025-05-12] MEDS: Klor Con PO ONE (08:48)
[2025-05-12 11:29] LABS: Potassium 3.9 mmol/L (3.5-5.1)
[2025-05-12 11:57] LABS: Iron 57 ug/dL (37-170); TIBC 334 ug/dL (265-462)
[2025-05-12 12:53] LABS: Ferritin 39.5 ng/mL (11.1-264)
--- NOTE | 2025-05-12 13:13 | PCM.NOTE ---
Date and Time: 05/12/25 1312 Encounter date 05/12/2025 Subjective Assessment: [place] light-headed with standing yesterday afternoon and this morning. Per [id number], this not unusual a home with her history of orthostatic hypotension. OBJECTIVE Partial orthostatic measurements from this morning. Sittting BP 157/85, HR 90 Standing BP 125/63 HR 91 Exam General:: no acute distress HEENT: EOMI, No JVD (Sitting up in chair) Cardiovascular: Regular Rate & Rhythm, s1 s2 (Normal), no murmurs,rubs,gallops Respiratory:: crackels (Bibasilar crackles) O2 Delivery: Room Air Abdominal: active bowel sounds x 4 Extremity Exam: edema (1+ above ankles bilaterally) Objective Data Vital Signs: Vital Signs - 24 hr Temp Pulse Resp BP Pulse Ox 05/12/25 12:00 97.2 F 69 18 157/85 95 05/12/25 08:00 97.6 F 74 20 94 L 05/12/25 04:00 98.0 F 69 20 151/72 94 L 05/11/25 23:20 97.8 F 77 20 125/67 94 L 05/11/25 20:15 82 16 92 L 05/11/25 19:50 97.6 F 83 20 101/54 94 L 05/11/25 17:00 166/79 05/11/25 16:00 97.1 F 69 16 100/55 91 L 05/11/25 15:09 132/72 Pain Assessment - Last Documented Pain Intensity 0 Intake and Output: Intake & Output 05/10/25 05/11/25 05/12/25 05/13/25 11:59 11:59 11:59 11:59 Intake Total 240 1200 1260 Output Total 3500 2100 800 Balance -3260 -900 460 Weight 63.2 kg LAB: I have reviewed the Labs in [facility]. Lab Results: Lab Results-Last 24 Hours 05/12/25 05/12/25 05/12/25 Range/Units 05:30 05:30 05:30 WBC 6.3 (3.98-10.04) x10^3/uL RBC 3.57 L (3.93-5.22) x10^6/uL Hgb 10.6 L (11.2-15.7) g/dL Hct 32.9 L (34.1-44.9) % MCV 92.2 (79.4-94.8) fL MCH 29.7 (25.6-32.2) pg MCHC 32.2 (32.2-35.5) g/dL RDW 13.7 (11.7-14.4) % Plt Count 299 (182-369) x10^3/uL MPV 9.8 (9.4-12.3) fL Gran % 66.0 (34.0-71.1) % Immature Gran % (Auto) 0.2 (0.001-0.429) % Nucleat RBC Rel Count 0.0 (0.00-0.2) % Eos # (Auto) 0.23 (0.04-0.36) x10^3/uL Immature Gran # (Auto) 0.01 (0.001-0.031) x10^3u/L Absolute Lymphs (auto) 1.35 (1.18-3.74) x10^3/uL Absolute Monos (auto) 0.51 (0.24-0.86) x10^3/uL Absolute Nucleated RBC 0.00 (0.00-0.012) x10^3u/L Lymphocytes % 21.3 (19.3-51.7) % Monocytes % 8.0 (4.7-12.5) % Eosinophils % 3.6 (0.7-5.8) % Basophils % 0.9 (0.1-1.2) % Absolute Granulocytes 4.18 (1.56-6.13) x10^3/uL Basophils # 0.06 (0.01-0.08) x10^3/uL Sodium 131 L (135-145) mmol/L Potassium 3.2 L (3.5-5.1) mmol/L Chloride 94 L (98-107) mmol/L Carbon Dioxide 26 (22-30) mmol/L Anion Gap 13.8 (5-15) MEQ/L BUN 20 H (7-17) mg/dL Creatinine 0.90 (0.52-1.04) mg/dL Estimated GFR 64.6 ML/MIN Glucose 101 (74-106) mg/dL Calcium 9.0 (8.4-10.2) mg/dL Magnesium (1.6-2.3) mg/dL Iron (37-170) ug/dL TIBC (265-462) ug/dL Iron Saturation (20-39) % Ferritin 39.5 (11.1-264) ng/mL Total Bilirubin 0.40 (0.2-1.3) mg/dL AST 24 (14-36) U/L ALT 21 (0-35) U/L Alkaline Phosphatase 64 (38-126) U/L Serum Total Protein 6.9 (6.3-8.2) g/dL Albumin 3.9 (3.5-5.0) g/dL Vitamin B12 > 1000 H (239-931) pg/mL Folic Acid 17.4 (2.76 - >20) ng/mL 05/12/25 05/12/25 Range/Units 10:50 10:50 WBC (3.98-10.04) x10^3/uL RBC (3.93-5.22) x10^6/uL Hgb (11.2-15.7) g/dL Hct (34.1-44.9) % MCV (79.4-94.8) fL MCH (25.6-32.2) pg MCHC (32.2-35.5) g/dL RDW (11.7-14.4) % Plt Count (182-369) x10^3/uL MPV (9.4-12.3) fL Gran % (34.0-71.1) % Immature Gran % (Auto) (0.001-0.429) % Nucleat RBC Rel Count (0.00-0.2) % Eos # (Auto) (0.04-0.36) x10^3/uL Immature Gran # (Auto) (0.001-0.031) x10^3u/L Absolute Lymphs (auto) (1.18-3.74) x10^3/uL Absolute Monos (auto) (0.24-0.86) x10^3/uL Absolute Nucleated RBC (0.00-0.012) x10^3u/L Lymphocytes % (19.3-51.7) % Monocytes % (4.7-12.5) % Eosinophils % (0.7-5.8) % Basophils % (0.1-1.2) % Absolute Granulocytes (1.56-6.13) x10^3/uL Basophils # (0.01-0.08) x10^3/uL Sodium (135-145) mmol/L Potassium 3.9 D (3.5-5.1) mmol/L Chloride (98-107) mmol/L Carbon Dioxide (22-30) mmol/L Anion Gap (5-15) MEQ/L BUN (7-17) mg/dL Creatinine (0.52-1.04) mg/dL Estimated GFR ML/MIN Glucose (74-106) mg/dL Calcium (8.4-10.2) mg/dL Magnesium 2.0 (1.6-2.3) mg/dL Iron 57 (37-170) ug/dL TIBC 334 (265-462) ug/dL Iron Saturation 17 L (20-39) % Ferritin (11.1-264) ng/mL Total Bilirubin (0.2-1.3) mg/dL AST (14-36) U/L ALT (0-35) U/L Alkaline Phosphatase (38-126) U/L Serum Total Protein (6.3-8.2) g/dL Albumin (3.5-5.0) g/dL Vitamin B12 (239-931) pg/mL Folic Acid (2.76 - >20) ng/mL Radiology Exams: Radiology Procedures Category Date Time Status CHEST 1 VIEW (PORTABLE) Routine Exams 05/11/25 08:00 Completed CHEST 1 VIEW (PORTABLE) Routine Exams 05/13/25 07:00 Ordered See yesterday's progress note. Multi-Disciplinary Progress Notes: Multi-Disciplinary Progress Notes 05/11/25 13:34 Respiratory Note by Amy Arias pts spo2 stayed at 93% or above. pt only able to walk short distance. Initialized on 05/11/25 13:34 - END OF NOTE Assessment & Plan (1) Acute combined systolic (congestive) and diastolic (congestive) heart failure Current Visit: Yes Status: Acute Assessment & Plan: Compensated. Continue metoprolol succinate 25 mg nightly, captopril 6.25 mg nightly. Due to her orthostatic hypotension, will start giving diuretic doses (spironolactone 25 mg daily and torsemide 20 mg daily) during lunch with her midodrine dose around 1200. Code(s): I50.41 - ACUTE COMBINED SYSTOLIC AND DIASTOLIC (CONGESTIVE) HRT FAIL (2) Orthostatic hypotension Current Visit: No Status: Chronic Assessment & Plan: 32 point drop in systolic BP documented this am when going from a sitting to standing position. As above, will delay her diuretic dose to 1200. Educated patient and family that orthostatic hypotension tends to be worse in the morning. Ok to drink electrolyte drink when she firsts awakes. Must keep track of sodium intake. Limit sodium to 2000 mg daily and fluids to 68 oz (2 quarts) daily. Medications for both CHF and orthostatic hypotension will need to be adjusted as an outpatient based on her tolerance of orthostatic hypotension and presence of volume overload. With the initiation of GDMT for CHF and discontinuation of fludrocortisone, family will need to attentive for possible worsening of orhtostatic hypotension symptoms. Will check complete set of orthostatic vital signs tomorrow am. Code(s): I95.1 - ORTHOSTATIC HYPOTENSION (3) Cardiomyopathy Current Visit: Yes Status: Acute Assessment & Plan: As per yesterday's note. Code(s): I42.9 - CARDIOMYOPATHY, UNSPECIFIED - Encounter Encounter: The entirety of this encounter was performed via Telemedicine using audio and visual. Permission granted by patient for this type of encounter. Her son and [id number] were present. Case discussed with Tati Garg NP today. Repeat CXR is planned for tomorrow regarding her pulmonary infection. It is anticipated that patient will be discharged tomorrow. Dustin Singh MD [employer] [phone]
[2025-05-12] MEDS ORDERED: Aldactone 25 MG PO SCH (14:35)
[2025-05-12] MEDS ORDERED: DEMADEX 20 MG PO SCH (14:35)
[2025-05-12] MEDS: TYLENOL 325 MG PO PRN (15:46)
[2025-05-12] MEDS: PATIENT OWN MEDICATION PO SCH (22:01)
[2025-05-12] MEDS: Toprol-Xl 25MG Tablets PO SCH (22:01)
--- NOTE | 2025-05-13 05:14 | PCM.NOTE ---
Date and Time: 05/13/25 0513 Subjective Assessment: Ms. Gaines is an 80-year-old female with a complex past medical history significant for rheumatoid arthritis, systemic lupus erythematosus, fibromyalgia, vascular dementia, hyperlipidemia, and chronic orthostatic hypotension, who is normally on room air at baseline, presented 05/10/25 with three weeks of progressively worsening cough and shortness of breath. The cough has been productive of yellow sputum without hemoptysis. Her daughter reported multiple episodes of home oxygen saturation readings in the 70s over the past several days, prompting ED evaluation. The patient completed an outpatient course of azithromycin and cefdinir approximately two weeks ago with no significant improvement in symptoms. She has had increased fatigue and dyspnea with minimal exertion but denies pleuritic chest pain, palpitations, or syncope. No recent sick contacts or travel were reported. On arrival to the emergency department, she was hypertensive and hypoxic, requiring 2 L nasal cannula to maintain oxygen saturations in the mid-90s; this represents a new oxygen requirement compared to her baseline of room air at home. Initial laboratory evaluation revealed normocytic anemia with hemoglobin of 11 , consistent with her reported baseline. Serum sodium was markedly low at 122 aAdditional labs showed mild hypokalemia with potassium, an anion gap metabolic acidosis with anion gap 16.6, and a markedly elevated BNP of 14,900, suggestive of significant cardiac strain and volume overload. Renal function was reviewed and monitored in the context of diuresis. Urinalysis was unremarkable, and respiratory viral testing, including COVID-19, influenza, and RSV, was negative. Chest X-ray demonstrated pulmonary vascular congestion, interstitial prominence, and findings concerning for superimposed pneumonia. A CTA of the chest, though somewhat limited by respiratory and beam artifact, showed no obvious pulmonary embolus but revealed cardiomegaly and moderate bilateral pleural effusions, raising concern for acute decompensated heart failure or fluid overload. Chronic bony changes were noted incidentally. Given her failed outpatient antibiotic therapy and persistent hypoxic symptoms, she was started on levofloxacin for inpatient treatment of community-acquired pneumonia. Echo shows a left ventricular ejection fraction of 35% with moderate global hypokinesis, mild diastolic dysfunction, and moderate mitral regurgitation, consistent with new HFrEF in the setting of volume overload and valvular disease. At the time of assessment, the patient remains on 2 L nasal cannula with oxygen saturations in the mid-90s, reporting improved but persistent dyspnea and ongoing cough. She appears volume overloaded clinically with imaging evidence of pulmonary congestion and bilateral effusions. Neurologically she is at her vascular dementia baseline without focal deficits. The sodium trajectory, including a rapid initial correction (122 -129) followed by down-trend to 126, has prompted a cautious approach to further diuresis with close electrolyte monitoring. Cardiology has been consulted for assistance with management of new HFrEF (EF 35%) with moderate global hypokinesis and moderate mitral regurgitation, optimization of acute decompensated heart failure therapy with recommendation to start spironolactone 25mg daily /torsemide 20mg daily/metoprolol succinate 12.5mg nightly.Will discontinue fludrocortisone as this is contraindicated in the setting of her new diagnosis of CHF. Will continue midodrine for now. Will need follow up with her local [employer] for further evaluation of her cardiomyopathy per Dr. Khan need to consider an ischemic cause based on her age and history of hypercholesterolemia. An autoimmune cause is in the differential based on her history. Would consider a cardiac MRI if this is determined to be nonsichemic. Will discontinue levaquin. 05/11/25: Met with patient bedside. Endorses improvement in dyspnea. On RA which is baseline. Lung sounds coarse on auscultation. Sodium levels improved. Cardiology following patient with recs to start spironolactone, metoprolol succinate, and torsemide. CXR with improved effusions. Pending on treatment response possible DC tomorrow with cardiology follow up. Denies fever, cp, abdominal pain, MAR, dizziness, N/V/D. 05/12/25: No overnight issues. Breathing continues to improve, and she remains stable on room air. Lung exam still shows bibasilar crackles. She continues to have a productive cough with yellow sputum. Cardiology is following and is in agreement with increasing metoprolol to 25 mg. Plan to restart captopril 6.25 mg nightly (non-formulary; family will bring in her home supply). Continue torsemide and spironolactone. After discharge, metoprolol can be titrated up about every 2 weeks as tolerated, with close home BP/HR monitoring. She will need follow-up with her [employer] [facility], Dr. Concepcion. An SGLT2 inhibitor can be considered as an outpatient. Will repeat chest x-ray in the morning. 05/13: Examined at bedside. She reports persistent generalized weakness and fatigue despite improvement in shortness of breath. She continues to feel lightheaded with position changes and reports difficulty standing and ambulating without assistance. She states she is unable to safely perform activities of daily living independently and expresses concern about returning home in her current condition. She is requesting consideration for inpatient rehabilitation. She denies chest pain, fever, nausea, vomiting, or abdominal pain. She continues to have a productive cough with yellow sputum, though improved. No new neurologic complaints. Daughter updated and in agreement with ongoing inpatient care and therapy evaluation. - Review of Systems Constitutional: Weakness Eyes: No Symptoms Ears, Nose, & Throat: No Symptoms Respiratory: Cough, Short Of Breath Cardiac: Edema (BLE 1+ pitting edema) Abdominal/Gastrointestinal: No Symptoms Genitourinary Symptoms: No Symptoms Musculoskeletal: No Symptoms Skin: No Symptoms Neurological: No Symptoms Psychological: No Symptoms Endocrine: No Symptoms Hematologic/Lymphatic: No Symptoms Immunological/Allergic: No Symptoms Objective Exam General Appearance: no apparent distress Neurologic Exam: alert, oriented x 3, cooperative Skin Exam: pale Eye Exam: PERRL, post op pupil defect (R) Neck Exam: normal inspection Respiratory Exam: crackles/rales Cardiovascular Exam: regular rate/rhythm, normal heart sounds Gastrointestinal/Abdomen Exam: soft, normal bowel sounds Extremity Exam: swelling Back Exam: normal inspection Pelvic Exam: deferred Rectal Exam: deferred Objective Data Vital Signs: Vital Signs - 24 hr Temp Pulse Resp BP Pulse Ox 05/13/25 01:00 74 05/13/25 00:00 97.0 F 83 18 142/85 92 L 05/12/25 20:00 97.0 F 87 20 144/86 97 05/12/25 19:59 93 H 20 93 L 05/12/25 16:00 97.8 F 85 18 135/87 94 L 05/12/25 12:00 97.2 F 69 18 157/85 95 05/12/25 09:45 85 117/56 05/12/25 08:00 97.6 F 74 20 94 L 05/12/25 07:30 73 20 94 L Pain Assessment - Last Documented Pain Intensity 0 Intake and Output: Intake & Output 05/10/25 05/11/25 05/12/25 05/13/25 11:59 11:59 11:59 11:59 Intake Total 240 1200 1260 840 Output Total 3500 2100 800 600 Balance -3260 -900 460 240 Weight 63.2 kg Lab Results: Lab Results-Last 24 Hours 05/10/25 05/12/25 05/12/25 Range/Units 07:10 05:30 05:30 WBC 6.3 (3.98-10.04) x10^3/uL RBC 3.57 L (3.93-5.22) x10^6/uL Hgb 10.6 L (11.2-15.7) g/dL Hct 32.9 L (34.1-44.9) % MCV 92.2 (79.4-94.8) fL MCH 29.7 (25.6-32.2) pg MCHC 32.2 (32.2-35.5) g/dL RDW 13.7 (11.7-14.4) % Plt Count 299 (182-369) x10^3/uL MPV 9.8 (9.4-12.3) fL Gran % 66.0 (34.0-71.1) % Immature Gran % (Auto) 0.2 (0.001-0.429) % Nucleat RBC Rel Count 0.0 (0.00-0.2) % Eos # (Auto) 0.23 (0.04-0.36) x10^3/uL Immature Gran # (Auto) 0.01 (0.001-0.031) x10^3u/L Absolute Lymphs (auto) 1.35 (1.18-3.74) x10^3/uL Absolute Monos (auto) 0.51 (0.24-0.86) x10^3/uL Absolute Nucleated RBC 0.00 (0.00-0.012) x10^3u/L Lymphocytes % 21.3 (19.3-51.7) % Monocytes % 8.0 (4.7-12.5) % Eosinophils % 3.6 (0.7-5.8) % Basophils % 0.9 (0.1-1.2) % Absolute Granulocytes 4.18 (1.56-6.13) x10^3/uL Basophils # 0.06 (0.01-0.08) x10^3/uL Sodium 131 L (135-145) mmol/L Potassium 3.2 L (3.5-5.1) mmol/L Chloride 94 L (98-107) mmol/L Carbon Dioxide 26 (22-30) mmol/L Anion Gap 13.8 (5-15) MEQ/L BUN 20 H (7-17) mg/dL Creatinine 0.90 (0.52-1.04) mg/dL Estimated GFR 64.6 ML/MIN Glucose 101 (74-106) mg/dL Calcium 9.0 (8.4-10.2) mg/dL Magnesium (1.6-2.3) mg/dL Iron (37-170) ug/dL TIBC (265-462) ug/dL Iron Saturation (20-39) % Ferritin (11.1-264) ng/mL Total Bilirubin 0.40 (0.2-1.3) mg/dL AST 24 (14-36) U/L ALT 21 (0-35) U/L Alkaline Phosphatase 64 (38-126) U/L Serum Total Protein 6.9 (6.3-8.2) g/dL Albumin 3.9 (3.5-5.0) g/dL Vitamin B12 (239-931) pg/mL Folic Acid (2.76 - >20) ng/mL Legionella pneumophila Ab Pending M. pneumoniae (PCR) Negative (Negative) 05/12/25 05/12/25 05/12/25 Range/Units 05:30 10:50 10:50 WBC (3.98-10.04) x10^3/uL RBC (3.93-5.22) x10^6/uL Hgb (11.2-15.7) g/dL Hct (34.1-44.9) % MCV (79.4-94.8) fL MCH (25.6-32.2) pg MCHC (32.2-35.5) g/dL RDW (11.7-14.4) % Plt Count (182-369) x10^3/uL MPV (9.4-12.3) fL Gran % (34.0-71.1) % Immature Gran % (Auto) (0.001-0.429) % Nucleat RBC Rel Count (0.00-0.2) % Eos # (Auto) (0.04-0.36) x10^3/uL Immature Gran # (Auto) (0.001-0.031) x10^3u/L Absolute Lymphs (auto) (1.18-3.74) x10^3/uL Absolute Monos (auto) (0.24-0.86) x10^3/uL Absolute Nucleated RBC (0.00-0.012) x10^3u/L Lymphocytes % (19.3-51.7) % Monocytes % (4.7-12.5) % Eosinophils % (0.7-5.8) % Basophils % (0.1-1.2) % Absolute Granulocytes (1.56-6.13) x10^3/uL Basophils # (0.01-0.08) x10^3/uL Sodium (135-145) mmol/L Potassium 3.9 D (3.5-5.1) mmol/L Chloride (98-107) mmol/L Carbon Dioxide (22-30) mmol/L Anion Gap (5-15) MEQ/L BUN (7-17) mg/dL Creatinine (0.52-1.04) mg/dL Estimated GFR ML/MIN Glucose (74-106) mg/dL Calcium (8.4-10.2) mg/dL Magnesium 2.0 (1.6-2.3) mg/dL Iron 57 (37-170) ug/dL TIBC 334 (265-462) ug/dL Iron Saturation 17 L (20-39) % Ferritin 39.5 (11.1-264) ng/mL Total Bilirubin (0.2-1.3) mg/dL AST (14-36) U/L ALT (0-35) U/L Alkaline Phosphatase (38-126) U/L Serum Total Protein (6.3-8.2) g/dL Albumin (3.5-5.0) g/dL Vitamin B12 > 1000 H (239-931) pg/mL Folic Acid 17.4 (2.76 - >20) ng/mL Legionella pneumophila Ab M. pneumoniae (PCR) (Negative) Radiology Exams: Radiology Procedures Category Date Time Status CHEST 1 VIEW (PORTABLE) Routine Exams 05/11/25 08:00 Completed CHEST 1 VIEW (PORTABLE) Routine Exams 05/13/25 07:00 Ordered Medications: Medications Generic Name Dose Route Start Last Admin Trade Name Freq PRN Reason Stop Dose Admin Acetaminophen 650 mg 05/11/25 15:21 05/12/25 15:46 Acetaminophen 325 Mg Tablet PO 06/10/25 15:20 650 mg Q4H PRN PRN Administration PAIN AND/OR FEVER Albuterol/Ipratropium 3 ml 05/10/25 03:37 Ipratropium/Albuterol Sulfate 3 Ml Ampul.Neb IH 06/09/25 03:36 Q4HPRN PRN SHORTNESS OF BREATH/WHEEZING Aspirin 81 mg 05/10/25 12:00 05/12/25 10:16 Aspirin 81 Mg Tablet.Ec PO 06/09/25 11:59 81 mg DAILY KRISTYN Administration Calcium Carbonate 1 tab 05/10/25 12:00 05/12/25 10:16 Calcium Carbonate 500 Mg/Vitamin D 1 Tab Tablet PO 06/09/25 11:59 1 tab DAILY KRISTYN Administration Cholecalciferol 5,000 unit 05/10/25 12:00 05/12/25 10:16 Cholecalciferol (Vitamin D3) 1000 Unit Tablet PO 06/09/25 11:59 5,000 unit DAILY KRISTYN Administration Docusate Sodium 100 mg 05/10/25 12:00 05/12/25 22:01 Docusate Sodium 100 Mg Capsule PO 06/09/25 11:59 100 mg BID KRISTYN Administration Enoxaparin Sodium 40 mg 05/10/25 10:00 05/12/25 10:18 Enoxaparin Sodium 40 Mg/0.4 Ml Syringe SQ 06/09/25 09:59 40 mg DAILY KRISTYN Administration Ferrous Sulfate 325 mg 05/10/25 12:00 05/12/25 10:15 Ferrous Sulfate 325 Mg Tablet PO 06/09/25 11:59 325 mg DAILY KRISTYN Administration Guaifenesin 600 mg 05/10/25 12:00 05/12/25 22:01 Guaifenesin 600 Mg Tablet Er PO 06/09/25 11:59 600 mg BID KRISTYN Administration Magnesium Oxide 400 mg 05/11/25 10:00 05/11/25 09:32 Magnesium Oxide 400 Mg Tablet PO 06/10/25 09:59 400 mg QOD KRISTYN Administration Metoprolol Succinate 25 mg 05/12/25 14:38 05/12/25 22:01 Metoprolol Succinate 25 Mg Xl Tab PO 06/09/25 23:34 25 mg HS KRISTYN Administration Midodrine 5 mg 05/10/25 12:00 05/12/25 17:08 Midodrine Hcl 5 Mg Tablet PO 06/09/25 11:59 5 mg 0800,1200,1700 KRISTYN Administration Miscellaneous Information 1 each 05/10/25 12:00 Medication Intervention 1 Each Each 06/09/25 11:59 .RN TO CHECK KRISTYN Multivitamins Therapeutic 1 tab 05/10/25 12:00 05/12/25 10:16 Multivitamins,Therapeutic 1 Tab Tab PO 06/09/25 11:59 1 tab DAILY KRISTYN Administration Multivitamins/Minerals 1 tab 05/10/25 12:00 05/12/25 10:16 Beta-Carotene(A) W-C And E/Min 1 Tab Tablet PO 06/09/25 11:59 1 tab DAILY KRISTYN Administration Hydroxychloroquine 1 each 05/10/25 17:00 05/12/25 17:08 200mg Tablet PO 06/09/25 16:59 1 each 0900,1700 KRISTYN Administration Pantoprazole Sodium 40 mg 05/10/25 12:00 05/12/25 10:16 Protonix (Pantoprazole) 40 Mg Tablet PO 06/09/25 11:59 40 mg QAM KRISTYN Administration Patient Own Medication 0.5 each 05/12/25 22:00 05/12/25 22:01 Patient Own Med Misc PO 06/11/25 21:59 0.5 each QHS KRISTYN Administration Spironolactone 25 mg 05/13/25 12:00 Spironolactone 25 Mg Tablet PO 06/12/25 11:59 NOON KRISTYN Torsemide 20 mg 05/13/25 12:00 Torsemide 20 Mg Tablet PO 06/12/25 11:59 NOON KRISTYN Discontinued Medications Generic Name Dose Route Start Last Admin Trade Name Freq PRN Reason Stop Dose Admin Acetaminophen 650 mg 05/11/25 15:21 Acetaminophen 325 Mg Tablet PO 06/10/25 15:20 Q4H PRN PRN PAIN AND/OR FEVER Fludrocortisone Acetate 0.1 mg 05/10/25 12:00 05/10/25 12:17 Fludrocortisone Acetate 0.1 Mg Tablet PO 06/09/25 11:59 0.1 mg DAILY KRISTYN Administration Furosemide 40 mg 05/10/25 01:16 05/10/25 01:54 Furosemide 40 Mg/4 Ml Vial IV 05/10/25 01:17 40 mg STAT ONE Administration Furosemide Confirm 05/10/25 01:54 Furosemide 40 Mg/4 Ml Vial Administered 05/10/25 01:55 Dose 40 mg .ROUTE .STK-MED ONE Furosemide 40 mg 05/10/25 14:59 05/12/25 07:29 Furosemide 40 Mg/4 Ml Vial IV 05/10/25 15:00 Not Given STAT ONE Furosemide 40 mg 05/11/25 10:00 Furosemide 40 Mg/4 Ml Vial IV 06/10/25 09:59 DAILY KRISTYN Furosemide 40 mg 05/10/25 15:38 05/10/25 16:21 Furosemide 40 Mg/4 Ml Vial IV 06/09/25 15:37 40 mg BID DIURETIC KRISTYN Administration Levofloxacin/Dextrose 500 mg in 100 mls @ 100 mls/hr 05/10/25 01:16 05/10/25 01:35 Levofloxacin 500mg/100ml D5w IV 05/10/25 02:15 100 mls/hr STAT STA 100 mls/hr Administration Levofloxacin/Dextrose Confirm 05/10/25 01:24 Levofloxacin 500mg/100ml D5w Administered 05/10/25 01:25 Dose 500 mg in 100 mls @ ud IV .STK-MED ONE Levofloxacin/Dextrose 750 mg in 150 mls @ 100 mls/hr 05/10/25 22:00 05/10/25 21:39 Levofloxacin 750mg/150ml D5w IV 06/09/25 21:59 100 mls/hr QPM KRISTYN Administration Metoprolol Succinate 25 mg 05/10/25 23:35 05/10/25 23:37 Metoprolol Succinate 25 Mg Xl Tab PO 06/09/25 23:34 25 mg HS KRISTYN Administration Metoprolol Succinate 12.5 mg 05/11/25 07:26 05/11/25 21:39 Metoprolol Succinate 25 Mg Xl Tab PO 06/09/25 23:34 Not Given HS KRISTYN Miscellaneous Information 1 each 05/10/25 12:00 Medication Intervention 1 Each Each 06/09/25 11:59 .RN TO CHECK KRISTYN Captopril 12.5 Mg - 0.5 each 05/11/25 22:00 05/12/25 13:51 Patient Own PO 06/10/25 21:59 Not Given BID KRISTYN Potassium Chloride 20 meq 05/10/25 12:00 05/10/25 18:04 Potassium Chloride Tab 10 Meq Tab PO 05/10/25 18:01 20 meq Q2H KRISTYN Administration Potassium Chloride 20 meq 05/12/25 07:34 05/12/25 08:48 Potassium Chloride Tab 10 Meq Tab PO 05/12/25 07:35 20 meq STAT ONE Administration Spironolactone 25 mg 05/11/25 10:00 05/12/25 10:16 Spironolactone 25 Mg Tablet PO 06/10/25 09:59 25 mg DAILY KRISTYN Administration Spironolactone 25 mg 05/12/25 14:35 Spironolactone 25 Mg Tablet PO 06/10/25 11:59 DAILY KRISTYN Spironolactone 25 mg 05/13/25 12:00 Spironolactone 25 Mg Tablet PO 06/12/25 11:59 DAILY KRISTYN Torsemide 20 mg 05/11/25 10:00 05/12/25 10:16 Torsemide 20 Mg Tablet PO 06/10/25 09:59 20 mg DAILY KRISTYN Administration Torsemide 20 mg 05/12/25 14:35 Torsemide 20 Mg Tablet PO 06/10/25 11:59 DAILY KRISTYN Torsemide 20 mg 05/13/25 12:00 Torsemide 20 Mg Tablet PO 06/12/25 11:59 DAILY KRISTYN Assessment/Plan (1) Acute combined systolic (congestive) and diastolic (congestive) heart failure Current Visit: Yes Status: Acute Assessment & Plan: -Echo shows LVEF 35%, moderate global hypokinesis, mild diastolic dysfunction, and moderate MR, correlating with elevated BNP (14,900 ), cardiomegaly, pulmonary congestion, and moderate bilateral pleural effusions on imaging. -Patient is baseline room air, currently on 2 L NC to maintain SpO2 in the mid- 90s, with clinical and radiographic evidence of volume overload. -Cardiology consulted; appreciate recommendations/agree with plan: Start spironolactone 25 mg PO daily ;Transition to torsemide 20 mg PO daily for ongoing diuresis and volume control, with strict I&O, daily weights, fluid restriction (11.5 L/day). Start metoprolol succinate 12.5 mg PO nightly -Tele -Maintain K >4.0 and Mg >2.0 with supplementation as needed. -Given age and history of hyperlipidemia, an ischemic cardiomyopathy is a velez consideration; plan for outpatient evaluation with her local [employer] for further ischemic workup (e.g., stress testing/angiography as deemed martha ropriate).Autoimmune (RA/SLE-related) cardiomyopathy remains in the differential; if the cardiomyopathy is ultimately felt to be non-ischemic, cardiac MRI should be considered to evaluate for inflammatory or infiltrative processes. -CXR improved with moderate clearing previous bilateral pleural effusions with mild residual still present, [id number]. Upper lung zones clear again with incidental right apical calcified granuloma. Heart not enlarged with diminished central vascular congestion. No new cardiopulmonary abnormalities -No thoracentesis at this time; will reconsider if effusions fail to improve with medical management or if respiratory status worsens. -CMP/CBC reviewed 05/12: -Have resp qualify for home oxygen if needed, currently on RA at rest -Lung findings: bibasilar crackles; monitor cough/sputum -repeat CXR in the AM. -Cardiology documentation reviewed agree with plan - Metoprolol: increase to 25 mg today; monitor HR/BP and tolerance. Captopril: restart 6.25 mg nightly (non- formulary; family to bring home supply). Diuretics: continue torsemide and spironolactone; track I/Os, daily weights, and electrolytes/renal function. Metoprolol may be titrated q2 weeks as tolerated outpatient. Encourage home BP/HR log. Cardiology follow-up with Dr. Concepcion. Consider SGLT2 inhibitor initiation as outpatient. 05/13: -Continue torsemide and spironolactone, with dosing shifted to midday to reduce orthostatic symptoms -Continue metoprolol succinate 25 mg daily; monitor HR and BP closely -Daily weights, strict I&O -Telemetry -Maintain K >4.0, Mg >2.0 -Cardiology following; GDMT still in early titration phase, requiring inpatient monitoring -CXR with improved effusions Code(s): I50.41 - ACUTE COMBINED SYSTOLIC AND DIASTOLIC (CONGESTIVE) HRT FAIL (2) Acute respiratory failure with hypoxia Current Visit: Yes Status: Acute Assessment & Plan: -2/2 to CHF/? CAP -continue diuresis/levaquin -supplemental oxygen with spo2 goal > 92% 05/13: -Patient now on RA- does not qualify for home oxygen -Spo2 93% on RA -CXR with improved effusions Code(s): J96.01 - ACUTE RESPIRATORY FAILURE WITH HYPOXIA (3) Orthostatic hypotension Current Visit: Yes Status: Acute Assessment & Plan: -discontinue fludrocortisone-as it is contraindicated in the setting of new CHF/HFrEF due to risk of fluid retention and worsening congestion/continue midodrine -Close monitoring of supine and standing BP. -Ongoing re-evaluation as HF therapy is uptitrated. -Maintain fall precautions and encourage slow positional changes 05/11: -orthostatic vitals negative 05/12: -repeat orthostaic vitals, continue midodrine, fludrocortisone discontinued 05/13: -Orthostatic vitals daily- change diurectics to noon dosing per cards Code(s): I95.1 - ORTHOSTATIC HYPOTENSION Generalized Weakness -Secondary to acute illness, new CHF diagnosis, deconditioning, and orthostasis -Patient unable to safely ambulate or perform ADLs independently -PT/OT evaluation ordered -Anticipate need for skilled inpatient rehabilitation once medically stable (4) Cardiomyopathy Current Visit: Yes Status: Acute Assessment & Plan: -Cardiology following - appreciate recs -New diagnosis of HFrEF with EF 35%. -Ischemic cardiomyopathy strongly considered given age and hyperlipidemia- plan outpatient follow-up with local [employer] for ischemic workup. -Autoimmune cardiomyopathy also in the differential given RA/SLE; if deemed non- ischemic, cardiac MRI is recommended for tissue characterization and assessment of inflammation/scarring. Code(s): I42.9 - CARDIOMYOPATHY, UNSPECIFIED (5) CAP (community acquired pneumonia) Current Visit: Yes Status: Acute Assessment & Plan: -Discontinue Levaquin- no pneumonia seen on CT/CXR, no WBC -blood cultures pending -sputum culture pending -Legionella urine antigen and Streptococcus pneumoniae urine antigen pending -Monitor fever curve, WBC, respiratory status, and radiographic response. -Monitor QTc periodically while on levofloxacin Code(s): J18.9 - PNEUMONIA, UNSPECIFIED ORGANISM (6) Hyponatremia Current Visit: Yes Status: Acute Assessment & Plan: -likely hypervolemic -Continue fluid restriction (11.5 L/day) and careful adjustment of torsemide dose based on volume status, Na trend, and renal function -Sodium level improved at 129>122 -Seizure precautions 05/12: -Sodium levels improving now at 131 05/13: -Sodium level at 134 Code(s): E87.1 - HYPO-OSMOLALITY AND HYPONATREMIA (7) Hypokalemia Current Visit: Yes Status: Acute Assessment & Plan: -Potassium 3.4 and corrected 05/10/24 - optimized at 4.0 -tele -monitor renal/lytes daily 05/12: -Potassium at 3.2- will replenish cautiously 05/13: -Potassium at 3.3- will replenish Code(s): E87.6 - HYPOKALEMIA (8) Lupus Current Visit: No Status: Chronic Assessment & Plan: -History of RA, SLE, and Sjgrens, 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 -These conditions increase risk for autoimmune myocarditis, interstitial lung disease, pleural involvement, and chronic anemia, all of which may contribute to her current presentation. -Continue home immunosuppressive regimen -sjgrens is a rare but recognized cause of non-ischemic cardiomyopathy; in combination with RA/SLE, this strengthens the rationale for cardiac MRI if the ischemic evaluation is negative. -Rheumatology follow-up recommended after discharge for disease activity assessment and immunosuppressive regimen optimization. Code(s): M32.9 - SYSTEMIC LUPUS ERYTHEMATOSUS, UNSPECIFIED (9) Vascular dementia Current Visit: Yes Status: Acute Assessment & Plan: -Continue home regimen Code(s): F01.50 - VASCULAR DEMENTIA, UNSP SEVERITY, WITHOUT BEH/PSYCH/MOOD/ANX (10) HLD (hyperlipidemia) Current Visit: Yes Status: Acute Assessment & Plan: -Continue home regimen Code(s): E78.5 - HYPERLIPIDEMIA, UNSPECIFIED (11) Fibromyalgia Current Visit: Yes Status: Acute Assessment & Plan: -continue home regimen (12) Normocytic anemia Current Visit: Yes Status: Acute Assessment & Plan: -Hgb stable at 13.1 -add iron studies Code(s): D64.9 - ANEMIA, UNSPECIFIED (13) 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 Current Visit: Yes Status: Acute Assessment & Plan: -see lupus above VTE: Lovenox PPI: protonix Dispo: 1-2 days Code status: SCO Plan of care time spent > 40 mins Code(s): I50.41 - ACUTE COMBINED SYSTOLIC AND DIASTOLIC (CONGESTIVE) HRT FAIL (2) Acute respiratory failure with hypoxia Current Visit: Yes Status: Acute Code(s): J96.01 - ACUTE RESPIRATORY FAILURE WITH HYPOXIA (3) Orthostatic hypotension Current Visit: Yes Status: Acute Code(s): I95.1 - ORTHOSTATIC HYPOTENSION (4) Cardiomyopathy Current Visit: Yes Status: Acute Code(s): I42.9 - CARDIOMYOPATHY, UNSPECIFIED (5) CAP (community acquired pneumonia) Current Visit: Yes Status: Acute Code(s): J18.9 - PNEUMONIA, UNSPECIFIED ORGANISM (6) Hyponatremia Current Visit: Yes Status: Acute Code(s): E87.1 - HYPO-OSMOLALITY AND HYPONATREMIA (7) Hypokalemia Current Visit: Yes Status: Acute Code(s): E87.6 - HYPOKALEMIA (8) Lupus Current Visit: No Status: Chronic Code(s): M32.9 - SYSTEMIC LUPUS ERYTHEMATOSUS, UNSPECIFIED (9) Vascular dementia Current Visit: Yes Status: Acute Code(s): F01.50 - VASCULAR DEMENTIA, UNSP SEVERITY, WITHOUT BEH/PSYCH/MOOD/ANX (10) HLD (hyperlipidemia) Current Visit: Yes Status: Acute Code(s): E78.5 - HYPERLIPIDEMIA, UNSPECIFIED (11) Fibromyalgia Current Visit: Yes Status: Acute (12) Normocytic anemia Current Visit: Yes Status: Acute Code(s): D64.9 - ANEMIA, UNSPECIFIED (13) 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
[2025-05-13 06:09] LABS: BASOPHIL % 0.7 % (0.1-1.2); Basophil (Absolute #) 0.05 x10^3/uL (0.01-0.08); Eosinophil (Absolute #) 0.24 x10^3/uL (0.04-0.36); Hematocrit 35.1 % (34.1-44.9); Hemoglobin 11.3 g/dL (11.2-15.7); IMMATURE GRAN # 0.03 x10^3u/L (0.001-0.031); IMMATURE GRAN % 0.4 % (0.001-0.429); Lymphocyte (Absolute #) 1.45 x10^3/uL (1.18-3.74); Mean Corpuscular Hemoglobin 29.7 pg (25.6-32.2); Mean Corpuscular Hgb Concent. 32.2 g/dL (32.2-35.5); Monocyte (Absolute #) 0.48 x10^3/uL (0.24-0.86); NUCLEATED RBC # 0.00 x10^3u/L (0.00-0.012); NUCLEATED RBC % 0.0 % (0.00-0.2); Platelet Count 323 x10^3/uL (182-369); Red Blood Count 3.80 x10^6/uL (3.93-5.22); White Blood Count 7.3 x10^3/uL (3.98-10.04)
[2025-05-13 06:50] LABS: Calcium 9.0 mg/dL (8.4-10.2); Carbon Dioxide 28.0 mmol/L (22-30); Creatinine 1 0.91 mg/dL (0.52-1.04); EST GLOMERULAR FILTRATION RATE 63.8 ML/MIN; Glucose 104.0 mg/dL (74-106); Potassium 3.3 mmol/L (3.5-5.1); SGOT/AST 25.0 U/L (14-36); SGPT/ALT 20.0 U/L (0-35); Total Protein 7.0 g/dL (6.3-8.2)
--- NOTE | 2025-05-13 07:50 | XRAY ---
Indication: CHF exacerbation. Dyspnea. Comparison: May 11, 2025 Portable chest demonstrates minimal improvement previous small bibasilar effusions. Again incidental right apical calcified granuloma. Heart not enlarged for AP portable technique. No new cardiopulmonary abnormalities.
[2025-05-13] MEDS ORDERED: Aldactone 25 MG PO SCH (12:00)
[2025-05-13] MEDS ORDERED: DEMADEX 20 MG PO SCH (12:00)
[2025-05-13] MEDS: Aldactone 25 MG PO SCH (12:25)
[2025-05-13] MEDS: DEMADEX 20 MG PO SCH (12:25)
[2025-05-13] MEDS: Klor Con PO ONE (12:25)
[2025-05-14 06:31] LABS: BASOPHIL % 1.0 % (0.1-1.2); Basophil (Absolute #) 0.07 x10^3/uL (0.01-0.08); Eosinophil (Absolute #) 0 x10^3/uL (0.04-0.36); Hematocrit 36.8 % (34.1-44.9); Hemoglobin 12.0 g/dL (11.2-15.7); IMMATURE GRAN # 0.02 x10^3u/L (0.001-0.031); IMMATURE GRAN % 0.3 % (0.001-0.429); Lymphocyte (Absolute #) 1.54 x10^3/uL (1.18-3.74); Mean Corpuscular Hemoglobin 30.7 pg (25.6-32.2); Mean Corpuscular Hgb Concent. 32.6 g/dL (32.2-35.5); Monocyte (Absolute #) 0.41 x10^3/uL (0.24-0.86); NUCLEATED RBC # 0.00 x10^3u/L (0.00-0.012); NUCLEATED RBC % 0.0 % (0.00-0.2); Platelet Count 326 x10^3/uL (182-369); Red Blood Count 3.91 x10^6/uL (3.93-5.22); White Blood Count 6.9 x10^3/uL (3.98-10.04)
[2025-05-14 07:10] LABS: Calcium 9.7 mg/dL (8.4-10.2); Carbon Dioxide 25.0 mmol/L (22-30); Creatinine 1 0.8 mg/dL (0.52-1.04); EST GLOMERULAR FILTRATION RATE 74.4 ML/MIN; Glucose 105.0 mg/dL (74-106); Potassium 4.0 mmol/L (3.5-5.1); SGOT/AST 28.0 U/L (14-36); SGPT/ALT 21.0 U/L (0-35); Total Protein 7.2 g/dL (6.3-8.2)
[2025-05-14 07:13] LABS: Osmolality-Se/Pl 278 mOsmol/kg (280-301)
--- NOTE | 2025-05-14 10:53 | PCM.NOTE ---
Date and Time: 05/14/25 1051 OBJECTIVE: Formal orthostatic vital signs this am (diuretic dosing moved to 1200): Supine 141/86, 104 bpm Sitting 144/85, 104 bpm Standing 126/68, 87 bpm Subjective Assessment: Mild light headedness with standing. Chronic issue. Not necessarily worse with adjustment in medications. Exam General:: no acute distress, other (sitting up in chair) HEENT: EOMI, No JVD Cardiovascular: Regular Rate & Rhythm, s1 s2 (normal), no murmurs,rubs,gallops Respiratory:: other (occasional coarse BS. 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, No motor deficits Objective Data Vital Signs: Vital Signs - 24 hr Temp Pulse Resp BP BP Pulse Ox 05/14/25 08:00 98.8 F 80 20 109/59 109/59 94 L 05/14/25 06:53 85 16 92 L 05/14/25 04:15 98.4 F 77 16 129/72 95 05/14/25 00:00 75 16 05/13/25 19:30 97.5 F 93 H 18 133/70 96 05/13/25 16:00 97.7 F 87 18 140/88 94 L 05/13/25 12:00 97.7 F 85 18 135/83 98 Pain Assessment - Last Documented Pain Intensity 0 Intake and Output: Intake & Output 05/11/25 05/12/25 05/13/25 05/14/25 11:59 11:59 11:59 11:59 Intake Total 1200 1260 1200 1320 Output Total 2100 800 1100 1200 Balance -900 460 100 120 LAB: I have reviewed the Labs in [facility]. Lab Results: Lab Results-Last 24 Hours 05/10/25 05/13/25 05/13/25 Range/Units 07:10 05:32 14:14 WBC (3.98-10.04) x10^3/uL RBC (3.93-5.22) x10^6/uL Hgb (11.2-15.7) g/dL Hct (34.1-44.9) % MCV (79.4-94.8) fL MCH (25.6-32.2) pg MCHC (32.2-35.5) g/dL RDW (11.7-14.4) % Plt Count (182-369) x10^3/uL MPV (9.4-12.3) fL Gran % (34.0-71.1) % Immature Gran % (Auto) (0.001-0.429) % Nucleat RBC Rel Count (0.00-0.2) % Eos # (Auto) (0.04-0.36) x10^3/uL Immature Gran # (Auto) (0.001-0.031) x10^3u/L Absolute Lymphs (auto) (1.18-3.74) x10^3/uL Absolute Monos (auto) (0.24-0.86) x10^3/uL Absolute Nucleated RBC (0.00-0.012) x10^3u/L Lymphocytes % (19.3-51.7) % Monocytes % (4.7-12.5) % Eosinophils % (0.7-5.8) % Basophils % (0.1-1.2) % Absolute Granulocytes (1.56-6.13) x10^3/uL Basophils # (0.01-0.08) x10^3/uL Sodium (135-145) mmol/L Potassium 4.0 D (3.5-5.1) mmol/L Chloride (98-107) mmol/L Carbon Dioxide (22-30) mmol/L Anion Gap (5-15) MEQ/L BUN (7-17) mg/dL Creatinine (0.52-1.04) mg/dL Estimated GFR ML/MIN Glucose (74-106) mg/dL Serum Osmolality 278 L (280-301) mOsmol/kg Calcium (8.4-10.2) mg/dL Magnesium 2.1 (1.6-2.3) mg/dL Total Bilirubin (0.2-1.3) mg/dL AST (14-36) U/L ALT (0-35) U/L Alkaline Phosphatase (38-126) U/L Serum Total Protein (6.3-8.2) g/dL Albumin (3.5-5.0) g/dL Urine Osmolality Pending 05/14/25 05/14/25 Range/Units 06:32 06:32 WBC 6.9 (3.98-10.04) x10^3/uL RBC 3.91 L (3.93-5.22) x10^6/uL Hgb 12.0 (11.2-15.7) g/dL Hct 36.8 (34.1-44.9) % MCV 94.1 (79.4-94.8) fL MCH 30.7 (25.6-32.2) pg MCHC 32.6 (32.2-35.5) g/dL RDW 13.9 (11.7-14.4) % Plt Count 326 (182-369) x10^3/uL MPV 9.8 (9.4-12.3) fL Gran % 70.5 (34.0-71.1) % Immature Gran % (Auto) 0.3 (0.001-0.429) % Nucleat RBC Rel Count 0.0 (0.00-0.2) % Eos # (Auto) 0 L (0.04-0.36) x10^3/uL Immature Gran # (Auto) 0.02 (0.001-0.031) x10^3u/L Absolute Lymphs (auto) 1.54 (1.18-3.74) x10^3/uL Absolute Monos (auto) 0.41 (0.24-0.86) x10^3/uL Absolute Nucleated RBC 0.00 (0.00-0.012) x10^3u/L Lymphocytes % 22.3 (19.3-51.7) % Monocytes % 5.9 (4.7-12.5) % Eosinophils % 0.0 L (0.7-5.8) % Basophils % 1.0 (0.1-1.2) % Absolute Granulocytes 4.86 (1.56-6.13) x10^3/uL Basophils # 0.07 (0.01-0.08) x10^3/uL Sodium 132 L (135-145) mmol/L Potassium 4.0 (3.5-5.1) mmol/L Chloride 96 L (98-107) mmol/L Carbon Dioxide 25 (22-30) mmol/L Anion Gap 16.0 H (5-15) MEQ/L BUN 21 H (7-17) mg/dL Creatinine 0.80 (0.52-1.04) mg/dL Estimated GFR 74.4 ML/MIN Glucose 105 (74-106) mg/dL Serum Osmolality (280-301) mOsmol/kg Calcium 9.7 (8.4-10.2) mg/dL Magnesium 1.9 (1.6-2.3) mg/dL Total Bilirubin 0.50 (0.2-1.3) mg/dL AST 28 (14-36) U/L ALT 21 (0-35) U/L Alkaline Phosphatase 67 (38-126) U/L Serum Total Protein 7.2 (6.3-8.2) g/dL Albumin 4.1 (3.5-5.0) g/dL Urine Osmolality Radiology Exams: Radiology Procedures Category Date Time Status CHEST 1 VIEW (PORTABLE) Routine Exams 05/13/25 07:00 Completed TTE 05/10/2025: 1. Normal chamber sizes. 2. Moderately depressed left ventricular systolic function due to moderate global hypokinesis. Estimated EF 35%. 3. Mild diastolic dysfunction. 4. Normal right ventricular systolic function. 5. Mild aortic sclerosis without stenosis. 6. Doppler: Moderate mitral regurgitation, mild tricuspid regurgitation, trace aortic regurgitation. 7. Normal PA systolic pressure (32 mmHg). 8. Mildly elevated right atrial pressure (8 mmHg). 9. No pericardial effusion. CXR (AP) 05/13/2025: Minimal improvement previous small bibasilar effusions. Again incidental right apical calcified granuloma. Heart not enlarged for AP portable technique. No new cardiopulmonary abnormalities. CXR (AP) 05/11/2025: Portable chest improved with moderate clearing previous bilateral pleural effusions with mild residual still present, [id number]. Upper lung zones clear again with incidental right apical calcified granuloma. Heart not enlarged with diminished central vascular congestion. No new cardiopulmonary abnormalities. Tracing 1 Attestation: I have reviewed this EKG and interpreted as documented below. EKG Narrative: ECGs: 05/09/2025: NSR at 97 bpm. LAE. LVH with repolarization abnormality. Assessment & Plan (1) Acute combined systolic (congestive) and diastolic (congestive) heart failure Current Visit: Yes Status: Acute Assessment & Plan: Compensated. Tolerating GDMT with nightly metoprolol succinate and captopril as well as spironolactone and torsemide being given at noon. This schedule takes her orthostatic hypotension diagnosis into account. Delaying the initiation of SGLT2i nhibitor to allow upward titration of metoprolol succinate every 2 weeks. Code(s): I50.41 - ACUTE COMBINED SYSTOLIC AND DIASTOLIC (CONGESTIVE) HRT FAIL (2) Orthostatic hypotension Current Visit: No Status: Resolved Assessment & Plan: Symptoms are stable with the addition of her HFrEF GDMT. Code(s): I95.1 - ORTHOSTATIC HYPOTENSION (3) Cardiomyopathy Current Visit: Yes Status: Acute Assessment & Plan: Suspect related to her autoimmune diseases (SLE and RA). Need to first exclude an ischemic etiology based on her age and hypercholesterolemia. If workup is consistent with a nonischemic etiology, would evaluate with a cardiac MRI. In either scenario, will atempt to improve LV systolic function with maximally tolerated dose of metoprolol succinate. ECHO willneed to repeated in 3 months. Code(s): I42.9 - CARDIOMYOPATHY, UNSPECIFIED - Encounter Encounter: The entirety of this encounter was performed via Telemedicine using audio and visual. Permission was granted by patient. Her granddaughter was present duing the encounter. Questions addressed. Will sign off. Please call if any questions arise. Patient will need to follow up with Dr. Concepcion post discharge. BMP will need to be drawn one week post discharge with the initiation of spironolactone. Case discussed with Josie Rios NP. Dustin Singh MD [facility] [employer] [phone]
--- NOTE | 2025-05-14 14:15 | PCM.NOTE ---
Date and Time: 05/14/25 1409 Subjective Assessment: Ms. Gaines is an 80-year-old female with a complex medical history including rheumatoid arthritis, systemic lupus erythematosus, fibromyalgia, vascular dementia, hyperlipidemia, and chronic orthostatic hypotension, who presented on 05/10/25 with three weeks of worsening cough and shortness of breath. She was found to be hypoxic requiring supplemental oxygen, with imaging and labs concerning for pneumonia, pulmonary congestion, bilateral pleural effusions, and new-onset heart failure with reduced ejection fraction (EF 35%). Cardiology was consulted and recommended initiation of spironolactone, torsemide, and metoprolol, with discontinuation of fludrocortisone. Her dyspnea has gradually improved, and she is now stable on room air, though she continues to have a productive cough with yellow sputum. Sodium and electrolytes have been closely monitored and corrected as needed. Repeat chest imaging showed improved effusions, and her overall clinical status has stabilized. Despite improvement in respiratory symptoms, she continues to experience generalized weakness, fatigue, and lightheadedness with position changes, limiting her ability to safely ambulate or perform activities of daily living independently. Physical therapy has evaluated her, and she is awaiting possible inpatient rehabilitation placement pending insurance approval, with home health care as a backup option. At present, she remains clinically stable, denies new concerns, and continues on torsemide and spironolactone, with sputum culture results pending and outpatient cardiology follow-up arranged for ongoing management of her new diagnosis of CHF. - Review of Systems Constitutional: Weakness, No Fever, No Chills Eyes: No Symptoms Ears, Nose, & Throat: No Symptoms Respiratory: Cough, No Short Of Breath Cardiac: No Chest Pain, No Edema, No Syncope Abdominal/Gastrointestinal: No Abdominal Pain, No Nausea, No Vomiting, No Diarrhea Genitourinary Symptoms: No Dysuria Musculoskeletal: No Back Pain, No Neck Pain Skin: No Rash Neurological: No Dizziness, No Focal Weakness, No Sensory Changes Psychological: No Symptoms Endocrine: No Symptoms Hematologic/Lymphatic: No Symptoms Immunological/Allergic: No Symptoms Objective Exam General Appearance: no apparent distress, alert Neurologic Exam: alert, oriented x 3, cooperative, normal mood/affect, nml cerebellar function, sensation nml, motor weakness, No motor deficits Skin Exam: normal color, warm, dry Eye Exam: PERRL, EOMI, eyes nml inspection Ears, Nose, Throat Exam: normal ENT inspection, pharynx normal, moist mucous membranes Neck Exam: normal inspection, non-tender, supple, full range of motion Respiratory Exam: normal breath sounds, lungs clear, No respiratory distress Cardiovascular Exam: regular rate/rhythm, normal heart sounds Gastrointestinal/Abdomen Exam: soft, No tenderness, No mass Extremity Exam: normal inspection, normal range of motion Back Exam: normal inspection, normal range of motion, No CVA tenderness, No vertebral tenderness Pelvic Exam: deferred Rectal Exam: deferred Objective Data Vital Signs: Vital Signs - 24 hr Temp Pulse Resp BP BP Pulse Ox 05/14/25 11:44 98.5 F 78 16 144/85 99 05/14/25 11:09 80 126/68 05/14/25 11:08 78 144/85 05/14/25 11:06 79 141/86 05/14/25 08:00 98.8 F 80 20 109/59 109/59 94 L 05/14/25 06:53 85 16 92 L 05/14/25 04:15 98.4 F 77 16 129/72 95 05/14/25 00:00 75 16 05/13/25 19:30 97.5 F 93 H 18 133/70 96 05/13/25 16:00 97.7 F 87 18 140/88 94 L Pain Assessment - Last Documented Pain Intensity 7 Pain Scale Used 0-10 Pain Scale Intake and Output: Intake & Output 05/12/25 05/13/25 05/14/25 05/15/25 11:59 11:59 11:59 11:59 Intake Total 1260 1200 1320 480 Output Total 800 1100 1200 Balance 460 100 120 480 Lab Results: Lab Results-Last 24 Hours 05/10/25 05/13/25 05/14/25 Range/Units 07:10 14:14 06:32 WBC 6.9 (3.98-10.04) x10^3/uL RBC 3.91 L (3.93-5.22) x10^6/uL Hgb 12.0 (11.2-15.7) g/dL Hct 36.8 (34.1-44.9) % MCV 94.1 (79.4-94.8) fL MCH 30.7 (25.6-32.2) pg MCHC 32.6 (32.2-35.5) g/dL RDW 13.9 (11.7-14.4) % Plt Count 326 (182-369) x10^3/uL MPV 9.8 (9.4-12.3) fL Gran % 70.5 (34.0-71.1) % Immature Gran % (Auto) 0.3 (0.001-0.429) % Nucleat RBC Rel Count 0.0 (0.00-0.2) % Eos # (Auto) 0 L (0.04-0.36) x10^3/uL Immature Gran # (Auto) 0.02 (0.001-0.031) x10^3u/L Absolute Lymphs (auto) 1.54 (1.18-3.74) x10^3/uL Absolute Monos (auto) 0.41 (0.24-0.86) x10^3/uL Absolute Nucleated RBC 0.00 (0.00-0.012) x10^3u/L Lymphocytes % 22.3 (19.3-51.7) % Monocytes % 5.9 (4.7-12.5) % Eosinophils % 0.0 L (0.7-5.8) % Basophils % 1.0 (0.1-1.2) % Absolute Granulocytes 4.86 (1.56-6.13) x10^3/uL Basophils # 0.07 (0.01-0.08) x10^3/uL Sodium (135-145) mmol/L Potassium 4.0 D (3.5-5.1) mmol/L Chloride (98-107) mmol/L Carbon Dioxide (22-30) mmol/L Anion Gap (5-15) MEQ/L BUN (7-17) mg/dL Creatinine (0.52-1.04) mg/dL Estimated GFR ML/MIN Glucose (74-106) mg/dL Serum Osmolality 278 L (280-301) mOsmol/kg Calcium (8.4-10.2) mg/dL Magnesium (1.6-2.3) mg/dL Total Bilirubin (0.2-1.3) mg/dL AST (14-36) U/L ALT (0-35) U/L Alkaline Phosphatase (38-126) U/L Serum Total Protein (6.3-8.2) g/dL Albumin (3.5-5.0) g/dL Urine Osmolality Pending 05/14/25 Range/Units 06:32 WBC (3.98-10.04) x10^3/uL RBC (3.93-5.22) x10^6/uL Hgb (11.2-15.7) g/dL Hct (34.1-44.9) % MCV (79.4-94.8) fL MCH (25.6-32.2) pg MCHC (32.2-35.5) g/dL RDW (11.7-14.4) % Plt Count (182-369) x10^3/uL MPV (9.4-12.3) fL Gran % (34.0-71.1) % Immature Gran % (Auto) (0.001-0.429) % Nucleat RBC Rel Count (0.00-0.2) % Eos # (Auto) (0.04-0.36) x10^3/uL Immature Gran # (Auto) (0.001-0.031) x10^3u/L Absolute Lymphs (auto) (1.18-3.74) x10^3/uL Absolute Monos (auto) (0.24-0.86) x10^3/uL Absolute Nucleated RBC (0.00-0.012) x10^3u/L Lymphocytes % (19.3-51.7) % Monocytes % (4.7-12.5) % Eosinophils % (0.7-5.8) % Basophils % (0.1-1.2) % Absolute Granulocytes (1.56-6.13) x10^3/uL Basophils # (0.01-0.08) x10^3/uL Sodium 132 L (135-145) mmol/L Potassium 4.0 (3.5-5.1) mmol/L Chloride 96 L (98-107) mmol/L Carbon Dioxide 25 (22-30) mmol/L Anion Gap 16.0 H (5-15) MEQ/L BUN 21 H (7-17) mg/dL Creatinine 0.80 (0.52-1.04) mg/dL Estimated GFR 74.4 ML/MIN Glucose 105 (74-106) mg/dL Serum Osmolality (280-301) mOsmol/kg Calcium 9.7 (8.4-10.2) mg/dL Magnesium 1.9 (1.6-2.3) mg/dL Total Bilirubin 0.50 (0.2-1.3) mg/dL AST 28 (14-36) U/L ALT 21 (0-35) U/L Alkaline Phosphatase 67 (38-126) U/L Serum Total Protein 7.2 (6.3-8.2) g/dL Albumin 4.1 (3.5-5.0) g/dL Urine Osmolality Radiology Exams: Radiology Procedures Category Date Time Status CHEST 1 VIEW (PORTABLE) Routine Exams 05/13/25 07:00 Completed Medications: Medications Generic Name Dose Route Start Last Admin Trade Name Freq PRN Reason Stop Dose Admin Acetaminophen 650 mg 05/11/25 15:21 05/14/25 11:53 Acetaminophen 325 Mg Tablet PO 06/10/25 15:20 650 mg Q4H PRN PRN Administration PAIN AND/OR FEVER Albuterol/Ipratropium 3 ml 05/10/25 03:37 Ipratropium/Albuterol Sulfate 3 Ml Ampul.Neb IH 06/09/25 03:36 Q4HPRN PRN SHORTNESS OF BREATH/WHEEZING Aspirin 81 mg 05/10/25 12:00 05/14/25 09:00 Aspirin 81 Mg Tablet.Ec PO 06/09/25 11:59 81 mg DAILY KRISTYN Administration Calcium Carbonate 1 tab 05/10/25 12:00 05/14/25 09:00 Calcium Carbonate 500 Mg/Vitamin D 1 Tab Tablet PO 06/09/25 11:59 1 tab DAILY KRISTYN Administration Cholecalciferol 5,000 unit 05/10/25 12:00 05/14/25 09:00 Cholecalciferol (Vitamin D3) 1000 Unit Tablet PO 06/09/25 11:59 5,000 unit DAILY KRISTYN Administration Docusate Sodium 100 mg 05/10/25 12:00 05/14/25 09:00 Docusate Sodium 100 Mg Capsule PO 06/09/25 11:59 100 mg BID KRISTYN Administration Enoxaparin Sodium 40 mg 05/10/25 10:00 05/14/25 09:00 Enoxaparin Sodium 40 Mg/0.4 Ml Syringe SQ 06/09/25 09:59 40 mg DAILY KRISTYN Administration Ferrous Sulfate 325 mg 05/10/25 12:00 05/14/25 09:00 Ferrous Sulfate 325 Mg Tablet PO 06/09/25 11:59 325 mg DAILY KRISTYN Administration Magnesium Oxide 400 mg 05/11/25 10:00 05/13/25 10:28 Magnesium Oxide 400 Mg Tablet PO 06/10/25 09:59 400 mg QOD KRISTYN Administration Metoprolol Succinate 25 mg 05/12/25 14:38 05/13/25 21:29 Metoprolol Succinate 25 Mg Xl Tab PO 06/09/25 23:34 25 mg HS KRISTYN Administration Midodrine 5 mg 05/10/25 12:00 05/14/25 11:56 Midodrine Hcl 5 Mg Tablet PO 06/09/25 11:59 5 mg 0800,1200,1700 KRISTYN Administration Miscellaneous Information 1 each 05/10/25 12:00 Medication Intervention 1 Each Each MC 06/09/25 11:59 .RN TO CHECK KRISTYN Multivitamins Therapeutic 1 tab 05/10/25 12:00 05/14/25 09:00 Multivitamins,Therapeutic 1 Tab Tab PO 06/09/25 11:59 1 tab DAILY KRISTYN Administration Multivitamins/Minerals 1 tab 05/10/25 12:00 05/14/25 09:00 Beta-Carotene(A) W-C And E/Min 1 Tab Tablet PO 06/09/25 11:59 1 tab DAILY KRISTYN Administration Hydroxychloroquine 1 each 05/10/25 17:00 05/14/25 08:48 200mg Tablet PO 06/09/25 16:59 1 each 0900,1700 KRISTYN Administration Pantoprazole Sodium 40 mg 05/10/25 12:00 05/14/25 09:00 Protonix (Pantoprazole) 40 Mg Tablet PO 06/09/25 11:59 40 mg QAM KRISTYN Administration Patient Own Medication 0.5 each 05/12/25 22:00 05/13/25 21:29 Patient Own Med Misc PO 06/11/25 21:59 0.5 each QHS KRISTYN Administration Spironolactone 25 mg 05/13/25 12:00 05/14/25 11:54 Spironolactone 25 Mg Tablet PO 06/12/25 11:59 25 mg NOON KRISTYN Administration Torsemide 20 mg 05/13/25 12:00 05/14/25 11:54 Torsemide 20 Mg Tablet PO 06/12/25 11:59 20 mg NOON KRISTYN Administration Discontinued Medications Generic Name Dose Route Start Last Admin Trade Name Mike PRN Reason Stop Dose Admin Acetaminophen 650 mg 05/11/25 15:21 Acetaminophen 325 Mg Tablet PO 06/10/25 15:20 Q4H PRN PRN PAIN AND/OR FEVER Fludrocortisone Acetate 0.1 mg 05/10/25 12:00 05/10/25 12:17 Fludrocortisone Acetate 0.1 Mg Tablet PO 06/09/25 11:59 0.1 mg DAILY KRISTYN Administration Furosemide 40 mg 05/10/25 01:16 05/10/25 01:54 Furosemide 40 Mg/4 Ml Vial IV 05/10/25 01:17 40 mg STAT ONE Administration Furosemide Confirm 05/10/25 01:54 Furosemide 40 Mg/4 Ml Vial Administered 05/10/25 01:55 Dose 40 mg .ROUTE .STK-MED ONE Furosemide 40 mg 05/10/25 14:59 05/12/25 07:29 Furosemide 40 Mg/4 Ml Vial IV 05/10/25 15:00 Not Given STAT ONE Furosemide 40 mg 05/11/25 10:00 Furosemide 40 Mg/4 Ml Vial IV 06/10/25 09:59 DAILY KRISTYN Furosemide 40 mg 05/10/25 15:38 05/10/25 16:21 Furosemide 40 Mg/4 Ml Vial IV 06/09/25 15:37 40 mg BID DIURETIC KRISTYN Administration Guaifenesin 600 mg 05/10/25 12:00 05/13/25 10:28 Guaifenesin 600 Mg Tablet Er PO 06/09/25 11:59 600 mg BID KRISTYN Administration Levofloxacin/Dextrose 500 mg in 100 mls @ 100 mls/hr 05/10/25 01:16 05/10/25 01:35 Levofloxacin 500mg/100ml D5w IV 05/10/25 02:15 100 mls/hr STAT STA 100 mls/hr Administration Levofloxacin/Dextrose Confirm 05/10/25 01:24 Levofloxacin 500mg/100ml D5w Administered 05/10/25 01:25 Dose 500 mg in 100 mls @ ud IV .STK-MED ONE Levofloxacin/Dextrose 750 mg in 150 mls @ 100 mls/hr 05/10/25 22:00 05/10/25 21:39 Levofloxacin 750mg/150ml D5w IV 06/09/25 21:59 100 mls/hr QPM KRISTYN Administration Metoprolol Succinate 25 mg 05/10/25 23:35 05/10/25 23:37 Metoprolol Succinate 25 Mg Xl Tab PO 06/09/25 23:34 25 mg HS KRISTYN Administration Metoprolol Succinate 12.5 mg 05/11/25 07:26 05/11/25 21:39 Metoprolol Succinate 25 Mg Xl Tab PO 06/09/25 23:34 Not Given HS KRISTYN Miscellaneous Information 1 each 05/10/25 12:00 Medication Intervention 1 Each Each 06/09/25 11:59 .RN TO CHECK KRISTYN Captopril 12.5 Mg - 0.5 each 05/11/25 22:00 05/12/25 13:51 Patient Own PO 06/10/25 21:59 Not Given BID KRISTYN Potassium Chloride 20 meq 05/10/25 12:00 05/10/25 18:04 Potassium Chloride Tab 10 Meq Tab PO 05/10/25 18:01 20 meq Q2H KRISTYN Administration Potassium Chloride 20 meq 05/12/25 07:34 05/12/25 08:48 Potassium Chloride Tab 10 Meq Tab PO 05/12/25 07:35 20 meq STAT ONE Administration Potassium Chloride 20 meq 05/13/25 11:02 05/13/25 12:25 Potassium Chloride Tab 10 Meq Tab PO 05/13/25 11:03 20 meq STAT ONE Administration Spironolactone 25 mg 05/11/25 10:00 05/12/25 10:16 Spironolactone 25 Mg Tablet PO 06/10/25 09:59 25 mg DAILY KRISTYN Administration Spironolactone 25 mg 05/12/25 14:35 Spironolactone 25 Mg Tablet PO 06/10/25 11:59 DAILY KRISTYN Spironolactone 25 mg 05/13/25 12:00 Spironolactone 25 Mg Tablet PO 06/12/25 11:59 DAILY KRISTYN Torsemide 20 mg 05/11/25 10:00 05/12/25 10:16 Torsemide 20 Mg Tablet PO 06/10/25 09:59 20 mg DAILY KRISTYN Administration Torsemide 20 mg 05/12/25 14:35 Torsemide 20 Mg Tablet PO 06/10/25 11:59 DAILY KRISTYN Torsemide 20 mg 05/13/25 12:00 Torsemide 20 Mg Tablet PO 06/12/25 11:59 DAILY [facility] Multi-Disciplinary Progress Notes: Multi-Disciplinary Progress Notes 05/14/25 11:30 (created 05/14/25 13:19) Case Management Note by Abbey Hartley S/Maurizio PATIENT AND DAUGHTER ASHLEIGH- THEY WOULD LIKE FOR PATIENT TO GO TO SNF FOR SHORT TERM REHAB STAY. THEY WOULD LIKE [facility]. PASRR DONE, NO LEVEL II REQUIRED. COPIES PLACED ON CHART FULL REFERRAL EMAILED TO [facility] Initialized on 05/14/25 13:19 - END OF NOTE Assessment/Plan (1) Acute combined systolic (congestive) and diastolic (congestive) heart failure Current Visit: Yes Status: Acute Assessment & Plan: -Echo shows LVEF 35%, moderate global hypokinesis, mild diastolic dysfunction, and moderate MR, correlating with elevated BNP (14,900 ), cardiomegaly, pulmonary congestion, and moderate bilateral pleural effusions on imaging. -Cardiology consulted; recommendations/agree with plan: Start spironolactone 25 mg PO daily ;Transition to torsemide 20 mg PO daily for ongoing diuresis and volume control, with strict I&O, daily weights, fluid restriction (11.5 L/day). Start metoprolol succinate 12.5 mg PO nightly -Tele -Maintain K >4.0 and Mg >2.0 with supplementation as needed. -Given age and history of hyperlipidemia, an ischemic cardiomyopathy is a velez consideration; plan for outpatient evaluation with her local mud logger for further ischemic workup (e.g., stress testing/angiography as deemed appropriate).Autoimmune (RA/SLE-related) cardiomyopathy remains in the differential; if the cardiomyopathy is ultimately felt to be non-ischemic, cardiac MRI should be considered to evaluate for inflammatory or infiltrative processes. -CXR improved with moderate clearing previous bilateral pleural effusions with mild residual still present, [id number]. Upper lung zones clear again with incidental right apical calcified granuloma. Heart not enlarged with diminished central vascular congestion. No new cardiopulmonary abnormalities -No thoracentesis at this time; will reconsider if effusions fail to improve with medical management or if respiratory status worsens. -CMP/CBC reviewed - 05/12-Cardiology documentation reviewed agree with plan - Metoprolol: increase to 25 mg today; monitor HR/BP and tolerance. Captopril: restart 6.25 mg nightly (non-formulary; family to bring home supply). Diuretics: continue torsemide and spironolactone; track I/Os, daily weights, and electrolytes/renal function. Metoprolol may be titrated q2 weeks as tolerated outpatient. Encourage home BP/HR log. Cardiology follow-up with Dr. Concepcion. Consider SGLT2 inhibitor initiation as outpatient. - CXR 05/13: Portable chest demonstrates minimal improvement previous small bibasilar effusions. Again incidental right apical calcified granuloma. Heart not enlarged for AP portable technique. No new cardiopulmonary abnormalities. Code(s): I50.41 - ACUTE COMBINED SYSTOLIC AND DIASTOLIC (CONGESTIVE) HRT FAIL (2) Cardiomyopathy Current Visit: Yes Status: Acute Assessment & Plan: -Cardiology following - New diagnosis of HFrEF with EF 35%. - Ischemic cardiomyopathy strongly considered given age and hyperlipidemia- plan outpatient follow-up with local mud logger for ischemic workup. - Autoimmune cardiomyopathy also in the differential given RA/SLE; if deemed non-ischemic, cardiac MRI is recommended for tissue characterization and assessment of inflammation/scarring. Code(s): I42.9 - CARDIOMYOPATHY, UNSPECIFIED (3) Acute respiratory failure with hypoxia Current Visit: Yes Status: Resolved Assessment & Plan: - RA- 92% - CXR with improved effusions - Sputum culture pending Code(s): J96.01 - ACUTE RESPIRATORY FAILURE WITH HYPOXIA (4) Hyponatremia Current Visit: Yes Status: Acute Assessment & Plan: - Mild Na+ 132- trend Code(s): E87.1 - HYPO-OSMOLALITY AND HYPONATREMIA (5) Normocytic anemia Current Visit: Yes Status: Acute Assessment & Plan: -Hgb stable at 12 - Iron studies reviewed- Iron sat 17 - Continue ferrous sulfate for iron def anemia Code(s): D64.9 - ANEMIA, UNSPECIFIED (6) Generalized weakness Current Visit: No Status: Acute Assessment & Plan: - Secondary to acute illness, new CHF diagnosis, deconditioning, and orthostasis - Patient unable to safely ambulate or perform ADLs independently - PT/OT evaluation ordered - Need for skilled inpatient rehabilitation - CM assistance for d/c planning Code(s): R53.1 - WEAKNESS (7) Fibromyalgia Current Visit: Yes Status: Chronic Assessment & Plan: -continue home regimen (8) HLD (hyperlipidemia) Current Visit: Yes Status: Chronic Assessment & Plan: -Continue home regimen Code(s): E78.5 - HYPERLIPIDEMIA, UNSPECIFIED (9) Vascular dementia Current Visit: Yes Status: Chronic Assessment & Plan: -Continue home regimen Code(s): F01.50 - VASCULAR DEMENTIA, UNSP SEVERITY, WITHOUT BEH/PSYCH/MOOD/ANX (10) Lupus Current Visit: No Status: Chronic Assessment & Plan: -History of RA, SLE, and Sjgrens, 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 -These conditions increase risk for autoimmune myocarditis, interstitial lung disease, pleural involvement, and chronic anemia, all of which may contribute to her current presentation. -Continue home immunosuppressive regimen -sjgrens is a rare but recognized cause of non-ischemic cardiomyopathy; in combination with RA/SLE, this strengthens the rationale for cardiac MRI if the ischemic evaluation is negative. -Rheumatology follow-up recommended after discharge for disease activity assessment and immunosuppressive regimen optimization. 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 Current Visit: Yes Status: Chronic Assessment & Plan: -see lupus above Code(s): M35.07 - SJOGREN SYNDROME WITH CENTRAL NERVOUS SYSTEM INVOLVEMENT; G37.9 - DEMYELINATING DISEASE OF CENTRAL NERVOUS SYSTEM, UNSPECIFIED (12) Orthostatic hypotension Current Visit: No Status: Resolved Assessment & Plan: - resolved Code(s): I95.1 - ORTHOSTATIC HYPOTENSION (13) CAP (community acquired pneumonia) Current Visit: Yes Status: Resolved Assessment & Plan: -Discontinue Levaquin- no pneumonia seen on CT/CXR, no WBC - Blood cultures x2 negative - Sputum culture pending - Legionella urine antigen and Streptococcus pneumoniae urine antigen pending - Monitor fever curve, WBC, respiratory status, and radiographic response. - Flu/COVID/RSV negative - CBC, CMP reviewed Code(s): J18.9 - PNEUMONIA, UNSPECIFIED ORGANISM (14) Hypokalemia Current Visit: Yes Status: Resolved Assessment & Plan: - Resolved VTE: Lovenox PPI: protonix Dispo: pending placement Code status: SCO Plan of care time spent > 45 mins Code(s): E87.6 - HYPOKALEMIA
--- NOTE | 2025-05-14 15:09 | PCM.DS ---
Discharge Summary Date of Admission: 05/10/25 15:41 Date of Discharge: 05/14/25 Admitting Physician: KENNETH NGUYEN MD Consults: Consults on Case 05/10/25 15:31 Consult Cardiology ROUTINE Primary Care Provider: MANNY LEWIS DO Allergies Allergies pollen extracts Allergy (Severe, Verified 05/09/25 23:03) Swelling of Face Penicillins Allergy (Intermediate, Verified 05/09/25 23:03) Rash mold Allergy (Mild, Verified 05/09/25 23:03) Swelling of Face Influenza Virus Vaccines Adverse Reaction (Intermediate, Verified 05/09/25 23:04) Rash pneumococcal vaccine Adverse Reaction (Intermediate, Verified 05/09/25 23:04) Rash [id number] Reductase Inhibitor Adverse Reaction (Intermediate, Verified 05/09/25 23:03) Fatigue Hospital Summary - Hospital Course Hospital Course: Ms. Gaines is an 80-year-old female with a complex medical history including rheumatoid arthritis, systemic lupus erythematosus, fibromyalgia, vascular dementia, hyperlipidemia, and chronic orthostatic hypotension, who was admitted on 05/10/25 with three weeks of worsening cough and shortness of breath. She was found to be hypoxic requiring supplemental oxygen, with imaging and laboratory studies concerning for pneumonia, pulmonary congestion, bilateral pleural effusions, and new-onset heart failure with reduced ejection fraction (EF 35%). Cardiology was consulted and recommended initiation of spironolactone, torsemide, and metoprolol, with discontinuation of fludrocortisone. Her dyspnea gradually improved, and she is now stable on room air, though she continues to have a productive cough with yellow sputum. Sodium and electrolytes were closely monitored and corrected as needed, and repeat chest imaging showed improved effusions. Despite improvement in respiratory symptoms, she continues to experience generalized weakness, fatigue, and lightheadedness with position changes, limiting her ability to safely ambulate or perform activities of daily living independently. Physical therapy has evaluated her, and she is awaiting possible inpatient rehabilitation placement pending insurance approval, with home health care as a backup option. At the time of discharge, she remains clinically stable, denies new concerns, and continues on torsemide and spironolactone, with sputum culture results pending and outpatient cardiology follow-up arranged for ongoing management of her new diagnosis of congestive heart failure. She is planned to d/c to [place] for rehab today. - Vitals & Intake/Output Vital Signs: Vital Signs Temperature 98.5 F 05/14/25 11:44 Pulse Rate 78 05/14/25 11:44 Respiratory Rate 16 05/14/25 11:44 Blood Pressure 144/85 05/14/25 11:44 O2 Sat by Pulse Oximetry 99 05/14/25 11:44 Intake & Output: Intake & Output 05/12/25 05/13/25 05/14/25 05/15/25 11:59 11:59 11:59 11:59 Intake Total 1260 1200 1320 480 Output Total 800 1100 1200 Balance 460 100 120 480 - Lab Result Diagrams: 05/14/25 06:32 05/14/25 06:32 Lab Results-Last 24 Hrs: Lab Results-Last 24 Hours 05/10/25 05/13/25 05/14/25 Range/Units 07:10 14:14 06:32 WBC 6.9 (3.98-10.04) x10^3/uL RBC 3.91 L (3.93-5.22) x10^6/uL Hgb 12.0 (11.2-15.7) g/dL Hct 36.8 (34.1-44.9) % MCV 94.1 (79.4-94.8) fL MCH 30.7 (25.6-32.2) pg MCHC 32.6 (32.2-35.5) g/dL RDW 13.9 (11.7-14.4) % Plt Count 326 (182-369) x10^3/uL MPV 9.8 (9.4-12.3) fL Gran % 70.5 (34.0-71.1) % Immature Gran % (Auto) 0.3 (0.001-0.429) % Nucleat RBC Rel Count 0.0 (0.00-0.2) % Eos # (Auto) 0 L (0.04-0.36) x10^3/uL Immature Gran # (Auto) 0.02 (0.001-0.031) x10^3u/L Absolute Lymphs (auto) 1.54 (1.18-3.74) x10^3/uL Absolute Monos (auto) 0.41 (0.24-0.86) x10^3/uL Absolute Nucleated RBC 0.00 (0.00-0.012) x10^3u/L Lymphocytes % 22.3 (19.3-51.7) % Monocytes % 5.9 (4.7-12.5) % Eosinophils % 0.0 L (0.7-5.8) % Basophils % 1.0 (0.1-1.2) % Absolute Granulocytes 4.86 (1.56-6.13) x10^3/uL Basophils # 0.07 (0.01-0.08) x10^3/uL Sodium (135-145) mmol/L Potassium 4.0 D (3.5-5.1) mmol/L Chloride (98-107) mmol/L Carbon Dioxide (22-30) mmol/L Anion Gap (5-15) MEQ/L BUN (7-17) mg/dL Creatinine (0.52-1.04) mg/dL Estimated GFR ML/MIN Glucose (74-106) mg/dL Serum Osmolality 278 L (280-301) mOsmol/kg Calcium (8.4-10.2) mg/dL Magnesium (1.6-2.3) mg/dL Total Bilirubin (0.2-1.3) mg/dL AST (14-36) U/L ALT (0-35) U/L Alkaline Phosphatase (38-126) U/L Serum Total Protein (6.3-8.2) g/dL Albumin (3.5-5.0) g/dL Urine Osmolality Pending 05/14/25 Range/Units 06:32 WBC (3.98-10.04) x10^3/uL RBC (3.93-5.22) x10^6/uL Hgb (11.2-15.7) g/dL Hct (34.1-44.9) % MCV (79.4-94.8) fL MCH (25.6-32.2) pg MCHC (32.2-35.5) g/dL RDW (11.7-14.4) % Plt Count (182-369) x10^3/uL MPV (9.4-12.3) fL Gran % (34.0-71.1) % Immature Gran % (Auto) (0.001-0.429) % Nucleat RBC Rel Count (0.00-0.2) % Eos # (Auto) (0.04-0.36) x10^3/uL Immature Gran # (Auto) (0.001-0.031) x10^3u/L Absolute Lymphs (auto) (1.18-3.74) x10^3/uL Absolute Monos (auto) (0.24-0.86) x10^3/uL Absolute Nucleated RBC (0.00-0.012) x10^3u/L Lymphocytes % (19.3-51.7) % Monocytes % (4.7-12.5) % Eosinophils % (0.7-5.8) % Basophils % (0.1-1.2) % Absolute Granulocytes (1.56-6.13) x10^3/uL Basophils # (0.01-0.08) x10^3/uL Sodium 132 L (135-145) mmol/L Potassium 4.0 (3.5-5.1) mmol/L Chloride 96 L (98-107) mmol/L Carbon Dioxide 25 (22-30) mmol/L Anion Gap 16.0 H (5-15) MEQ/L BUN 21 H (7-17) mg/dL Creatinine 0.80 (0.52-1.04) mg/dL Estimated GFR 74.4 ML/MIN Glucose 105 (74-106) mg/dL Serum Osmolality (280-301) mOsmol/kg Calcium 9.7 (8.4-10.2) mg/dL Magnesium 1.9 (1.6-2.3) mg/dL Total Bilirubin 0.50 (0.2-1.3) mg/dL AST 28 (14-36) U/L ALT 21 (0-35) U/L Alkaline Phosphatase 67 (38-126) U/L Serum Total Protein 7.2 (6.3-8.2) g/dL Albumin 4.1 (3.5-5.0) g/dL Urine Osmolality Micro Results-Entire Visit: Microbiology 05/09/25 23:15 Blood Culture - Final Blood 05/09/25 23:10 Blood Culture - Final Blood 05/10/25 00:00 Urine Culture - Final Urine, Catheterized NO GROWTH - Radiology Exams Ordered Rad Exams-Entire Visit: Radiology Procedures Category Date Time Status CHEST 1 VIEW (PORTABLE) Routine Exams 05/13/25 07:00 Completed - Procedures and Test Procedures and Tests throughout Hospitalization: Therapy Orders & Screens 05/09/25 23:20 Incentive Spirometry UD Comment: 05/10/25 04:45 Respiratory Therapy Assessment DAILY Comment: Diagnosis: Congestive heart failure, pneumonia 05/10/25 04:46 Oxygen Nasal Cannula 2 lpm Comment: Diagnosis: Congestive heart failure, pneumonia 05/10/25 11:38 Flutter Therapy UD Comment: Diagnosis: Congestive heart failure, pneumonia 05/11/25 12:02 Qualify for Home Oxygen TODAY Comment: Diagnosis: Congestive heart failure, pneumonia 05/12/25 14:43 PT Eval & Treat (MD Order) ONCE Reason for Eval:: weakness Diagnosis: Congestive heart failure, pneumonia OT Eval and Treat (MD Order) ONCE Comment: Physician Instructions: Reason For Exam: Diagnosis: Congestive heart failure, pneumonia 05/13/25 08:08 Flutter Therapy UD Comment: Diagnosis: Congestive heart failure, pneumonia 05/13/25 08:56 Qualify for Home Oxygen TODAY Comment: Diagnosis: Congestive heart failure, pneumonia Discharge Exam General Appearance: no apparent distress, alert Neurologic Exam: alert, oriented x 3, cooperative, normal mood/affect, nml cerebellar function, sensation nml, motor weakness, No motor deficits Eye Exam: PERRL, EOMI, eyes nml inspection Ears, Nose, Throat Exam: normal ENT inspection, pharynx normal, moist mucous membranes Neck Exam: normal inspection, non-tender, supple, full range of motion Respiratory Exam: normal breath sounds, lungs clear, No respiratory distress Cardiovascular Exam: regular rate/rhythm, normal heart sounds Gastrointestinal/Abdomen Exam: soft, No tenderness, No mass Pelvic Exam: deferred Rectal Exam: deferred Back Exam: normal inspection, normal range of motion, No CVA tenderness, No vertebral tenderness Extremity Exam: normal inspection, normal range of motion Skin Exam: normal color, warm, dry Final Diagnosis/Problem List - Final Discharge Diagnosis/Problem (1) Acute combined systolic (congestive) and diastolic (congestive) heart failure Current Visit: Yes Status: Acute Code(s): I50.41 - ACUTE COMBINED SYSTOLIC AND DIASTOLIC (CONGESTIVE) HRT FAIL (2) Cardiomyopathy Current Visit: Yes Status: Acute Code(s): I42.9 - CARDIOMYOPATHY, UNSPECIFIED (3) Acute respiratory failure with hypoxia Current Visit: Yes Status: Resolved Code(s): J96.01 - ACUTE RESPIRATORY FAILURE WITH HYPOXIA (4) Hyponatremia Current Visit: Yes Status: Acute Code(s): E87.1 - HYPO-OSMOLALITY AND HYPONATREMIA (5) Normocytic anemia Current Visit: Yes Status: Acute Code(s): D64.9 - ANEMIA, UNSPECIFIED (6) Generalized weakness Current Visit: No Status: Acute Code(s): R53.1 - WEAKNESS (7) Fibromyalgia Current Visit: Yes Status: Chronic (8) HLD (hyperlipidemia) Current Visit: Yes Status: Chronic Code(s): E78.5 - HYPERLIPIDEMIA, UNSPECIFIED (9) Vascular dementia Current Visit: Yes Status: Chronic Code(s): F01.50 - VASCULAR DEMENTIA, UNSP SEVERITY, WITHOUT BEH/PSYCH/MOOD/ANX (10) Lupus Current Visit: No Status: Chronic 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 Current Visit: Yes Status: Chronic Code(s): M35.07 - SJOGREN SYNDROME WITH CENTRAL NERVOUS SYSTEM INVOLVEMENT; G37.9 - DEMYELINATING DISEASE OF CENTRAL NERVOUS SYSTEM, UNSPECIFIED (12) Orthostatic hypotension Current Visit: No Status: Resolved Code(s): I95.1 - ORTHOSTATIC HYPOTENSION (13) CAP (community acquired pneumonia) Current Visit: Yes Status: Resolved Code(s): J18.9 - PNEUMONIA, UNSPECIFIED ORGANISM (14) Hypokalemia Current Visit: Yes Status: Resolved Assessment & Plan: (1) Acute combined systolic (congestive) and diastolic (congestive) heart failure Current Visit: Yes Status: Acute Assessment & Plan: -Echo shows LVEF 35%, moderate global hypokinesis, mild diastolic dysfunction, and moderate MR, correlating with elevated BNP (14,900 ), cardiomegaly, pulmonary congestion, and moderate bilateral pleural effusions on imaging. -Cardiology consulted; recommendations/agree with plan: Start spironolactone 25 mg PO daily ;Transition to torsemide 20 mg PO daily for ongoing diuresis and volume control, with strict I&O, daily weights, fluid restriction (11.5 L/day). Start metoprolol succinate 12.5 mg PO nightly -Tele -Maintain K >4.0 and Mg >2.0 with supplementation as needed. 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 -CXR improved with moderate clearing previous bilateral pleural effusions with mild residual still present, [id number]. Upper lung zones clear again with incidental right apical calcified granuloma. Heart not enlarged with diminished central vascular congestion. No new cardiopulmonary abnormalities -No thoracentesis at this time; will reconsider if effusions fail to improve with medical management or if respiratory status worsens. -CMP/CBC reviewed - 05/12-Cardiology documentation reviewed agree with plan - Metoprolol: increase to 25 mg today; monitor HR/BP and tolerance. Captopril: restart 6.25 mg nightly (non-formulary; family to bring home supply). Diuretics: continue torsemide and spironolactone; track I/Os, daily weights, and electrolytes/renal function. Metoprolol may be titrated q2 weeks as tolerated outpatient. Encourage home BP/HR log. Cardiology follow-up with Dr. Shah. Consider SGLT2 inhibitor initiation as outpatient. - CXR 05/13: Portable chest demonstrates minimal improvement previous small bibasilar effusions. Again incidental right apical calcified granuloma. Heart not enlarged for AP portable technique. No new cardiopulmonary abnormalities. Code(s): I50.41 - ACUTE COMBINED SYSTOLIC AND DIASTOLIC (CONGESTIVE) HRT FAIL (2) Cardiomyopathy Current Visit: Yes Status: Acute Assessment & Plan: -Cardiology following - New diagnosis of HFrEF with EF 35%. - Ischemic cardiomyopathy strongly considered given age and hyperlipidemia- plan outpatient follow-up with local [employer] builder for ischemic workup. - Autoimmune cardiomyopathy also in the differential given RA/SLE; if deemed non-ischemic, cardiac MRI is recommended for tissue characterization and assessment of inflammation/scarring. Code(s): I42.9 - CARDIOMYOPATHY, UNSPECIFIED (3) Acute respiratory failure with hypoxia Current Visit: Yes Status: Resolved Assessment & Plan: - RA- 92% - CXR with improved effusions - Sputum culture pending Code(s): J96.01 - ACUTE RESPIRATORY FAILURE WITH HYPOXIA (4) Hyponatremia Current Visit: Yes Status: Acute Assessment & Plan: - Mild Na+ 132- trend Code(s): E87.1 - HYPO-OSMOLALITY AND HYPONATREMIA (5) Normocytic anemia Current Visit: Yes Status: Acute Assessment & Plan: -Hgb stable at 12 - Iron studies reviewed- Iron sat 17 - Continue ferrous sulfate for iron def anemia Code(s): D64.9 - ANEMIA, UNSPECIFIED (6) Generalized weakness Current Visit: No Status: Acute Assessment & Plan: - Secondary to acute illness, new CHF diagnosis, deconditioning, and orthostasis - Patient unable to safely ambulate or perform ADLs independently - PT/OT evaluation ordered - Need for skilled inpatient rehabilitation - assistance for d/c planning Code(s): R53.1 - WEAKNESS (7) Fibromyalgia Current Visit: Yes Status: Chronic Assessment & Plan: -continue home regimen (8) HLD (hyperlipidemia) Current Visit: Yes Status: Chronic Assessment & Plan: -Continue home regimen Code(s): E78.5 - HYPERLIPIDEMIA, UNSPECIFIED (9) Vascular dementia Current Visit: Yes Status: Chronic Assessment & Plan: -Continue home regimen Code(s): F01.50 - VASCULAR DEMENTIA, UNSP SEVERITY, WITHOUT BEH/PSYCH/MOOD/ANX (10) Lupus Current Visit: No Status: Chronic Assessment & Plan: -History of RA, SLE, and Sjgrens, 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 -These conditions increase risk for autoimmune myocarditis, interstitial lung disease, pleural involvement, and chronic anemia, all of which may contribute to her current presentation. -Continue home immunosuppressive regimen -sjgrens is a rare but recognized cause of non-ischemic cardiomyopathy; in combination with RA/SLE, this strengthens the rationale for cardiac MRI if the ischemic evaluation is negative. -Rheumatology follow-up recommended after discharge for disease activity assessment and immunosuppressive regimen optimization. 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 Current Visit: Yes Status: Chronic Assessment & Plan: -see lupus above Code(s): M35.07 - SJOGREN SYNDROME WITH CENTRAL NERVOUS SYSTEM INVOLVEMENT; G37.9 - DEMYELINATING DISEASE OF CENTRAL NERVOUS SYSTEM, UNSPECIFIED (12) Orthostatic hypotension Current Visit: No Status: Resolved Assessment & Plan: - resolved Code(s): I95.1 - ORTHOSTATIC HYPOTENSION (13) CAP (community acquired pneumonia) Current Visit: Yes Status: Resolved Assessment & Plan: -Discontinue Levaquin- no pneumonia seen on CT/CXR, no WBC - Blood cultures x2 negative - Sputum culture pending - Legionella urine antigen and Streptococcus pneumoniae urine antigen pending - Monitor fever curve, WBC, respiratory status, and radiographic response. - Flu/COVID/RSV negative - CBC, CMP reviewed Code(s): J18.9 - PNEUMONIA, UNSPECIFIED ORGANISM (14) Hypokalemia Current Visit: Yes Status: Resolved Assessment & Plan: - Resolved Sputum culture pending- will continue to follow OP. D/C plan of care time > 45 minutes Code(s): E87.6 - HYPOKALEMIA - Discharge Discharge Date: 05/14/25 ([facility] rehab) Disposition: XFER OTHER Condition: Stable Prescriptions: New Spironolactone 25 mg [Aldactone 25 MG] 25 mg PO NOON 30 Days #30 tablet Torsemide 20 mg [Demadex 20 mg] 20 mg PO NOON 30 Days #30 tablet Metoprolol Succinate 25 mg Xl* [Toprol-Xl 25MG Tablets] 25 mg PO HS 30 Days #30 tablet Continue Aspirin 81 gm Chew [Baby Aspirin 81 mg Chew] 81 mg PO DAILY Calcium Carbonate/Vitamin D3 [Calcium 600-Vit D3 200 Tablet] 1 tab PO DAILY Hydroxychloroquine Sulfate 200 mg PO BID Midodrine HCl [Proamatine] 5 mg PO TID Multivit-Min/FA/Lycopen/Lutein [Centrum Silver Tablet] 1 each PO DAILY Cholecalciferol (Vitamin D3) [Vitamin D3] 5,000 unit PO DAILY captopriL [Captopril] 6.25 mg PO HS Docusate Sodium 100 mg [Docusate Sodium 100 MG] 100 mg PO BID Fludrocortisone Acetate 0.1 mg PO DAILY Acetaminophen 325 mg [Tylenol 325 mg] 650 mg PO Q4HPRN PRN PRN Reason: Pain Beta-Carotene(A) W-C & E/Min [Ocuvite Tablet] 1 tab PO DAILY Celecoxib 200 mg PO BID Cyanocobalamin (Vitamin B-12) [Vitamin B-12] 5,000 mcg PO UD Ferrous Sulfate 325 mg PO DAILY Magnesium Oxide 400 mg PO Q48H PANTOPRAZOLE 40 mg Tablet [Protonix 40MG Tablet] 40 mg PO QAM Additional Instructions: RESIDENTIAL ORDERS: ADMIT TO CARE HOME CARE [address] DIET PT/OT EVAL AND TREAT SEE ATTACHED MED LIST Track I/Os, daily weights, and electrolytes/renal function. Metoprolol may be titrated q2 weeks as tolerated outpatient. Encourage home BP/HR log. Cardiology follow-up with Dr. Shah. Consider SGLT2 inhibitor initiation as outpatient. Follow up with: MANNY LEWIS DO [Primary Care Provider, [facility]ILY [facility]ACT[facility]] - 05/14/25 3:00 pm RAKAN SHAH MD [NON-STAFF PHY W/O PRIVILEGES, CARDIAC ELECTROPHYSIOLOGY] - 06/15/25 11:45 am Referral Note:
[2025-05-14 16:01] VITALS: BP 147/87; PULSE 87; RESP 20; TEMP 98.7; O2SAT 98
[2025-05-15 21:25] LABS: Osmolality, Urine 303 mOsmol/kg (.)
== END 2025-05-14 18:37 | DRG 291 ==
LOC: ED 22:42 → MED SURG 05-10 01:52 → OBSVTOIN 05-10 15:41
PROVIDERS: ADMIT Internal Medicine; ATTEND Internal Medicine
DX: I50.41 Acute combined systolic (congestive) and diastolic (congestive) heart failure (principal); J18.9 Pneumonia, unspecified organism; J96.01 Acute respiratory failure with hypoxia; I42.9 Cardiomyopathy, unspecified; E87.1 Hypo-osmolality and hyponatremia; M35.07 Sjogren syndrome with central nervous system involvement; G37.9 Demyelinating disease of central nervous system, unspecified; D64.9 Anemia, unspecified; R53.1 Weakness; M79.7 Fibromyalgia; E78.5 Hyperlipidemia, unspecified; F01.50 Vascular dementia, unspecified severity, without behavioral disturbance, psychotic disturbance, mood disturbance, and anxiety; M32.9 Systemic lupus erythematosus, unspecified; I95.1 Orthostatic hypotension; E87.6 Hypokalemia; R60.0 Localized edema; Z79.899 Other long term (current) drug therapy